=== PATIENT | female | born 1950 | race Caucasian/White ===

== ENCOUNTER 2016-10-04 20:30 | Emergency (ER) | payer MEDICARE, OTHER ==
[2016-10-04] MEDS ORDERED: Nitroglycerin 0.4 MG Tab.SL SL ONE (20:49)
[2016-10-04] MEDS ORDERED: Pantoprazole 40 MG Vial IVPUSH ONE (20:50)
[2016-10-04] MEDS ORDERED: Ondansetron 4 MG/2 ML SDV IVPUSH ONE (20:50)
[2016-10-04] MEDS ORDERED: Morphine 2 MG/ML Syringe IVPUSH ONE (20:50)
[2016-10-04] MEDS ORDERED: Famotidine 20 MG/2 ML SDV IVPUSH ONE (20:51)
[2016-10-04] MEDS ORDERED: Sodium Chloride 0.9% 1,000 ML IV SCH (21:00)
--- NOTE | 2016-10-04 21:15 | EDM.PDOC ---
ED HPI GENERAL MEDICAL PROBLEM - General Chief Complaint: Chest Pain Stated Complaint: Chest Pain Time Seen by Provider: 10/04/16 20:36 Source of Information: Reports: Patient, EMS, EMS Notes Reviewed, Family, RN, RN Notes Reviewed History Limitations: Reports: No Limitations - History of Present Illness INITIAL COMMENTS - FREE TEXT/NARRATIVE: Patient is brought to the emergency room at [facility] via EMS. The patient called the ambulance because she started having substernal chest pain. The patient states that she was sitting outside on her deck smoking a cigarette when she started feeling the chest pain. No previous cardiac history. The patient states she feels short of breath. The patient complains of a headache. The patient denies any back pain. The patient states that her pain does feel like indigestion. The patient denies any nausea or vomiting. The patient states she did break out in a sweat when the chest pain started. The patient denies any focal neurological deficits. Onset: Today - Related Data Allergies Allergy/AdvReac Type Severity Reaction Status Date / Time diclofenac Allergy Edema Verified 09/20/15 06:57 Kkilyym-Iiy-Ygr Reductase Allergy Muscle Verified 09/20/15 06:57 Inhibitor Aches Home Meds: Home Meds Esomeprazole [NexIUM] 40 mg PO BID 04/30/15 [History] Albuterol Sulfate [Proair Hfa] 2 puff INH ASDIRECTED PRN 09/12/15 [History] Albuterol/Ipratropium [DuoNeb 3.0-0.5 MG/3 ML] 3 ml NEB QID PRN 09/12/15 [ History] Aspirin [Halfprin] 81 mg PO BRK 09/12/15 [History] Baclofen 5 - 10 mg PO TID 09/12/15 [History] Ezetimibe [Zetia] 10 mg PO DAILY 09/12/15 [History] Lisinopril 20 mg PO DAILY 09/12/15 [History] Non-Formulary Medication [NF Drug] 0 each .XX ASDIRECTED 09/12/15 [History] Potassium Chloride [Klor-Con M20] 20 meq PO DAILY 09/12/15 [History] Pramipexole [Mirapex] 1 mg PO BEDTIME 09/12/15 [History] Varenicline Tartrate [Chantix] 1 mg PO BID 09/12/15 [History] Varenicline [Chantix] 0.5 mg PO ASDIRECTED 09/12/15 [History] Zaleplon [Sonata] 10 mg PO BEDTIME PRN 09/12/15 [History] Past Medical History Cardiovascular History: Reports: Blood Clots/VTE/DVT, High Cholesterol, Hypertension Other Cardiovascular History: PERIPHERAL EDEMA Respiratory History: Reports: COPD, Sleep Apnea Other Respiratory History: SLEEP-RELATED HYPOVENTILATION Gastrointestinal History: Reports: GERD Genitourinary History: Reports: Urinary Incontinence Other Genitourinary History: Chronic stage 3 kidney disease Musculoskeletal History: Reports: Arthritis, Back Pain, Chronic Other Musculoskeletal History: RIGHT SHOULDER PAIN. ROTATOR CUFF TEAR. LATERAL EPICONDYLITIS OF LEFT ELBOW. LUMBAR DEGENERATIVE DISC DISEASE. GREATER TROCHANTERIC BURSITIS OF RIGHT HIP. ACUTE PAIN OF LEFT SHOULDER. LUMBAR RADICULOPATHY Other Neuro History: RESTLESS LEG SYNDROME Psychiatric History: Reports: Depression Other Psychiatric History: INSOMNIA, PSYCHOPHYSIOLOGICAL Endocrine/Metabolic History: Reports: Diabetes, Type II Other Hematologic History: LEUKOCYTOSIS Immunologic History: Reports: None Oncologic (Cancer) History: Reports: None Dermatologic History: Reports: None - Past Surgical History Musculoskeletal Surgical History: Reports: Carpal Tunnel Social & Family History - Tobacco Use Smoking Status *Q: Current Every Day Smoker Years of Tobacco use: 40 Packs/Tins Daily: 1 - Alcohol Use Days Per Week of Alcohol Use: 0 Number of Drinks Per Day: 0 Total Drinks Per Week: 0 - Recreational Drug Use Recreational Drug Use: No Drug Use in Last 12 Months: No ED ROS GENERAL - Review of Systems Review Of Systems: See Below Constitutional: Reports: No Symptoms. Denies: Fever, Chills, Weakness Respiratory: Reports: Shortness of Breath. Denies: Cough, Sputum Cardiovascular: Reports: Chest Pain, Dyspnea on Exertion, Lightheadedness. Denies: Palpitations GI/Abdominal: Denies: Abdominal Pain, Nausea, Vomiting Musculoskeletal: Denies: Back Pain Skin: Reports: No Symptoms Neurological: Reports: Headache. Denies: Dizziness, Numbness, Paresthesia, Tingling ED EXAM, GENERAL - Physical Exam Exam: See Below Exam Limited By: No Limitations General Appearance: Alert, Anxious Respiratory/Chest: No Respiratory Distress, Lungs Clear, Decreased Breath Sounds Cardiovascular: Normal Peripheral Pulses, Regular Rate, Rhythm, No Murmur Peripheral Pulses: 2+: Radial (L), Radial (R) GI/Abdominal: Normal Bowel Sounds, Soft, Non-Tender Back Exam: Normal Inspection Neurological: Alert, Oriented Skin Exam: Warm, Dry, Intact, Normal Color, No Rash EKG INTERPRETATION EKG Date: 10/04/16 Time: 20:36 Rhythm: NSR Rate (beats/min): 92 [place]: normal P-wave: present QRS: normal ST-T: other QT: normal KS/PQ Interval: 0.18 Comparison: NA - no prior EKG EKG Interpretation Comments: 1. Sinus Rhythm 2. Nonspecific ST & T-wave abnormality EKG #2 10/04/2016 21:57 1. Sinus Bradycardia with frequent supraventricular premature complexes Course - Vital Signs Last Recorded V/S: Last Vital Signs Temp Pulse Resp BP 189/71 H 10/04/16 20:56 Pulse Ox - Orders/Labs/Meds Orders: Active Orders 24 hr Category Date Time Status EKG 12 Lead [EKG Documentation Completion] [RC] STAT Care 10/04/16 20:48 Active EKG 12 Lead [EKG Documentation Completion] [RC] STAT Care 10/04/16 21:30 Active Chest 1V Frontal [CR] Stat Exams 10/04/16 20:47 Taken Sodium Chloride 0.9% [Normal Saline] 1,000 ml Med 10/04/16 21:00 Active IV ASDIRECTED Medication Orders Sodium Chloride (Normal Saline) 1,000 mls @ 999 mls/hr IV ASDIRECTED JEAN MARIE Last Admin: 10/04/16 21:05 Dose: 999 mls/hr Labs: Laboratory Tests 10/04/16 10/04/16 10/04/16 Range/Units 21:20 21:20 21:28 WBC 10.4 H (4.0-10.0) x10^3/uL RBC 5.36 (4.00-5.50) x10^6/uL Hgb 16.0 (12.0-16.0) g/dL Hct 47.4 H (33.0-47.0) % MCV 88.4 (78.0-93.0) fL MCH 29.9 (26.0-32.0) pg MCHC 33.8 (32.0-36.0) g/dL RDW Coeff of Rodo 13.1 (10.0-15.0) % Plt Count 213 (130-400) x10^3/uL Neut % (Auto) 66.3 (50.0-80.0) % Lymph % (Auto) 25.5 (25.0-50.0) % [place] % (Auto) 7.2 (2.0-11.0) % Eos % (Auto) 0.7 (0.0-4.0) % Baso % (Auto) 0.3 (0.2-1.2) % Sodium 145 (136-145) mmol/L Potassium 3.2 L (3.5-5.1) mmol/L Chloride 108 H (98-107) mmol/L Carbon Dioxide 26 (21-32) mmol/L BUN 8 (7-18) mg/dL Creatinine 0.9 (0.55-1.02) mg/dL Est Cr Clr Drug Dosing TNP Estimated GFR (MDRD) > 60 Glucose 89 (74-106) mg/dL Calcium 8.3 L (8.5-10.1) mg/dL Corrected Calcium 8.62 (8.5-10.1) mg/dL Phosphorus 3.8 (2.6-4.7) mg/dL Magnesium 1.9 (1.8-2.4) mg/dL Total Bilirubin 0.5 (0.2-1.0) mg/dL AST 21 (15-37) U/L ALT 24 (14-59) U/L Alkaline Phosphatase 122 H (46-116) U/L Creatine Kinase 106 (26-192) U/L Creatine Kinase Index 3.4 (0.0-4.0) % CK-MB (CK-2) 3.6 (0.0-3.6) ng/mL POC Troponin I 0.00 (0.00-0.08) ng/mL Total Protein 7.0 (6.4-8.2) g/dL Albumin 3.6 (3.4-5.0) g/dL Globulin 3.4 Albumin/Globulin Ratio 1.06 Urine Color (YELLOW) Urine Appearance (CLEAR) Urine pH (5.0-8.0) Ur Specific [place] Urine Protein (NEGATIVE) mg/dL Urine Glucose (UA) (NEGATIVE) mg/dL Urine Ketones (NEGATIVE) mg/dL Urine Occult Blood (NEGATIVE) Urine Nitrite (NEGATIVE) Urine Bilirubin (NEGATIVE) Urine Urobilinogen (0.2) EU/dL Ur Leukocyte Esterase (NEGATIVE) Urine RBC (NOT SEEN) /HPF Urine WBC (NOT SEEN) /HPF Ur Squamous Epith Cells (NEGATIVE) /HPF Urine Bacteria (NEGATIVE) /HPF Urine Mucus (NEGATIVE) /LPF 10/04/16 Range/Units 21:30 WBC (4.0-10.0) x10^3/uL RBC (4.00-5.50) x10^6/uL Hgb (12.0-16.0) g/dL Hct (33.0-47.0) % MCV (78.0-93.0) fL MCH (26.0-32.0) pg MCHC (32.0-36.0) g/dL RDW Coeff of Rodo (10.0-15.0) % Plt Count (130-400) x10^3/uL Neut % (Auto) (50.0-80.0) % Lymph % (Auto) (25.0-50.0) % [place] % (Auto) (2.0-11.0) % Eos % (Auto) (0.0-4.0) % Baso % (Auto) (0.2-1.2) % Sodium (136-145) mmol/L Potassium (3.5-5.1) mmol/L Chloride (98-107) mmol/L Carbon Dioxide (21-32) mmol/L BUN (7-18) mg/dL Creatinine (0.55-1.02) mg/dL Est Cr Clr Drug Dosing Estimated GFR (MDRD) Glucose (74-106) mg/dL Calcium (8.5-10.1) mg/dL Corrected Calcium (8.5-10.1) mg/dL Phosphorus (2.6-4.7) mg/dL Magnesium (1.8-2.4) mg/dL Total Bilirubin (0.2-1.0) mg/dL AST (15-37) U/L ALT (14-59) U/L Alkaline Phosphatase (46-116) U/L Creatine Kinase (26-192) U/L Creatine Kinase Index (0.0-4.0) % CK-MB (CK-2) (0.0-3.6) ng/mL POC Troponin I (0.00-0.08) ng/mL Total Protein (6.4-8.2) g/dL Albumin (3.4-5.0) g/dL Globulin Albumin/Globulin Ratio Urine Color Yellow (YELLOW) Urine Appearance Clear (CLEAR) Urine pH 5.5 (5.0-8.0) Ur Specific [place] <=1.005 Urine Protein Negative (NEGATIVE) mg/dL Urine Glucose (UA) Negative (NEGATIVE) mg/dL Urine Ketones Negative (NEGATIVE) mg/dL Urine Occult Blood Negative (NEGATIVE) Urine Nitrite Negative (NEGATIVE) Urine Bilirubin Negative (NEGATIVE) Urine Urobilinogen 0.2 (0.2) EU/dL Ur Leukocyte Esterase Negative (NEGATIVE) Urine RBC 0-5 (NOT SEEN) /HPF Urine WBC 0-5 (NOT SEEN) /HPF Ur Squamous Epith Cells Rare (NEGATIVE) /HPF Urine Bacteria Rare (NEGATIVE) /HPF Urine Mucus Not seen (NEGATIVE) /LPF Meds: Medications Generic Name Dose Route Start Last Admin Trade Name Freq PRN Reason Stop Dose Admin Sodium Chloride 1,000 mls @ 999 mls/hr 10/04/16 21:00 10/04/16 21:05 Normal Saline IV 999 mls/hr ASDIRECTED JEAN MARIE Administration Discontinued Medications Generic Name Dose Route Start Last Admin Trade Name Freq PRN Reason Stop Dose Admin Al Hydroxide/Mg Hydroxide 30 ml 10/04/16 21:53 10/04/16 21:59 Gi Cocktail PO 10/04/16 21:54 30 ml ONETIME ONE Administration Al Hydroxide/Mg Hydroxide 10 0 ml 10/04/16 21:34 ml/ Lidocaine HCl 10 ml/ PO 10/04/16 21:35 Promethazine HCl 12.5 mg ONETIME ONE Famotidine 20 mg 10/04/16 20:51 10/04/16 21:48 Pepcid IVPUSH 10/04/16 20:52 20 mg ONETIME ONE Administration Morphine Sulfate 1 mg 10/04/16 20:50 10/04/16 21:31 Morphine IVPUSH 10/04/16 20:51 1 mg ONETIME ONE Administration Nitroglycerin 0.4 mg 10/04/16 20:49 10/04/16 20:56 Nitrostat SL 10/04/16 20:50 0.4 mg ONETIME ONE Administration Ondansetron HCl 4 mg 10/04/16 20:50 10/04/16 21:05 Zofran IVPUSH 10/04/16 20:51 4 mg ONETIME ONE Administration Pantoprazole Sodium 40 mg 10/04/16 20:50 10/04/16 21:07 Protonix Iv IVPUSH 10/04/16 20:51 40 mg ONETIME ONE Administration - Radiology Interpretation Free Text/Narrative:: CXR: No acute process - see scanned report in EMR Departure - Departure Time of Disposition: 22:32 Disposition: DC/Tfer to Acute Hospital 02 Reason for Transfer *Q: Other Condition: fair Clinical Impression: Acute coronary syndrome Chest pain Qualifiers: Chest pain type: unspecified Qualified Code(s): R07.9 - Chest pain, unspecified Forms: Interfacility Transfer [facility] ED Communication - ED Communication Date/Time Date: 10/04/16 Time Called: 22:21 - Discussed Case With (1) Discussed Case With (1): Admitting Provider (Dr. Marquis, Hospitalist [facility]) - Conversation Summary Admitting Provider Agreed to Patient's Admission: Yes Patient Aware of Amendments fo Care Plan: Yes Summary Comment: Patient will be transferred to [facility] for further cardiac work up. Case discussed with Dr. Marquis, admitting provider. - Problem List Review Problem List Initiated/Reviewed/Updated: Yes - My Orders Last 24 Hours: My Active Orders 10/04/16 20:47 Chest 1V Frontal [CR] Stat 10/04/16 20:48 EKG 12 Lead [EKG Documentation Completion] [RC] STAT 10/04/16 21:00 Sodium Chloride 0.9% [Normal Saline] 1,000 ml IV ASDIRECTED 10/04/16 21:30 EKG 12 Lead [EKG Documentation Completion] [RC] STAT - Assessment/Plan Last 24 Hours: My Active Orders 10/04/16 20:47 Chest 1V Frontal [CR] Stat 10/04/16 20:48 EKG 12 Lead [EKG Documentation Completion] [RC] STAT 10/04/16 21:00 Sodium Chloride 0.9% [Normal Saline] 1,000 ml IV ASDIRECTED 10/04/16 21:30 EKG 12 Lead [EKG Documentation Completion] [RC] STAT
[2016-10-04] MEDS ORDERED: Alum Hydroxide/Mag Hydroxide 10 ML, Lidocaine 2% 10 ML, Promethazine 12.5 MG PO ONE ×3 (21:34)
[2016-10-04] MEDS ORDERED: GI Cocktail Oral Solution 30 ML PO ONE (21:53)
[2016-10-04 22:02] LABS: CHLORIDE,CL 108 mmol/L (98-107); SODIUM,NA 145 mmol/L (136-145)
[2016-10-04 23:04] VITALS: BP 143/66
== END 2016-10-04 23:35 | disposition short-term general hospital (02) ==
LOC: VM.ED 20:30
DX: I24.9 Acute ischemic heart disease, unspecified (principal); I12.9 Hypertensive chronic kidney disease with stage 1 through stage 4 chronic kidney disease, or unspecified chronic kidney disease; E11.22 Type 2 diabetes mellitus with diabetic chronic kidney disease; N18.3 Chronic kidney disease, stage 3 (moderate); M19.90 Unspecified osteoarthritis, unspecified site; F32.9 Major depressive disorder, single episode, unspecified; E78.00 Pure hypercholesterolemia, unspecified; J44.9 Chronic obstructive pulmonary disease, unspecified; F17.210 Nicotine dependence, cigarettes, uncomplicated; K21.9 Gastro-esophageal reflux disease without esophagitis; Z88.8 Allergy status to other drugs, medicaments and biological substances; Z79.82 Long term (current) use of aspirin; Z79.899 Other long term (current) drug therapy
CPT/HCPCS: 36415; 71010; 80053; 81001; 82550; 82553; 83735; 84100; 84484; 85025; 93005; 96361; 96374; 96375; 99285; A9270; C9113; J2270; J2405; J7030; 99284-GF; S0028

== ENCOUNTER 2017-11-17 23:10 | Emergency (ER) | payer MEDICARE, OTHER ==
[2017-11-17 23:30] VITALS: BP 170/57
--- NOTE | 2017-11-17 23:40 | EDM.PDOC ---
ED HPI GENERAL MEDICAL PROBLEM - General Chief Complaint: General Stated Complaint: Bleeding from incisional site, left hip Time Seen by Provider: 11/17/17 23:28 Source of Information: Reports: Patient, RN, RN Notes Reviewed History Limitations: Reports: No Limitations - History of Present Illness INITIAL COMMENTS - FREE TEXT/NARRATIVE: Patient presents to the ED at [facility] requesting a dressing changes. Patient underwent a left hip procedure today and noticed there was drainage from the dressing. Patient underwent a bursal sac removal by Dr. Wiley today. Onset: Today - Related Data Allergies Allergy/AdvReac Type Severity Reaction Status Date / Time diclofenac Allergy Edema Verified 11/17/17 23:17 Pjqbvba-Uza-Kds Reductase Allergy Muscle Verified 11/17/17 23:17 Inhibitor Aches Home Meds: Home Meds Esomeprazole [NexIUM] 40 mg PO BID 04/30/15 [History] Albuterol Sulfate [Proair Hfa] 2 puff INH ASDIRECTED PRN 09/12/15 [History] Albuterol/Ipratropium [DuoNeb 3.0-0.5 MG/3 ML] 3 ml NEB QID PRN 09/12/15 [ History] Aspirin [Halfprin] 81 mg PO BRK 09/12/15 [History] Baclofen 5 - 10 mg PO TID 09/12/15 [History] Ezetimibe [Zetia] 10 mg PO DAILY 09/12/15 [History] Lisinopril 20 mg PO DAILY 09/12/15 [History] Non-Formulary Medication [NF Drug] 0 each .XX ASDIRECTED 09/12/15 [History] Potassium Chloride [Klor-Con M20] 20 meq PO DAILY 09/12/15 [History] Pramipexole [Mirapex] 1 mg PO BEDTIME 09/12/15 [History] Varenicline Tartrate [Chantix] 1 mg PO BID 09/12/15 [History] Varenicline [Chantix] 0.5 mg PO ASDIRECTED 09/12/15 [History] Zaleplon [Sonata] 10 mg PO BEDTIME PRN 09/12/15 [History] Past Medical History Cardiovascular History: Reports: Blood Clots/VTE/DVT, High Cholesterol, Hypertension Other Cardiovascular History: PERIPHERAL EDEMA Respiratory History: Reports: COPD, Sleep Apnea Other Respiratory History: SLEEP-RELATED HYPOVENTILATION Gastrointestinal History: Reports: GERD Genitourinary History: Reports: Urinary Incontinence Other Genitourinary History: Chronic stage 3 kidney disease Musculoskeletal History: Reports: Arthritis, Back Pain, Chronic Other Musculoskeletal History: RIGHT SHOULDER PAIN. ROTATOR CUFF TEAR. LATERAL EPICONDYLITIS OF LEFT ELBOW. LUMBAR DEGENERATIVE DISC DISEASE. GREATER TROCHANTERIC BURSITIS OF RIGHT HIP. ACUTE PAIN OF LEFT SHOULDER. LUMBAR RADICULOPATHY Other Neuro History: RESTLESS LEG SYNDROME Psychiatric History: Reports: Depression Other Psychiatric History: INSOMNIA, PSYCHOPHYSIOLOGICAL Endocrine/Metabolic History: Reports: Diabetes, Type II Other Hematologic History: LEUKOCYTOSIS Immunologic History: Reports: None Oncologic (Cancer) History: Reports: None Dermatologic History: Reports: None - Past Surgical History Musculoskeletal Surgical History: Reports: Carpal Tunnel Social & Family History - Caffeine Use Caffeine Use: Reports: Soda ED ROS GENERAL - Review of Systems Review Of Systems: See Below Constitutional: Denies: Fever, Chills, Weakness Respiratory: Denies: Shortness of Breath, Cough Cardiovascular: Denies: Chest Pain, Palpitations GI/Abdominal: Denies: Abdominal Pain, Nausea, Vomiting Skin: Reports: Wound (left hip incision) Neurological: Reports: No Symptoms ED EXAM, GENERAL - Physical Exam Exam: See Below Exam Limited By: No Limitations General Appearance: Alert, No Apparent Distress Respiratory/Chest: No Respiratory Distress, Lungs Clear, Normal Breath Sounds Cardiovascular: Normal Peripheral Pulses, Regular Rate, Rhythm GI/Abdominal: Normal Bowel Sounds, Soft, Non-Tender Neurological: Alert, Oriented Skin Exam: Warm, Dry, Normal Color, Wound/Incision (8cm vertical incision left lateral hip; no bleeding; 13 adali intact; no evidence of infection) ED GENERAL MEDICAL PROCEDURES - Additional/Other Procedure(s) Other (Free Text) Procedure(s): Dressing change per nursing staff Course - Orders/Labs/Meds Orders: Active Orders 24 hr Category Date Time Status Dressing Change [Wound Care] [RC] ONETIME Care 11/17/17 23:28 Ordered Departure - Departure Time of Disposition: 23:42 Disposition: Home, Self-Care 01 Condition: Good Clinical Impression: Status post hip surgery, Dressing change or removal, surgical wound Bursitis of left hip Qualifiers: Hip bursitis location: trochanteric bursitis Qualified Code(s): M70.62 - Trochanteric bursitis, left hip - Discharge Information Instructions: Incision Care, Adult, How to Change Your Dressing Referrals: Vandana Maciel PA-C [Ordering Only Provider] - Additional Instructions: 1. Stay well hydrated and rest 2. Return to clinic as needed for issues with incision or dressing 3. Call us with any questions or concerns - Problem List Review Problem List Initiated/Reviewed/Updated: Yes - My Orders Last 24 Hours: My Active Orders 11/17/17 23:28 Dressing Change [Wound Care] [RC] ONETIME - Assessment/Plan Last 24 Hours: My Active Orders 11/17/17 23:28 Dressing Change [Wound Care] [RC] ONETIME
== END 2017-11-17 23:50 | disposition home or self-care (01) ==
LOC: VM.ED 23:10
DX: M70.62 Trochanteric bursitis, left hip (principal); N18.3 Chronic kidney disease, stage 3 (moderate); I12.9 Hypertensive chronic kidney disease with stage 1 through stage 4 chronic kidney disease, or unspecified chronic kidney disease; E11.22 Type 2 diabetes mellitus with diabetic chronic kidney disease; Z98.890 Other specified postprocedural states; Z88.8 Allergy status to other drugs, medicaments and biological substances; Z79.899 Other long term (current) drug therapy
CPT/HCPCS: 99283; 99283-GF

== ENCOUNTER 2017-11-22 22:09 | Emergency (ER) | payer MEDICARE, OTHER ==
[2017-11-22] MEDS ORDERED: Take Home: Acetaminophen/HYDROcodone 325-5 MG, 5 Tab Pack PO ONE (22:32)
[2017-11-22 22:59] VITALS: BP 203/58
--- NOTE | 2017-11-22 23:29 | EDM.PDOC ---
ED HPI GENERAL MEDICAL PROBLEM - General Chief Complaint: General Stated Complaint: Increased swelling to left leg, post surgical Time Seen by Provider: 11/22/17 22:10 Source of Information: Reports: Patient History Limitations: Reports: No Limitations - History of Present Illness INITIAL COMMENTS - FREE TEXT/NARRATIVE: Pt. presents to ER with L lower extremity swelling. States that she had hip surgery last Wednesday. She is concerned because of the ecchymosis and edema to the leg. She is concerned that she has a surgical site infection. She denies any fever or chills. No chest pain or shortness of breath. Denies any weakness. No calf pain. Location: Reports: Lower Extremity, Left left hip Pain Score (Numeric/FACES): 10 - Related Data Allergies Allergy/AdvReac Type Severity Reaction Status Date / Time diclofenac Allergy Edema Verified 11/22/17 22:44 Pdsshfu-Zvj-Bjm Reductase Allergy Muscle Verified 11/22/17 22:44 Inhibitor Aches Home Meds: Home Meds Esomeprazole [NexIUM] 40 mg PO BID 04/30/15 [History] Albuterol Sulfate [Proair Hfa] 2 puff INH ASDIRECTED PRN 09/12/15 [History] Albuterol/Ipratropium [DuoNeb 3.0-0.5 MG/3 ML] 3 ml NEB QID PRN 09/12/15 [ History] Aspirin [Halfprin] 81 mg PO BRK 09/12/15 [History] Baclofen 5 - 10 mg PO TID 09/12/15 [History] Ezetimibe [Zetia] 10 mg PO DAILY 09/12/15 [History] Lisinopril 20 mg PO DAILY 09/12/15 [History] Non-Formulary Medication [NF Drug] 0 each .XX ASDIRECTED 09/12/15 [History] Potassium Chloride [Klor-Con M20] 20 meq PO DAILY 09/12/15 [History] Pramipexole [Mirapex] 1 mg PO BEDTIME 09/12/15 [History] Varenicline Tartrate [Chantix] 1 mg PO BID 09/12/15 [History] Varenicline [Chantix] 0.5 mg PO ASDIRECTED 09/12/15 [History] Zaleplon [Sonata] 10 mg PO BEDTIME PRN 09/12/15 [History] Past Medical History Cardiovascular History: Reports: Blood Clots/VTE/DVT, High Cholesterol, Hypertension Other Cardiovascular History: PERIPHERAL EDEMA Respiratory History: Reports: COPD, Sleep Apnea Other Respiratory History: SLEEP-RELATED HYPOVENTILATION Gastrointestinal History: Reports: GERD Genitourinary History: Reports: Urinary Incontinence Other Genitourinary History: Chronic stage 3 kidney disease Musculoskeletal History: Reports: Arthritis, Back Pain, Chronic Other Musculoskeletal History: RIGHT SHOULDER PAIN. ROTATOR CUFF TEAR. LATERAL EPICONDYLITIS OF LEFT ELBOW. LUMBAR DEGENERATIVE DISC DISEASE. GREATER TROCHANTERIC BURSITIS OF RIGHT HIP. ACUTE PAIN OF LEFT SHOULDER. LUMBAR RADICULOPATHY Other Neuro History: RESTLESS LEG SYNDROME Psychiatric History: Reports: Depression Other Psychiatric History: INSOMNIA, PSYCHOPHYSIOLOGICAL Endocrine/Metabolic History: Reports: Diabetes, Type II Other Hematologic History: LEUKOCYTOSIS Immunologic History: Reports: None Oncologic (Cancer) History: Reports: None Dermatologic History: Reports: None - Past Surgical History HEENT Surgical History: Reports: Tonsillectomy Musculoskeletal Surgical History: Reports: Carpal Tunnel Social & Family History - Caffeine Use Caffeine Use: Reports: Soda ED ROS GENERAL - Review of Systems Review Of Systems: See Below Respiratory: Reports: No Symptoms Cardiovascular: Reports: No Symptoms Musculoskeletal: Reports: Leg Pain Skin: Reports: No Symptoms Neurological: Reports: No Symptoms ED EXAM, GENERAL - Physical Exam Exam: See Below Exam Limited By: No Limitations General Appearance: Alert, WD/WN, No Apparent Distress Respiratory/Chest: No Respiratory Distress, Lungs Clear, Normal Breath Sounds, No Accessory Muscle Use, Chest Non-Tender Cardiovascular: Normal Peripheral Pulses, Regular Rate, Rhythm, No Edema, No Gallop, No JVD, No Murmur, No Rub Peripheral Pulses: 4+: Posterior Tibial (L), Posterior Tibial (R), Dorsalis Pedis (L), Dorsalis Pedis (R) Extremities: Normal Inspection, Normal Range of Motion, Non-Tender, Normal Capillary Refill, Other (ecchymosis to L thigh area) Course - Vital Signs Last Recorded V/S: Last Vital Signs Temp 37.3 C 11/22/17 22:10 Pulse 65 11/22/17 22:10 Resp 16 11/22/17 22:10 BP 203/58 H 11/22/17 22:10 Pulse Ox 96 11/22/17 22:10 - Orders/Labs/Meds Meds: Medications Discontinued Medications Generic Name Dose Route Start Last Admin Trade Name Cuong PRN Reason Stop Dose Admin Hydrocodone Bitart/Acetaminophen 1 packet 11/22/17 22:32 11/22/17 22:47 Take Home: Acetam/Hydrocodon 325-5 Mg, 5 Pack PO 11/22/17 22:33 1 packet ONETIME ONE Administration Departure - Departure Time of Disposition: 23:00 Disposition: Home, Self-Care 01 Clinical Impression: Hematoma - Discharge Information Instructions: Hematoma Additional Instructions: [place] 5/325mg every 6 hours as needed for pain. Follow-up with surgeon tomorrow for refill. Elevate leg. This will help with swelling.
== END 2017-11-22 22:57 | disposition home or self-care (01) ==
LOC: VM.ED 22:09
DX: S70.12XA Contusion of left thigh, initial encounter (principal); E78.00 Pure hypercholesterolemia, unspecified; I10 Essential (primary) hypertension; J44.9 Chronic obstructive pulmonary disease, unspecified; Z88.8 Allergy status to other drugs, medicaments and biological substances; Z79.899 Other long term (current) drug therapy; Z79.82 Long term (current) use of aspirin; X58.XXXA Exposure to other specified factors, initial encounter; Z98.890 Other specified postprocedural states
CPT/HCPCS: 99282; A9270

== ENCOUNTER 2018-09-09 07:45 | Day surgery (SDC) | payer MEDICARE, OTHER ==
[~2018-09-09 07:45] MED LIST: Lactated Ringers 1,000 ML IV SCH
[2018-09-09] MEDS ORDERED: fentaNYL 100 MCG/2 ML SDV ONE (10:23)
[2018-09-09] MEDS ORDERED: Propofol 200 MG/20 ML SDV ONE (10:23)
--- NOTE | 2018-09-09 11:26 | OR ---
PREOPERATIVE DIAGNOSIS: History of polyps. POSTOPERATIVE DIAGNOSES: 1. Colonic polyps x3. 2. Sigmoid diverticulosis. PROCEDURE PROPOSED: Total flexible colonoscopy. PROCEDURE DONE: Total flexible colonoscopy with cold biopsy forceps polypectomy x3. INDICATION: This is a 68-year-old female who comes in for a recommended 3-year follow up due to the fact that she had 5 polyps found on her last exam. She denies any symptomatology. TECHNIQUE: The patient was brought to the endoscopy suite, placed in left lateral decubitus position. She was sedated per [employer] with propofol. The flexible video colonoscope was then passed transanally and under visualization advanced to the cecum. Examination revealed normal ascending, transverse, descending colon. However, in the sigmoid region at about 40 cm, she had a couple of polyps, both removed with cold biopsy forceps technique and another polyp at 30 cm again removed with cold biopsy forceps technique. All polyps were submitted for pathologic examination. She was also noted to have some sigmoid diverticulosis and the rectum was normal. The scope was then withdrawn. The patient tolerated the procedure well. FINAL IMPRESSION: 1. Colonic polyps x3. 2. Sigmoid diverticulosis. 3. History of prior polyps. PLAN: I feel that she could wait 5 years at this point before she needs a repeat colonoscopy and should be evaluated every 5 years hereafter. SCM: 09/09/2018 11:03:49 MODL: 09/09/2018 11:18:40 /[id number]
[2018-09-09 11:31] VITALS: BP 185/64
== END 2018-09-09 11:57 | disposition home or self-care (01) ==
LOC: VM.SDS 07:45
PROVIDERS: ATTEND Surgery
DX: Z12.11 Encounter for screening for malignant neoplasm of colon (principal); D12.5 Benign neoplasm of sigmoid colon; K57.30 Diverticulosis of large intestine without perforation or abscess without bleeding; K21.9 Gastro-esophageal reflux disease without esophagitis; I10 Essential (primary) hypertension; J43.9 Emphysema, unspecified; E78.1 Pure hyperglyceridemia; F17.210 Nicotine dependence, cigarettes, uncomplicated; G47.33 Obstructive sleep apnea (adult) (pediatric); G25.81 Restless legs syndrome; G89.29 Other chronic pain; M54.40 Lumbago with sciatica, unspecified side; M81.0 Age-related osteoporosis without current pathological fracture; R91.1 Solitary pulmonary nodule; Z88.8 Allergy status to other drugs, medicaments and biological substances; Z96.89 Presence of other specified functional implants; Z86.711 Personal history of pulmonary embolism; Z86.010 Personal history of colon polyps; Z79.82 Long term (current) use of aspirin; Z79.899 Other long term (current) drug therapy
CPT/HCPCS: 00811; J2704; J3010; J7120

== ENCOUNTER 2020-05-17 13:52 | Emergency (ER) | payer MEDICARE, OTHER ==
[2020-05-17] MEDS ORDERED: ceFAZolin 1 GM Vial IM ONE (14:12)
[2020-05-17] MEDS ORDERED: Take Home: Sulfamethoxazole/Trimethoprim 800-160 MG Tab, 2 Tab Pack PO ONE (14:13)
[2020-05-17 14:17] VITALS: BP 193/80; PULSE 79
--- NOTE | 2020-05-17 14:39 | EDM.PDOC ---
ED HPI GENERAL MEDICAL PROBLEM - General Chief Complaint: Lower Extremity Injury/Pain Time Seen by Provider: 05/17/20 14:00 Source of Information: Reports: Patient History Limitations: Reports: No Limitations - History of Present Illness INITIAL COMMENTS - FREE TEXT/NARRATIVE: Pt. presents to ER with complaints of erythema/edema to L foot/lower leg. Pt. states that the redness has been present for approx. 3 weeks. She is concerned as the problem is not improving with use of ARELIS hose. Denies any fever or chills. No diaphoresis. She denies any chest pain, shortness of breath. Denies any posterior lower leg discomfort. Primary are of discomfort is the patient's L foot/ankle. Onset: Today Location: Reports: Lower Extremity, Right Quality: Reports: Burning Severity: Severe Improves with: Reports: Rest Worsens with: Reports: Movement Associated Symptoms: Denies: Confusion, Chest Pain, Cough, Diaphoresis, Fever/Chills, Headaches, Loss of Appetite, Malaise, Nausea/Vomiting, Rash, Seizure, Shortness of Breath, Syncope, Weakness Left Lower Leg Pain Score (Numeric/FACES): 9 - Related Data Allergies Allergy/AdvReac Type Severity Reaction Status Date / Time diclofenac Allergy Edema Verified 05/17/20 14:19 Ouwquco-Lsv-Wyi Reductase Allergy Muscle Verified 05/17/20 14:19 Inhibitor Aches Home Meds: Home Meds Esomeprazole [NexIUM] 40 mg PO BID 04/30/15 [History] Albuterol Sulfate [Proair Hfa] 2 puff INH ASDIRECTED PRN 09/12/15 [History] Albuterol/Ipratropium [DuoNeb 3.0-0.5 MG/3 ML] 3 ml NEB QID PRN 09/12/15 [History] Aspirin [Halfprin] 81 mg PO BRK 09/12/15 [History] Baclofen 5 - 10 mg PO TID 09/12/15 [History] Ezetimibe [Zetia] 10 mg PO DAILY 09/12/15 [History] Lisinopril 20 mg PO DAILY 09/12/15 [History] Non-Formulary Medication [NF Drug] 0 each .XX ASDIRECTED 09/12/15 [History] Potassium Chloride [Klor-Con M20] 20 meq PO DAILY 09/12/15 [History] Pramipexole [Mirapex] 1 mg PO BEDTIME 09/12/15 [History] Varenicline Tartrate [Chantix] 1 mg PO BID 09/12/15 [History] Varenicline [Chantix] 0.5 mg PO ASDIRECTED 09/12/15 [History] Zaleplon [Sonata] 10 mg PO BEDTIME PRN 09/12/15 [History] Fluticasone/Vilanterol [Breo Ellipta 200-25 Mcg INH] 1 inh INH DAILY 09/08/18 [History] Pramipexole [Mirapex] 0.5 mg PO BEDTIME 09/08/18 [History] Zaleplon 1 tab PO DAILY 09/08/18 [History] amLODIPine Besylate [Amlodipine Besylate] 1 tab PO DAILY 09/08/18 [History] buPROPion [buPROPion XL] 150 mg PO DAILY 09/08/18 [History] hydroCHLOROthiazide [Hydrochlorothiazide] 1 tab PO DAILY 09/08/18 [History] Past Medical History Cardiovascular History: Reports: Blood Clots/VTE/DVT, High Cholesterol, Hypertension Other Cardiovascular History: PERIPHERAL EDEMA Respiratory History: Reports: COPD, Sleep Apnea Other Respiratory History: SLEEP-RELATED HYPOVENTILATION Gastrointestinal History: Reports: GERD Genitourinary History: Reports: Urinary Incontinence Other Genitourinary History: Chronic stage 3 kidney disease [employer] History: Reports: Musculoskeletal History: Reports: Arthritis, Back Pain, Chronic Other Musculoskeletal History: RIGHT SHOULDER PAIN. ROTATOR CUFF TEAR. LATERAL EPICONDYLITIS OF LEFT ELBOW. LUMBAR DEGENERATIVE DISC DISEASE. GREATER TROCHANTERIC BURSITIS OF RIGHT HIP. ACUTE PAIN OF LEFT SHOULDER. LUMBAR RA DICULOPATHY Other Neuro History: RESTLESS LEG SYNDROME Psychiatric History: Reports: Depression Other Psychiatric History: INSOMNIA, PSYCHOPHYSIOLOGICAL Endocrine/Metabolic History: Reports: Diabetes, Type II Other Hematologic History: LEUKOCYTOSIS Immunologic History: Reports: None Oncologic (Cancer) History: Reports: None Dermatologic History: Reports: None - Past Surgical History HEENT Surgical History: Reports: Tonsillectomy GI Surgical History: Reports: Cholecystectomy, Colonoscopy Other GI Surgeries/Procedures: LAPAROTOMY Female Surgical History: Reports: Hysterectomy Neurological Surgical History: Reports: Spinal Fusion Other Neurological Surgeries/Procedures: NEUROPLASTY AND OR TRANSPOSIITON MEDIAN NERVE AT CARPAL TUNNEL. DEQUEVAINS RELEASE (LEFT 1ST DORSAL COMPARTMENT RELEASE) Musculoskeletal Surgical History: Reports: Carpal Tunnel Other Musculoskeletal Surgeries/Procedures:: Right shoulder arthroscopy. States 12 back surgeries Social & Family History - Tobacco Use Tobacco Use Status *Q: Current Every Day Tobacco User Years of Tobacco use: 52 Packs/Tins Daily: 1 - Caffeine Use Caffeine Use: Reports: Soda Review of Systems - Review of Systems Review Of Systems: See Below Constitutional: Denies: Chills, Diaphoresis, Fever, Weakness Eyes: Reports: No Symptoms Ears: Reports: No Symptoms Nose: Reports: No Symptoms Mouth/Throat: Reports: No Symptoms Respiratory: Reports: No Symptoms Cardiovascular: Reports: No Symptoms GI/Abdominal: Reports: No Symptoms Genitourinary: Reports: No Symptoms Musculoskeletal: Reports: Other (See HPI) Skin: Reports: Other (See HPI) Neurological: Reports: No Symptoms Psychiatric: Reports: No Symptoms ED EXAM, GENERAL - Physical Exam Exam: See Below Exam Limited By: No Limitations General Appearance: Alert, WD/WN, No Apparent Distress Peripheral Pulses: 4+: Posterior Tibial (L), Posterior Tibial (R) Extremities: Other (L anterior foot/ankle are edematous/erythematous. Area is exquisitely tender to palpation. No drainage noted. Charmaine sign is negative. No duskiness to the extremity.) Lymphatic: No Adenopathy Course - Vital Signs Last Recorded V/S: Last Vital Signs Temp 35.9 C L 05/17/20 13:57 Pulse 79 05/17/20 13:57 Resp 20 05/17/20 13:57 BP 193/80 H 05/17/20 13:57 Pulse Ox 98 05/17/20 13:57 - Orders/Labs/Meds Meds: Medications Discontinued Medications Generic Name Dose Route Start Last Admin Trade Name Freq PRN Reason Stop Dose Admin Cefazolin Sodium 1 gm 05/17/20 14:12 05/17/20 14:25 Ancef IM 05/17/20 14:13 1 gm ONETIME ONE Administration Trimethoprim/Sulfamethoxazole 1 packet 05/17/20 14:13 05/17/20 14:25 Take Home: Sulfameth/Trimet 800-160mg, 2 Pack PO 05/17/20 14:14 1 packet ONETIME ONE Administration Departure - Departure Time of Disposition: 14:43 Disposition: Home, Self-Care 01 Clinical Impression: Cellulitis - Discharge Information Instructions: Cellulitis, Adult, Sulfamethoxazole; Trimethoprim, SMX-TMP tablets, Probiotics Referrals: Vandana Maciel PA-C [Primary Care Provider] - Additional Instructions: Bactrim DS 1 twice daily for 10 days Elevate foot as much as possible Recheck in clinic in 10-14 days, sooner if not gradually improving. Sepsis Event Note (ED) - Evaluation Sepsis Screening Result: No Definite Risk - Focused Exam Vital Signs: Vital Signs Temp Pulse Resp BP Pulse Ox 05/17/20 13:57 35.9 C L 79 20 193/80 H 98 - Problem List Review Problem List Initiated/Reviewed/Updated: Yes - Assessment/Plan Plan: Bactrim DS 1 twice daily for 10 days Elevate foot as much as possible Recheck in clinic in 10-14 days, sooner if not gradually improving. Pt. is quite hypertensive. Pt. states that she has not taken her blood pressure medication this AM. Again, she denies any chest pain, shortness of breath, headache, lightheadedness. Advised her to take her medication right away when she gets home. Return to ER if she has any chest pain, shortness of breath, headache, or other worrisome signs/symptoms.
== END 2020-05-17 14:42 | disposition home or self-care (01) ==
LOC: VM.ED 13:52
DX: L03.116 Cellulitis of left lower limb (principal); I12.9 Hypertensive chronic kidney disease with stage 1 through stage 4 chronic kidney disease, or unspecified chronic kidney disease; E11.22 Type 2 diabetes mellitus with diabetic chronic kidney disease; N18.30 Chronic kidney disease, stage 3 unspecified; J44.9 Chronic obstructive pulmonary disease, unspecified; K21.9 Gastro-esophageal reflux disease without esophagitis; M19.90 Unspecified osteoarthritis, unspecified site; F32.9 Major depressive disorder, single episode, unspecified; F17.210 Nicotine dependence, cigarettes, uncomplicated; Z88.8 Allergy status to other drugs, medicaments and biological substances; Z79.82 Long term (current) use of aspirin; Z79.899 Other long term (current) drug therapy
CPT/HCPCS: 96372; 99283; A9270-GY; J0690

== ENCOUNTER 2021-03-21 09:33 | Inpatient (IN) | payer MEDICARE, OTHER ==
--- NOTE | 2021-03-21 10:29 | EDM.PDOC ---
ED HPI GENERAL MEDICAL PROBLEM - General Stated Complaint: HARD TO BREATHE Time Seen by Provider: 03/21/21 09:40 Source of Information: Reports: Patient History Limitations: Reports: No Limitations - History of Present Illness INITIAL COMMENTS - FREE TEXT/NARRATIVE: Patient has a history of breathing problems, on medications and has an inhaler. She states she has been ill with a " cold" for the last 2 weeks. Has not been seen for this and has been home. Is not vaccinated against covid 19. Came in today as her nebs were not working. No abdominal pain, no fevers, productive cough. NO known sick contacts. 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, Home Treatments - Related Data Allergies Allergy/AdvReac Type Severity Reaction Status Date / Time diclofenac Allergy Edema Verified 05/17/20 14:19 [id number] Reductase Allergy Muscle Verified 05/17/20 14:19 Inhibitor Aches [Aujydfy-Zbp-Rpj Reductase Inhibitor] Home Meds: Home Meds Esomeprazole [NexIUM] 40 mg PO BID 04/30/15 [History] Albuterol Sulfate [Proair Hfa] 2 puff INH ASDIRECTED PRN 09/12/15 [History] Albuterol/Ipratropium [DuoNeb 3.0-0.5 MG/3 ML] 3 ml NEB QID PRN 09/12/15 [History] Aspirin [Halfprin] 81 mg PO BRK 09/12/15 [History] Baclofen 5 - 10 mg PO TID 09/12/15 [History] Ezetimibe [Zetia] 10 mg PO DAILY 09/12/15 [History] Lisinopril 20 mg PO DAILY 09/12/15 [History] Non-Formulary Medication [NF Drug] 0 each .XX ASDIRECTED 09/12/15 [History] Potassium Chloride [Klor-Con M20] 20 meq PO DAILY 09/12/15 [History] Pramipexole [Mirapex] 1 mg PO BEDTIME 09/12/15 [History] Varenicline Tartrate [Chantix] 1 mg PO BID 09/12/15 [History] Varenicline [Chantix] 0.5 mg PO ASDIRECTED 09/12/15 [History] Zaleplon [Sonata] 10 mg PO BEDTIME PRN 09/12/15 [History] Fluticasone/Vilanterol [Breo Ellipta 200-25 Mcg INH] 1 inh INH DAILY 09/08/18 [History] Pramipexole [Mirapex] 0.5 mg PO BEDTIME 09/08/18 [History] Zaleplon 1 tab PO DAILY 09/08/18 [History] amLODIPine Besylate [Amlodipine Besylate] 1 tab PO DAILY 09/08/18 [History] buPROPion [buPROPion XL] 150 mg PO DAILY 09/08/18 [History] hydroCHLOROthiazide [Hydrochlorothiazide] 1 tab PO DAILY 09/08/18 [History] Past Medical History Cardiovascular History: Reports: Blood Clots/VTE/DVT, High Cholesterol, Hypertension Other Cardiovascular History: PERIPHERAL EDEMA Respiratory History: Reports: COPD, Sleep Apnea Other Respiratory History: SLEEP-RELATED HYPOVENTILATION Gastrointestinal History: Reports: GERD Genitourinary History: Reports: Urinary Incontinence Other Genitourinary History: Chronic stage 3 kidney disease [employer]SM[employer] WORK[employer] History: Reports: Musculoskeletal History: Reports: Arthritis, Back Pain, Chronic Other Musculoskeletal History: RIGHT SHOULDER PAIN. ROTATOR CUFF TEAR. LATERAL EPICONDYLITIS OF LEFT ELBOW. LUMBAR DEGENERATIVE DISC DISEASE. GREATER TROCHANTERIC BURSITIS OF RIGHT HIP. ACUTE PAIN OF LEFT SHOULDER. LUMBAR RADICULOPATHY Other Neuro History: RESTLESS LEG SYNDROME Psychiatric History: Reports: Depression Other Psychiatric History: INSOMNIA, PSYCHOPHYSIOLOGICAL Endocrine/Metabolic History: Reports: Diabetes, Type II Other Hematologic History: LEUKOCYTOSIS Immunologic History: Reports: None Oncologic (Cancer) History: Reports: None Dermatologic History: Reports: None - Past Surgical History HEENT Surgical History: Reports: Tonsillectomy GI Surgical History: Reports: Cholecystectomy, Colonoscopy Other GI Surgeries/Procedures: LAPAROTOMY Female Surgical History: Reports: Hysterectomy Neurological Surgical History: Reports: Spinal Fusion Other Neurological Surgeries/Procedures: NEUROPLASTY AND OR TRANSPOSIITON MEDIAN NERVE AT CARPAL TUNNEL. DEQUEVAINS RELEASE (LEFT 1ST DORSAL COMPARTMENT RELEASE) Musculoskeletal Surgical History: Reports: Carpal Tunnel Other Musculoskeletal Surgeries/Procedures:: Right shoulder arthroscopy. States 12 back surgeries Social & Family History - Tobacco Use Tobacco Use Status *Q: Current Every Day Tobacco User - Caffeine Use Caffeine Use: Reports: Soda ED ROS GENERAL - Review of Systems Review Of Systems: See Below Constitutional: Reports: Malaise, Weakness, Fatigue. Denies: Fever, Chills, Diaphoresis HEENT: Denies: Rhinitis, Sinus Problem, Throat Pain, Throat Swelling Respiratory: Reports: Shortness of Breath, Wheezing, Cough, Sputum Cardiovascular: Reports: Dyspnea on Exertion, Palpitations. Denies: Edema GI/Abdominal: Denies: Abdominal Pain, Black Stool, Bloody Stool, Diarrhea, Nausea, Vomiting : Denies: Dysuria, Frequency Musculoskeletal: Reports: No Symptoms Skin: Reports: No Symptoms Neurological: Reports: Headache, Weakness ED EXAM, GENERAL - Physical Exam Exam: See Below Exam Limited By: No Limitations General Appearance: Alert, WD/WN, Moderate Distress Eye Exam: Bilateral Eye: EOMI, Normal Inspection, PERRL Ears: Normal External Exam, Normal Canal Nose: Normal Inspection, Normal Mucosa Throat/Mouth: Normal Inspection, Normal Lips, Normal Teeth, Normal Voice Head: Atraumatic Neck: Normal Inspection, Supple Respiratory/Chest: Respiratory Distress, Decreased Breath Sounds, Crackles, Wheezing, Accessory Muscle Use, Prolonged Expiration. No: Stridor Cardiovascular: Regular Rate, Rhythm, No Edema, No Murmur GI/Abdominal: Normal Bowel Sounds, Soft, Non-Tender Back Exam: Normal Inspection, Full Range of Motion. No: CVA Tenderness (L), CVA Tenderness (R) Extremities: Normal Inspection, Normal Range of Motion, No Pedal Edema Neurological: Alert, Oriented Psychiatric: Anxious (due to air hunger) #1 Interpretation EKG Date: 03/21/21 Time: 09:43 Rhythm: NSR Rate (Beats/Min): 62 [place]: Normal P-Wave: Present QRS: Normal (note, e stim artifact.) Course - Vital Signs Last Recorded V/S: Last Vital Signs Temp 35.7 C L 03/21/21 13:30 Pulse 70 03/21/21 13:30 Resp 20 03/21/21 13:30 BP 163/81 H 03/21/21 13:30 Pulse Ox 92 L 03/21/21 13:53 - Orders/Labs/Meds Orders: Active Orders 24 hr Category Date Time Status CULTURE BLOOD [BC] Stat Lab 03/21/21 10:00 Received CULTURE BLOOD [BC] Stat Lab 03/21/21 10:19 Results Blood Culture x2 Reflex Set [OM.PC] Stat Oth 03/21/21 09:41 Ordered Medication Orders Albuterol/Ipratropium (Albuterol/Ipratropium 3.0-0.5 Mg/3 Ml Neb Soln) 3 ml NEB Q4H PRN PRN Reason: dyspnea/wheezing Albuterol/Ipratropium (Albuterol/Ipratropium 3.0-0.5 Mg/3 Ml Neb Soln) 3 ml NEB Q8HRRT [facility] Amlodipine Besylate (Amlodipine 5 Mg Tab) 5 mg PO DAILY [facility] Arformoterol Tartrate (Arformoterol 15 Mcg/2 Ml Neb Soln) 15 mcg NEB BIDRT [facility] Aspirin (Aspirin 81 Mg Tab.Ec) 81 mg PO DAILY [facility] Azithromycin (Azithromycin 250 Mg Tab) 500 mg PO DAILY [facility] Baclofen (Baclofen 10 Mg Tab) 5 mg PO TID [facility] Bupropion HCl (Bupropion 150 Mg Tab.Er) 150 mg PO DAILY [facility] Ezetimibe (Ezetimibe 10 Mg Tab) 10 mg PO DAILY [facility] Enoxaparin Sodium (Enoxaparin 40 Mg/0.4 Ml Syringe) 40 mg SUBCUT DAILY@1200 [facility] Hydrochlorothiazide (Hydrochlorothiazide 25 Mg Tab) 25 mg PO DAILY [facility] Lisinopril (Lisinopril 20 Mg Tab) 20 mg PO DAILY [facility] Methylprednisolone Sodium Succinate (Methylprednisolone Sodium Succinate 40 Mg/1 Ml Sdv) 40 mg IVPUSH BID [facility] Non-Formulary Medication (Zaleplon [Sonata]) 10 mg PO BEDTIME PRN PRN Reason: Insomnia Pantoprazole Sodium (Pantoprazole 40 Mg Tab.Cr) 40 mg PO BIDAC [facility] Potassium Chloride (Potassium Chloride 10 Meq Tab.Er) 10 meq PO DAILY [facility] Pramipexole Dihydrochloride (Pramipexole 0.5 Mg Tab) 0.5 mg PO BEDTIME [facility] Pramipexole Dihydrochloride (Pramipexole 0.5 Mg Tab) 1 mg PO BEDTIME [facility] Labs: Laboratory Tests 03/21/21 03/21/21 03/21/21 Range/Units 09:40 10:00 10:00 WBC 10.9 H (4.0-10.0) x10^3/uL RBC 4.96 (4.00-5.50) x10^6/uL Hgb 14.6 (12.0-16.0) g/dL Hct 44.7 (33.0-47.0) % MCV 90.1 (78.0-93.0) fL MCH 29.4 (26.0-32.0) pg MCHC 32.7 (32.0-36.0) g/dL RDW Coeff of Rodo 12.3 (10.0-15.0) % Plt Count 307 (130-400) x10^3/uL Immature Gran % (Auto) 0.40 (0.00-0.43) % Neut % (Auto) 74.4 (50.0-80.0) % Lymph % (Auto) 19.9 L (25.0-50.0) % [place] % (Auto) 4.5 (2.0-11.0) % Eos % (Auto) 0.6 (0.0-4.0) % Baso % (Auto) 0.2 (0.2-1.2) % Neut # (Auto) 8.1 H (1.8-7.7) x10^3/uL Lymph # (Auto) 2.2 (1.0-4.8) x10^3/uL [place] # (Auto) 0.5 (0.0-0.8) x10^3/uL Eos # (Auto) 0.1 (0.0-0.5) x10^3/uL Baso # (Auto) 0.0 (0.0-0.2) x10^3/uL Immature Gran # (Auto) 0.04 (0.00-0.07) x10^3/uL POC ABG pH (7.35-7.45) pH POC ABG pCO2 (35-48) mmHg POC ABG pO2 (83-108) mmHg POC ABG HCO3 (21-28) mmol/L POC ABG Total CO2 (22-29) mmol/L POC ABG O2 Sat (94-98) % POC ABG Base Excess ((-2)-3) mmol/L POC FiO2 POC Blood Gas Comment Sodium 143 (136-145) mmol/L Potassium 3.7 (3.5-5.1) mmol/L Chloride 105 (98-107) mmol/L Carbon Dioxide 29 (21-32) mmol/L Anion Gap 12.7 (5-15) mmol/L BUN 25 H (7-18) mg/dL Creatinine 1.3 H (0.55-1.02) mg/dL Est Cr Clr Drug Dosing TNP Estimated GFR (MDRD) 41 Glucose 145 H (70-99) mg/dL Lactic Acid (0.4-2.0) mmol/L Calcium 9.2 (8.5-10.1) mg/dL Corrected Calcium 9.9 (8.5-10.1) mg/dL Total Bilirubin 0.4 (0.2-1.0) mg/dL AST 12 L (15-37) U/L ALT 14 (14-59) U/L Alkaline Phosphatase 113 (46-116) U/L Troponin I High Sens 6 (<=51) ng/L C-Reactive Protein 0.6 (<=0.9) mg/dL NT-Pro-B Natriuret Pep 93 (<=125) pg/mL Total Protein 7.1 (6.4-8.2) g/dL Albumin 3.1 L (3.4-5.0) g/dL Globulin 4.0 Albumin/Globulin Ratio 0.78 SARS CoV-2 RNA Rapid DARRELL Negative (NEGATIVE) 03/21/21 03/21/21 Range/Units 10:00 10:45 WBC (4.0-10.0) x10^3/uL RBC (4.00-5.50) x10^6/uL Hgb (12.0-16.0) g/dL Hct (33.0-47.0) % MCV (78.0-93.0) fL MCH (26.0-32.0) pg MCHC (32.0-36.0) g/dL RDW Coeff of Rodo (10.0-15.0) % Plt Count (130-400) x10^3/uL Immature Gran % (Auto) (0.00-0.43) % Neut % (Auto) (50.0-80.0) % Lymph % (Auto) (25.0-50.0) % [place] % (Auto) (2.0-11.0) % Eos % (Auto) (0.0-4.0) % Baso % (Auto) (0.2-1.2) % Neut # (Auto) (1.8-7.7) x10^3/uL Lymph # (Auto) (1.0-4.8) x10^3/uL [place] # (Auto) (0.0-0.8) x10^3/uL Eos # (Auto) (0.0-0.5) x10^3/uL Baso # (Auto) (0.0-0.2) x10^3/uL Immature Gran # (Auto) (0.00-0.07) x10^3/uL POC ABG pH 7.39 (7.35-7.45) pH POC ABG pCO2 48 (35-48) mmHg POC ABG pO2 52 L* (83-108) mmHg POC ABG HCO3 28.9 H (21-28) mmol/L POC ABG Total CO2 29.3 H (22-29) mmol/L POC ABG O2 Sat 85.2 L (94-98) % POC ABG Base Excess 4 H ((-2)-3) mmol/L POC FiO2 28 POC Blood Gas Comment Called critical res Sodium (136-145) mmol/L Potassium (3.5-5.1) mmol/L Chloride (98-107) mmol/L Carbon Dioxide (21-32) mmol/L Anion Gap (5-15) mmol/L BUN (7-18) mg/dL Creatinine (0.55-1.02) mg/dL Est Cr Clr Drug Dosing Estimated GFR (MDRD) Glucose (70-99) mg/dL Lactic Acid 2.0 (0.4-2.0) mmol/L Calcium (8.5-10.1) mg/dL Corrected Calcium (8.5-10.1) mg/dL Total Bilirubin (0.2-1.0) mg/dL AST (15-37) U/L ALT (14-59) U/L Alkaline Phosphatase (46-116) U/L Troponin I High Sens (<=51) ng/L C-Reactive Protein (<=0.9) mg/dL NT-Pro-B Natriuret Pep (<=125) pg/mL Total Protein (6.4-8.2) g/dL Albumin (3.4-5.0) g/dL Globulin Albumin/Globulin Ratio SARS CoV-2 RNA Rapid DARRELL (NEGATIVE) Meds: Medications Generic Name Dose Route Start Last Admin Trade Name Freq PRN Reason Stop Dose Admin Albuterol/Ipratropium 3 ml 03/21/21 13:53 Albuterol/Ipratropium 3.0-0.5 Mg/3 Ml Neb Soln NEB Q4H PRN dyspnea/wheezing Albuterol/Ipratropium 3 ml 03/21/21 15:00 Albuterol/Ipratropium 3.0-0.5 Mg/3 Ml Neb Soln NEB Q8HRRT [facility] Amlodipine Besylate 5 mg 03/22/21 08:00 Amlodipine 5 Mg Tab PO DAILY [facility] Arformoterol Tartrate 15 mcg 03/21/21 20:00 Arformoterol 15 Mcg/2 Ml Neb Soln NEB BIDRT [facility] Aspirin 81 mg 03/22/21 08:00 Aspirin 81 Mg Tab.Ec PO DAILY [facility] Azithromycin 500 mg 03/22/21 08:00 Azithromycin 250 Mg Tab PO DAILY [facility] Baclofen 5 mg 03/21/21 20:00 Baclofen 10 Mg Tab PO TID [facility] Bupropion HCl 150 mg 03/22/21 08:00 Bupropion 150 Mg Tab.Er PO DAILY [facility] Ezetimibe 10 mg 03/22/21 08:00 Ezetimibe 10 Mg Tab PO DAILY [facility] Enoxaparin Sodium 40 mg 03/21/21 14:30 Enoxaparin 40 Mg/0.4 Ml Syringe SUBCUT DAILY@1200 [facility] Hydrochlorothiazide 25 mg 03/22/21 08:00 Hydrochlorothiazide 25 Mg Tab PO DAILY [facility] Lisinopril 20 mg 03/22/21 08:00 Lisinopril 20 Mg Tab PO DAILY [facility] Methylprednisolone Sodium Succinate 40 mg 03/21/21 14:00 Methylprednisolone Sodium Succinate 40 Mg/1 Ml Sdv IVPUSH BID [facility] Non-Formulary Medication 10 mg 03/21/21 13:59 Zaleplon [Sonata] PO BEDTIME PRN Insomnia Pantoprazole Sodium 40 mg 03/21/21 17:00 Pantoprazole 40 Mg Tab.Cr PO BIDAC [facility] Potassium Chloride 10 meq 03/21/21 14:15 Potassium Chloride 10 Meq Tab.Er PO DAILY [facility] Pramipexole Dihydrochloride 0.5 mg 03/21/21 20:00 Pramipexole 0.5 Mg Tab PO BEDTIME [facility] Pramipexole Dihydrochloride 1 mg 03/21/21 20:00 Pramipexole 0.5 Mg Tab PO BEDTIME JEAN MARIE Discontinued Medications Generic Name Dose Route Start Last Admin Trade Name Cuong PRN Reason Stop Dose Admin Albuterol 5 mg 03/21/21 11:12 03/21/21 11:19 Albuterol 0.083% 2.5 Mg/3 Ml Neb Soln NEB 03/21/21 11:13 5 mg ONETIME ONE Administration Azithromycin 500 mg/ Sodium 250 mls @ 250 mls/hr 03/21/21 10:43 03/21/21 11:15 Chloride IV 03/21/21 11:42 250 mls/hr STAT ONE Administration Iopamidol 100 ml 03/21/21 13:26 Iopamidol 755 Mg/Ml 100 Ml Bottle IVPUSH 03/21/21 13:27 ONETIME ONE Methylprednisolone Sodium Succinate 125 mg 03/21/21 10:43 03/21/21 11:15 Methylprednisolone Sodium Succinate 125 Mg/2 Ml Sdv IVPUSH 03/21/21 10:44 125 mg ONETIME ONE Administration - Radiology Interpretation Free Text/Narrative:: chest no acute, see report ct PE prpotocol, with emphysema and scarring, slightly increased size of solid non cacified upper lobe nodule omparted to 08/29/2018, margins are irregular. differential includes granuloma versus neoplasma. NO pneuomia or PE, bronchit is, acute on chronic. Findings were verbally given to admitting physician see report. - Re-Assessments/Exams Free Text/Narrative Re-Assessment/Exam: 03/21/[address] on 2 lpm of oxygen as her sats are 88% on room air. covid test, chest x-ray , ekg blood cultures x 2 03/21/21 10:46 covid is negative, chest x-ray negative. needs o2, needs admission. will continue work up but give solu medrol and azithromycin for COPD exacerbation 03/21/21 11:[address] Pe chest to rule out PE. rest of testing other than low Po2 at 52 normal, albuterol neb 5 mg ordered. 03/21/21 11:13 03/21/21 13:[address] result[address] Discussed with DR. Maciel, they will admit, patient stable on 2 lpm nc. sent to the floor prior to CT results. Departure - Departure Time of Disposition: 11:17 Disposition: Admitted As Inpatient 67 Clinical Impression: COPD exacerbation, Respiratory failure with hypoxia - Discharge Information - My Orders Last 24 Hours: My Active Orders 03/21/21 09:41 Blood Culture x2 Reflex Set [OM.PC] Stat 03/21/21 10:00 CULTURE BLOOD [BC] Stat 03/21/21 10:19 CULTURE BLOOD [BC] Stat - Assessment/Plan Last 24 Hours: My Active Orders 03/21/21 09:41 Blood Culture x2 Reflex Set [OM.PC] Stat 03/21/21 10:00 CULTURE BLOOD [BC] Stat 03/21/21 10:19 CULTURE BLOOD [BC] Stat
--- NOTE | 2021-03-21 10:34 | CR ---
[id number] RAD/RAD Chest PA or AP 1V EXAM: FRONTAL CHEST INDICATION: SHORTNESS OF BREATH. COMPARISON: None. DISCUSSION: Hyperinflation compatible with chronic obstructive pulmonary disease. Borderline heart size without evidence of edema. Stimulator leads overlie the mid to lower thoracic spinal canal. IMPRESSION: 1. No acute findings. Xavier Mcallister MD 03/21/21 1034 Thank you for allowing us to participate in the care of your patient.
[2021-03-21] MEDS ORDERED: Azithromycin 500 MG in Sodium Chloride 0.9% 250 ML IV ONE (10:43)
[2021-03-21] MEDS ORDERED: methylPREDNISolone Sodium Succinate 125 MG/2 ML SDV IVPUSH ONE (10:43)
[2021-03-21 10:50] LABS: PCO2 ARTERIAL,POC 48 mmHg (35-48)
[2021-03-21 10:55] LABS: ANION GAP 12.7 mmol/L (5-15); CHLORIDE,CL 105 mmol/L (98-107); SODIUM,NA 143 mmol/L (136-145)
[2021-03-21] MEDS ORDERED: Albuterol 0.083% 2.5 MG/3 ML Neb Soln NEB ONE (11:12)
[2021-03-21] MEDS ORDERED: Iopamidol 755 Mg/ML 100 ML Bottle IVPUSH ONE (13:26)
--- NOTE | 2021-03-21 14:09 | CT ---
[id number] CT/CTA Chest EXAM: CTA Chest CLINICAL DATA: HYPOXIA, COPD, NEGATIVE FOR COVID, 2 WEEKS ILL. COMPARISON STUDY: CT from August 2018. Radiograph from today. FINDINGS: Lungs: 10 x 9 x 7 mm solid noncalcified nodule in the superior segment of the right lower lobe (series 6 image 55 and series 7 image 162). Morphology is lobulated. Margins are slightly irregular. Nodule was seen on examination from 2019 measuring 8 x 6 x 7 mm at that time. Lungs demonstrate apical predominant parenchymal emphysema with scattered areas of scarring. Bilateral central and symmetric lower lobe predominant peribronchial thickening. No parenchymal consolidation, pleural effusion, or pneumothorax. Mediastinum: No mediastinal or hilar lymphadenopathy. Heart and great vessels: Heart is normal in size. No pericardial effusion. Thoracic aorta is normal in caliber. Pulmonary arteries are normal in caliber. Negative for pulmonary embolus. Bones: No acute fracture or compression deformity. Spondylosis. Upper abdomen: Unremarkable. IMPRESSION: Negative for pulmonary embolus. Slightly increased size of a solid noncalcified right upper lobe nodule compared to examination from August 29, 2018. Margins are slightly irregular. Differential diagnosis includes granuloma versus neoplasm. Changes of chronic obstructive pulmonary disease, including parenchymal emphysema and bronchitis. Findings of bronchitis or possibly acute on chronic. However, no parenchymal consolidation or other changes to suggest pneumonia at this time. Salvador Valdes MD 03/21/21 [id number] Thank you for allowing us to participate in the care of your patient.
[2021-03-21] MEDS ORDERED: Zolpidem 5 MG Tab PO PRN (14:14)
[2021-03-21] MEDS: methylPREDNISolone Sodium Succinate 40 MG/1 ML SDV IVPUSH SCH ×2 (15:30→20:22)
[2021-03-21] MEDS: Enoxaparin 40 MG/0.4 ML Syringe SUBCUT SCH (15:30)
[2021-03-21] MEDS: Potassium Chloride 10 MEQ Tab.ER PO SCH (15:30)
[2021-03-21] MEDS: Albuterol/Ipratropium 3.0-0.5 MG/3 ML Neb Soln NEB SCH (15:31)
[2021-03-21] MEDS ORDERED: Glucagon,Human Recombinant 1 MG Vial IM PRN (17:12)
[2021-03-21] MEDS ORDERED: Insulin Lispro 100 Units/ML 3 ML Vial SUBCUT ONE (17:12)
[2021-03-21] MEDS ORDERED: 50% Dextrose in Water 50 ML Syringe IVPUSH PRN (17:12)
[2021-03-21] MEDS: Nicotine 14 MG/24 Hr Patch TRDERM SCH (17:43)
[2021-03-21] MEDS ORDERED: Baclofen 10 MG Tab PO SCH (20:00)
[2021-03-21] MEDS ORDERED: Pramipexole 0.5 MG Tab PO SCH ×2 (20:00)
[2021-03-21] MEDS: Gabapentin 300 MG Cap PO SCH (20:21)
[2021-03-21] MEDS: Arformoterol 15 MCG/2 ML Neb Soln NEB SCH (20:22)
--- NOTE | 2021-03-21 23:21 | HP ---
CHIEF COMPLAINT: Shortness of breath. HISTORY OF PRESENT ILLNESS: This is a 70-year-old female, who continues to smoke, who has underlying COPD, who has been having some cold symptoms for the last 2 weeks. It started with a sore throat. She had it after she got her flu shot. She uses CPAP normally and if it runs out of water, her breathing gets worse, and that did happen this morning, she was so short of breath despite her inhaler and nebulizer, she could not catch her breath, so she came into the emergency room. She was given nebs and Solu-Medrol. She was placed on oxygen, which she normally does not use at home and she is requiring 3 L to stay over 90%. She has otherwise felt well. No fever, no chills. She has not been vaccinated for COVID and her COVID test was negative in the ER. She has not been around anybody who has been ill or might have COVID. She has had previous COPD exacerbations. Her cough is productive of yellow sputum. She does have a lung nodule, which is solid, in the right lower lobe, slightly increased since 09/09 with irregular margins, which will need followup as an outpatient, but otherwise no pneumonia noted on her CT. No pulmonary embolism. Her proBNP, her troponin, procalcitonin, all negative. ALLERGIES: Include diclofenac, amlodipine, and statins. MEDICATION LIST: Includes ProAir inhaler; hydrochlorothiazide, she is currently taking 12.5 daily; aspirin 81 mg daily; gabapentin 900 twice daily and 600 at noon; lisinopril 40 mg daily; metoprolol 25 mg daily; Prilosec 20 mg daily. She has not been taking Sonata, Mirapex, Zetia, or Wellbutrin even though they are on her list. Also, she is on Breo daily at home and Prolia every 6 months. PAST MEDICAL HISTORY: Includes COPD; esophageal reflux; essential hypertension; chronic back pain; hypertriglyceridemia; history of colon polyps; obstructive sleep apnea, on CPAP; history of pulmonary embolism after a DVT back in 1996, on Coumadin for 6 months; right lower lobe lung nodule and that is being followed since 2017; restless legs syndrome; osteoporosis; smoking. PAST SURGICAL HISTORY: The patient has had a urethral suspension surgery; tonsillectomy; back spinal cord stimulator insertion; back surgeries for pain pump; carpal tunnel surgery on the right; laparotomy; hysterectomy; elbow surgery; de Quervain surgery on the left; cyst excision from the right wrist; colonoscopies; cholecystectomy; bursectomy on both right and left greater trochanters; arthroscopy of the right shoulder and left knee. SOCIAL HISTORY: The patient is . She lives at home with her . She is retired. She smokes about 1 pack per day. She did cut back by smoking menthol. She has 4 children. FAMILY HISTORY: Both parents are . Her father did have a lung cancer. REVIEW OF SYSTEMS: General: The patient tells me she gained like 30 pounds over the last year, but on chart review, it does not seem that she has gained more than maybe 10 pounds. She has not had fever or chills. HEENT: No current sore throat. No trouble swallowing. Cardiac: No chest pain. No palpitations. Respiratory: She has had cough. She has had shortness of breath. She has had wheezing. Abdominal: No nausea, vomiting, diarrhea, or constipation. Otherwise, all systems reviewed and found to be negative unless otherwise stated. PHYSICAL EXAMINATION: Vital Signs: On hospital admission include a weight of 78.3 kg, temperature 96.3, pulse 70, blood pressure 163/81, respiratory rate 20, and O2 91 on 3 L. General: She is in no acute distress. Heart: Regular rate and rhythm. S1, S2 without murmur. Lungs: Breath sounds are decreased throughout, but no crackles or wheezes currently appreciated as she has received the steroids and nebs. Abdomen: Positive bowel sounds. Soft, nondistended, nontender. Extremities: Warm and dry. No edema. Mental Status: She is alert. She is orientated x3. She is answering questions appropriately. IMAGING: Chest x-ray does not show any pulmonary edema or acute infiltrate. CT does not show any pulmonary embolism, but does show a 1 x 0.9 x 0.7 cm noncalcified nodule in the superior segment of the right lower lobe and changes suggestive of COPD; however, no pneumonia. LABORATORY DATA: Her lab work shows her to have a white count 10.9, hemoglobin 14.6, platelets 307. pH 7.3, pCO2 48, pO2 52; these were done on at least 2 L of oxygen. O2 sats were 85% when without oxygen. Sodium 143, potassium 3.7, chloride 105, bicarb 29, BUN 25, creatinine 1.3, glucose 145, lactic 2, calcium 9.2, bilirubin 0.4, AST 12, ALT 14, alkaline phosphatase 113. Troponin 6. CRP 0.6. ProBNP 93. Albumin 3.1. Procalcitonin 0.05. COVID negative. ASSESSMENT: 1. Acute hypoxic respiratory failure secondary to chronic obstructive pulmonary disease exacerbation. This is acute; there is no history of chronic hypoxia. 2. Chronic obstructive pulmonary disease exacerbation with underlying chronic obstructive pulmonary disease. FEV1 8 years ago was 1.47 or 60%. FEV1/FVC ratio at that time was 68. 3. Hyperglycemia, likely due to steroids with underlying prediabetes. 4. Mild renal insufficiency with creatinine up to 1.3, but previously 1.13 in December. 5. Chronic pain, on Neurontin. 6. Esophageal reflux. 7. Obstructive sleep apnea, on home CPAP. 8. Remote history of pulmonary embolism. 9. Osteoporosis. 10.Smoking. PLAN: The patient is admitted for acute cares. We will place her on IV Solu- Medrol [address] q[address] place her on Brovana nebs and scheduled and p.r.n. DuoNeb. We will put her on a flutter valve. I will continue Zithromax, but oral; she got an IV dose in the ER. I will put her on a Nicoderm patch. We will use her home CPAP. Anticipate she will need at least a 2-night stay. She is a code level 1. For DVT prophylaxis, she will be on Lovenox. I will repeat lab work tomorrow. Jonas Pérez was given a handoff and will see the patient. MKA: 03/21/2021 17:02:07 MODL: 03/21/2021 23:13:32 /[id number]
[2021-03-22] MEDS: Albuterol/Ipratropium 3.0-0.5 MG/3 ML Neb Soln NEB SCH ×4 (00:25→23:42)
[2021-03-22] MEDS: Arformoterol 15 MCG/2 ML Neb Soln NEB SCH ×2 (06:13→19:36)
[2021-03-22] MEDS: Pantoprazole 40 MG Tab.CR PO SCH (06:13)
[2021-03-22] MEDS ORDERED: Codeine/guaiFENesin 10-100 MG/5 ML Syrup 5 ML Cup PO PRN (06:15)
[2021-03-22] MEDS ORDERED: ALPRAZolam 0.25 MG Tab PO PRN (06:15)
--- NOTE | 2021-03-22 07:09 | PN ---
Progress Note for CRISS BARRIOS Date: 03/22/2021 Room #: VM.215 CHIEF COMPLAINT: Shortness of breath. SUBJECTIVE: Hospital day #2 on a 70-year-old female patient who continues to smoke, who has underlying COPD, who has been having some cold symptoms for the past couple of weeks. The patient presented to the emergency room at [facility] and diagnosed with COPD exacerbation and therefore admitted acutely. The patient is currently on her home nebulizers. Patient is on azithromycin and Solu-Medrol. The patient is on oxygen which she is not on at home. The patient denies any headaches, dizziness, or lightheadedness. The patient has a productive cough. No shortness of breath. The patient denies any chest pain or palpitations. No leg swelling. The patient denies any skin concerns. Patient does not think she has had any fevers or chills. OBJECTIVE: Vital Signs: Temperature 98.9, pulse 115, blood pressure 134/89, respiratory rate 20, oxygen saturation 91% on 2.5 L. Skin: Intact, warm, and dry. Respiratory: Decreased with end-expiratory wheezing. No rhonchi. Cardiovascular: Tachycardic, regular rate. No murmur. Abdomen: Soft, nontender. Bowel sounds are hypoactive x4. Neurologic: The patient is alert. Patient is oriented to person, place, and time. No focal neurological deficits. LABORATORY STUDIES: Pending. ASSESSMENT: 1. Acute hypoxic respiratory failure secondary to chronic obstructive pulmonary disease. 2. Chronic obstructive pulmonary disease exacerbation with underlying chronic obstructive pulmonary disease. 3. Hyperglycemia. 4. Mild renal insufficiency. 5. Chronic pain, on Neurontin. 6. Esophageal reflux. 7. Obstructive sleep apnea, on CPAP. 8. Remote history of pulmonary embolism. 9. Osteoporosis. 10.Smoking. PLAN: Hospital day #2 for a 70-year-old female patient who was admitted to the acute care floor yesterday at [facility] for acute hypoxic respiratory failure secondary to chronic obstructive pulmonary disease. Continue on IV Solu- Medrol every 12 hours. Continue on home nebulizers. Continue on Zithromax and Solu-Medrol. Gentle rehydration. Continue with nicotine patch. We will add Cheratussin AC for patient's productive cough. We will also start the patient on Xanax 0.25 mg as needed for any hypoxic anxiety. The patient wishes to be a code level 1. Patient is on Lovenox for DVT prophylaxis. Recheck laboratory work tomorrow. TB: 03/22/2021 06:32:45 MODL: 03/22/2021 07:02:48 /[id number]
[2021-03-22 07:56] LABS: ANION GAP 17.6 mmol/L (5-15)
[2021-03-22] MEDS ORDERED: Ezetimibe 10 MG Tab PO SCH (08:00)
[2021-03-22] MEDS ORDERED: buPROPion 150 MG Tab.ER PO SCH (08:00)
[2021-03-22] MEDS ORDERED: amLODIPine 5 MG Tab PO SCH (08:00)
[2021-03-22] MEDS: Nicotine 14 MG/24 Hr Patch TRDERM SCH (09:04)
[2021-03-22] MEDS: Lisinopril 20 MG Tab PO SCH (09:08)
[2021-03-22] MEDS: Azithromycin 250 MG Tab PO SCH (09:08)
[2021-03-22] MEDS: Metoprolol Succinate 25 MG Tab.ER PO SCH (09:11)
[2021-03-22] MEDS: Aspirin 81 MG Tab.EC PO SCH (09:11)
[2021-03-22] MEDS: Hydrochlorothiazide 12.5 MG Cap PO SCH (09:12)
[2021-03-22] MEDS: Potassium Chloride 10 MEQ Tab.ER PO SCH (09:13)
[2021-03-22] MEDS: Gabapentin 300 MG Cap PO SCH ×3 (09:14→19:36)
[2021-03-22] MEDS: methylPREDNISolone Sodium Succinate 40 MG/1 ML SDV IVPUSH SCH ×2 (09:14→19:35)
[2021-03-22] MEDS: Enoxaparin 40 MG/0.4 ML Syringe SUBCUT SCH (11:48)
[2021-03-23] MEDS: Albuterol/Ipratropium 3.0-0.5 MG/3 ML Neb Soln NEB SCH ×2 (06:03→15:14)
[2021-03-23] MEDS: Pantoprazole 40 MG Tab.CR PO SCH (06:03)
[2021-03-23] MEDS: Arformoterol 15 MCG/2 ML Neb Soln NEB SCH ×2 (06:03→20:27)
[2021-03-23] MEDS: Nicotine 14 MG/24 Hr Patch TRDERM SCH (07:20)
[2021-03-23] MEDS: Gabapentin 300 MG Cap PO SCH ×3 (07:21→19:48)
[2021-03-23] MEDS: Azithromycin 250 MG Tab PO SCH (07:21)
[2021-03-23] MEDS: Hydrochlorothiazide 12.5 MG Cap PO SCH (07:21)
[2021-03-23] MEDS: Aspirin 81 MG Tab.EC PO SCH (07:21)
[2021-03-23] MEDS: Potassium Chloride 10 MEQ Tab.ER PO SCH (07:22)
[2021-03-23] MEDS: Lisinopril 20 MG Tab PO SCH (07:22)
[2021-03-23] MEDS: Metoprolol Succinate 25 MG Tab.ER PO SCH (07:22)
[2021-03-23] MEDS: methylPREDNISolone Sodium Succinate 40 MG/1 ML SDV IVPUSH SCH (07:23)
[2021-03-23 10:58] LABS: CHLORIDE,CL 104 mmol/L (98-107); SODIUM,NA 139 mmol/L (136-145)
[2021-03-23 11:01] LABS: ANION GAP 14.4 mmol/L (5-15)
[2021-03-23] MEDS ORDERED: cefTRIAXone 1 GM Vial IVPUSH ONE (11:15)
[2021-03-23] MEDS: Enoxaparin 40 MG/0.4 ML Syringe SUBCUT SCH (11:50)
--- NOTE | 2021-03-23 13:50 | PN ---
Progress Note for CRISS BARRIOS Date: 03/23/2021 Room #: [facility] CHIEF COMPLAINT: Shortness of breath. SUBJECTIVE: Hospital day #3 on a 70-year-old female patient who continues to smoke with underlying COPD, who has been having some cold symptoms for the past couple of weeks. The patient was admitted to the acute care floor at [facility] for COPD exacerbation. The patient states her shortness of breath has improved somewhat. She continues to have a productive cough producing a green and yellow-appearing purulent sputum. No fevers or chills. Patient does not have any chest pain or palpitations. No leg swelling. No abdominal complaints. Patient's appetite has been good. No issues with urination or bowel movement. OBJECTIVE: Vital Signs: Temperature 97.1, pulse 72, blood pressure 127/71, respiratory rate 18, and oxygen saturation 92% on 2 L. Skin: Intact, warm, and dry. Respiratory: Lungs are very coarse with scattered rhonchi and end-expiratory wheezing. Cardiovascular: Regular rate and rhythm, no murmur. Abdomen: Soft, nontender. Bowel sounds are hypoactive x4. Extremities: No edema. Neurological: The patient is alert. The patient is oriented to person, place, and time. LABORATORY STUDIES: 1. CBC: White blood cell count 24.1, hemoglobin 14.0, hematocrit 43.5, and platelets of 322,000. 2. CMP: Sodium 139, potassium 4.4, chloride 104, CO2 of 25, anion gap 14.4, BUN 24, creatinine 1.4, GFR 37, glucose 309, calcium 8.9, AST pending, ALT 12, alkaline phosphatase 137, and calcium 6.9. ASSESSMENT: 1. Acute hypoxic respiratory failure secondary to chronic obstructive pulmonary disease, on oxygen. 2. Chronic obstructive pulmonary disease exacerbation with underlying chronic obstructive pulmonary disease. 3. Hyperglycemia. 4. Mild renal insufficiency. 5. Chronic pain, on Neurontin. 6. Esophageal reflux. 7. Obstructive sleep apnea, on CPAP. 8. Remote history of pulmonary embolism. 9. Osteoporosis. 10.Smoking. PLAN: Hospital day #3 on a 70-year-old female patient who was admitted to the acute care floor at [facility] for the above diagnoses. Continue IV Solu- Medrol every 12 hours. Continue with nebulizers. Continue on Zithromax. I will add 2 doses of Rocephin given the elevation in her WBCs. Continue to hydrate. The patient needs to stop smoking. The patient is on Lovenox for DVT. Recheck laboratory work tomorrow. Possibility of maybe going home tomorrow if the patient does improve. TB: 03/23/2021 11:17:52 MODL: 03/23/2021 13:44:33 /[id number]
[2021-03-23] MEDS: Albuterol/Ipratropium 3.0-0.5 MG/3 ML Neb Soln NEB PRN (15:55)
[2021-03-23] MEDS ORDERED: methylPREDNISolone Sodium Succinate 125 MG/2 ML SDV IVPUSH ONE (16:30)
[2021-03-23] MEDS: Sodium Chloride 0.9% 1,000 ML IV SCH ×2 (17:07→19:47)
[2021-03-23 17:23] LABS: PCO2 ARTERIAL,POC 43 mmHg (35-48)
[2021-03-23 17:33] LABS: ANION GAP 13.9 mmol/L (5-15)
[2021-03-23 17:59] LABS: CORONAVIRUS COVID-19 NAA NEGATIVE (NEGATIVE)
[2021-03-23 18:00] LABS: RESPIRATORY SYNCYTIAL VIR NAA NEGATIVE (NEGATIVE)
[2021-03-23] MEDS ORDERED: Sodium Chloride 0.9% 1,000 ML IV ONE (18:00)
--- NOTE | 2021-03-23 18:49 | CR ---
[id number] RAD/RAD Chest PA And Lateral EXAM: RAD Chest PA And Lateral INDICATION: SHORTNESS OF BREATH, HYPOXIA. COMPARISON: March 21, 2021. DISCUSSION/IMPRESSION: Slight blunting of the costophrenic sulci suggesting small effusions. Mild central vascular congestion. Findings were not seen previously. Findings are superimposed on changes of parenchymal emphysema. Those findings are similar compared to the prior examination. Salvador Valdes MD 03/23/21 [id number] Thank you for allowing us to participate in the care of your patient.
[2021-03-24] MEDS: Albuterol/Ipratropium 3.0-0.5 MG/3 ML Neb Soln NEB SCH ×3 (00:51→14:50)
[2021-03-24] MEDS: Arformoterol 15 MCG/2 ML Neb Soln NEB SCH (06:15)
[2021-03-24] MEDS: Pantoprazole 40 MG Tab.CR PO SCH (06:16)
[2021-03-24] MEDS: Sodium Chloride 0.9% 1,000 ML IV SCH (06:37)
[2021-03-24] MEDS: Lisinopril 20 MG Tab PO SCH (07:16)
[2021-03-24] MEDS: Azithromycin 250 MG Tab PO SCH (07:17)
[2021-03-24] MEDS: Hydrochlorothiazide 12.5 MG Cap PO SCH (07:17)
[2021-03-24] MEDS: Metoprolol Succinate 25 MG Tab.ER PO SCH (07:17)
[2021-03-24] MEDS: Potassium Chloride 10 MEQ Tab.ER PO SCH (07:18)
[2021-03-24] MEDS: Aspirin 81 MG Tab.EC PO SCH (07:18)
[2021-03-24] MEDS: Nicotine 14 MG/24 Hr Patch TRDERM SCH (07:18)
[2021-03-24] MEDS: Gabapentin 300 MG Cap PO SCH ×2 (07:18→12:03)
[2021-03-24 07:31] LABS: ANION GAP 11.4 mmol/L (5-15)
[2021-03-24] MEDS ORDERED: methylPREDNISolone Sodium Succinate 40 MG/1 ML SDV IVPUSH SCH (08:00)
--- NOTE | 2021-03-24 09:14 | PCM.PN ---
- General Info Date of Service: 03/24/21 Admission Dx/Problem (Free Text): 1. Acute hypoxic respiratory failure related to chronic lung disease. 2. Acute bronchitis. 3. COPD 4. Tobacco use Subjective Update: She continues to report SOB. Unable to lie flat in bed to sleep or she will have coughing fits. She has slept sitting up. Oxygen on 3L/nc with pulse oxi at 94- 96%. Expectorating green mucus. No pain. Nicotene patches are helpful, no desire to smoke. She reports her grandson tested positive for covid yesterday. Functional Status: Reports: Tolerating Diet - Review of Systems General: Reports: Weakness HEENT: Reports: No Symptoms Pulmonary: Reports: Shortness of Breath, Cough, Wheezing Cardiovascular: Reports: No Symptoms Gastrointestinal: Reports: No Symptoms Genitourinary: Reports: No Symptoms Musculoskeletal: Reports: No Symptoms Skin: Reports: No Symptoms Neurological: Reports: No Symptoms Psychiatric: Reports: No Symptoms - Patient Data Vitals - Most Recent: Last Vital Signs Temp 98 F 03/24/21 06:00 Pulse 68 03/24/21 07:17 Resp 20 03/24/21 06:00 BP 158/76 H 03/24/21 07:17 Pulse Ox 96 03/24/21 08:00 Weight - Most Recent: 182 lb 6.4 oz I&O - Last 24 Hours: Intake & Output 03/23/21 03/24/21 03/24/21 22:59 06:59 14:59 Intake Total 720 500 120 Balance 720 500 120 Lab Results Last 24 Hours: Laboratory Results - last 24 hr 03/23/21 03/23/21 03/23/21 Range/Units 10:20 10:20 16:15 WBC 24.1 H* (4.0-10.0) x10^3/uL RBC 4.73 (4.00-5.50) x10^6/uL Hgb 14.0 (12.0-16.0) g/dL Hct 43.5 (33.0-47.0) % MCV 92.0 (78.0-93.0) fL MCH 29.6 (26.0-32.0) pg MCHC 32.2 (32.0-36.0) g/dL RDW Coeff of Rodo 12.4 (10.0-15.0) % Plt Count 322 (130-400) x10^3/uL Immature Gran % (Auto) (0.00-0.43) % Neut % (Auto) (50.0-80.0) % Lymph % (Auto) (25.0-50.0) % Hall % (Auto) (2.0-11.0) % Eos % (Auto) (0.0-4.0) % Baso % (Auto) (0.2-1.2) % Neut # (Auto) (1.8-7.7) x10^3/uL Lymph # (Auto) (1.0-4.8) x10^3/uL Hall # (Auto) (0.0-0.8) x10^3/uL Eos # (Auto) (0.0-0.5) x10^3/uL Baso # (Auto) (0.0-0.2) x10^3/uL Immature Gran # (Auto) (0.00-0.07) x10^3/uL Add Manual Diff Yes Neutrophils % (Manual) 93 H (50-80) % Band Neutrophils % 2 (0-6) % Lymphocytes % (Manual) 1 L (25-50) % Reactive Lymphs % 2 H (0) % Monocytes % (Manual) 2 (2-11) % Absolute Neutrophils 22.9 H (1.8-7.7) x10^3/uL Lymphocytes # (Manual) 0.7 L (1.0-4.8) x10^3/uL Monocytes # (Manual) 0.5 (0.0-0.8) x10^3/uL Hypersegmented Neuts Few H Vacuolated Monocytes 1+ slight H Smudge Cells Toxic Granulation 1+ slight H Platelet Estimate Adequate POC ABG pH 7.36 (7.35-7.45) pH POC ABG pCO2 43 (35-48) mmHg POC ABG pO2 61 L (83-108) mmHg POC ABG HCO3 24.2 (21-28) mmol/L POC ABG Total CO2 24.8 (22-29) mmol/L POC ABG O2 Sat 89.9 L (94-98) % POC ABG Base Excess -1 ((-2)-3) mmol/L POC FiO2 24 Sodium 139 (136-145) mmol/L Potassium 4.4 (3.5-5.1) mmol/L Chloride 104 (98-107) mmol/L Carbon Dioxide 25 (21-32) mmol/L Anion Gap 14.4 (5-15) mmol/L BUN 24 H (7-18) mg/dL Creatinine 1.4 H (0.55-1.02) mg/dL Est Cr Clr Drug Dosing 35.50 mL/min Estimated GFR (MDRD) 37 Glucose 309 H (70-99) mg/dL POC Glucose (70-99) mg/dL Lactic Acid (0.4-2.0) mmol/L Calcium 8.9 (8.5-10.1) mg/dL Corrected Calcium 9.7 (8.5-10.1) mg/dL Total Bilirubin 0.2 (0.2-1.0) mg/dL AST < 10 L (15-37) U/L ALT 12 L (14-59) U/L Alkaline Phosphatase 137 H (46-116) U/L Total Protein 6.9 (6.4-8.2) g/dL Albumin 3.0 L (3.4-5.0) g/dL Globulin 3.9 Albumin/Globulin Ratio 0.77 Procalcitonin (0.1-0.50) ng/mL Influenza Type A RNA (NEGATIVE) RSV RNA (INAAT) (NEGATIVE) Influenza Type B RNA (NEGATIVE) SARS-CoV-2 RNA (DARRELL) (NEGATIVE) 03/23/21 03/23/21 03/23/21 Range/Units 16:39 17:02 17:02 WBC 24.1 H* (4.0-10.0) x10^3/uL RBC 4.77 (4.00-5.50) x10^6/uL Hgb 14.3 (12.0-16.0) g/dL Hct 43.7 (33.0-47.0) % MCV 91.6 (78.0-93.0) fL MCH 30.0 (26.0-32.0) pg MCHC 32.7 (32.0-36.0) g/dL RDW Coeff of Rodo 12.6 (10.0-15.0) % Plt Count 329 (130-400) x10^3/uL Immature Gran % (Auto) (0.00-0.43) % Neut % (Auto) (50.0-80.0) % Lymph % (Auto) (25.0-50.0) % Hall % (Auto) (2.0-11.0) % Eos % (Auto) (0.0-4.0) % Baso % (Auto) (0.2-1.2) % Neut # (Auto) (1.8-7.7) x10^3/uL Lymph # (Auto) (1.0-4.8) x10^3/uL Hall # (Auto) (0.0-0.8) x10^3/uL Eos # (Auto) (0.0-0.5) x10^3/uL Baso # (Auto) (0.0-0.2) x10^3/uL Immature Gran # (Auto) (0.00-0.07) x10^3/uL Add Manual Diff Yes Neutrophils % (Manual) 91 H (50-80) % Band Neutrophils % 1 (0-6) % Lymphocytes % (Manual) 3 L (25-50) % Reactive Lymphs % 1 H (0) % Monocytes % (Manual) 4 (2-11) % Absolute Neutrophils 22.2 H (1.8-7.7) x10^3/uL Lymphocytes # (Manual) 1.0 (1.0-4.8) x10^3/uL Monocytes # (Manual) 1.0 H (0.0-0.8) x10^3/uL Hypersegmented Neuts Few H Vacuolated Monocytes 1+ slight H Smudge Cells Rare H Toxic Granulation 1+ slight H Platelet Estimate Adequate POC ABG pH (7.35-7.45) pH POC ABG pCO2 (35-48) mmHg POC ABG pO2 (83-108) mmHg POC ABG HCO3 (21-28) mmol/L POC ABG Total CO2 (22-29) mmol/L POC ABG O2 Sat (94-98) % POC ABG Base Excess ((-2)-3) mmol/L POC FiO2 Sodium 140 (136-145) mmol/L Potassium 3.9 (3.5-5.1) mmol/L Chloride 104 (98-107) mmol/L Carbon Dioxide 26 (21-32) mmol/L Anion Gap 13.9 (5-15) mmol/L BUN 22 H (7-18) mg/dL Creatinine 1.5 H (0.55-1.02) mg/dL Est Cr Clr Drug Dosing 33.14 mL/min Estimated GFR (MDRD) 34 Glucose 282 H (70-99) mg/dL POC Glucose (70-99) mg/dL Lactic Acid (0.4-2.0) mmol/L Calcium 8.7 (8.5-10.1) mg/dL Corrected Calcium (8.5-10.1) mg/dL Total Bilirubin (0.2-1.0) mg/dL AST (15-37) U/L ALT (14-59) U/L Alkaline Phosphatase (46-116) U/L Total Protein (6.4-8.2) g/dL Albumin (3.4-5.0) g/dL Globulin Albumin/Globulin Ratio Procalcitonin (0.1-0.50) ng/mL Influenza Type A RNA Negative (NEGATIVE) RSV RNA (INAAT) Negative (NEGATIVE) Influenza Type B RNA Negative (NEGATIVE) SARS-CoV-2 RNA (DARRELL) Negative (NEGATIVE) 03/23/21 03/23/21 03/24/21 Range/Units 17:02 17:02 06:18 WBC (4.0-10.0) x10^3/uL RBC (4.00-5.50) x10^6/uL Hgb (12.0-16.0) g/dL Hct (33.0-47.0) % MCV (78.0-93.0) fL MCH (26.0-32.0) pg MCHC (32.0-36.0) g/dL RDW Coeff of Rodo (10.0-15.0) % Plt Count (130-400) x10^3/uL Immature Gran % (Auto) (0.00-0.43) % Neut % (Auto) (50.0-80.0) % Lymph % (Auto) (25.0-50.0) % Hall % (Auto) (2.0-11.0) % Eos % (Auto) (0.0-4.0) % Baso % (Auto) (0.2-1.2) % Neut # (Auto) (1.8-7.7) x10^3/uL Lymph # (Auto) (1.0-4.8) x10^3/uL Hall # (Auto) (0.0-0.8) x10^3/uL Eos # (Auto) (0.0-0.5) x10^3/uL Baso # (Auto) (0.0-0.2) x10^3/uL Immature Gran # (Auto) (0.00-0.07) x10^3/uL Add Manual Diff Neutrophils % (Manual) (50-80) % Band Neutrophils % (0-6) % Lymphocytes % (Manual) (25-50) % Reactive Lymphs % (0) % Monocytes % (Manual) (2-11) % Absolute Neutrophils (1.8-7.7) x10^3/uL Lymphocytes # (Manual) (1.0-4.8) x10^3/uL Monocytes # (Manual) (0.0-0.8) x10^3/uL Hypersegmented Neuts Vacuolated Monocytes Smudge Cells Toxic Granulation Platelet Estimate POC ABG pH (7.35-7.45) pH POC ABG pCO2 (35-48) mmHg POC ABG pO2 (83-108) mmHg POC ABG HCO3 (21-28) mmol/L POC ABG Total CO2 (22-29) mmol/L POC ABG O2 Sat (94-98) % POC ABG Base Excess ((-2)-3) mmol/L POC FiO2 Sodium (136-145) mmol/L Potassium (3.5-5.1) mmol/L Chloride (98-107) mmol/L Carbon Dioxide (21-32) mmol/L Anion Gap (5-15) mmol/L BUN (7-18) mg/dL Creatinine (0.55-1.02) mg/dL Est Cr Clr Drug Dosing mL/min Estimated GFR (MDRD) Glucose (70-99) mg/dL POC Glucose 190 H (70-99) mg/dL Lactic Acid 4.2 H* (0.4-2.0) mmol/L Calcium (8.5-10.1) mg/dL Corrected Calcium (8.5-10.1) mg/dL Total Bilirubin (0.2-1.0) mg/dL AST (15-37) U/L ALT (14-59) U/L Alkaline Phosphatase (46-116) U/L Total Protein (6.4-8.2) g/dL Albumin (3.4-5.0) g/dL Globulin Albumin/Globulin Ratio Procalcitonin <0.05 L (0.1-0.50) ng/mL Influenza Type A RNA (NEGATIVE) RSV RNA (INAAT) (NEGATIVE) Influenza Type B RNA (NEGATIVE) SARS-CoV-2 RNA (DARRELL) (NEGATIVE) 03/24/21 03/24/21 03/24/21 Range/Units 06:32 06:32 06:32 WBC 19.2 H (4.0-10.0) x10^3/uL RBC 4.43 (4.00-5.50) x10^6/uL Hgb 13.7 (12.0-16.0) g/dL Hct 41.0 (33.0-47.0) % MCV 92.6 (78.0-93.0) fL MCH 30.9 (26.0-32.0) pg MCHC 33.4 (32.0-36.0) g/dL RDW Coeff of Rodo 12.4 (10.0-15.0) % Plt Count 296 (130-400) x10^3/uL Immature Gran % (Auto) 1.60 H (0.00-0.43) % Neut % (Auto) 88.5 H (50.0-80.0) % Lymph % (Auto) 6.2 L (25.0-50.0) % Hall % (Auto) 3.6 (2.0-11.0) % Eos % (Auto) 0.0 (0.0-4.0) % Baso % (Auto) 0.1 L (0.2-1.2) % Neut # (Auto) 17.0 H (1.8-7.7) x10^3/uL Lymph # (Auto) 1.2 (1.0-4.8) x10^3/uL Hall # (Auto) 0.7 (0.0-0.8) x10^3/uL Eos # (Auto) 0.0 (0.0-0.5) x10^3/uL Baso # (Auto) 0.0 (0.0-0.2) x10^3/uL Immature Gran # (Auto) 0.31 H (0.00-0.07) x10^3/uL Add Manual Diff Neutrophils % (Manual) (50-80) % Band Neutrophils % (0-6) % Lymphocytes % (Manual) (25-50) % Reactive Lymphs % (0) % Monocytes % (Manual) (2-11) % Absolute Neutrophils (1.8-7.7) x10^3/uL Lymphocytes # (Manual) (1.0-4.8) x10^3/uL Monocytes # (Manual) (0.0-0.8) x10^3/uL Hypersegmented Neuts Vacuolated Monocytes Smudge Cells Toxic Granulation Platelet Estimate POC ABG pH (7.35-7.45) pH POC ABG pCO2 (35-48) mmHg POC ABG pO2 (83-108) mmHg POC ABG HCO3 (21-28) mmol/L POC ABG Total CO2 (22-29) mmol/L POC ABG O2 Sat (94-98) % POC ABG Base Excess ((-2)-3) mmol/L POC FiO2 Sodium 139 (136-145) mmol/L Potassium 4.4 (3.5-5.1) mmol/L Chloride 106 (98-107) mmol/L Carbon Dioxide 26 (21-32) mmol/L Anion Gap 11.4 (5-15) mmol/L BUN 21 H (7-18) mg/dL Creatinine 1.3 H (0.55-1.02) mg/dL Est Cr Clr Drug Dosing 38.23 mL/min Estimated GFR (MDRD) 41 Glucose 205 H (70-99) mg/dL POC Glucose (70-99) mg/dL Lactic Acid 2.7 H* (0.4-2.0) mmol/L Calcium 8.2 L (8.5-10.1) mg/dL Corrected Calcium 9.2 (8.5-10.1) mg/dL Total Bilirubin 0.2 (0.2-1.0) mg/dL AST 13 L (15-37) U/L ALT 16 (14-59) U/L Alkaline Phosphatase 119 H (46-116) U/L Total Protein 6.5 (6.4-8.2) g/dL Albumin 2.8 L (3.4-5.0) g/dL Globulin 3.7 Albumin/Globulin Ratio 0.76 Procalcitonin (0.1-0.50) ng/mL Influenza Type A RNA (NEGATIVE) RSV RNA (INAAT) (NEGATIVE) Influenza Type B RNA (NEGATIVE) SARS-CoV-2 RNA (DARRELL) (NEGATIVE) Wiley Results Last 24 Hours: Microbiology 03/21/21 10:19 Aerobic Blood Culture - Preliminary Blood - Venous - Lab Draw NO GROWTH AFTER 2 DAYS Anaerobic Blood Culture - Final 03/21/21 10:00 Aerobic Blood Culture - Preliminary Blood - Venous NO GROWTH AFTER 2 DAYS Anaerobic Blood Culture - Preliminary NO GROWTH AFTER 2 DAYS Med Orders - Current: Current Medications Albuterol/Ipratropium (Albuterol/Ipratropium 3.0-0.5 Mg/3 Ml Neb Soln) 3 ml NEB Q4H PRN PRN Reason: dyspnea/wheezing Last Admin: 03/23/21 15:55 Dose: 3 ml Documented by: Albuterol/Ipratropium (Albuterol/Ipratropium 3.0-0.5 Mg/3 Ml Neb Soln) 3 ml NEB Q8HRRT [facility] Last Admin: 03/24/21 06:15 Dose: 3 ml Documented by: Alprazolam (Alprazolam 0.25 Mg Tab) 0.25 mg PO Q6H PRN PRN Reason: Anxiety Arformoterol Tartrate (Arformoterol 15 Mcg/2 Ml Neb Soln) 15 mcg NEB BIDRT [facility] Last Admin: 03/24/21 06:15 Dose: 15 mcg Documented by: Aspirin (Aspirin 81 Mg Tab.Ec) 81 mg PO DAILY [facility] Last Admin: 03/24/21 07:18 Dose: 81 mg Documented by: Azithromycin (Azithromycin 250 Mg Tab) 500 mg PO DAILY [facility] Last Admin: 03/24/21 07:17 Dose: 500 mg Documented by: Dextrose/Water (50% Dextrose In Water 50 Ml Syringe) 50 ml IVPUSH ASDIRECTED PRN PRN Reason: Hypoglycemia Enoxaparin Sodium (Enoxaparin 40 Mg/0.4 Ml Syringe) 40 mg SUBCUT DAILY@1200 [facility] Last Admin: 03/23/21 11:50 Dose: 40 mg Documented by: Gabapentin (Gabapentin 300 Mg Cap) 900 mg PO BID [facility] Last Admin: 03/24/21 07:18 Dose: 900 mg Documented by: Gabapentin (Gabapentin 300 Mg Cap) 600 mg PO DAILY@1200 [facility] Last Admin: 03/23/21 11:50 Dose: 600 mg Documented by: Glucagon (Glucagon,Human Recombinant 1 Mg Vial) 1 mg IM ASDIRECTED PRN PRN Reason: Hypoglycemia Guaifenesin/Codeine Phosphate (Codeine/Guaifenesin 10-100 Mg/5 Ml Syrup 5 Ml Cup) 5 ml PO Q6H PRN PRN Reason: Cough Hydrochlorothiazide (Hydrochlorothiazide 12.5 Mg Cap) 12.5 mg PO DAILY [facility] Last Admin: 03/24/21 07:17 Dose: 12.5 mg Documented by: Sodium Chloride (Normal Saline) 1,000 mls @ 100 mls/hr IV ASDIRECTED [facility] Last Admin: 03/24/21 06:37 Dose: 100 mls/hr Documented by: Lisinopril (Lisinopril 20 Mg Tab) 40 mg PO DAILY [facility] Last Admin: 03/24/21 07:16 Dose: 40 mg Documented by: Methylprednisolone Sodium Succinate (Methylprednisolone Sodium Succinate 40 Mg/1 Ml Sdv) 40 mg IVPUSH BID [facility] Last Admin: 03/24/21 07:16 Dose: 40 mg Documented by: Metoprolol Succinate (Metoprolol Succinate 25 Mg Tab.Er) 25 mg PO DAILY [facility] Last Admin: 03/24/21 07:17 Dose: 25 mg Documented by: Miscellaneous Information (Remove Patch Nicotine) 1 ea TRDERM DAILY [facility] Last Admin: 03/24/21 07:19 Dose: 1 ea Documented by: Nicotine (Nicotine 14 Mg/24 Hr Patch) 14 mg TRDERM DAILY [facility] Last Admin: 03/24/21 07:18 Dose: 14 mg Documented by: Pantoprazole Sodium (Pantoprazole 40 Mg Tab.Cr) 40 mg PO DAILY@0700 [facility] Last Admin: 03/24/21 06:16 Dose: 40 mg Documented by: Potassium Chloride (Potassium Chloride 10 Meq Tab.Er) 10 meq PO DAILY [facility] Last Admin: 03/24/21 07:18 Dose: 10 meq Documented by: Discontinued Medications Albuterol (Albuterol 0.083% 2.5 Mg/3 Ml Neb Soln) 5 mg NEB ONETIME ONE Stop: 03/21/21 11:13 Last Admin: 03/21/21 11:19 Dose: 5 mg Documented by: Ceftriaxone Sodium (Ceftriaxone 1 Gm Vial) 1 gm IVPUSH STAT ONE Stop: 03/23/21 11:16 Last Admin: 03/23/21 11:50 Dose: 1 gm Documented by: Azithromycin 500 mg/ Sodium (Chloride) 250 mls @ 250 mls/hr IV STAT ONE Stop: 03/21/21 11:42 Last Admin: 03/21/21 11:15 Dose: 250 mls/hr Documented by: Sodium Chloride (Normal Saline) 1,000 mls @ 500 mls/hr IV ONETIME ONE Stop: 03/23/21 19:59 Last Admin: 03/23/21 17:29 Dose: 500 mls/hr Documented by: Insulin Human Lispro (Insulin Lispro 100 Units/Ml 3 Ml Vial) 3 unit SUBCUT ONETIME ONE Stop: 03/21/21 17:13 Last Admin: 03/21/21 17:47 Dose: 3 units Documented by: Iopamidol (Iopamidol 755 Mg/Ml 100 Ml Bottle) 100 ml IVPUSH ONETIME ONE Stop: 03/21/21 13:27 Last Admin: 03/21/21 13:00 Dose: 100 ml Documented by: Methylprednisolone Sodium Succinate (Methylprednisolone Sodium Succinate 125 Mg /2 Ml Sdv) 125 mg IVPUSH ONETIME ONE Stop: 03/21/21 10:44 Last Admin: 03/21/21 11:15 Dose: 125 mg Documented by: Methylprednisolone Sodium Succinate (Methylprednisolone Sodium Succinate 40 Mg/1 Ml Sdv) 40 mg IVPUSH BID [facility] Last Admin: 03/23/21 07:23 Dose: 40 mg Documented by: Methylprednisolone Sodium Succinate (Methylprednisolone Sodium Succinate 125 Mg/2 Ml Sdv) 125 mg IVPUSH ONETIME ONE Stop: 03/23/21 16:31 Last Admin: 03/23/21 17:06 Dose: 125 mg Documented by: - Exam Quality Assessment: Supplemental Oxygen General: Alert, Oriented, Cooperative, Mild Distress HEENT: Pupils Equal, Mucous Membr. Moist/[place] Lungs: Wheezing Cardiovascular: Regular Rate, Regular Rhythm GI/Abdominal Exam: Normal Bowel Sounds Extremities: No Pedal Edema Skin: Warm, Dry, Intact Neurological: No New Focal Deficit Psy/Mental Status: Alert, Normal Affect, Normal Mood - Patient Data Lab Results Last 24 hrs: Laboratory Results - last 24 hr 03/23/21 03/23/21 03/23/21 Range/Units 10:20 10:20 16:15 WBC 24.1 H* (4.0-10.0) x10^3/uL RBC 4.73 (4.00-5.50) x10^6/uL Hgb 14.0 (12.0-16.0) g/dL Hct 43.5 (33.0-47.0) % MCV 92.0 (78.0-93.0) fL MCH 29.6 (26.0-32.0) pg MCHC 32.2 (32.0-36.0) g/dL RDW Coeff of Rodo 12.4 (10.0-15.0) % Plt Count 322 (130-400) x10^3/uL Immature Gran % (Auto) (0.00-0.43) % Neut % (Auto) (50.0-80.0) % Lymph % (Auto) (25.0-50.0) % Hall % (Auto) (2.0-11.0) % Eos % (Auto) (0.0-4.0) % Baso % (Auto) (0.2-1.2) % Neut # (Auto) (1.8-7.7) x10^3/uL Lymph # (Auto) (1.0-4.8) x10^3/uL Hall # (Auto) (0.0-0.8) x10^3/uL Eos # (Auto) (0.0-0.5) x10^3/uL Baso # (Auto) (0.0-0.2) x10^3/uL Immature Gran # (Auto) (0.00-0.07) x10^3/uL Add Manual Diff Yes Neutrophils % (Manual) 93 H (50-80) % Band Neutrophils % 2 (0-6) % Lymphocytes % (Manual) 1 L (25-50) % Reactive Lymphs % 2 H (0) % Monocytes % (Manual) 2 (2-11) % Absolute Neutrophils 22.9 H (1.8-7.7) x10^3/uL Lymphocytes # (Manual) 0.7 L (1.0-4.8) x10^3/uL Monocytes # (Manual) 0.5 (0.0-0.8) x10^3/uL Hypersegmented Neuts Few H Vacuolated Monocytes 1+ slight H Smudge Cells Toxic Granulation 1+ slight H Platelet Estimate Adequate POC ABG pH 7.36 (7.35-7.45) pH POC ABG pCO2 43 (35-48) mmHg POC ABG pO2 61 L (83-108) mmHg POC ABG HCO3 24.2 (21-28) mmol/L POC ABG Total CO2 24.8 (22-29) mmol/L POC ABG O2 Sat 89.9 L (94-98) % POC ABG Base Excess -1 ((-2)-3) mmol/L POC FiO2 24 Sodium 139 (136-145) mmol/L Potassium 4.4 (3.5-5.1) mmol/L Chloride 104 (98-107) mmol/L Carbon Dioxide 25 (21-32) mmol/L Anion Gap 14.4 (5-15) mmol/L BUN 24 H (7-18) mg/dL Creatinine 1.4 H (0.55-1.02) mg/dL Est Cr Clr Drug Dosing 35.50 mL/min Estimated GFR (MDRD) 37 Glucose 309 H (70-99) mg/dL POC Glucose (70-99) mg/dL Lactic Acid (0.4-2.0) mmol/L Calcium 8.9 (8.5-10.1) mg/dL Corrected Calcium 9.7 (8.5-10.1) mg/dL Total Bilirubin 0.2 (0.2-1.0) mg/dL AST < 10 L (15-37) U/L ALT 12 L (14-59) U/L Alkaline Phosphatase 137 H (46-116) U/L Total Protein 6.9 (6.4-8.2) g/dL Albumin 3.0 L (3.4-5.0) g/dL Globulin 3.9 Albumin/Globulin Ratio 0.77 Procalcitonin (0.1-0.50) ng/mL Influenza Type A RNA (NEGATIVE) RSV RNA (INAAT) (NEGATIVE) Influenza Type B RNA (NEGATIVE) SARS-CoV-2 RNA (DARRELL) (NEGATIVE) 03/23/21 03/23/21 03/23/21 Range/Units 16:39 17:02 17:02 WBC 24.1 H* (4.0-10.0) x10^3/uL RBC 4.77 (4.00-5.50) x10^6/uL Hgb 14.3 (12.0-16.0) g/dL Hct 43.7 (33.0-47.0) % MCV 91.6 (78.0-93.0) fL MCH 30.0 (26.0-32.0) pg MCHC 32.7 (32.0-36.0) g/dL RDW Coeff of Rodo 12.6 (10.0-15.0) % Plt Count 329 (130-400) x10^3/uL Immature Gran % (Auto) (0.00-0.43) % Neut % (Auto) (50.0-80.0) % Lymph % (Auto) (25.0-50.0) % Hall % (Auto) (2.0-11.0) % Eos % (Auto) (0.0-4.0) % Baso % (Auto) (0.2-1.2) % Neut # (Auto) (1.8-7.7) x10^3/uL Lymph # (Auto) (1.0-4.8) x10^3/uL Hall # (Auto) (0.0-0.8) x10^3/uL Eos # (Auto) (0.0-0.5) x10^3/uL Baso # (Auto) (0.0-0.2) x10^3/uL Immature Gran # (Auto) (0.00-0.07) x10^3/uL Add Manual Diff Yes Neutrophils % (Manual) 91 H (50-80) % Band Neutrophils % 1 (0-6) % Lymphocytes % (Manual) 3 L (25-50) % Reactive Lymphs % 1 H (0) % Monocytes % (Manual) 4 (2-11) % Absolute Neutrophils 22.2 H (1.8-7.7) x10^3/uL Lymphocytes # (Manual) 1.0 (1.0-4.8) x10^3/uL Monocytes # (Manual) 1.0 H (0.0-0.8) x10^3/uL Hypersegmented Neuts Few H Vacuolated Monocytes 1+ slight H Smudge Cells Rare H Toxic Granulation 1+ slight H Platelet Estimate Adequate POC ABG pH (7.35-7.45) pH POC ABG pCO2 (35-48) mmHg POC ABG pO2 (83-108) mmHg POC ABG HCO3 (21-28) mmol/L POC ABG Total CO2 (22-29) mmol/L POC ABG O2 Sat (94-98) % POC ABG Base Excess ((-2)-3) mmol/L POC FiO2 Sodium 140 (136-145) mmol/L Potassium 3.9 (3.5-5.1) mmol/L Chloride 104 (98-107) mmol/L Carbon Dioxide 26 (21-32) mmol/L Anion Gap 13.9 (5-15) mmol/L BUN 22 H (7-18) mg/dL Creatinine 1.5 H (0.55-1.02) mg/dL Est Cr Clr Drug Dosing 33.14 mL/min Estimated GFR (MDRD) 34 Glucose 282 H (70-99) mg/dL POC Glucose (70-99) mg/dL Lactic Acid (0.4-2.0) mmol/L Calcium 8.7 (8.5-10.1) mg/dL Corrected Calcium (8.5-10.1) mg/dL Total Bilirubin (0.2-1.0) mg/dL AST (15-37) U/L ALT (14-59) U/L Alkaline Phosphatase (46-116) U/L Total Protein (6.4-8.2) g/dL Albumin (3.4-5.0) g/dL Globulin Albumin/Globulin Ratio Procalcitonin (0.1-0.50) ng/mL Influenza Type A RNA Negative (NEGATIVE) RSV RNA (INAAT) Negative (NEGATIVE) Influenza Type B RNA Negative (NEGATIVE) SARS-CoV-2 RNA (DARRELL) Negative (NEGATIVE) 03/23/21 03/23/21 03/24/21 Range/Units 17:02 17:02 06:18 WBC (4.0-10.0) x10^3/uL RBC (4.00-5.50) x10^6/uL Hgb (12.0-16.0) g/dL Hct (33.0-47.0) % MCV (78.0-93.0) fL MCH (26.0-32.0) pg MCHC (32.0-36.0) g/dL RDW Coeff of Rodo (10.0-15.0) % Plt Count (130-400) x10^3/uL Immature Gran % (Auto) (0.00-0.43) % Neut % (Auto) (50.0-80.0) % Lymph % (Auto) (25.0-50.0) % Hall % (Auto) (2.0-11.0) % Eos % (Auto) (0.0-4.0) % Baso % (Auto) (0.2-1.2) % Neut # (Auto) (1.8-7.7) x10^3/uL Lymph # (Auto) (1.0-4.8) x10^3/uL Hall # (Auto) (0.0-0.8) x10^3/uL Eos # (Auto) (0.0-0.5) x10^3/uL Baso # (Auto) (0.0-0.2) x10^3/uL Immature Gran # (Auto) (0.00-0.07) x10^3/uL Add Manual Diff Neutrophils % (Manual) (50-80) % Band Neutrophils % (0-6) % Lymphocytes % (Manual) (25-50) % Reactive Lymphs % (0) % Monocytes % (Manual) (2-11) % Absolute Neutrophils (1.8-7.7) x10^3/uL Lymphocytes # (Manual) (1.0-4.8) x10^3/uL Monocytes # (Manual) (0.0-0.8) x10^3/uL Hypersegmented Neuts Vacuolated Monocytes Smudge Cells Toxic Granulation Platelet Estimate POC ABG pH (7.35-7.45) pH POC ABG pCO2 (35-48) mmHg POC ABG pO2 (83-108) mmHg POC ABG HCO3 (21-28) mmol/L POC ABG Total CO2 (22-29) mmol/L POC ABG O2 Sat (94-98) % POC ABG Base Excess ((-2)-3) mmol/L POC FiO2 Sodium (136-145) mmol/L Potassium (3.5-5.1) mmol/L Chloride (98-107) mmol/L Carbon Dioxide (21-32) mmol/L Anion Gap (5-15) mmol/L BUN (7-18) mg/dL Creatinine (0.55-1.02) mg/dL Est Cr Clr Drug Dosing mL/min Estimated GFR (MDRD) Glucose (70-99) mg/dL POC Glucose 190 H (70-99) mg/dL Lactic Acid 4.2 H* (0.4-2.0) mmol/L Calcium (8.5-10.1) mg/dL Corrected Calcium (8.5-10.1) mg/dL Total Bilirubin (0.2-1.0) mg/dL AST (15-37) U/L ALT (14-59) U/L Alkaline Phosphatase (46-116) U/L Total Protein (6.4-8.2) g/dL Albumin (3.4-5.0) g/dL Globulin Albumin/Globulin Ratio Procalcitonin <0.05 L (0.1-0.50) ng/mL Influenza Type A RNA (NEGATIVE) RSV RNA (INAAT) (NEGATIVE) Influenza Type B RNA (NEGATIVE) SARS-CoV-2 RNA (DARRELL) (NEGATIVE) 03/24/21 03/24/21 03/24/21 Range/Units 06:32 06:32 06:32 WBC 19.2 H (4.0-10.0) x10^3/uL RBC 4.43 (4.00-5.50) x10^6/uL Hgb 13.7 (12.0-16.0) g/dL Hct 41.0 (33.0-47.0) % MCV 92.6 (78.0-93.0) fL MCH 30.9 (26.0-32.0) pg MCHC 33.4 (32.0-36.0) g/dL RDW Coeff of Rodo 12.4 (10.0-15.0) % Plt Count 296 (130-400) x10^3/uL Immature Gran % (Auto) 1.60 H (0.00-0.43) % Neut % (Auto) 88.5 H (50.0-80.0) % Lymph % (Auto) 6.2 L (25.0-50.0) % Hall % (Auto) 3.6 (2.0-11.0) % Eos % (Auto) 0.0 (0.0-4.0) % Baso % (Auto) 0.1 L (0.2-1.2) % Neut # (Auto) 17.0 H (1.8-7.7) x10^3/uL Lymph # (Auto) 1.2 (1.0-4.8) x10^3/uL Hall # (Auto) 0.7 (0.0-0.8) x10^3/uL Eos # (Auto) 0.0 (0.0-0.5) x10^3/uL Baso # (Auto) 0.0 (0.0-0.2) x10^3/uL Immature Gran # (Auto) 0.31 H (0.00-0.07) x10^3/uL Add Manual Diff Neutrophils % (Manual) (50-80) % Band Neutrophils % (0-6) % Lymphocytes % (Manual) (25-50) % Reactive Lymphs % (0) % Monocytes % (Manual) (2-11) % Absolute Neutrophils (1.8-7.7) x10^3/uL Lymphocytes # (Manual) (1.0-4.8) x10^3/uL Monocytes # (Manual) (0.0-0.8) x10^3/uL Hypersegmented Neuts Vacuolated Monocytes Smudge Cells Toxic Granulation Platelet Estimate POC ABG pH (7.35-7.45) pH POC ABG pCO2 (35-48) mmHg POC ABG pO2 (83-108) mmHg POC ABG HCO3 (21-28) mmol/L POC ABG Total CO2 (22-29) mmol/L POC ABG O2 Sat (94-98) % POC ABG Base Excess ((-2)-3) mmol/L POC FiO2 Sodium 139 (136-145) mmol/L Potassium 4.4 (3.5-5.1) mmol/L Chloride 106 (98-107) mmol/L Carbon Dioxide 26 (21-32) mmol/L Anion Gap 11.4 (5-15) mmol/L BUN 21 H (7-18) mg/dL Creatinine 1.3 H (0.55-1.02) mg/dL Est Cr Clr Drug Dosing 38.23 mL/min Estimated GFR (MDRD) 41 Glucose 205 H (70-99) mg/dL POC Glucose (70-99) mg/dL Lactic Acid 2.7 H* (0.4-2.0) mmol/L Calcium 8.2 L (8.5-10.1) mg/dL Corrected Calcium 9.2 (8.5-10.1) mg/dL Total Bilirubin 0.2 (0.2-1.0) mg/dL AST 13 L (15-37) U/L ALT 16 (14-59) U/L Alkaline Phosphatase 119 H (46-116) U/L Total Protein 6.5 (6.4-8.2) g/dL Albumin 2.8 L (3.4-5.0) g/dL Globulin 3.7 Albumin/Globulin Ratio 0.76 Procalcitonin (0.1-0.50) ng/mL Influenza Type A RNA (NEGATIVE) RSV RNA (INAAT) (NEGATIVE) Influenza Type B RNA (NEGATIVE) SARS-CoV-2 RNA (DARRELL) (NEGATIVE) Result Diagrams: 03/24/21 06:32 03/24/21 06:32 Wiley Results Last 24 hrs: Microbiology 03/21/21 10:19 Aerobic Blood Culture - Preliminary Blood - Venous - Lab Draw NO GROWTH AFTER 2 DAYS Anaerobic Blood Culture - Final 03/21/21 10:00 Aerobic Blood Culture - Preliminary Blood - Venous NO GROWTH AFTER 2 DAYS Anaerobic Blood Culture - Preliminary NO GROWTH AFTER 2 DAYS Sepsis Event Note - Evaluation Sepsis Screening Result: No Definite Risk - Focused Exam Vital Signs: Vital Signs Temp Pulse Pulse Resp BP BP Pulse Ox 03/24/21 08:00 03/24/21 07:17 68 158/76 H 03/24/21 07:16 158/76 H 03/24/21 06:00 98 F 68 20 158/76 H 97 03/24/21 02:00 98.4 F 82 20 144/72 H 95 03/23/21 22:00 98.2 F 76 20 155/66 H 95 Pulse Ox 03/24/21 08:00 96 03/24/21 07:17 03/24/21 07:16 03/24/21 06:00 03/24/21 02:00 03/23/21 22:00 - Problem List & Annotations (1) COPD exacerbation SNOMED Code(s): 688799045 Code(s): J44.1 - CHRONIC OBSTRUCTIVE PULMONARY DISEASE W (ACUTE) EXACERBATION Status: Acute Priority: High Current Visit: No - Problem List Review Problem List Initiated/Reviewed/Updated: Yes - Assessment Assessment:: 1. Acute hypoxic respiratory failure related to COPD exacerbation. 2. Acute bronchitis. 3. Tobacco use, on nicorette patches. - Plan Plan:: Continue with oxygen, nebulizers, Solumedrol 40 mg IV BID, Zithromax orally. She had Rocephin over the weekend x 2 doses. Evaluation for home oxygen today. Consider home this afternoon if ready. Currently not feeling ready. Lab studies reviewed. WBC 19,000, Lactic Acid down to 2.4. Creat 1.3.
[2021-03-24 10:18] VITALS: BP 135/65; PULSE 72
[2021-03-24] MEDS: Albuterol/Ipratropium 3.0-0.5 MG/3 ML Neb Soln NEB PRN (10:42)
[2021-03-24] MEDS: Enoxaparin 40 MG/0.4 ML Syringe SUBCUT SCH (12:03)
--- NOTE | 2021-03-24 14:47 | PCM.DCSUM1 ---
Discharge Summary - Hospital Course Free Text/Narrative:: Paris was hospitalized with worsening SOB, cough and wheezing. She couldn't catch her breath. CXR showed no pneumonia. CBC showed WBC down to 19,000 yesterday (on steroids). Lactic acid also down to 2.4. She was given IV Rocephin x 2 days/ doses and oral Zithromax. She was placed on Solumedrol IV 40 mg BID and recieved gentle rehydration. Her oxygen was weaned down to 2L/ nc. She will need home oxygen therapy and this was ordered through [employer]. Breathing has improved and she feels she is ready for DC. Diagnosis: Stroke: No - Discharge Data Discharge Date: 03/24/21 Discharge Disposition: Home, Self-Care 01 Condition: Good - Referral to Home Health Primary Care Physician: Vandana Maciel PA-C - Discharge Diagnosis/Problem(s) (1) COPD exacerbation SNOMED Code(s): 573205121 ICD Code: J44.1 - CHRONIC OBSTRUCTIVE PULMONARY DISEASE W (ACUTE) EXACERBATION Status: Acute Priority: High Current Visit: No - Patient Instructions Activity: As Tolerated Notify Provider of: Fever Other/Special Instructions: Zithromax 250 mg daily x 5 days. Prednisone 40 mg daily x 5 days, then 20 mg daily x 5 days. Home oxygen at 2 L/nc and titrate for sat to keep greater than 90%. Office visit with me in 1 week. Plan 1st covid vaccination at this visit. Nicotene patch 14 mcg daily. Robitussin AC 1 tsp po every 4-6 hours prn cough. DC Jayden. Be seen if any worsening/ concerns. - Discharge Plan *PRESCRIPTION DRUG MONITORING PROGRAM REVIEWED*: Yes *COPY OF PRESCRIPTION DRUG MONITORING REPORT IN PATIENT LETICIA: No (see above) Prescriptions/Med Rec: Albuterol/Ipratropium [DuoNeb 3.0-0.5 MG/3 ML] 3 ml NEB Q8HRRT #120 neb Nicotine [Habitrol] 14 mg TRDERM DAILY 30 Days #30 patch predniSONE [Prednisone] 40 mg PO DAILY 10 Days #15 tablet Azithromycin [Zithromax] 250 mg PO DAILY #5 tablet Tobacco Cessation Medication: Prescription Given Home Medications: Home Meds Albuterol Sulfate [Proair Hfa] 2 puff INH ASDIRECTED PRN 04/21/16 [History] Albuterol/Ipratropium [DuoNeb 3.0-0.5 MG/3 ML] 3 ml NEB QID PRN 09/12/15 [History] Aspirin [Halfprin] 81 mg PO DAILY 09/12/15 [History] Non-Formulary Medication [NF Drug] 0 each .XX ASDIRECTED 09/12/15 [History] Fluticasone/Vilanterol [Breo Ellipta 200-25 MCG Inhalation Kit] 1 inh INH DAILY 09/08/18 [History] Denosumab [Prolia] 60 mg SUBCUT Q180D 03/21/21 [History] Gabapentin [Neurontin] 600 mg PO DAILY@1200 03/21/21 [History] Gabapentin [Neurontin] 900 mg PO BID 03/21/21 [History] Metoprolol Succinate [Toprol Xl] 25 mg PO DAILY 03/21/21 [History] Omeprazole 20 mg PO DAILY 03/21/21 [History] hydroCHLOROthiazide [Hydrochlorothiazide] 12.5 mg PO DAILY 03/21/21 [History] lisinopriL [Lisinopril] 40 mg PO DAILY 03/21/21 [History] Albuterol/Ipratropium [DuoNeb 3.0-0.5 MG/3 ML] 3 ml NEB Q4H PRN neb 03/24/21 [Rx] Albuterol/Ipratropium [DuoNeb 3.0-0.5 MG/3 ML] 3 ml NEB Q8HRRT #120 neb 03/24/21 [Rx] Azithromycin [Zithromax] 250 mg PO DAILY #5 tablet 03/24/21 [Rx] Codeine/guaiFENesin [Robitussin AC] 5 ml PO Q6H PRN cup 03/24/21 [Rx] Nicotine [Habitrol] 14 mg TRDERM DAILY 30 Days #30 patch 03/24/21 [Rx] predniSONE [Prednisone] 40 mg PO DAILY 10 Days #15 tablet 03/24/21 [Rx] Oxygen Therapy Mode: Nasal Cannula Oxygen Flow Rate (L/min): 2 (titrate to keep O2 sat >90%) Maintain SpO2% greater than: 90 Patient Handouts: Chronic Obstructive Pulmonary Disease Exacerbation Forms: ED Department Discharge Referrals: Vandana Maciel PA-C [Primary Care Provider] - - Discharge Summary/Plan Comment DC Time >30 min.: No Total # of Minutes for Discharge Time: 25 - General Info Date of Service: 03/24/21 Functional Status: Reports: Pain Controlled, Tolerating Diet - Review of Systems General: Reports: Weakness HEENT: Reports: No Symptoms Pulmonary: Reports: Shortness of Breath, Cough, Wheezing Gastrointestinal: Reports: No Symptoms Genitourinary: Reports: No Symptoms Musculoskeletal: Reports: No Symptoms Skin: Reports: No Symptoms Neurological: Reports: No Symptoms Psychiatric: Reports: No Symptoms - Patient Data Vitals - Most Recent: Last Vital Signs Temp 98.5 F 03/24/21 10:17 Pulse 72 03/24/21 10:17 Resp 19 03/24/21 10:17 BP 135/65 03/24/21 10:17 Pulse Ox 87 L 03/24/21 11:04 Weight - Most Recent: 182 lb 6.4 oz I&O - Last 24 hours: Intake & Output 03/23/21 03/24/21 03/24/21 22:59 06:59 14:59 Intake Total 720 500 480 Balance 720 500 480 Lab Results - Last 24 hrs: Laboratory Results - last 24 hr 03/23/21 03/23/21 03/23/21 Range/Units 16:15 16:39 17:02 WBC 24.1 H* (4.0-10.0) x10^3/uL RBC 4.77 (4.00-5.50) x10^6/uL Hgb 14.3 (12.0-16.0) g/dL Hct 43.7 (33.0-47.0) % MCV 91.6 (78.0-93.0) fL MCH 30.0 (26.0-32.0) pg MCHC 32.7 (32.0-36.0) g/dL RDW Coeff of Rodo 12.6 (10.0-15.0) % Plt Count 329 (130-400) x10^3/uL Immature Gran % (Auto) (0.00-0.43) % Neut % (Auto) (50.0-80.0) % Lymph % (Auto) (25.0-50.0) % [place] % (Auto) (2.0-11.0) % Eos % (Auto) (0.0-4.0) % Baso % (Auto) (0.2-1.2) % Neut # (Auto) (1.8-7.7) x10^3/uL Lymph # (Auto) (1.0-4.8) x10^3/uL [place] # (Auto) (0.0-0.8) x10^3/uL Eos # (Auto) (0.0-0.5) x10^3/uL Baso # (Auto) (0.0-0.2) x10^3/uL Immature Gran # (Auto) (0.00-0.07) x10^3/uL Add Manual Diff Yes Neutrophils % (Manual) 91 H (50-80) % Band Neutrophils % 1 (0-6) % Lymphocytes % (Manual) 3 L (25-50) % Reactive Lymphs % 1 H (0) % Monocytes % (Manual) 4 (2-11) % Absolute Neutrophils 22.2 H (1.8-7.7) x10^3/uL Lymphocytes # (Manual) 1.0 (1.0-4.8) x10^3/uL Monocytes # (Manual) 1.0 H (0.0-0.8) x10^3/uL Hypersegmented Neuts Few H Vacuolated Monocytes 1+ slight H Smudge Cells Rare H Toxic Granulation 1+ slight H Platelet Estimate Adequate POC ABG pH 7.36 (7.35-7.45) pH POC ABG pCO2 43 (35-48) mmHg POC ABG pO2 61 L (83-108) mmHg POC ABG HCO3 24.2 (21-28) mmol/L POC ABG Total CO2 24.8 (22-29) mmol/L POC ABG O2 Sat 89.9 L (94-98) % POC ABG Base Excess -1 ((-2)-3) mmol/L POC FiO2 24 Sodium (136-145) mmol/L Potassium (3.5-5.1) mmol/L Chloride (98-107) mmol/L Carbon Dioxide (21-32) mmol/L Anion Gap (5-15) mmol/L BUN (7-18) mg/dL Creatinine (0.55-1.02) mg/dL Est Cr Clr Drug Dosing mL/min Estimated GFR (MDRD) Glucose (70-99) mg/dL POC Glucose (70-99) mg/dL Lactic Acid (0.4-2.0) mmol/L Calcium (8.5-10.1) mg/dL Corrected Calcium (8.5-10.1) mg/dL Total Bilirubin (0.2-1.0) mg/dL AST (15-37) U/L ALT (14-59) U/L Alkaline Phosphatase (46-116) U/L Total Protein (6.4-8.2) g/dL Albumin (3.4-5.0) g/dL Globulin Albumin/Globulin Ratio Procalcitonin (0.1-0.50) ng/mL Influenza Type A RNA Negative (NEGATIVE) RSV RNA (INAAT) Negative (NEGATIVE) Influenza Type B RNA Negative (NEGATIVE) SARS-CoV-2 RNA (DARRELL) Negative (NEGATIVE) 03/23/21 03/23/21 03/23/21 Range/Units 17:02 17:02 17:02 WBC (4.0-10.0) x10^3/uL RBC (4.00-5.50) x10^6/uL Hgb (12.0-16.0) g/dL Hct (33.0-47.0) % MCV (78.0-93.0) fL MCH (26.0-32.0) pg MCHC (32.0-36.0) g/dL RDW Coeff of Rodo (10.0-15.0) % Plt Count (130-400) x10^3/uL Immature Gran % (Auto) (0.00-0.43) % Neut % (Auto) (50.0-80.0) % Lymph % (Auto) (25.0-50.0) % [place] % (Auto) (2.0-11.0) % Eos % (Auto) (0.0-4.0) % Baso % (Auto) (0.2-1.2) % Neut # (Auto) (1.8-7.7) x10^3/uL Lymph # (Auto) (1.0-4.8) x10^3/uL [place] # (Auto) (0.0-0.8) x10^3/uL Eos # (Auto) (0.0-0.5) x10^3/uL Baso # (Auto) (0.0-0.2) x10^3/uL Immature Gran # (Auto) (0.00-0.07) x10^3/uL Add Manual Diff Neutrophils % (Manual) (50-80) % Band Neutrophils % (0-6) % Lymphocytes % (Manual) (25-50) % Reactive Lymphs % (0) % Monocytes % (Manual) (2-11) % Absolute Neutrophils (1.8-7.7) x10^3/uL Lymphocytes # (Manual) (1.0-4.8) x10^3/uL Monocytes # (Manual) (0.0-0.8) x10^3/uL Hypersegmented Neuts Vacuolated Monocytes Smudge Cells Toxic Granulation Platelet Estimate POC ABG pH (7.35-7.45) pH POC ABG pCO2 (35-48) mmHg POC ABG pO2 (83-108) mmHg POC ABG HCO3 (21-28) mmol/L POC ABG Total CO2 (22-29) mmol/L POC ABG O2 Sat (94-98) % POC ABG Base Excess ((-2)-3) mmol/L POC FiO2 Sodium 140 (136-145) mmol/L Potassium 3.9 (3.5-5.1) mmol/L Chloride 104 (98-107) mmol/L Carbon Dioxide 26 (21-32) mmol/L Anion Gap 13.9 (5-15) mmol/L BUN 22 H (7-18) mg/dL Creatinine 1.5 H (0.55-1.02) mg/dL Est Cr Clr Drug Dosing 33.14 mL/min Estimated GFR (MDRD) 34 Glucose 282 H (70-99) mg/dL POC Glucose (70-99) mg/dL Lactic Acid 4.2 H* (0.4-2.0) mmol/L Calcium 8.7 (8.5-10.1) mg/dL Corrected Calcium (8.5-10.1) mg/dL Total Bilirubin (0.2-1.0) mg/dL AST (15-37) U/L ALT (14-59) U/L Alkaline Phosphatase (46-116) U/L Total Protein (6.4-8.2) g/dL Albumin (3.4-5.0) g/dL Globulin Albumin/Globulin Ratio Procalcitonin <0.05 L (0.1-0.50) ng/mL Influenza Type A RNA (NEGATIVE) RSV RNA (INAAT) (NEGATIVE) Influenza Type B RNA (NEGATIVE) SARS-CoV-2 RNA (DARRELL) (NEGATIVE) 03/24/21 03/24/21 03/24/21 Range/Units 06:18 06:32 06:32 WBC 19.2 H (4.0-10.0) x10^3/uL RBC 4.43 (4.00-5.50) x10^6/uL Hgb 13.7 (12.0-16.0) g/dL Hct 41.0 (33.0-47.0) % MCV 92.6 (78.0-93.0) fL MCH 30.9 (26.0-32.0) pg MCHC 33.4 (32.0-36.0) g/dL RDW Coeff of Rodo 12.4 (10.0-15.0) % Plt Count 296 (130-400) x10^3/uL Immature Gran % (Auto) 1.60 H (0.00-0.43) % Neut % (Auto) 88.5 H (50.0-80.0) % Lymph % (Auto) 6.2 L (25.0-50.0) % [place] % (Auto) 3.6 (2.0-11.0) % Eos % (Auto) 0.0 (0.0-4.0) % Baso % (Auto) 0.1 L (0.2-1.2) % Neut # (Auto) 17.0 H (1.8-7.7) x10^3/uL Lymph # (Auto) 1.2 (1.0-4.8) x10^3/uL [place] # (Auto) 0.7 (0.0-0.8) x10^3/uL Eos # (Auto) 0.0 (0.0-0.5) x10^3/uL Baso # (Auto) 0.0 (0.0-0.2) x10^3/uL Immature Gran # (Auto) 0.31 H (0.00-0.07) x10^3/uL Add Manual Diff Neutrophils % (Manual) (50-80) % Band Neutrophils % (0-6) % Lymphocytes % (Manual) (25-50) % Reactive Lymphs % (0) % Monocytes % (Manual) (2-11) % Absolute Neutrophils (1.8-7.7) x10^3/uL Lymphocytes # (Manual) (1.0-4.8) x10^3/uL Monocytes # (Manual) (0.0-0.8) x10^3/uL Hypersegmented Neuts Vacuolated Monocytes Smudge Cells Toxic Granulation Platelet Estimate POC ABG pH (7.35-7.45) pH POC ABG pCO2 (35-48) mmHg POC ABG pO2 (83-108) mmHg POC ABG HCO3 (21-28) mmol/L POC ABG Total CO2 (22-29) mmol/L POC ABG O2 Sat (94-98) % POC ABG Base Excess ((-2)-3) mmol/L POC FiO2 Sodium 139 (136-145) mmol/L Potassium 4.4 (3.5-5.1) mmol/L Chloride 106 (98-107) mmol/L Carbon Dioxide 26 (21-32) mmol/L Anion Gap 11.4 (5-15) mmol/L BUN 21 H (7-18) mg/dL Creatinine 1.3 H (0.55-1.02) mg/dL Est Cr Clr Drug Dosing 38.23 mL/min Estimated GFR (MDRD) 41 Glucose 205 H (70-99) mg/dL POC Glucose 190 H (70-99) mg/dL Lactic Acid (0.4-2.0) mmol/L Calcium 8.2 L (8.5-10.1) mg/dL Corrected Calcium 9.2 (8.5-10.1) mg/dL Total Bilirubin 0.2 (0.2-1.0) mg/dL AST 13 L (15-37) U/L ALT 16 (14-59) U/L Alkaline Phosphatase 119 H (46-116) U/L Total Protein 6.5 (6.4-8.2) g/dL Albumin 2.8 L (3.4-5.0) g/dL Globulin 3.7 Albumin/Globulin Ratio 0.76 Procalcitonin (0.1-0.50) ng/mL Influenza Type A RNA (NEGATIVE) RSV RNA (INAAT) (NEGATIVE) Influenza Type B RNA (NEGATIVE) SARS-CoV-2 RNA (DARRELL) (NEGATIVE) 03/24/21 Range/Units 06:32 WBC (4.0-10.0) x10^3/uL RBC (4.00-5.50) x10^6/uL Hgb (12.0-16.0) g/dL Hct (33.0-47.0) % MCV (78.0-93.0) fL MCH (26.0-32.0) pg MCHC (32.0-36.0) g/dL RDW Coeff of Rodo (10.0-15.0) % Plt Count (130-400) x10^3/uL Immature Gran % (Auto) (0.00-0.43) % Neut % (Auto) (50.0-80.0) % Lymph % (Auto) (25.0-50.0) % [place] % (Auto) (2.0-11.0) % Eos % (Auto) (0.0-4.0) % Baso % (Auto) (0.2-1.2) % Neut # (Auto) (1.8-7.7) x10^3/uL Lymph # (Auto) (1.0-4.8) x10^3/uL [place] # (Auto) (0.0-0.8) x10^3/uL Eos # (Auto) (0.0-0.5) x10^3/uL Baso # (Auto) (0.0-0.2) x10^3/uL Immature Gran # (Auto) (0.00-0.07) x10^3/uL Add Manual Diff Neutrophils % (Manual) (50-80) % Band Neutrophils % (0-6) % Lymphocytes % (Manual) (25-50) % Reactive Lymphs % (0) % Monocytes % (Manual) (2-11) % Absolute Neutrophils (1.8-7.7) x10^3/uL Lymphocytes # (Manual) (1.0-4.8) x10^3/uL Monocytes # (Manual) (0.0-0.8) x10^3/uL Hypersegmented Neuts Vacuolated Monocytes Smudge Cells Toxic Granulation Platelet Estimate POC ABG pH (7.35-7.45) pH POC ABG pCO2 (35-48) mmHg POC ABG pO2 (83-108) mmHg POC ABG HCO3 (21-28) mmol/L POC ABG Total CO2 (22-29) mmol/L POC ABG O2 Sat (94-98) % POC ABG Base Excess ((-2)-3) mmol/L POC FiO2 Sodium (136-145) mmol/L Potassium (3.5-5.1) mmol/L Chloride (98-107) mmol/L Carbon Dioxide (21-32) mmol/L Anion Gap (5-15) mmol/L BUN (7-18) mg/dL Creatinine (0.55-1.02) mg/dL Est Cr Clr Drug Dosing mL/min Estimated GFR (MDRD) Glucose (70-99) mg/dL POC Glucose (70-99) mg/dL Lactic Acid 2.7 H* (0.4-2.0) mmol/L Calcium (8.5-10.1) mg/dL Corrected Calcium (8.5-10.1) mg/dL Total Bilirubin (0.2-1.0) mg/dL AST (15-37) U/L ALT (14-59) U/L Alkaline Phosphatase (46-116) U/L Total Protein (6.4-8.2) g/dL Albumin (3.4-5.0) g/dL Globulin Albumin/Globulin Ratio Procalcitonin (0.1-0.50) ng/mL Influenza Type A RNA (NEGATIVE) RSV RNA (INAAT) (NEGATIVE) Influenza Type B RNA (NEGATIVE) SARS-CoV-2 RNA (DARRELL) (NEGATIVE) [facility] Results - Last 24 hrs: Microbiology 03/21/21 10:19 Aerobic Blood Culture - Preliminary Blood - Venous - Lab Draw NO GROWTH AFTER 3 DAYS Anaerobic Blood Culture - Final 03/21/21 10:00 Aerobic Blood Culture - Preliminary Blood - Venous NO GROWTH AFTER 3 DAYS Anaerobic Blood Culture - Preliminary NO GROWTH AFTER 3 DAYS Med Orders - Current: Current Medications Albuterol/Ipratropium (Albuterol/Ipratropium 3.0-0.5 Mg/3 Ml Neb Soln) 3 ml NEB Q4H PRN PRN Reason: dyspnea/wheezing Last Admin: 03/24/21 10:42 Dose: 3 ml Documented by: Albuterol/Ipratropium (Albuterol/Ipratropium 3.0-0.5 Mg/3 Ml Neb Soln) 3 ml NEB Q8HRRT [facility] Last Admin: 03/24/21 06:15 Dose: 3 ml Documented by: Alprazolam (Alprazolam 0.25 Mg Tab) 0.25 mg PO Q6H PRN PRN Reason: Anxiety Arformoterol Tartrate (Arformoterol 15 Mcg/2 Ml Neb Soln) 15 mcg NEB BIDRT [facility] Last Admin: 03/24/21 06:15 Dose: 15 mcg Documented by: Aspirin (Aspirin 81 Mg Tab.Ec) 81 mg PO DAILY [facility] Last Admin: 03/24/21 07:18 Dose: 81 mg Documented by: Azithromycin (Azithromycin 250 Mg Tab) 500 mg PO DAILY [facility] Last Admin: 03/24/21 07:17 Dose: 500 mg Documented by: Dextrose/Water (50% Dextrose In Water 50 Ml Syringe) 50 ml IVPUSH ASDIRECTED PRN PRN Reason: Hypoglycemia Enoxaparin Sodium (Enoxaparin 40 Mg/0.4 Ml Syringe) 40 mg SUBCUT DAILY@1200 [facility] Last Admin: 03/24/21 12:03 Dose: 40 mg Documented by: Gabapentin (Gabapentin 300 Mg Cap) 900 mg PO BID [facility] Last Admin: 03/24/21 07:18 Dose: 900 mg Documented by: Gabapentin (Gabapentin 300 Mg Cap) 600 mg PO DAILY@1200 [facility] Last Admin: 03/24/21 12:03 Dose: 600 mg Documented by: Glucagon (Glucagon,Human Recombinant 1 Mg Vial) 1 mg IM ASDIRECTED PRN PRN Reason: Hypoglycemia Guaifenesin/Codeine Phosphate (Codeine/Guaifenesin 10-100 Mg/5 Ml Syrup 5 Ml Cup) 5 ml PO Q6H PRN PRN Reason: Cough Last Admin: 03/24/21 12:05 Dose: 5 ml Documented by: Hydrochlorothiazide (Hydrochlorothiazide 12.5 Mg Cap) 12.5 mg PO DAILY [facility] Last Admin: 03/24/21 07:17 Dose: 12.5 mg Documented by: Sodium Chloride (Normal Saline) 1,000 mls @ 100 mls/hr IV ASDIRECTED [facility] Last Admin: 03/24/21 06:37 Dose: 100 mls/hr Documented by: Lisinopril (Lisinopril 20 Mg Tab) 40 mg PO DAILY [facility] Last Admin: 03/24/21 07:16 Dose: 40 mg Documented by: Methylprednisolone Sodium Succinate (Methylprednisolone Sodium Succinate 40 Mg/1 Ml Sdv) 40 mg IVPUSH BID [facility] Last Admin: 03/24/21 07:16 Dose: 40 mg Documented by: Metoprolol Succinate (Metoprolol Succinate 25 Mg Tab.Er) 25 mg PO DAILY [facility] Last Admin: 03/24/21 07:17 Dose: 25 mg Documented by: Miscellaneous Information (Remove Patch Nicotine) 1 ea TRDERM DAILY [facility] Last Admin: 03/24/21 07:19 Dose: 1 ea Documented by: Nicotine (Nicotine 14 Mg/24 Hr Patch) 14 mg TRDERM DAILY [facility] Last Admin: 03/24/21 07:18 Dose: 14 mg Documented by: Pantoprazole Sodium (Pantoprazole 40 Mg Tab.Cr) 40 mg PO DAILY@0700 [facility] Last Admin: 03/24/21 06:16 Dose: 40 mg Documented by: Potassium Chloride (Potassium Chloride 10 Meq Tab.Er) 10 meq PO DAILY [facility] Last Admin: 03/24/21 07:18 Dose: 10 meq Documented by: Discontinued Medications Albuterol (Albuterol 0.083% 2.5 Mg/3 Ml Neb Soln) 5 mg NEB ONETIME ONE Stop: 03/21/21 11:13 Last Admin: 03/21/21 11:19 Dose: 5 mg Documented by: Ceftriaxone Sodium (Ceftriaxone 1 Gm Vial) 1 gm IVPUSH STAT ONE Stop: 03/23/21 11:16 Last Admin: 03/23/21 11:50 Dose: 1 gm Documented by: Azithromycin 500 mg/ Sodium (Chloride) 250 mls @ 250 mls/hr IV STAT ONE Stop: 03/21/21 11:42 Last Admin: 03/21/21 11:15 Dose: 250 mls/hr Documented by: Sodium Chloride (Normal Saline) 1,000 mls @ 500 mls/hr IV ONETIME ONE Stop: 03/23/21 19:59 Last Admin: 03/23/21 17:29 Dose: 500 mls/hr Documented by: Insulin Human Lispro (Insulin Lispro 100 Units/Ml 3 Ml Vial) 3 unit SUBCUT ONETIME ONE Stop: 03/21/21 17:13 Last Admin: 03/21/21 17:47 Dose: 3 units Documented by: Iopamidol (Iopamidol 755 Mg/Ml 100 Ml Bottle) 100 ml IVPUSH ONETIME ONE Stop: 03/21/21 13:27 Last Admin: 03/21/21 13:00 Dose: 100 ml Documented by: Methylprednisolone Sodium Succinate (Methylprednisolone Sodium Succinate 125 Mg/2 Ml Sdv) 125 mg IVPUSH ONETIME ONE Stop: 03/21/21 10:44 Last Admin: 03/21/21 11:15 Dose: 125 mg Documented by: Methylprednisolone Sodium Succinate (Methylprednisolone Sodium Succinate 40 Mg/1 Ml Sdv) 40 mg IVPUSH BID [facility] Last Admin: 03/23/21 07:23 Dose: 40 mg Documented by: Methylprednisolone Sodium Succinate (Methylprednisolone Sodium Succinate 125 Mg/2 Ml Sdv) 125 mg IVPUSH ONETIME ONE Stop: 03/23/21 16:31 Last Admin: 03/23/21 17:06 Dose: 125 mg Documented by: - Exam Quality Assessment: Reports: Supplemental Oxygen General: Reports: Alert, Oriented Lungs: Reports: Wheezing Cardiovascular: Reports: Regular Rate, Regular Rhythm Skin: Reports: Warm, Dry, Intact Neurological: Reports: No New Focal Deficit Psy/Mental Status: Reports: Alert, Normal Affect
[2021-03-25 09:07] LABS: BORDETELLA PARAPERT IS1001 Not Detected (Not Detected)
== END 2021-03-24 16:40 | disposition home or self-care (01) | DRG 189 ==
LOC: VM.ED 09:33 → VM.MS 11:16
PROVIDERS: ADMIT Internal Medicine; ATTEND Internal Medicine
DX: J96.91 Respiratory failure, unspecified with hypoxia (principal); J96.01 Acute respiratory failure with hypoxia; G47.30 Sleep apnea, unspecified; J44.0 Chronic obstructive pulmonary disease with (acute) lower respiratory infection; J44.1 Chronic obstructive pulmonary disease with (acute) exacerbation; J20.9 Acute bronchitis, unspecified; E11.22 Type 2 diabetes mellitus with diabetic chronic kidney disease; K21.9 Gastro-esophageal reflux disease without esophagitis; G89.29 Other chronic pain; M19.90 Unspecified osteoarthritis, unspecified site; M54.50 Low back pain, unspecified; F32.9 Major depressive disorder, single episode, unspecified; F17.200 Nicotine dependence, unspecified, uncomplicated; E78.1 Pure hyperglyceridemia; G47.33 Obstructive sleep apnea (adult) (pediatric); G25.81 Restless legs syndrome; M81.0 Age-related osteoporosis without current pathological fracture; F17.210 Nicotine dependence, cigarettes, uncomplicated; T38.0X5A Adverse effect of glucocorticoids and synthetic analogues, initial encounter; N28.9 Disorder of kidney and ureter, unspecified; E78.00 Pure hypercholesterolemia, unspecified; R32 Unspecified urinary incontinence; N18.30 Chronic kidney disease, stage 3 unspecified; I12.9 Hypertensive chronic kidney disease with stage 1 through stage 4 chronic kidney disease, or unspecified chronic kidney disease; G47.00 Insomnia, unspecified; F32.A Depression, unspecified; E11.65 Type 2 diabetes mellitus with hyperglycemia; Z79.899 Other long term (current) drug therapy; Z79.82 Long term (current) use of aspirin; Z79.52 Long term (current) use of systemic steroids; Z88.8 Allergy status to other drugs, medicaments and biological substances; Z86.010 Personal history of colon polyps; Z99.81 Dependence on supplemental oxygen; Z86.711 Personal history of pulmonary embolism; Z79.01 Long term (current) use of anticoagulants; Z90.89 Acquired absence of other organs; Z90.710 Acquired absence of both cervix and uterus; Z90.49 Acquired absence of other specified parts of digestive tract; Z98.890 Other specified postprocedural states; Z86.718 Personal history of other venous thrombosis and embolism; Z20.822 Contact with and (suspected) exposure to COVID-19; R79.89 Other specified abnormal findings of blood chemistry
CPT/HCPCS: 0241U; 36415; 36600; 71045; 71046; 71275; 80048; 80053; 81001; 82803; 82947; 83605; 83880; 84145; 84484; 85025; 86140; 87040; 87486; 87581; 87633; 87798; 93005; 93010; 94640; 94760; 96374; 99284; 99285-25; A9270-GY; J0456; J0696; J1650; J1815-GY; J2920; J2930; J7030; J7050; J7613-GY; J7620-GY; Q9967; U0002

== ENCOUNTER 2021-04-07 18:05 | Emergency (ER) | payer MEDICARE, OTHER ==
[2021-04-07] MEDS ORDERED: methylPREDNISolone Sodium Succinate 125 MG/2 ML SDV IM ONE (18:25)
[2021-04-07] MEDS ORDERED: Dexamethasone 4 MG/ML SDV IM ONE (18:25)
--- NOTE | 2021-04-07 18:32 | EDM.PDOC ---
ED HPI GENERAL MEDICAL PROBLEM - General Chief Complaint: Respiratory Problem Stated Complaint: SOB Time Seen by Provider: 04/07/21 18:05 Source of Information: Reports: Patient, Family History Limitations: Reports: No Limitations - History of Present Illness INITIAL COMMENTS - FREE TEXT/NARRATIVE: Patient presents to the emergency room today with ongoing shortness of breath th at started yesterday while she was at home. She states she saw her primary care provider Wednesday and was told to discontinue her oxygen after being on it for the last roughly 2 weeks status post being discharged from the hospital secondary to a COPD exacerbation. She has been on 2 L of oxygen with nasal cannula since self restarted yesterday and increased to 3 L this morning secondary to her sat was only in the mid 90s and she thought she needed to get a higher secondary to she felt like she could not breathe. Patient has longstanding history of smoking for the last 45+ years. She has not smoked anything since 21 March she says she has never been seen by bridge manager and does not have a follow-up primary care provider visit until 6 months from now. Other than the shortness of breath patient states the only thing else she has going on is she has been having a little bit of cold sensation and questionable chills over the last 24 hours along with her feet cramping that started this morning. She has been eating and drinking normal and holding down plenty of fluids. She admits she did have a dark brown stool this morning but denies any black or tarry stools. Duration: Day(s): Severity: Moderate Improves with: Reports: Rest Worsens with: Reports: Movement Associated Symptoms: Reports: Cough, cough w sputum, Fever/Chills, Shortness of Breath. Denies: Chest Pain, Diaphoresis, Headaches, Loss of Appetite, Malaise, Nausea/Vomiting, Seizure, Syncope, Weakness Treatments SOCIAL WORK SPECIALIST: Reports: Oxygen - Related Data Allergies Allergy/AdvReac Type Severity Reaction Status Date / Time diclofenac Allergy Edema Verified 04/07/21 18:53 amlodipine AdvReac Dizziness Verified 04/07/21 18:53 [place]-DDW-BgD Reductase AdvReac Muscle Verified 04/07/21 18:53 Inhibitor Aches [Rcgiqba-Flp-Yak Reductase Inhibitor] Home Meds: Home Meds Albuterol Sulfate [Proair Hfa] 2 puff INH ASDIRECTED PRN 09/12/15 [History] Albuterol/Ipratropium [DuoNeb 3.0-0.5 MG/3 ML] 3 ml NEB QID PRN 09/12/15 [History] Aspirin [Halfprin] 81 mg PO DAILY 09/12/15 [History] Non-Formulary Medication [NF Drug] 0 each .XX ASDIRECTED 09/12/15 [History] Fluticasone/Vilanterol [Breo Ellipta 200-25 MCG Inhalation Kit] 1 inh INH DAILY 09/08/18 [History] Denosumab [Prolia] 60 mg SUBCUT Q180D 03/21/21 [History] Gabapentin [Neurontin] 600 mg PO DAILY@1200 03/21/21 [History] Gabapentin [Neurontin] 900 mg PO BID 03/21/21 [History] Metoprolol Succinate [Toprol Xl] 25 mg PO DAILY 03/21/21 [History] Omeprazole 20 mg PO DAILY 03/21/21 [History] hydroCHLOROthiazide [Hydrochlorothiazide] 12.5 mg PO DAILY 03/21/21 [History] lisinopriL [Lisinopril] 40 mg PO DAILY 03/21/21 [History] Albuterol/Ipratropium [DuoNeb 3.0-0.5 MG/3 ML] 3 ml NEB Q4H PRN neb 03/24/21 [Rx] Albuterol/Ipratropium [DuoNeb 3.0-0.5 MG/3 ML] 3 ml NEB Q8HRRT #120 neb 03/24/21 [Rx] Azithromycin [Zithromax] 250 mg PO DAILY #5 tablet 03/24/21 [Rx] Codeine/guaiFENesin [Robitussin AC] 5 ml PO Q6H PRN cup 03/24/21 [Rx] Nicotine [Habitrol] 14 mg TRDERM DAILY 30 Days #30 patch 03/24/21 [Rx] predniSONE [Prednisone] 40 mg PO DAILY 10 Days #15 tablet 03/24/21 [Rx] Past Medical History Cardiovascular History: Reports: Blood Clots/VTE/DVT, High Cholesterol, Hypertension Other Cardiovascular History: PERIPHERAL EDEMA Respiratory History: Reports: COPD, Sleep Apnea, Other (See Below) Other Respiratory History: SLEEP-RELATED HYPOVENTILATION, pulmonary nodule Gastrointestinal History: Reports: GERD Genitourinary History: Reports: Urinary Incontinence Other Genitourinary History: Chronic stage 3 kidney disease [employer] History: Reports: Musculoskeletal History: Reports: Arthritis, Back Pain, Chronic, Other (See Below) Other Musculoskeletal History: RIGHT SHOULDER PAIN. ROTATOR CUFF TEAR. LATERAL EPICONDYLITIS OF LEFT ELBOW. LUMBAR DEGENERATIVE DISC DISEASE. GREATER TROCHANTERIC BURSITIS OF RIGHT HIP. ACUTE PAIN OF LEFT SHOULDER. LUMBAR RADICULOPATHY Other Neuro History: RESTLESS LEG SYNDROME Psychiatric History: Reports: Depression Other Psychiatric History: INSOMNIA, PSYCHOPHYSIOLOGICAL Endocrine/Metabolic History: Reports: Diabetes, Type II Other Hematologic History: LEUKOCYTOSIS Immunologic History: Reports: None Oncologic (Cancer) History: Reports: None Dermatologic History: Reports: None - Past Surgical History HEENT Surgical History: Reports: Tonsillectomy GI Surgical History: Reports: Cholecystectomy, Colonoscopy Other GI Surgeries/Procedures: LAPAROTOMY Female Surgical History: Reports: Hysterectomy Neurological Surgical History: Reports: Spinal Fusion Other Neurological Surgeries/Procedures: NEUROPLASTY AND OR TRANSPOSIITON MEDIAN NERVE AT CARPAL TUNNEL. DEQUEVAINS RELEASE (LEFT 1ST DORSAL COMPARTMENT RELEASE) Musculoskeletal Surgical History: Reports: Carpal Tunnel, Other (See Below) Other Musculoskeletal Surgeries/Procedures:: Right shoulder arthroscopy. States 12 back surgeries Social & Family History - Caffeine Use Caffeine Use: Reports: Soda ED ROS GENERAL - Review of Systems Review Of Systems: See Below Constitutional: Reports: No Symptoms HEENT: Reports: No Symptoms Respiratory: Reports: Shortness of Breath, Cough Cardiovascular: Reports: No Symptoms, Dyspnea on Exertion. Denies: Chest Pain, Edema, Lightheadedness, PND Endocrine: Reports: No Symptoms GI/Abdominal: Reports: No Symptoms : Reports: No Symptoms Musculoskeletal: Reports: No Symptoms Skin: Reports: No Symptoms Neurological: Reports: No Symptoms Psychiatric: Reports: No Symptoms Hematologic/Lymphatic: Reports: No Symptoms Immunologic: Reports: No Symptoms ED EXAM, GENERAL - Physical Exam Exam: See Below Exam Limited By: No Limitations General Appearance: Alert, WD/WN, No Apparent Distress, Other (Patient appears no acute distress she is talking at least 15-20 words per sentence no respiratory distress is noted she has been hospitalized back in the end of February but she has never been intubated) Eye Exam: Bilateral Eye: EOMI, Normal Inspection, PERRL Ears: Normal External Exam, Normal Canal, Hearing Grossly Normal, Normal TMs Nose: Normal Inspection, Normal Mucosa, No Blood Throat/Mouth: Normal Inspection, Normal Lips, Normal Teeth, Normal Gums, Normal Oropharynx, Normal Voice, No Airway Compromise Head: Atraumatic, Normocephalic Neck: Normal Inspection, Supple, Non-Tender, Full Range of Motion Respiratory/Chest: No Respiratory Distress, Lungs Clear, Normal Breath Sounds, No Accessory Muscle Use, Chest Non-Tender. No: Decreased Breath Sounds, Crackles, Rales, Rhonchi, Wheezing, Accessory Muscle Use, Retractions Cardiovascular: Normal Peripheral Pulses, Regular Rate, Rhythm, No Edema, No Gallop, No JVD, No Murmur, No Rub GI/Abdominal: Normal Bowel Sounds, Soft, Non-Tender, No Organomegaly, No Distention Back Exam: Full Range of Motion Extremities: Normal Inspection, Normal Range of Motion, Non-Tender, No Pedal Edema, Normal Capillary Refill Neurological: Alert, Oriented, CN II-XII Intact, Normal Cognition, Normal Gait, No Motor/Sensory Deficits Psychiatric: Normal Affect, Normal Mood Skin Exam: Warm, Dry, Intact, Normal Color, No Rash #1 Interpretation EKG Date: 04/07/21 Time: 19:00 Rhythm: NSR [place]: Normal P-Wave: Present QRS: Normal ST-T: Normal QT: Normal Course - Vital Signs Text/Narrative:: CBC BMP troponin EKG chest x-ray Decadron 8 mg Solu-Medrol 125 mg IM Lab work within normal limits EKG no acute findings noted patient recheck states she feels much better she is okay with disposition of going home and following up with her primary care provider she does have jet nebulizers at home home O2. She will states she will return to the emergency room if anything changes Prednisone 40 mg 1 p.o. daily x5 days Last Recorded V/S: Last Vital Signs Temp 37.3 C 04/07/21 18:05 Pulse 83 04/07/21 18:05 Resp 28 H 04/07/21 18:05 BP 127/64 04/07/21 18:05 Pulse Ox 93 L 04/07/21 18:05 - Orders/Labs/Meds Orders: Active Orders 24 hr Category Date Time Status Chest 1V Frontal [CR] Stat Exams 04/07/21 18:25 Ordered Labs: Laboratory Tests 11/15/21 11/15/21 Range/Units 18:35 18:35 WBC 6.0 (4.0-10.0) x10^3/uL RBC 4.58 (4.00-5.50) x10^6/uL Hgb 13.8 (12.0-16.0) g/dL Hct 41.3 (33.0-47.0) % MCV 90.2 (78.0-93.0) fL MCH 30.1 (26.0-32.0) pg MCHC 33.4 (32.0-36.0) g/dL RDW Coeff of Rodo 13.3 (10.0-15.0) % Plt Count 132 D (130-400) x10^3/uL Immature Gran % (Auto) 0.30 (0.00-0.43) % Neut % (Auto) 75.4 (50.0-80.0) % Lymph % (Auto) 14.3 L (25.0-50.0) % Allen % (Auto) 9.7 (2.0-11.0) % Eos % (Auto) 0.0 (0.0-4.0) % Baso % (Auto) 0.3 (0.2-1.2) % Neut # (Auto) 4.5 (1.8-7.7) x10^3/uL Lymph # (Auto) 0.9 L (1.0-4.8) x10^3/uL Allen # (Auto) 0.6 (0.0-0.8) x10^3/uL Eos # (Auto) 0.0 (0.0-0.5) x10^3/uL Baso # (Auto) 0.0 (0.0-0.2) x10^3/uL Immature Gran # (Auto) 0.02 (0.00-0.07) x10^3/uL Sodium 135 L (136-145) mmol/L Potassium 4.1 (3.5-5.1) mmol/L Chloride 101 (98-107) mmol/L Carbon Dioxide 24 (21-32) mmol/L Anion Gap 14.1 (5-15) mmol/L BUN 22 H (7-18) mg/dL Creatinine 1.2 H (0.55-1.02) mg/dL Est Cr Clr Drug Dosing TNP Estimated GFR (MDRD) 45 Glucose 110 H (70-99) mg/dL Calcium 7.8 L (8.5-10.1) mg/dL Troponin I High Sens 10 (<=51) ng/L Meds: Medications Discontinued Medications Generic Name Dose Route Start Last Admin Trade Name Freq PRN Reason Stop Dose Admin Dexamethasone 8 mg 04/07/21 18:25 04/07/21 19:03 Dexamethasone 4 Mg/Ml Sdv IM 04/07/21 18:26 8 mg ONETIME ONE Administration Methylprednisolone Sodium Succinate 125 mg 04/07/21 18:25 04/07/21 19:04 Methylprednisolone Sodium Succinate 125 Mg/2 Ml Sdv IM 04/07/21 18:26 125 mg ONETIME ONE Administration Prednisone 1 packet 04/07/21 20:17 Take Home: Prednisone 20 Mg, 2 Tab Pack PO 04/07/21 20:18 ONETIME ONE Departure - Departure Time of Disposition: 19:30 Disposition: Home, Self-Care 01 Condition: Good Clinical Impression: COPD exacerbation, SOB (shortness of breath) - Discharge Information *PRESCRIPTION DRUG MONITORING PROGRAM REVIEWED*: No *COPY OF PRESCRIPTION DRUG MONITORING REPORT IN PATIENT LETICIA: No Instructions: Chronic Obstructive Pulmonary Disease Exacerbation Referrals: Vandana Maciel PA-C [Primary Care Provider] - Forms: ED Department Discharge Additional Instructions: Use your oxygen at 2 L/min nasal cannula as directed Take the prednisone 40 mg 1 tablet every day for 5 days Follow-up with your primary care provider next 24 to 48 hours I would also recommend a pulmonology referral Return here to the emergency room if anything changes or gets worse Sepsis Event Note (ED) - Focused Exam Vital Signs: Vital Signs Temp Pulse Resp BP Pulse Ox 04/07/21 18:05 37.3 C 83 28 H 127/64 93 L - Problem List & Annotations (1) COPD exacerbation SNOMED Code(s): 519670828 Code(s): J44.1 - CHRONIC OBSTRUCTIVE PULMONARY DISEASE W (ACUTE) EXACERBATION Status: Acute Priority: High Current Visit: Yes (2) Shortness of breath SNOMED Code(s): 716537833 Code(s): R06.02 - SHORTNESS OF BREATH Status: Acute Current Visit: Yes - My Orders Last 24 Hours: My Active Orders 04/07/21 18:25 Chest 1V Frontal [CR] Stat - Assessment/Plan Last 24 Hours: My Active Orders 04/07/21 18:25 Chest 1V Frontal [CR] Stat
[2021-04-07 18:49] VITALS: BP 127/64; PULSE 83
[2021-04-07 19:03] LABS: CHLORIDE,CL 101 mmol/L (98-107); SODIUM,NA 135 mmol/L (136-145)
[2021-04-07 19:04] LABS: ANION GAP 14.1 mmol/L (5-15)
[2021-04-07] MEDS ORDERED: Take Home: predniSONE 20 MG, 2 Tab Pack PO ONE (20:17)
--- NOTE | 2021-04-07 20:38 | CR ---
[id number] RAD/RAD Chest PA or AP 1V EXAM: FRONTAL CHEST INDICATION: SOB COMPARISON: March 23, 2021. DISCUSSION: Unchanged linear scarring in the lung bases. Hyperinflation suggests underlying COPD. No acute infiltrates. Normal heart size. Stimulator leads overlie the mid thoracic spinal canal. IMPRESSION: 1. No acute findings. Xavier Mcallister MD 04/07/212036 Thank you for allowing us to participate in the care of your patient.
== END 2021-04-07 20:00 | disposition home or self-care (01) ==
LOC: VM.ED 18:05
DX: J44.1 Chronic obstructive pulmonary disease with (acute) exacerbation (principal); I12.9 Hypertensive chronic kidney disease with stage 1 through stage 4 chronic kidney disease, or unspecified chronic kidney disease; E11.22 Type 2 diabetes mellitus with diabetic chronic kidney disease; N18.30 Chronic kidney disease, stage 3 unspecified; K21.9 Gastro-esophageal reflux disease without esophagitis; M19.90 Unspecified osteoarthritis, unspecified site; Z87.891 Personal history of nicotine dependence; Z88.8 Allergy status to other drugs, medicaments and biological substances; Z79.82 Long term (current) use of aspirin; Z79.899 Other long term (current) drug therapy
CPT/HCPCS: 36415; 71045; 80048; 84484; 85025; 93005; 93010; 96372; 99284; 99285; J1100; J2930; J7512

== ENCOUNTER 2021-04-09 18:54 | Emergency (ER) | payer MEDICARE, OTHER ==
--- NOTE | 2021-04-09 19:12 | EDM.PDOC ---
ED HPI GENERAL MEDICAL PROBLEM - General Chief Complaint: General Stated Complaint: COVID Time Seen by Provider: 04/09/21 19:00 Source of Information: Reports: Patient History Limitations: Reports: No Limitations - History of Present Illness INITIAL COMMENTS - FREE TEXT/NARRATIVE: Patient was sent here to the emergency room secondary to a positive D-dimer that was drawn in clinic today when she followed up with her primary care provider status post being discharged in the emergency room with a COPD exacerbation a few days ago. Patient states that she feels better than she did several days ago when seen here in the emergency room and feels okay and has no real complaints she states she was a little bit nervous until she found out that she had Covid today now that she has a diagnosis she states that she feels much better overall. She has been using her home oxygen and jet nebulizers and doing well. She denies any chest pain shortness of breath OGDEN PND orthopnea states she has been sleeping much better with her oxygen she has been eating and drinking with no issues She denies any lower extremity edema or pain or redness to the calfs. Overall she states she feels much better. Improves with: Reports: Rest, Other (o2) Worsens with: Reports: None Associated Symptoms: Reports: No Other Symptoms. Denies: Confusion, Chest Pain, Cough, cough w sputum, Diaphoresis, Headaches, Loss of Appetite, Nausea/Vomiting, Shortness of Breath - Related Data Allergies Allergy/AdvReac Type Severity Reaction Status Date / Time diclofenac Allergy Edema Verified 04/07/21 18:53 amlodipine AdvReac Dizziness Verified 04/07/21 18:53 Cftebbp-BOI-BwN Reductase AdvReac Muscle Verified 04/07/21 18:53 Inhibitor Aches [Pcnnehm-Juv-Xlb Reductase Inhibitor] Home Meds: Home Meds Albuterol Sulfate [Proair Hfa] 2 puff INH ASDIRECTED PRN 09/12/15 [History] Albuterol/Ipratropium [DuoNeb 3.0-0.5 MG/3 ML] 3 ml NEB QID PRN 09/12/15 [History] Aspirin [Halfprin] 81 mg PO DAILY 09/12/15 [History] Non-Formulary Medication [NF Drug] 0 each .XX ASDIRECTED 09/12/15 [History] Fluticasone/Vilanterol [Breo Ellipta 200-25 MCG Inhalation Kit] 1 inh INH DAILY 09/08/18 [History] Denosumab [Prolia] 60 mg SUBCUT Q180D 03/21/21 [History] Gabapentin [Neurontin] 600 mg PO DAILY@1200 03/21/21 [History] Gabapentin [Neurontin] 900 mg PO BID 03/21/21 [History] Metoprolol Succinate [Toprol Xl] 25 mg PO DAILY 03/21/21 [History] Omeprazole 20 mg PO DAILY 03/21/21 [History] hydroCHLOROthiazide [Hydrochlorothiazide] 12.5 mg PO DAILY 03/21/21 [History] lisinopriL [Lisinopril] 40 mg PO DAILY 03/21/21 [History] Albuterol/Ipratropium [DuoNeb 3.0-0.5 MG/3 ML] 3 ml NEB Q4H PRN neb 03/24/21 [Rx] Albuterol/Ipratropium [DuoNeb 3.0-0.5 MG/3 ML] 3 ml NEB Q8HRRT #120 neb 03/24/21 [Rx] Azithromycin [Zithromax] 250 mg PO DAILY #5 tablet 03/24/21 [Rx] Codeine/guaiFENesin [Robitussin AC] 5 ml PO Q6H PRN cup 03/24/21 [Rx] Nicotine [Habitrol] 14 mg TRDERM DAILY 30 Days #30 patch 03/24/21 [Rx] predniSONE [Prednisone] 40 mg PO DAILY 10 Days #15 tablet 03/24/21 [Rx] Past Medical History Cardiovascular History: Reports: Blood Clots/VTE/DVT, High Cholesterol, Hypertension Other Cardiovascular History: PERIPHERAL EDEMA Respiratory History: Reports: COPD, Sleep Apnea, Other (See Below) Other Respiratory History: SLEEP-RELATED HYPOVENTILATION, pulmonary nodule Gastrointestinal History: Reports: GERD Genitourinary History: Reports: Urinary Incontinence Other Genitourinary History: Chronic stage 3 kidney disease [employer] History: Reports: Musculoskeletal History: Reports: Arthritis, Back Pain, Chronic, Other (See Below) Other Musculoskeletal History: RIGHT SHOULDER PAIN. ROTATOR CUFF TEAR. LATERAL EPICONDYLITIS OF LEFT ELBOW. LUMBAR DEGENERATIVE DISC DISEASE. GREATER TROCHANTERIC BURSITIS OF RIGHT HIP. ACUTE PAIN OF LEFT SHOULDER. LUMBAR RADICULOPATHY Other Neuro History: RESTLESS LEG SYNDROME Psychiatric History: Reports: Depression Other Psychiatric History: INSOMNIA, PSYCHOPHYSIOLOGICAL Endocrine/Metabolic History: Reports: Diabetes, Type II Other Hematologic History: LEUKOCYTOSIS Immunologic History: Reports: None Oncologic (Cancer) History: Reports: None Dermatologic History: Reports: None - Past Surgical History HEENT Surgical History: Reports: Tonsillectomy GI Surgical History: Reports: Cholecystectomy, Colonoscopy Other GI Surgeries/Procedures: LAPAROTOMY Female Surgical History: Reports: Hysterectomy Neurological Surgical History: Reports: Spinal Fusion Other Neurological Surgeries/Procedures: NEUROPLASTY AND OR TRANSPOSIITON MEDIAN NERVE AT CARPAL TUNNEL. DEQUEVAINS RELEASE (LEFT 1ST DORSAL COMPARTMENT RELEASE) Musculoskeletal Surgical History: Reports: Carpal Tunnel, Other (See Below) Other Musculoskeletal Surgeries/Procedures:: Right shoulder arthroscopy. States 12 back surgeries Social & Family History - Caffeine Use Caffeine Use: Reports: Soda ED ROS GENERAL - Review of Systems Review Of Systems: See Below Constitutional: Reports: No Symptoms HEENT: Reports: No Symptoms Respiratory: Reports: No Symptoms Cardiovascular: Reports: No Symptoms. Denies: Chest Pain, Blood Pressure Problem, Dyspnea on Exertion, Lightheadedness, Palpitations, Syncope Endocrine: Reports: No Symptoms GI/Abdominal: Reports: No Symptoms : Reports: No Symptoms Musculoskeletal: Reports: No Symptoms Skin: Reports: No Symptoms Neurological: Reports: No Symptoms Psychiatric: Reports: No Symptoms Hematologic/Lymphatic: Reports: No Symptoms Immunologic: Reports: No Symptoms ED EXAM, GENERAL - Physical Exam Exam: See Below Exam Limited By: No Limitations General Appearance: Alert, WD/WN, No Apparent Distress, Other (Patient is talking 15 20 word sentences no acute distress no respiratory distress noted) Eye Exam: Bilateral Eye: EOMI, PERRL, Other Ears: Normal External Exam, Normal Canal, Hearing Grossly Normal, Normal TMs Nose: Normal Inspection, Normal Mucosa, No Blood Throat/Mouth: Normal Inspection, Normal Lips, Normal Teeth, Normal Gums, Normal Oropharynx, Normal Voice, No Airway Compromise Head: Atraumatic, Normocephalic Neck: Normal Inspection, Supple, Non-Tender, Full Range of Motion Respiratory/Chest: No Respiratory Distress, Lungs Clear, Normal Breath Sounds, No Accessory Muscle Use, Chest Non-Tender Cardiovascular: Normal Peripheral Pulses, Regular Rate, Rhythm, No Edema, No Gallop, No JVD, No Murmur, No Rub, Other (Mildly tachycardic 105) GI/Abdominal: Normal Bowel Sounds, Soft, Non-Tender, No Organomegaly, No Distention. No: Guarding, Rigid, Rebound, Tender Extremities: Normal Inspection, Normal Range of Motion, Non-Tender, Other (There is no edema erythema or tenderness palpation over the posterior calfs) Neurological: Alert, Oriented, CN II-XII Intact, Normal Cognition, Normal Gait Psychiatric: Normal Affect, Normal Mood Skin Exam: Warm, Dry, Intact, Normal Color, No Rash Course - Vital Signs Text/Narrative:: Primary care provider wants a PE study performed on the patient secondary to a D-dimer At this time I do not believe that the patient has a pulmonary embolism secondary to her presentation but I will order the study CTA chest negative PE but noted increased pneumonia Patient was rechecked states she feels fine all vital signs within normal limits She has home jet nebulizers home oxygen We will give the patient 1 g of Rocephin and started on 500 mg of Zithromax followed by 4 days of 250 azithromycin Patient is okay with disposition and treatment and wants to go home does not want inpatient treatment Departure - Departure Time of Disposition: 21:15 Disposition: Home, Self-Care 01 Condition: Good Clinical Impression: Elevated d-dimer, Pneumonia, COVID - Discharge Information *PRESCRIPTION DRUG MONITORING PROGRAM REVIEWED*: No *COPY OF PRESCRIPTION DRUG MONITORING REPORT IN PATIENT LETICIA: No Referrals: Vandana Maciel PA-C [Primary Care Provider] - Forms: ED Department Discharge - Problem List & Annotations (1) COVID SNOMED Code(s): 991611683 Code(s): U07.1 - COVID-19 Status: Acute Current Visit: Yes (2) Elevated d-dimer SNOMED Code(s): 218282778 Code(s): R79.89 - OTHER SPECIFIED ABNORMAL FINDINGS OF BLOOD CHEMISTRY Status: Acute Current Visit: Yes (3) Pneumonia SNOMED Code(s): 046530837 Code(s): J18.9 - PNEUMONIA, UNSPECIFIED ORGANISM Status: Acute Current Visit: Yes
--- NOTE | 2021-04-09 21:07 | CT ---
[id number] CT/CTA Chest Exam: CTA Chest Clinical Data: POSITIVE D-DIMER COMPARISON: CORRELATION IS MADE WITH MARCH 21, 2020 FINDINGS: There are no pulmonary emboli There are bilateral infiltrates Infiltrates are increased There is a small nodule in the superior segment of the right lower lobe on image 41, series 9 There are no pulmonary emboli Metallic densities are seen in the spinal canal at the thoracolumbar junction IMPRESSION: NO PULMONARY EMBOLI INCREASING PNEUMONIA Juan Locke MD 04/09/21 1308 Thank you for allowing us to participate in the care of your patient.
[2021-04-09] MEDS ORDERED: Azithromycin 250 MG Tab PO ONE (21:17)
[2021-04-09] MEDS ORDERED: cefTRIAXone 1 GM Vial IM ONE (21:17)
[2021-04-09 23:45] VITALS: BP 123/66
[2021-04-10 00:11] VITALS: PULSE 84
== END 2021-04-09 21:50 | disposition home or self-care (01) ==
LOC: VM.ED 18:54
DX: U07.1 COVID-19 (principal); J12.82 Pneumonia due to coronavirus disease 2019; R79.89 Other specified abnormal findings of blood chemistry; E78.00 Pure hypercholesterolemia, unspecified; I12.9 Hypertensive chronic kidney disease with stage 1 through stage 4 chronic kidney disease, or unspecified chronic kidney disease; N18.30 Chronic kidney disease, stage 3 unspecified; J44.9 Chronic obstructive pulmonary disease, unspecified; K21.9 Gastro-esophageal reflux disease without esophagitis; Z79.82 Long term (current) use of aspirin; Z79.899 Other long term (current) drug therapy; Z88.8 Allergy status to other drugs, medicaments and biological substances
CPT/HCPCS: 71275; 96372; 99284; A9270; J0696

== ENCOUNTER 2021-04-11 09:55 | Inpatient (IN) | payer MEDICARE, OTHER ==
[2021-04-11] MEDS ORDERED: Albuterol/Ipratropium 3.0-0.5 MG/3 ML Neb Soln NEB PRN (10:26)
[2021-04-11] MEDS ORDERED: hydrOXYzine HCl 25 MG Tab PO PRN (10:26)
[2021-04-11] MEDS ORDERED: Albuterol HFA 18 Gm Inhaler INH PRN (10:26)
[2021-04-11] MEDS ORDERED: [UNRECOGNIZED DRUG - OTHER] SCH (11:00)
[2021-04-11] MEDS ORDERED: Sodium Chloride 0.9% 10 ML Syringe FLUSH PRN (12:06)
[2021-04-11] MEDS: Albuterol/Ipratropium 3.0-0.5 MG/3 ML Neb Soln NEB SCH ×3 (12:29→20:22)
[2021-04-11] MEDS ORDERED: REMDESIVIR 200 MG in Sodium Chloride 0.9% 250 ML IV ONE (13:00)
[2021-04-11 13:29] LABS: ANION GAP 14.4 mmol/L (5-15)
[2021-04-11] MEDS: Nicotine 21 MG/24 Hr Patch TRDERM SCH (14:29)
[2021-04-11] MEDS: cefTRIAXone 1 GM Vial IVPUSH SCH (14:30)
[2021-04-11] MEDS: Gabapentin 300 MG Cap PO SCH ×2 (14:34→20:22)
[2021-04-11] MEDS: Ascorbic Acid 500 MG Tab PO SCH ×2 (14:34→20:22)
[2021-04-11] MEDS: Azithromycin 250 MG Tab PO SCH (14:34)
[2021-04-11] MEDS: Enoxaparin 40 MG/0.4 ML Syringe SUBCUT SCH (14:34)
[2021-04-11] MEDS: Zinc Sulfate 220 MG Cap PO SCH (14:34)
[2021-04-11] MEDS: Cholecalciferol (Vitamin D3) 25 MCG Tab PO SCH (14:35)
[2021-04-11] MEDS: dexAMETHasone 2 MG, dexAMETHasone 4 MG PO SCH ×2 (14:35)
--- NOTE | 2021-04-11 15:35 | CR ---
[id number] RAD/RAD Chest PA or AP 1V EXAM: SINGLE VIEW CHEST. INDICATION: COVID COMPARISON: CORRELATION IS MADE WITH APRIL 07, 2021 FINDINGS: Extensive bilateral interstitial infiltrates are now seen The cardiac silhouette is stable The spinal catheter again is identified IMPRESSION: DEVELOPMENT OF EXTENSIVE BILATERAL INTERSTITIAL INFILTRATES Juan Locke MD 04/11/21 1533 Thank you for allowing us to participate in the care of your patient.
[2021-04-12] MEDS: Omeprazole 20 MG Cap.CR PO SCH (06:08)
[2021-04-12] MEDS: Albuterol/Ipratropium 3.0-0.5 MG/3 ML Neb Soln NEB SCH ×4 (07:08→20:13)
[2021-04-12] MEDS: Formoterol/Mometasone 200-5 MCG 8.8 GM Inhaler IH SCH ×2 (08:21→20:13)
[2021-04-12] MEDS: cefTRIAXone 1 GM Vial IVPUSH SCH (08:22)
[2021-04-12] MEDS: Gabapentin 300 MG Cap PO SCH ×3 (08:23→20:14)
[2021-04-12] MEDS: dexAMETHasone 2 MG, dexAMETHasone 4 MG PO SCH ×2 (08:23)
[2021-04-12] MEDS: Aspirin 81 MG Tab.EC PO SCH (08:23)
[2021-04-12] MEDS: Azithromycin 250 MG Tab PO SCH (08:23)
[2021-04-12] MEDS: Zinc Sulfate 220 MG Cap PO SCH (08:24)
[2021-04-12] MEDS: Cholecalciferol (Vitamin D3) 25 MCG Tab PO SCH (08:24)
[2021-04-12] MEDS: Ascorbic Acid 500 MG Tab PO SCH ×2 (08:24→20:13)
[2021-04-12] MEDS: Metoprolol Succinate 25 MG Tab.ER PO SCH (08:30)
[2021-04-12] MEDS: Hydrochlorothiazide 12.5 MG Cap PO SCH (08:30)
[2021-04-12] MEDS: Nicotine 21 MG/24 Hr Patch TRDERM SCH (08:30)
[2021-04-12] MEDS: Lisinopril 20 MG Tab PO SCH (08:31)
[2021-04-12 10:14] LABS: ANION GAP 13.2 mmol/L (5-15)
[2021-04-12] MEDS: Enoxaparin 40 MG/0.4 ML Syringe SUBCUT SCH (12:06)
[2021-04-12] MEDS: REMDESIVIR 100 MG in Sodium Chloride 0.9% 100 ML IV SCH (12:06)
--- NOTE | 2021-04-12 13:06 | CR ---
[id number] RAD/RAD Chest PA or AP 1V EXAM: RAD Chest PA or AP 1V INDICATION: SHORT OF BREATH,COVID. COMPARISON: Multiple priors, most recent from April 11, 2021. DISCUSSION/IMPRESSION: Patient demonstrates changes of COVID pneumonia on CT from April 09, 2021. Persistent changes of groundglass parenchymal opacification and intralobular septal thickening are again seen throughout both lungs. No significant change from April 11, 2021. No new findings. Salvador Valdes MD 04/12/21 [id number] Thank you for allowing us to participate in the care of your patient.
[2021-04-12] MEDS: hydrOXYzine HCl 25 MG Tab PO SCH ×2 (14:39→20:13)
[2021-04-12] MEDS ORDERED: Zolpidem 5 MG Tab PO PRN (15:11)
--- NOTE | 2021-04-12 18:51 | PN ---
Progress Note for CRISS BARRIOS Date: 04/12/2021 Room #: VM.210 CHIEF COMPLAINT: Shortness of breath. SUBJECTIVE: Hospital day #2 for a 70-year-old female patient who was admitted to the acute care floor at [facility] for acute respiratory failure with hypoxia secondary to COVID-19. The patient was originally admitted on 03/21/2021 for hypoxic respiratory failure secondary to COPD exacerbation. The patient was discharged home on 03/24/2021. The patient did return to the emergency room at [facility] on 04/07/2021 with again COPD exacerbation. The patient was discharged home from the emergency room on that date. The patient then presented again to the emergency room at [facility] on 04/09/2021 for a positive D-dimer and difficulty breathing. The patient did have a CT of the chest which was negative for pulmonary embolus, however, it was thought she had pneumonia. The patient was also COVID-positive at that time. The patient was given monoclonal antibodies on 04/10/2021. However, yesterday her COPD worsened and she was therefore readmitted to [facility] acutely for treatment of her acute respiratory failure with hypoxia secondary to COVID-19. It was also thought yesterday she had pneumonia, therefore the patient was started on Rocephin and Zithromax. The patient states she is feeling better today. She continues to have shortness of breath with activity. The patient denies any headaches, dizziness, or lightheadedness. The patient has a dry cough, it is not productive. The patient denies any chest pain or palpitations. No leg swelling. No abdominal concern. Appetite has been fair. The patient has not had a bowel movement since admission. She is urinating okay. No skin concerns. The patient does not feel she has had any fevers or chills. The patient was started on remdesivir yesterday as well as Decadron. She was also started on vitamin C, vitamin D, and zinc. REVIEW OF SYSTEMS: See HPI. PHYSICAL EXAMINATION: Vital Signs: Temperature 97.1, pulse 62, blood pressure 128/59, respiratory rate 18, oxygen saturation 87% on 5 L. Skin: Intact, warm, and dry. Respiratory: Lungs are decreased throughout, no wheezing or rhonchi. Cardiovascular: Regular rate and rhythm, no murmur. Abdomen: Soft, nontender. Bowel sounds are hypoactive x4. Extremities: No edema. Neurologic: The patient is alert. The patient is oriented to person, place, and time. No focal neurological deficits. LABORATORY STUDIES: CBC: White blood cell count 4.8, hemoglobin 12.3, hematocrit 37.3, platelets 198,000. CMP: Sodium 136, potassium 4.2, chloride 102, CO2 of 25, anion gap 13.2, BUN 38, creatinine 1.4, GFR 37, glucose 184, calcium 8.4, AST 25, ALT 14, alkaline phosphatase 73, total protein 6.5. ASSESSMENT: 1. Acute respiratory failure with hypoxia secondary to coronavirus disease 2019. 2. Acute chronic obstructive pulmonary disease exacerbation. 3. Hyperglycemia, likely due to steroids with underlying prediabetes. 4. Mild renal insufficiency with creatinine 1.3, baseline 1.13. 5. Chronic pain syndrome. 6. Gastroesophageal reflux disease. 7. Obstructive sleep apnea, on CPAP. 8. Remote history of pulmonary embolism. 9. Osteoporosis. 10.Tobacco use disorder. PLAN: A 70-year-old female patient who was admitted to the acute care floor at [facility] yesterday for the above diagnoses. Repeat x-ray today does not show any consolidation or concerns for pneumonia, therefore we will discontinue the azithromycin and Rocephin. The patient will continue on the remdesivir and Decadron. Continue on the vitamin D, vitamin C, zinc. We will wean the patient's oxygen to keep saturations greater than 88% and less than 92%. We discussed use of incentive spirometry and cough and deep breathing. No IV fluid secondary to COVID-19. Continue home medications the same. We will recheck laboratory work tomorrow morning. Continue on Lovenox for DVT prophylaxis. TB: 04/12/2021 15:26:07 MODL: 04/12/2021 18:41:13 /[id number]
[2021-04-13] MEDS: hydrOXYzine HCl 25 MG Tab PO SCH ×4 (01:33→20:06)
[2021-04-13] MEDS: Omeprazole 20 MG Cap.CR PO SCH (06:43)
[2021-04-13] MEDS: Albuterol/Ipratropium 3.0-0.5 MG/3 ML Neb Soln NEB SCH ×4 (07:22→20:08)
[2021-04-13 09:32] LABS: ANION GAP 15.1 mmol/L (5-15)
[2021-04-13] MEDS: Hydrochlorothiazide 12.5 MG Cap PO SCH (09:45)
[2021-04-13] MEDS: Gabapentin 300 MG Cap PO SCH ×3 (09:45→20:07)
[2021-04-13] MEDS: dexAMETHasone 2 MG, dexAMETHasone 4 MG PO SCH ×2 (09:45)
[2021-04-13] MEDS: Zinc Sulfate 220 MG Cap PO SCH (09:45)
[2021-04-13] MEDS: Metoprolol Succinate 25 MG Tab.ER PO SCH (09:46)
[2021-04-13] MEDS: Ascorbic Acid 500 MG Tab PO SCH ×2 (09:46→20:07)
[2021-04-13] MEDS: Aspirin 81 MG Tab.EC PO SCH (09:47)
[2021-04-13] MEDS: Lisinopril 20 MG Tab PO SCH (09:47)
[2021-04-13] MEDS: Nicotine 21 MG/24 Hr Patch TRDERM SCH (09:47)
[2021-04-13] MEDS: Cholecalciferol (Vitamin D3) 25 MCG Tab PO SCH (09:47)
[2021-04-13] MEDS: Formoterol/Mometasone 200-5 MCG 8.8 GM Inhaler IH SCH ×2 (09:48→20:06)
--- NOTE | 2021-04-13 10:18 | PN ---
Progress Note for CRISS BARRIOS Date: 04/13/2021 Room #: [facility] CHIEF COMPLAINT: Shortness of breath. SUBJECTIVE: Hospital day #3 on a 70-year-old female patient who was admitted to the acute care floor at [facility] for acute respiratory failure with hypoxia secondary to COVID-19. The patient states she is feeling about the same today. She continues to have shortness of breath with activity. She continues to have a dry cough. The patient does not think she has had any fevers or chills. No issues with urination or bowel movements. She denies any chest pain or palpitations. No skin problems. Her appetite has been good. The patient denies any nausea, vomiting, or diarrhea. REVIEW OF SYSTEMS: See HPI. PHYSICAL EXAMINATION: Vital Signs: Temperature 97.7, pulse 57, blood pressure 127/74, respiratory rate 16, oxygen saturation 93% on 7 L. Skin: Intact, warm, and dry. Respiratory: Lungs are decreased throughout, otherwise clear. Cardiovascular: Regular rate and rhythm, no murmur. Abdomen: Soft, nontender. Bowel sounds are normoactive x4. Extremities: No edema. Neurologic: The patient is alert. The patient is oriented to person, place, and time. LABORATORY STUDIES: 1. CBC: White blood cell count 9.0, hemoglobin 11.9, hematocrit 35.7, platelet count 271,000. 2. CMP: Sodium 138, potassium 4.1, chloride 103, CO2 of 24, anion gap 15.1, BUN 37, creatinine 1.3, GFR 41, glucose 212, calcium 7.3, protein 6.4. ASSESSMENT: 1. Acute respiratory failure with hypoxia secondary to coronavirus disease 2018. 2. Acute chronic obstructive pulmonary disease exacerbation. 3. Hyperglycemia, likely due to steroids with underlying prediabetes. 4. Mild renal insufficiency with creatinine of 1.3, baseline 1.13. 5. Chronic pain syndrome. 6. Gastroesophageal reflux disease. 7. Obstructive sleep apnea, on CPAP. 8. Remote history of pulmonary embolism. 9. Osteoporosis. 10.Tobacco use disorder. PLAN: Hospital day #3 on a 70-year-old female patient who was admitted to the acute care floor for the above diagnoses. Repeat x-ray did not show any pneumonia, therefore the antibiotics were discontinued yesterday. Continue on remdesivir and Decadron. The patient needs to get up out of bed and get moving. Wean oxygen to keep saturations greater than 88% and less than 92% secondary to COPD per Gold guidelines. Continue on Lovenox for DVT prophylaxis, recheck laboratory work tomorrow morning. Continue home medications the same. TB: 04/13/2021 09:35:59 MODL: 04/13/2021 10:12:06 /[id number]
[2021-04-13] MEDS: Enoxaparin 40 MG/0.4 ML Syringe SUBCUT SCH (11:48)
[2021-04-13] MEDS: REMDESIVIR 100 MG in Sodium Chloride 0.9% 100 ML IV SCH (11:53)
[2021-04-14] MEDS: hydrOXYzine HCl 25 MG Tab PO SCH ×3 (02:52→14:34)
[2021-04-14] MEDS: Omeprazole 20 MG Cap.CR PO SCH (06:13)
[2021-04-14] MEDS: Albuterol/Ipratropium 3.0-0.5 MG/3 ML Neb Soln NEB SCH ×2 (06:14→12:20)
[2021-04-14 07:22] LABS: ANION GAP 12.7 mmol/L (5-15)
[2021-04-14] MEDS: dexAMETHasone 2 MG, dexAMETHasone 4 MG PO SCH ×2 (08:01)
[2021-04-14] MEDS: Gabapentin 300 MG Cap PO SCH ×2 (08:02→12:12)
[2021-04-14] MEDS: Aspirin 81 MG Tab.EC PO SCH (08:02)
[2021-04-14] MEDS: Zinc Sulfate 220 MG Cap PO SCH (08:02)
[2021-04-14] MEDS: Metoprolol Succinate 25 MG Tab.ER PO SCH (08:03)
[2021-04-14] MEDS: Ascorbic Acid 500 MG Tab PO SCH (08:03)
[2021-04-14] MEDS: Lisinopril 20 MG Tab PO SCH (08:04)
[2021-04-14] MEDS: Hydrochlorothiazide 12.5 MG Cap PO SCH (08:05)
[2021-04-14] MEDS: Cholecalciferol (Vitamin D3) 25 MCG Tab PO SCH (08:05)
[2021-04-14] MEDS: Formoterol/Mometasone 200-5 MCG 8.8 GM Inhaler IH SCH (08:06)
[2021-04-14] MEDS: Nicotine 21 MG/24 Hr Patch TRDERM SCH (08:07)
[2021-04-14 09:01] VITALS: BP 131/49; PULSE 67
[2021-04-14 09:20] LABS: PCO2 ARTERIAL,POC 33 mmHg (35-48)
[2021-04-14] MEDS: REMDESIVIR 100 MG in Sodium Chloride 0.9% 100 ML IV SCH (12:13)
[2021-04-14] MEDS: Enoxaparin 40 MG/0.4 ML Syringe SUBCUT SCH (12:13)
== END 2021-04-14 12:25 | disposition still patient (30) | DRG 177 ==
LOC: VM.MS 09:55
PROVIDERS: ADMIT Physician Assistant; ATTEND Physician Assistant
PROC: XW033E5 Introduction of Remdesivir Anti-infective into Peripheral Vein, Percutaneous Approach, New Technology Group 5 (ICD-10-PCS; principal; 2021-04-11)
PROC: 3E0DX3Z Introduction of Anti-inflammatory into Mouth and Pharynx, External Approach (ICD-10-PCS; 2021-04-11)
DX: U07.1 COVID-19 (principal); J12.82 Pneumonia due to coronavirus disease 2019; J96.01 Acute respiratory failure with hypoxia; J44.0 Chronic obstructive pulmonary disease with (acute) lower respiratory infection; J44.1 Chronic obstructive pulmonary disease with (acute) exacerbation; M54.16 Radiculopathy, lumbar region; I10 Essential (primary) hypertension; G47.33 Obstructive sleep apnea (adult) (pediatric); K21.9 Gastro-esophageal reflux disease without esophagitis; M81.0 Age-related osteoporosis without current pathological fracture; R73.9 Hyperglycemia, unspecified; T38.0X5A Adverse effect of glucocorticoids and synthetic analogues, initial encounter; F17.200 Nicotine dependence, unspecified, uncomplicated; G89.4 Chronic pain syndrome; Z79.899 Other long term (current) drug therapy; Z86.711 Personal history of pulmonary embolism; Z79.01 Long term (current) use of anticoagulants
CPT/HCPCS: 36415; 36600; 71045; 80053; 82728; 82803; 83605; 83615; 83735; 83880; 84145; 84484; 85025; 85027; 85379; 85610; 86140; 94640; 94760; A9270-GY; J0696; J1650; J7050; J7620-GY; J8540

== ENCOUNTER 2021-06-14 13:04 | Emergency (ER) | payer MEDICARE, OTHER ==
[2021-06-14] MEDS ORDERED: Ciprofloxacin 0.3% Ophth Soln 2.5 ML Bottle EYELF ONE (13:17)
[2021-06-14 14:36] VITALS: BP 147/83; PULSE 90
== END 2021-06-14 14:40 | disposition home or self-care (01) ==
LOC: VM.ED 13:04
DX: H72.92 Unspecified perforation of tympanic membrane, left ear (principal); K21.9 Gastro-esophageal reflux disease without esophagitis; J44.9 Chronic obstructive pulmonary disease, unspecified; E11.22 Type 2 diabetes mellitus with diabetic chronic kidney disease; I12.9 Hypertensive chronic kidney disease with stage 1 through stage 4 chronic kidney disease, or unspecified chronic kidney disease; N18.30 Chronic kidney disease, stage 3 unspecified; Z88.8 Allergy status to other drugs, medicaments and biological substances; Z79.82 Long term (current) use of aspirin; Z79.899 Other long term (current) drug therapy
CPT/HCPCS: 99282; 99283

== ENCOUNTER 2021-07-13 12:55 | Emergency (ER) | payer MEDICARE, OTHER ==
[2021-07-13] MEDS ORDERED: Sodium Chloride 0.9% 10 ML Syringe FLUSH PRN (13:05)
[2021-07-13] MEDS ORDERED: Albuterol/Ipratropium 3.0-0.5 MG/3 ML Neb Soln NEB ONE (14:16)
[2021-07-13] MEDS ORDERED: methylPREDNISolone Sodium Succinate 125 MG/2 ML SDV IVPUSH ONE (14:49)
[2021-07-13] MEDS ORDERED: cefTRIAXone 2 GM Vial IVPUSH ONE (14:49)
[2021-07-13 14:58] LABS: PTT,PARTIAL THROMBOPLSTIN TIME 21.2 SEC (20.5-30.9)
[2021-07-13 15:03] LABS: CHLORIDE,CL 106 mmol/L (98-107); SODIUM,NA 139 mmol/L (136-145)
[2021-07-13 15:04] LABS: ANION GAP 9.7 mmol/L (5-15)
[2021-07-13 15:17] LABS: CORONAVIRUS COVID-19 NAA NEGATIVE (NEGATIVE); RESPIRATORY SYNCYTIAL VIR NAA NEGATIVE (NEGATIVE)
[2021-07-13] MEDS ORDERED: Take Home: Doxycycline 100 MG Tab, 4 Tab Pack PO ONE (15:42)
[2021-07-13 19:01] VITALS: BP 138/72; PULSE 83
== END 2021-07-13 16:10 | disposition home or self-care (01) ==
LOC: VM.ED 12:55
DX: J44.1 Chronic obstructive pulmonary disease with (acute) exacerbation (principal); J18.9 Pneumonia, unspecified organism; E78.00 Pure hypercholesterolemia, unspecified; K21.9 Gastro-esophageal reflux disease without esophagitis; I12.9 Hypertensive chronic kidney disease with stage 1 through stage 4 chronic kidney disease, or unspecified chronic kidney disease; E11.22 Type 2 diabetes mellitus with diabetic chronic kidney disease; N18.30 Chronic kidney disease, stage 3 unspecified; Z88.8 Allergy status to other drugs, medicaments and biological substances; Z79.82 Long term (current) use of aspirin; Z79.899 Other long term (current) drug therapy; Z20.822 Contact with and (suspected) exposure to COVID-19
CPT/HCPCS: 0241U; 36415; 71045; 80053; 83605; 83735; 83880; 84100; 84484; 85025; 85379; 85610; 85730; 86140; 87040; 93005; 94640; 94760; 96374; 96375; 99284; 99285-25; A9270-GY; J0696; J2930; J7620-GY

== ENCOUNTER 2022-01-28 15:33 | Emergency (ER) | payer MEDICARE, OTHER ==
[2022-01-28 16:55] LABS: CHLORIDE,CL 103 mmol/L (98-107); SODIUM,NA 141 mmol/L (136-145)
[2022-01-28 16:56] LABS: ANION GAP 14.2 mmol/L (5-15); ESTIMATED GFR 44 mL/min (>=60)
[2022-01-28 17:37] VITALS: BP 119/54; PULSE 67
== END 2022-01-28 17:23 | disposition home or self-care (01) ==
LOC: VM.ED 15:33
DX: J44.1 Chronic obstructive pulmonary disease with (acute) exacerbation (principal); J18.9 Pneumonia, unspecified organism; E11.22 Type 2 diabetes mellitus with diabetic chronic kidney disease; I12.9 Hypertensive chronic kidney disease with stage 1 through stage 4 chronic kidney disease, or unspecified chronic kidney disease; N18.30 Chronic kidney disease, stage 3 unspecified; K21.9 Gastro-esophageal reflux disease without esophagitis; E78.00 Pure hypercholesterolemia, unspecified; F17.210 Nicotine dependence, cigarettes, uncomplicated; Z88.8 Allergy status to other drugs, medicaments and biological substances; Z79.82 Long term (current) use of aspirin; Z20.822 Contact with and (suspected) exposure to COVID-19
CPT/HCPCS: 36415; 71045; 80053; 85025; 99284; 99285; U0002

== ENCOUNTER 2022-04-28 15:03 | Inpatient (IN) | payer MEDICARE, OTHER ==
[2022-04-28] MEDS ORDERED: Sodium Chloride 0.9% 1,000 ML IV ONE (15:27)
[2022-04-28 15:55] LABS: ANION GAP 14.7 mmol/L (5-15)
[2022-04-28] MEDS ORDERED: cefTRIAXone 2 GM Vial IVPUSH ONE ×2 (16:26→19:30)
[2022-04-28 16:34] LABS: CORONAVIRUS COVID-19 NAA NEGATIVE (NEGATIVE)
[2022-04-28] MEDS ORDERED: Ondansetron 4 MG Tab.DIS PO PRN (18:29)
[2022-04-28] MEDS ORDERED: Docusate Sodium 100 MG Cap PO PRN (18:29)
[2022-04-28] MEDS ORDERED: Albuterol/Ipratropium 3.0-0.5 MG/3 ML Neb Soln NEB PRN (18:33)
[2022-04-28] MEDS ORDERED: Albuterol HFA 18 Gm Inhaler INH PRN (18:33)
[2022-04-28] MEDS ORDERED: Zolpidem 5 MG Tab PO PRN (18:33)
[2022-04-28] MEDS ORDERED: hydrOXYzine HCl 25 MG Tab PO PRN (18:33)
[2022-04-28] MEDS: Albuterol/Ipratropium 3.0-0.5 MG/3 ML Neb Soln NEB SCH ×2 (19:41→22:18)
[2022-04-28] MEDS: Gabapentin 300 MG Cap PO SCH (21:46)
[2022-04-29] MEDS: Albuterol/Ipratropium 3.0-0.5 MG/3 ML Neb Soln NEB SCH ×6 (02:31→22:08)
[2022-04-29 07:25] LABS: ANION GAP 12.2 mmol/L (5-15)
[2022-04-29] MEDS ORDERED: Sodium Chloride 0.9% 1,000 ML IV SCH (08:45)
[2022-04-29] MEDS: cefTRIAXone 1 GM Vial IVPUSH SCH (08:54)
[2022-04-29] MEDS: Aspirin 81 MG Tab.EC PO SCH (08:54)
[2022-04-29] MEDS: Azithromycin 250 MG Tab PO SCH (08:54)
[2022-04-29] MEDS: Omeprazole 20 MG Cap.CR PO SCH (08:54)
[2022-04-29] MEDS: metFORMIN 500 MG Tab PO SCH ×2 (08:55→18:26)
[2022-04-29] MEDS: Hydrochlorothiazide 12.5 MG Cap PO SCH (08:55)
[2022-04-29] MEDS: predniSONE 20 MG Tab PO SCH (08:55)
[2022-04-29] MEDS: Gabapentin 300 MG Cap PO SCH ×3 (08:55→20:01)
[2022-04-29] MEDS: Lisinopril 20 MG Tab PO SCH (08:55)
[2022-04-29] MEDS: Tiotropium Bromide 4 GM Inhalation Spray (2.5mcg/1 dose; 10 doses) INH SCH (08:56)
[2022-04-29] MEDS: Enoxaparin 40 MG/0.4 ML Syringe SUBCUT SCH (08:56)
[2022-04-29] MEDS: Formoterol/Mometasone 200-5 MCG 13 GM Inhaler INH SCH ×2 (08:56→20:02)
[2022-04-29] MEDS ORDERED: predniSONE 5 MG Tab PO SCH (09:00)
[2022-04-30] MEDS: Albuterol/Ipratropium 3.0-0.5 MG/3 ML Neb Soln NEB SCH ×6 (03:48→22:56)
[2022-04-30 07:23] LABS: ANION GAP 13.6 mmol/L (5-15)
[2022-04-30] MEDS: Gabapentin 300 MG Cap PO SCH ×3 (08:15→20:27)
[2022-04-30] MEDS: Azithromycin 250 MG Tab PO SCH (08:16)
[2022-04-30] MEDS: Hydrochlorothiazide 12.5 MG Cap PO SCH (08:16)
[2022-04-30] MEDS: metFORMIN 500 MG Tab PO SCH ×2 (08:16→17:41)
[2022-04-30] MEDS: Omeprazole 20 MG Cap.CR PO SCH (08:16)
[2022-04-30] MEDS: Lisinopril 20 MG Tab PO SCH (08:17)
[2022-04-30] MEDS: Enoxaparin 40 MG/0.4 ML Syringe SUBCUT SCH (08:17)
[2022-04-30] MEDS: predniSONE 20 MG Tab PO SCH (08:17)
[2022-04-30] MEDS: Aspirin 81 MG Tab.EC PO SCH (08:17)
[2022-04-30] MEDS: cefTRIAXone 1 GM Vial IVPUSH SCH (08:17)
[2022-04-30] MEDS: Formoterol/Mometasone 200-5 MCG 13 GM Inhaler INH SCH ×2 (08:23→20:28)
[2022-04-30] MEDS: Tiotropium Bromide 4 GM Inhalation Spray (2.5mcg/1 dose; 10 doses) INH SCH (08:24)
[2022-04-30] MEDS: Sertraline 50 MG Tab PO SCH (09:58)
[2022-04-30] MEDS: Benzonatate 100 MG Cap PO SCH ×2 (13:04→20:27)
[2022-04-30] MEDS: Zolpidem 5 MG Tab PO SCH (20:28)
[2022-05-01] MEDS: Albuterol/Ipratropium 3.0-0.5 MG/3 ML Neb Soln NEB SCH ×6 (02:24→23:17)
[2022-05-01] MEDS: cefTRIAXone 1 GM Vial IVPUSH SCH (08:39)
[2022-05-01] MEDS: Benzonatate 100 MG Cap PO SCH ×3 (08:40→20:24)
[2022-05-01] MEDS: predniSONE 20 MG Tab PO SCH (08:40)
[2022-05-01] MEDS: Gabapentin 300 MG Cap PO SCH ×3 (08:41→20:24)
[2022-05-01] MEDS: Azithromycin 250 MG Tab PO SCH (08:42)
[2022-05-01] MEDS: metFORMIN 500 MG Tab PO SCH ×2 (08:42→18:54)
[2022-05-01] MEDS: Omeprazole 20 MG Cap.CR PO SCH (08:42)
[2022-05-01] MEDS: Sertraline 50 MG Tab PO SCH (08:43)
[2022-05-01] MEDS: Lisinopril 20 MG Tab PO SCH (08:43)
[2022-05-01] MEDS: Aspirin 81 MG Tab.EC PO SCH (08:43)
[2022-05-01] MEDS: Hydrochlorothiazide 12.5 MG Cap PO SCH (08:44)
[2022-05-01] MEDS: Enoxaparin 40 MG/0.4 ML Syringe SUBCUT SCH (08:45)
[2022-05-01] MEDS: Formoterol/Mometasone 200-5 MCG 13 GM Inhaler INH SCH ×2 (08:46→20:24)
[2022-05-01] MEDS: Tiotropium Bromide 4 GM Inhalation Spray (2.5mcg/1 dose; 10 doses) INH SCH (08:47)
[2022-05-01 09:06] LABS: ANION GAP 11.2 mmol/L (5-15)
[2022-05-01] MEDS: Lactobacillus Rhamnosus GG (Probiotic) Cap PO SCH ×2 (11:15→20:25)
[2022-05-01] MEDS: Zolpidem 5 MG Tab PO SCH (20:24)
[2022-05-01] MEDS: Amoxicillin/Clavulanate K 875-125 MG Tab PO SCH (20:25)
[2022-05-02] MEDS: Albuterol/Ipratropium 3.0-0.5 MG/3 ML Neb Soln NEB SCH ×3 (03:15→11:29)
[2022-05-02] MEDS: Sertraline 50 MG Tab PO SCH (08:42)
[2022-05-02] MEDS: Lactobacillus Rhamnosus GG (Probiotic) Cap PO SCH (08:42)
[2022-05-02] MEDS: Hydrochlorothiazide 12.5 MG Cap PO SCH (08:43)
[2022-05-02] MEDS: Omeprazole 20 MG Cap.CR PO SCH (08:43)
[2022-05-02] MEDS: Gabapentin 300 MG Cap PO SCH (08:44)
[2022-05-02] MEDS: predniSONE 20 MG Tab PO SCH (08:44)
[2022-05-02] MEDS: Aspirin 81 MG Tab.EC PO SCH (08:45)
[2022-05-02] MEDS: Azithromycin 250 MG Tab PO SCH (08:45)
[2022-05-02] MEDS: metFORMIN 500 MG Tab PO SCH (08:45)
[2022-05-02] MEDS: Amoxicillin/Clavulanate K 875-125 MG Tab PO SCH (08:46)
[2022-05-02] MEDS: Benzonatate 100 MG Cap PO SCH (08:46)
[2022-05-02] MEDS: Lisinopril 20 MG Tab PO SCH (08:49)
[2022-05-02] MEDS: Tiotropium Bromide 4 GM Inhalation Spray (2.5mcg/1 dose; 10 doses) INH SCH (08:49)
[2022-05-02] MEDS: Formoterol/Mometasone 200-5 MCG 13 GM Inhaler INH SCH (08:50)
[2022-05-02] MEDS: Enoxaparin 40 MG/0.4 ML Syringe SUBCUT SCH (08:51)
[2022-05-02 08:52] VITALS: BP 142/55
[2022-05-02 08:55] VITALS: PULSE 82
== END 2022-05-02 11:30 | disposition home or self-care (01) | DRG 871 ==
LOC: VM.ED 15:03 → VM.MS 17:10
PROVIDERS: ADMIT Physician Assistant; ATTEND Physician Assistant
DX: A41.9 Sepsis, unspecified organism (principal); J18.9 Pneumonia, unspecified organism; J44.0 Chronic obstructive pulmonary disease with (acute) lower respiratory infection; Z87.891 Personal history of nicotine dependence; J84.9 Interstitial pulmonary disease, unspecified; N17.9 Acute kidney failure, unspecified; J44.1 Chronic obstructive pulmonary disease with (acute) exacerbation; K21.9 Gastro-esophageal reflux disease without esophagitis; G47.30 Sleep apnea, unspecified; G25.81 Restless legs syndrome; R32 Unspecified urinary incontinence; Z20.822 Contact with and (suspected) exposure to COVID-19; E78.00 Pure hypercholesterolemia, unspecified; I12.9 Hypertensive chronic kidney disease with stage 1 through stage 4 chronic kidney disease, or unspecified chronic kidney disease; E11.22 Type 2 diabetes mellitus with diabetic chronic kidney disease; Z79.52 Long term (current) use of systemic steroids; N18.30 Chronic kidney disease, stage 3 unspecified; F32.A Depression, unspecified; M19.90 Unspecified osteoarthritis, unspecified site; M54.9 Dorsalgia, unspecified; G89.29 Other chronic pain; Z88.8 Allergy status to other drugs, medicaments and biological substances; Z79.82 Long term (current) use of aspirin; Z79.84 Long term (current) use of oral hypoglycemic drugs; Z79.899 Other long term (current) drug therapy; Z86.718 Personal history of other venous thrombosis and embolism; Z79.01 Long term (current) use of anticoagulants; Z86.16 Personal history of COVID-19; Z90.49 Acquired absence of other specified parts of digestive tract
CPT/HCPCS: 0240U; 36415; 71045; 80048; 80053; 83880; 84484; 85025; 86140; 93010; 94640; 94760; 99284; A9270-GY; J0696; J1650; J7030; J7512; J7620-GY

== ENCOUNTER 2022-08-06 12:35 | Inpatient (IN) | payer MEDICARE, OTHER ==
[2022-08-06] MEDS ORDERED: methylPREDNISolone Sodium Succinate 125 MG/2 ML SDV IV ONE (12:44)
[2022-08-06 13:16] LABS: PCO2 ARTERIAL,POC 41 mmHg (35-48)
[2022-08-06 13:33] LABS: PTT,PARTIAL THROMBOPLSTIN TIME 20.1 SEC (23.6-33.6)
[2022-08-06 13:43] LABS: CHLORIDE,CL 106 mmol/L (98-107); SODIUM,NA 141 mmol/L (136-145)
[2022-08-06 13:45] LABS: ANION GAP 12.5 mmol/L (5-15); ESTIMATED GFR 40 mL/min (>=60)
[2022-08-06] MEDS ORDERED: cefTRIAXone 2 GM Vial IVPUSH ONE (13:48)
[2022-08-06] MEDS ORDERED: Sodium Chloride 0.9% 1,000 ML IV SCH (14:00)
[2022-08-06 15:01] LABS: CORONAVIRUS COVID-19 NAA NEGATIVE (NEGATIVE); RESPIRATORY SYNCYTIAL VIR NAA NEGATIVE (NEGATIVE)
[2022-08-06] MEDS ORDERED: Furosemide 40 MG/4 ML VIAL IV ONE (15:06)
[2022-08-06] MEDS ORDERED: Sodium Chloride 0.9% 500 ML IV ONE (17:32)
[2022-08-06] MEDS ORDERED: Acetaminophen 325 MG Tab PO PRN (18:36)
[2022-08-06] MEDS ORDERED: Ondansetron 4 MG Tab.DIS PO PRN (18:36)
[2022-08-06] MEDS ORDERED: FLUOCINOLONE ACETONIDE OIL EARBOTH PRN (18:43)
[2022-08-06] MEDS ORDERED: Sodium Chloride 0.9% 10 ML Syringe FLUSH PRN (18:43)
[2022-08-06] MEDS: Ipratropium 0.02% 0.5 MG/2.5 ML Neb Soln INH SCH ×2 (20:28→23:29)
[2022-08-06] MEDS: Albuterol 0.083% 2.5 MG/3 ML Neb Soln INH SCH ×2 (20:28→23:29)
[2022-08-06] MEDS: Zolpidem 5 MG Tab PO SCH (20:32)
[2022-08-06] MEDS: Benzonatate 100 MG Cap PO SCH (20:32)
[2022-08-06] MEDS: methylPREDNISolone Sodium Succinate 125 MG/2 ML SDV IVPUSH SCH (20:33)
[2022-08-06] MEDS: metFORMIN 500 MG Tab PO SCH (20:33)
[2022-08-06] MEDS ORDERED: Gabapentin 300 MG Cap PO SCH (21:00)
[2022-08-07] MEDS: Albuterol 0.083% 2.5 MG/3 ML Neb Soln INH SCH ×6 (03:34→22:13)
[2022-08-07] MEDS: Ipratropium 0.02% 0.5 MG/2.5 ML Neb Soln INH SCH ×6 (03:34→22:13)
[2022-08-07 06:47] LABS: ANION GAP 14.5 mmol/L (5-15)
[2022-08-07] MEDS ORDERED: Sodium Chloride 0.9% 500 ML IV ONE (06:57)
[2022-08-07] MEDS: Omeprazole 20 MG Cap.CR PO SCH (08:10)
[2022-08-07] MEDS: Hydrochlorothiazide 12.5 MG Cap PO SCH (08:10)
[2022-08-07] MEDS: methylPREDNISolone Sodium Succinate 125 MG/2 ML SDV IVPUSH SCH ×2 (08:10→20:37)
[2022-08-07] MEDS: Azithromycin 250 MG Tab PO SCH (08:10)
[2022-08-07] MEDS: Aspirin 81 MG Tab.EC PO SCH (08:11)
[2022-08-07] MEDS: Benzonatate 100 MG Cap PO SCH ×2 (08:11→20:36)
[2022-08-07] MEDS: metFORMIN 500 MG Tab PO SCH ×2 (08:11→18:18)
[2022-08-07] MEDS: Sertraline 50 MG Tab PO SCH (08:11)
[2022-08-07] MEDS: Lisinopril 20 MG Tab PO SCH (08:11)
[2022-08-07] MEDS ORDERED: Azithromycin 250 MG Tab PO ONE (09:00)
[2022-08-07] MEDS: Tiotropium Bromide 4 GM Inhalation Spray (2.5mcg/1 dose; 10 doses) INH SCH (09:35)
[2022-08-07] MEDS: Formoterol/Mometasone 200-5 MCG 13 GM Inhaler INH SCH ×2 (09:53→20:36)
[2022-08-07] MEDS: Enoxaparin 30 MG/0.3 ML Syringe SUBCUT SCH (12:11)
[2022-08-07] MEDS: cefTRIAXone 2 GM Vial IVPUSH SCH (14:46)
[2022-08-07] MEDS: Gabapentin 300 MG Cap PO SCH (20:36)
[2022-08-07] MEDS: Zolpidem 5 MG Tab PO SCH (20:36)
[2022-08-08] MEDS: Ipratropium 0.02% 0.5 MG/2.5 ML Neb Soln INH SCH ×6 (03:48→22:24)
[2022-08-08] MEDS: Albuterol 0.083% 2.5 MG/3 ML Neb Soln INH SCH ×6 (03:48→22:22)
[2022-08-08] MEDS ORDERED: Glucagon,Human Recombinant 1 MG Vial IM PRN (07:36)
[2022-08-08] MEDS ORDERED: 50% Dextrose in Water 50 ML Syringe IVPUSH PRN (07:36)
[2022-08-08 08:00] LABS: ANION GAP 11.6 mmol/L (5-15)
[2022-08-08] MEDS: Formoterol/Mometasone 200-5 MCG 13 GM Inhaler INH SCH ×2 (09:08→20:35)
[2022-08-08] MEDS: methylPREDNISolone Sodium Succinate 40 MG/1 ML SDV IVPUSH SCH ×2 (09:08→20:33)
[2022-08-08] MEDS: Tiotropium Bromide 4 GM Inhalation Spray (2.5mcg/1 dose; 10 doses) INH SCH (09:09)
[2022-08-08] MEDS: Hydrochlorothiazide 12.5 MG Cap PO SCH (09:10)
[2022-08-08] MEDS: Benzonatate 100 MG Cap PO SCH ×2 (09:11→20:34)
[2022-08-08] MEDS: Azithromycin 250 MG Tab PO SCH (09:11)
[2022-08-08] MEDS: Sertraline 50 MG Tab PO SCH (09:11)
[2022-08-08] MEDS: Omeprazole 20 MG Cap.CR PO SCH (09:11)
[2022-08-08] MEDS: Aspirin 81 MG Tab.EC PO SCH (09:11)
[2022-08-08] MEDS: Lisinopril 20 MG Tab PO SCH (09:11)
[2022-08-08] MEDS: Insulin Glarg,Human.Rec.Analog 100 Unit/ML SUBCUT SCH (09:12)
[2022-08-08] MEDS: Enoxaparin 30 MG/0.3 ML Syringe SUBCUT SCH (12:30)
[2022-08-08] MEDS: cefTRIAXone 2 GM Vial IVPUSH SCH (14:30)
[2022-08-08] MEDS: Gabapentin 300 MG Cap PO SCH (20:34)
[2022-08-08] MEDS: Zolpidem 5 MG Tab PO SCH (20:34)
[2022-08-09] MEDS: Ipratropium 0.02% 0.5 MG/2.5 ML Neb Soln INH SCH ×6 (03:44→22:04)
[2022-08-09] MEDS: Albuterol 0.083% 2.5 MG/3 ML Neb Soln INH SCH ×6 (03:44→22:04)
[2022-08-09] MEDS: Insulin Glarg,Human.Rec.Analog 100 Unit/ML SUBCUT SCH ×2 (08:17→11:38)
[2022-08-09] MEDS: Formoterol/Mometasone 200-5 MCG 13 GM Inhaler INH SCH ×2 (08:18→20:52)
[2022-08-09] MEDS: Tiotropium Bromide 4 GM Inhalation Spray (2.5mcg/1 dose; 10 doses) INH SCH (08:18)
[2022-08-09] MEDS: Aspirin 81 MG Tab.EC PO SCH (08:19)
[2022-08-09] MEDS: Benzonatate 100 MG Cap PO SCH ×2 (08:19→20:51)
[2022-08-09] MEDS: Omeprazole 20 MG Cap.CR PO SCH (08:19)
[2022-08-09] MEDS: methylPREDNISolone Sodium Succinate 40 MG/1 ML SDV IVPUSH SCH ×2 (08:19→20:51)
[2022-08-09] MEDS: Sertraline 50 MG Tab PO SCH (08:19)
[2022-08-09 09:03] LABS: ANION GAP 9.6 mmol/L (5-15)
[2022-08-09] MEDS ORDERED: Furosemide 20 MG/2 ML VIAL IV ONE (10:31)
[2022-08-09] MEDS: Cefuroxime 250 MG Tab PO SCH ×2 (11:39→20:51)
[2022-08-09] MEDS: Enoxaparin 30 MG/0.3 ML Syringe SUBCUT SCH (11:42)
[2022-08-09] MEDS: Zolpidem 5 MG Tab PO SCH (20:51)
[2022-08-09] MEDS: Gabapentin 300 MG Cap PO SCH (20:52)
[2022-08-10] MEDS: Albuterol 0.083% 2.5 MG/3 ML Neb Soln INH SCH ×2 (02:47→06:04)
[2022-08-10] MEDS: Ipratropium 0.02% 0.5 MG/2.5 ML Neb Soln INH SCH ×2 (02:47→06:03)
[2022-08-10 06:04] VITALS: PULSE 87
[2022-08-10] MEDS: Tiotropium Bromide 4 GM Inhalation Spray (2.5mcg/1 dose; 10 doses) INH SCH (08:16)
[2022-08-10] MEDS: Formoterol/Mometasone 200-5 MCG 13 GM Inhaler INH SCH (08:16)
[2022-08-10] MEDS: Omeprazole 20 MG Cap.CR PO SCH (08:17)
[2022-08-10] MEDS: Cefuroxime 250 MG Tab PO SCH (08:17)
[2022-08-10] MEDS: Benzonatate 100 MG Cap PO SCH (08:17)
[2022-08-10] MEDS: methylPREDNISolone Sodium Succinate 40 MG/1 ML SDV IVPUSH SCH (08:17)
[2022-08-10] MEDS: Aspirin 81 MG Tab.EC PO SCH (08:17)
[2022-08-10] MEDS: Sertraline 50 MG Tab PO SCH (08:18)
[2022-08-10] MEDS: Insulin Glarg,Human.Rec.Analog 100 Unit/ML SUBCUT SCH (08:20)
[2022-08-10 11:37] VITALS: BP 166/87
[2022-08-11] MEDS ORDERED: glipiZIDE 2.5 MG Tab.ER PO SCH (09:00)
== END 2022-08-10 09:40 | disposition home or self-care (01) | DRG 191 ==
LOC: VM.ED 12:35 → VM.MS 15:32
PROVIDERS: ADMIT Nurse Practitioner Family; ATTEND Nurse Practitioner Family
DX: J44.1 Chronic obstructive pulmonary disease with (acute) exacerbation (principal); E87.20 Acidosis, unspecified; I13.0 Hypertensive heart and chronic kidney disease with heart failure and stage 1 through stage 4 chronic kidney disease, or unspecified chronic kidney disease; I50.32 Chronic diastolic (congestive) heart failure; J96.11 Chronic respiratory failure with hypoxia; N17.9 Acute kidney failure, unspecified; J84.9 Interstitial pulmonary disease, unspecified; D50.9 Iron deficiency anemia, unspecified; M81.0 Age-related osteoporosis without current pathological fracture; K21.9 Gastro-esophageal reflux disease without esophagitis; E66.9 Obesity, unspecified; E78.5 Hyperlipidemia, unspecified; N18.30 Chronic kidney disease, stage 3 unspecified; G47.33 Obstructive sleep apnea (adult) (pediatric); E11.22 Type 2 diabetes mellitus with diabetic chronic kidney disease; F41.1 Generalized anxiety disorder; Z20.822 Contact with and (suspected) exposure to COVID-19; F32.A Depression, unspecified; G47.00 Insomnia, unspecified; G89.29 Other chronic pain; M54.9 Dorsalgia, unspecified; E09.65 Drug or chemical induced diabetes mellitus with hyperglycemia; Z68.33 Body mass index [BMI] 33.0-33.9, adult; Z87.891 Personal history of nicotine dependence; Z86.16 Personal history of COVID-19; Z79.4 Long term (current) use of insulin; Z79.899 Other long term (current) drug therapy; Z99.81 Dependence on supplemental oxygen; Z87.01 Personal history of pneumonia (recurrent); Z88.8 Allergy status to other drugs, medicaments and biological substances; Z79.82 Long term (current) use of aspirin; Z79.2 Long term (current) use of antibiotics; Z86.718 Personal history of other venous thrombosis and embolism; Z79.01 Long term (current) use of anticoagulants; Z90.49 Acquired absence of other specified parts of digestive tract; Z90.710 Acquired absence of both cervix and uterus; Z98.1 Arthrodesis status; Z90.89 Acquired absence of other organs; Z98.890 Other specified postprocedural states; T38.0X5A Adverse effect of glucocorticoids and synthetic analogues, initial encounter; Y92.89 Other specified places as the place of occurrence of the external cause
CPT/HCPCS: 0241U; 36415; 36600; 71045; 80048; 80053; 80069; 82728; 82803; 82947; 83605; 83735; 83880; 84100; 84484; 85025; 85027; 85610; 85730; 86140; 87040; 93005; 93010; 94640; 94760; 96361; 96374; 96375; 97161-GP; 99285; 99285-25; A9270-GY; J0696; J1650; J1815-GY; J1940; J2920; J2930; J3490; J7030; J7613-GY

== ENCOUNTER 2022-09-02 16:24 | Emergency (ER) | payer MEDICARE, OTHER ==
[2022-09-02 17:28] LABS: ANION GAP 16.9 mmol/L (5-15); CHLORIDE,CL 103 mmol/L (98-107); ESTIMATED GFR 28 mL/min (>=60); SODIUM,NA 143 mmol/L (136-145)
[2022-09-02] MEDS ORDERED: Sodium Chloride 0.9% 500 ML IV ONE (17:45)
[2022-09-02] MEDS ORDERED: Take Home: Doxycycline 100 MG Tab, 4 Tab Pack PO ONE (17:45)
[2022-09-02 18:53] VITALS: BP 108/40; PULSE 90
== END 2022-09-02 19:00 | disposition home or self-care (01) ==
LOC: VM.ED 16:24
DX: J44.1 Chronic obstructive pulmonary disease with (acute) exacerbation (principal); K21.9 Gastro-esophageal reflux disease without esophagitis; I12.9 Hypertensive chronic kidney disease with stage 1 through stage 4 chronic kidney disease, or unspecified chronic kidney disease; E11.22 Type 2 diabetes mellitus with diabetic chronic kidney disease; N18.30 Chronic kidney disease, stage 3 unspecified; Z79.899 Other long term (current) drug therapy; Z88.8 Allergy status to other drugs, medicaments and biological substances; Z79.82 Long term (current) use of aspirin; Z86.16 Personal history of COVID-19; Z87.891 Personal history of nicotine dependence
CPT/HCPCS: 36415; 71046; 80053; 83605; 83880; 85025; 85610; 87040; 93010; 96360; 99284; 99285-25; A9270-GY; J7030

== ENCOUNTER 2022-10-01 13:50 | Inpatient (IN) | payer MEDICARE, OTHER ==
[2022-10-01] MEDS ORDERED: Sodium Chloride 0.9% 10 ML Syringe FLUSH PRN (13:53)
[2022-10-01] MEDS ORDERED: Albuterol/Ipratropium 3.0-0.5 MG/3 ML Neb Soln NEB ONE (13:53)
[2022-10-01] MEDS ORDERED: Acetaminophen 500 MG Tab PO ONE (13:57)
[2022-10-01] MEDS ORDERED: methylPREDNISolone Sodium Succinate 125 MG/2 ML SDV IV ONE (13:57)
[2022-10-01 14:09] LABS: BASOPHILS PERCENT AUTO 0.1 % (0.2-1.2); EOSINOPHILS ABSOLUTE AUTO 0.1 x10^3/uL (0.0-0.5); EOSINOPHILS PERCENT AUTO 0.3 % (0.0-4.0); HEMATOCRIT 34.8 % (33.0-47.0); HEMOGLOBIN 10.5 g/dL (12.0-16.0); IMMATURE GRAN ABSOLUTE AUTO 0.04 x10^3/uL (0.00-0.07); LYMPHOCYTES PERCENT AUTO 6.3 % (25.0-50.0); MEAN CORPUSCULAR HEMOGLOBIN 23.7 pg (26.0-32.0); MEAN CORPUSCULAR HGB CONC 30.2 g/dL (32.0-36.0); MEAN CORPUSCULAR VOLUME 78.6 fL (78.0-93.0); MONOCYTES ABSOLUTE AUTO 0.7 x10^3/uL (0.0-0.8); MONOCYTES PERCENT AUTO 4.2 % (2.0-11.0); NEUTROPHILS ABSOLUTE AUTO 14.2 x10^3/uL (1.8-7.7); NEUTROPHILS PERCENT AUTO 88.8 % (50.0-80.0); RED BLOOD CELL COUNT 4.43 x10^6/uL (4.00-5.50); WHITE BLOOD CELL COUNT,WBC 15.9 x10^3/uL (4.0-10.0)
[2022-10-01] MEDS: HYDROmorphone 0.5 MG/0.5 ML Syringe IVPUSH ONE ×2 (14:10→14:11)
[2022-10-01] MEDS ORDERED: Acetaminophen 500 MG Tab ONE (14:13)
[2022-10-01 14:30] LABS: PLATELET COUNT,PLT 317 x10^3/uL (130-400)
[2022-10-01 14:39] LABS: D-DIMER QUANTITATIVE 2.43 mg/LFEU (<=0.58); PROTHROMBIN TIME 10.8 SEC (9.5-12.2); PTT,PARTIAL THROMBOPLSTIN TIME 27.9 SEC (23.6-33.6)
[2022-10-01 14:47] LABS: A/G RATIO 0.78; ALANINE AMINOTRANSFERASE,ALT 24 U/L (14-59); ALBUMIN 3.2 g/dL (3.4-5.0); ALKALINE PHOSPHATASE 119 U/L (46-116); ASPARTATE AMNIOTRANSFERASE,AST 22 U/L (15-37); BILIRUBIN TOTAL 0.2 mg/dL (0.2-1.0); BLOOD UREA NITROGEN,BUN 22 mg/dL (7-18); C-REACTIVE PROTEIN 8.9 mg/dL (<=0.9); CALCIUM 7.5 mg/dL (8.5-10.1); CARBON DIOXIDE,CO2 25 mmol/L (21-32); CHLORIDE,CL 103 mmol/L (98-107); CREATININE 1.7 mg/dL (0.55-1.02); GLUCOSE RANDOM 182 mg/dL (70-99); MAGNESIUM 1.5 mg/dL (1.8-2.4); POTASSIUM,K 4.1 mmol/L (3.5-5.1); PRO B-TYPE NATRIUR PEPT,BNPPRO 278 pg/mL (<=125); PROTEIN TOTAL,TP 7.3 g/dL (6.4-8.2); SODIUM,NA 141 mmol/L (136-145); TSH ULTRASENSITIVE 0.953 uIU/mL (0.358-3.74)
[2022-10-01 14:49] LABS: ANION GAP 17.1 mmol/L (5-15); ESTIMATED GFR 32 mL/min (>=60)
[2022-10-01] MEDS ORDERED: Iopamidol 755 Mg/ML 100 ML Bottle IVPUSH ONE (14:57)
[2022-10-01 15:02] LABS: HCO3 VENOUS,POC 24 mmol/L (22-29); O2 SATURATION VENOUS,POC 56 %; PCO2 VENOUS,POC 39 mmHg (41-51); PH VENOUS,POC 7.39 pH (7.32-7.43); PO2 VENOUS,POC 29 mmHg
[2022-10-01 15:33] LABS: CORONAVIRUS COVID-19 NAA NEGATIVE (NEGATIVE); INFLUENZA A NAA NEGATIVE (NEGATIVE); INFLUENZA B NAA NEGATIVE (NEGATIVE); RESPIRATORY SYNCYTIAL VIR NAA NEGATIVE (NEGATIVE)
[2022-10-01] MEDS ORDERED: cefTRIAXone 2 GM Vial IVPUSH ONE (15:39)
[2022-10-01] MEDS ORDERED: Albuterol 0.083% 2.5 MG/3 ML Neb Soln NEB ONE (15:41)
[2022-10-01] MEDS ORDERED: Enoxaparin 100 MG/1 ML Syringe SUBCUT ONE (16:05)
[2022-10-01] MEDS ORDERED: Lactated Ringers 1,000 ML IV ONE (16:09)
[2022-10-01] MEDS ORDERED: Ondansetron 4 MG/2 ML SDV IV PRN (16:53)
[2022-10-01] MEDS ORDERED: Acetaminophen 325 MG Tab PO PRN (16:53)
[2022-10-01] MEDS ORDERED: Ondansetron 4 MG Tab.DIS PO PRN (16:53)
[2022-10-01] MEDS: Azithromycin 500 MG in Sodium Chloride 0.9% 250 ML IV SCH (17:37)
[2022-10-01] MEDS: Ipratropium 0.02% 0.5 MG/2.5 ML Neb Soln NEB SCH ×2 (18:41→22:30)
[2022-10-01] MEDS: Albuterol 0.083% 2.5 MG/3 ML Neb Soln NEB SCH ×2 (18:41→22:31)
[2022-10-01] MEDS ORDERED: Sodium Chloride 0.9% 500 ML IV ONE (19:59)
[2022-10-01] MEDS ORDERED: Phosphorus #1 250 MG Tab PO ONE (20:02)
[2022-10-01] MEDS: Zolpidem 5 MG Tab PO SCH (20:21)
[2022-10-02] MEDS: Ipratropium 0.02% 0.5 MG/2.5 ML Neb Soln NEB SCH ×5 (02:00→20:13)
[2022-10-02] MEDS: Albuterol 0.083% 2.5 MG/3 ML Neb Soln NEB SCH ×4 (02:00→20:09)
[2022-10-02] MEDS: Formoterol/Mometasone 200-5 MCG 13 GM Inhaler INH SCH ×2 (06:03→21:12)
[2022-10-02] MEDS: Enoxaparin 100 MG/1 ML Syringe SUBCUT SCH ×2 (06:03→18:53)
[2022-10-02] MEDS: Tiotropium Bromide 4 GM Inhalation Spray (2.5mcg/1 dose; 10 doses) INH SCH (06:04)
[2022-10-02 06:52] LABS: MEAN CORPUSCULAR HEMOGLOBIN 23.3 pg (26.0-32.0); MEAN CORPUSCULAR VOLUME 80.3 fL (78.0-93.0); RED BLOOD CELL COUNT 3.86 x10^6/uL (4.00-5.50)
[2022-10-02 06:53] LABS: WHITE BLOOD CELL COUNT,WBC 22.8 x10^3/uL (4.0-10.0)
[2022-10-02 07:11] LABS: CALCIUM 7.1 mg/dL (8.5-10.1); CREATININE 1.8 mg/dL (0.55-1.02); EST CRCL DRUG DOSING (CG) 24.75 mL/min; MAGNESIUM 1.6 mg/dL (1.8-2.4); PHOSPHORUS 2.1 mg/dL (2.6-4.7); POTASSIUM,K 4.1 mmol/L (3.5-5.1)
[2022-10-02 07:12] LABS: ANION GAP 20.1 mmol/L (5-15)
[2022-10-02] MEDS: Aspirin 81 MG Tab.EC PO SCH (08:10)
[2022-10-02] MEDS: Lisinopril 20 MG Tab PO SCH (08:10)
[2022-10-02] MEDS: Sertraline 50 MG Tab PO SCH (08:10)
[2022-10-02] MEDS: Multivitamin Tab PO SCH (08:10)
[2022-10-02] MEDS: Hydrochlorothiazide 12.5 MG Cap PO SCH (08:10)
[2022-10-02] MEDS: oxyCODONE 5 MG Tab PO PRN ×2 (08:13→18:51)
[2022-10-02] MEDS: methylPREDNISolone Sodium Succinate 125 MG/2 ML SDV IVPUSH SCH ×2 (08:14→20:08)
[2022-10-02] MEDS: Azithromycin 500 MG in Sodium Chloride 0.9% 250 ML IV SCH (16:32)
[2022-10-02] MEDS: cefTRIAXone 2 GM Vial IVPUSH SCH (16:33)
[2022-10-02] MEDS: Zolpidem 5 MG Tab PO SCH (21:11)
[2022-10-03] MEDS: Ipratropium 0.02% 0.5 MG/2.5 ML Neb Soln NEB SCH ×3 (03:00→18:45)
[2022-10-03] MEDS: Albuterol 0.083% 2.5 MG/3 ML Neb Soln NEB SCH ×4 (03:10→18:45)
[2022-10-03] MEDS: Formoterol/Mometasone 200-5 MCG 13 GM Inhaler INH SCH ×2 (06:20→21:25)
[2022-10-03] MEDS: Tiotropium Bromide 4 GM Inhalation Spray (2.5mcg/1 dose; 10 doses) INH SCH (06:21)
[2022-10-03] MEDS: Enoxaparin 100 MG/1 ML Syringe SUBCUT SCH (06:25)
[2022-10-03 07:54] LABS: HEMATOCRIT 28.4 % (33.0-47.0); HEMOGLOBIN 8.5 g/dL (12.0-16.0); MEAN CORPUSCULAR HEMOGLOBIN 23.8 pg (26.0-32.0); MEAN CORPUSCULAR HGB CONC 29.9 g/dL (32.0-36.0); MEAN CORPUSCULAR VOLUME 79.6 fL (78.0-93.0); RED BLOOD CELL COUNT 3.57 x10^6/uL (4.00-5.50)
[2022-10-03 07:58] LABS: WHITE BLOOD CELL COUNT,WBC 24.2 x10^3/uL (4.0-10.0)
[2022-10-03] MEDS ORDERED: Rivaroxaban 15 MG Tab PO SCH (08:00)
[2022-10-03 08:04] LABS: CREATININE 1.6 mg/dL (0.55-1.02); EST CRCL DRUG DOSING (CG) 27.85 mL/min; POTASSIUM,K 4.6 mmol/L (3.5-5.1)
[2022-10-03 08:05] LABS: ANION GAP 15.6 mmol/L (5-15)
[2022-10-03 08:06] LABS: CALCIUM 6.8 mg/dL (8.5-10.1)
[2022-10-03] MEDS ORDERED: Calcium Carbonate 750 MG Tab.Chew PO ONE (08:31)
[2022-10-03] MEDS ORDERED: Sodium Chloride 0.9% 500 ML IV ONE ×2 (08:36→10:00)
[2022-10-03 08:46] LABS: C-REACTIVE PROTEIN 7.7 mg/dL (<=0.9); MAGNESIUM 1.8 mg/dL (1.8-2.4); PHOSPHORUS 1.7 mg/dL (2.6-4.7)
[2022-10-03] MEDS: methylPREDNISolone Sodium Succinate 125 MG/2 ML SDV IVPUSH SCH ×2 (09:17→20:03)
[2022-10-03] MEDS: cefTRIAXone 2 GM Vial IVPUSH SCH (09:18)
[2022-10-03] MEDS: Hydrochlorothiazide 12.5 MG Cap PO SCH (09:24)
[2022-10-03] MEDS: Aspirin 81 MG Tab.EC PO SCH (09:24)
[2022-10-03] MEDS: Multivitamin Tab PO SCH (09:24)
[2022-10-03] MEDS: Sertraline 50 MG Tab PO SCH (09:24)
[2022-10-03] MEDS: Lisinopril 20 MG Tab PO SCH (09:25)
[2022-10-03] MEDS: Azithromycin 500 MG in Sodium Chloride 0.9% 250 ML IV SCH (09:30)
[2022-10-03] MEDS ORDERED: Sodium Chloride 0.9% 1,000 ML IV ONE (13:48)
[2022-10-03] MEDS: Rivaroxaban 10 MG Tab PO SCH (18:44)
[2022-10-03] MEDS: Zolpidem 5 MG Tab PO SCH (21:26)
[2022-10-04] MEDS: Albuterol 0.083% 2.5 MG/3 ML Neb Soln NEB SCH ×4 (05:21→18:42)
[2022-10-04] MEDS: Tiotropium Bromide 4 GM Inhalation Spray (2.5mcg/1 dose; 10 doses) INH SCH (06:04)
[2022-10-04] MEDS: Formoterol/Mometasone 200-5 MCG 13 GM Inhaler INH SCH ×2 (06:04→20:05)
[2022-10-04] MEDS: Ipratropium 0.02% 0.5 MG/2.5 ML Neb Soln NEB SCH ×3 (06:05→18:53)
[2022-10-04 07:56] LABS: BASOPHILS PERCENT AUTO 0.1 % (0.2-1.2); HEMATOCRIT 30.7 % (33.0-47.0); HEMOGLOBIN 8.7 g/dL (12.0-16.0); LYMPHOCYTES ABSOLUTE AUTO 1.2 x10^3/uL (1.0-4.8); LYMPHOCYTES PERCENT AUTO 6.8 % (25.0-50.0); MEAN CORPUSCULAR HEMOGLOBIN 23.6 pg (26.0-32.0); MEAN CORPUSCULAR HGB CONC 28.3 g/dL (32.0-36.0); MEAN CORPUSCULAR VOLUME 83.2 fL (78.0-93.0); MONOCYTES ABSOLUTE AUTO 0.7 x10^3/uL (0.0-0.8); MONOCYTES PERCENT AUTO 3.9 % (2.0-11.0); NEUTROPHILS ABSOLUTE AUTO 15.3 x10^3/uL (1.8-7.7); NEUTROPHILS PERCENT AUTO 87.5 % (50.0-80.0); PLATELET COUNT,PLT 298 x10^3/uL (130-400); RED BLOOD CELL COUNT 3.69 x10^6/uL (4.00-5.50)
[2022-10-04 08:07] LABS: CREATININE 1.2 mg/dL (0.55-1.02); EST CRCL DRUG DOSING (CG) 37.13 mL/min; POTASSIUM,K 4.3 mmol/L (3.5-5.1); WHITE BLOOD CELL COUNT,WBC 17.5 x10^3/uL (4.0-10.0)
[2022-10-04 08:11] LABS: ANION GAP 16.3 mmol/L (5-15)
[2022-10-04 08:12] LABS: CALCIUM 6.8 mg/dL (8.5-10.1)
[2022-10-04] MEDS: Aspirin 81 MG Tab.EC PO SCH (08:28)
[2022-10-04] MEDS: Multivitamin Tab PO SCH (08:28)
[2022-10-04] MEDS: Rivaroxaban 10 MG Tab PO SCH ×2 (08:28→17:32)
[2022-10-04] MEDS: Sertraline 50 MG Tab PO SCH (08:28)
[2022-10-04] MEDS: Hydrochlorothiazide 12.5 MG Cap PO SCH (08:28)
[2022-10-04] MEDS: Lisinopril 20 MG Tab PO SCH (08:29)
[2022-10-04] MEDS: methylPREDNISolone Sodium Succinate 125 MG/2 ML SDV IVPUSH SCH ×2 (08:35→20:04)
[2022-10-04] MEDS: cefTRIAXone 2 GM Vial IVPUSH SCH (08:40)
[2022-10-04] MEDS: Azithromycin 500 MG in Sodium Chloride 0.9% 250 ML IV SCH (08:49)
[2022-10-04] MEDS: Calcium Carbonate/Vitamin D3 1250 MG-5 MCG Tab PO SCH (17:32)
[2022-10-04] MEDS ORDERED: 50% Dextrose in Water 50 ML Syringe IVPUSH PRN ×2 (18:09→19:45)
[2022-10-04] MEDS ORDERED: Insulin Lispro 100 Units/ML 3 ML Vial SUBCUT ONE ×2 (18:09→19:45)
[2022-10-04] MEDS ORDERED: Glucagon,Human Recombinant 1 MG Vial IM PRN ×2 (18:09→19:45)
[2022-10-04] MEDS: Zolpidem 5 MG Tab PO SCH (20:05)
[2022-10-05] MEDS: Albuterol 0.083% 2.5 MG/3 ML Neb Soln NEB SCH ×2 (01:44→07:33)
[2022-10-05] MEDS: Tiotropium Bromide 4 GM Inhalation Spray (2.5mcg/1 dose; 10 doses) INH SCH (06:06)
[2022-10-05] MEDS: Formoterol/Mometasone 200-5 MCG 13 GM Inhaler INH SCH (06:06)
[2022-10-05 06:52] LABS: HEMATOCRIT 29.8 % (33.0-47.0); HEMOGLOBIN 8.7 g/dL (12.0-16.0); MEAN CORPUSCULAR HGB CONC 29.2 g/dL (32.0-36.0); MEAN CORPUSCULAR VOLUME 78.6 fL (78.0-93.0); RED BLOOD CELL COUNT 3.79 x10^6/uL (4.00-5.50); WHITE BLOOD CELL COUNT,WBC 15.2 x10^3/uL (4.0-10.0)
[2022-10-05 07:12] LABS: ANION GAP 11.4 mmol/L (5-15); CALCIUM 7.4 mg/dL (8.5-10.1); CREATININE 1.2 mg/dL (0.55-1.02); EST CRCL DRUG DOSING (CG) 37.13 mL/min; POTASSIUM,K 4.4 mmol/L (3.5-5.1)
[2022-10-05] MEDS: Ipratropium 0.02% 0.5 MG/2.5 ML Neb Soln NEB SCH (07:36)
[2022-10-05] MEDS: Calcium Carbonate/Vitamin D3 1250 MG-5 MCG Tab PO SCH (07:49)
[2022-10-05] MEDS: methylPREDNISolone Sodium Succinate 125 MG/2 ML SDV IVPUSH SCH (07:50)
[2022-10-05] MEDS: Aspirin 81 MG Tab.EC PO SCH (08:03)
[2022-10-05] MEDS: Hydrochlorothiazide 12.5 MG Cap PO SCH (08:03)
[2022-10-05] MEDS: Multivitamin Tab PO SCH (08:03)
[2022-10-05] MEDS: Sertraline 50 MG Tab PO SCH (08:03)
[2022-10-05] MEDS: cefTRIAXone 2 GM Vial IVPUSH SCH (08:04)
[2022-10-05] MEDS: Azithromycin 500 MG in Sodium Chloride 0.9% 250 ML IV SCH (08:04)
[2022-10-05] MEDS: Lisinopril 20 MG Tab PO SCH (08:04)
[2022-10-05] MEDS: Rivaroxaban 10 MG Tab PO SCH (09:41)
[2022-10-05 09:45] VITALS: BP 162/58; PULSE 76
[2022-10-07] MEDS ORDERED: Dulaglutide [Trulicity] 0.75 MG/0.5 ML Pen.Injctr SQ SCH (09:00)
== END 2022-10-05 10:38 | disposition home or self-care (01) | DRG 175 ==
LOC: VM.ED 13:50 → VM.MS 16:10
PROVIDERS: ADMIT Nurse Practitioner Family; ATTEND Nurse Practitioner Family
DX: I26.99 Other pulmonary embolism without acute cor pulmonale (principal); J18.9 Pneumonia, unspecified organism; J44.0 Chronic obstructive pulmonary disease with (acute) lower respiratory infection; J44.1 Chronic obstructive pulmonary disease with (acute) exacerbation; J84.9 Interstitial pulmonary disease, unspecified; E87.20 Acidosis, unspecified; K21.9 Gastro-esophageal reflux disease without esophagitis; G47.33 Obstructive sleep apnea (adult) (pediatric); E78.5 Hyperlipidemia, unspecified; M81.0 Age-related osteoporosis without current pathological fracture; Z20.822 Contact with and (suspected) exposure to COVID-19; M19.90 Unspecified osteoarthritis, unspecified site; G89.29 Other chronic pain; M54.9 Dorsalgia, unspecified; G25.81 Restless legs syndrome; F32.A Depression, unspecified; G47.00 Insomnia, unspecified; E83.51 Hypocalcemia; E11.22 Type 2 diabetes mellitus with diabetic chronic kidney disease; I12.9 Hypertensive chronic kidney disease with stage 1 through stage 4 chronic kidney disease, or unspecified chronic kidney disease; N18.30 Chronic kidney disease, stage 3 unspecified; Z90.89 Acquired absence of other organs; Z90.49 Acquired absence of other specified parts of digestive tract; Z79.82 Long term (current) use of aspirin; Z79.899 Other long term (current) drug therapy; Z88.8 Allergy status to other drugs, medicaments and biological substances; Z91.041 Radiographic dye allergy status; Z86.718 Personal history of other venous thrombosis and embolism; Z99.81 Dependence on supplemental oxygen; Z87.891 Personal history of nicotine dependence; Z86.010 Personal history of colon polyps; Z98.890 Other specified postprocedural states; Z90.710 Acquired absence of both cervix and uterus; Z97.8 Presence of other specified devices; Z98.1 Arthrodesis status
CPT/HCPCS: 0241U; 36415; 71045; 71275; 80048; 80053; 82803; 82947; 83605; 83735; 83880; 84100; 84145; 84443; 84484; 85025; 85027; 85379; 85610; 85730; 86140; 87040; 93005; 94640; 94760; 96372; 96374; 96375; 97162-GP; 99285-25; A9270-GY; J0456; J0696; J1170; J1650; J1815-GY; J2930; J3490; J7030; J7050; J7120; J7613-GY; J7620-GY; Q9967

== ENCOUNTER 2022-11-01 11:25 | Emergency (ER) | payer MEDICARE, OTHER ==
[2022-11-01 11:37] VITALS: BP 133/49; PULSE 97
[2022-11-01] MEDS ORDERED: Lidocaine 4% 1 each Patch TOP STA (11:41)
[2022-11-01] MEDS ORDERED: Rivaroxaban 10 MG Tab PO ONE (11:46)
== END 2022-11-01 12:10 | disposition home or self-care (01) ==
LOC: VM.ED 11:25
DX: S70.11XA Contusion of right thigh, initial encounter (principal); I10 Essential (primary) hypertension; J44.9 Chronic obstructive pulmonary disease, unspecified; M19.90 Unspecified osteoarthritis, unspecified site; E11.9 Type 2 diabetes mellitus without complications; Z86.16 Personal history of COVID-19; Z88.8 Allergy status to other drugs, medicaments and biological substances; Z79.82 Long term (current) use of aspirin; Z79.899 Other long term (current) drug therapy; Z79.01 Long term (current) use of anticoagulants
CPT/HCPCS: 99283; 99284; A9270

== ENCOUNTER 2023-01-06 16:47 | Inpatient (IN) | payer MEDICARE, OTHER ==
[2023-01-06] MEDS ORDERED: Ondansetron 4 MG Tab.DIS PO PRN (17:50)
[2023-01-06] MEDS ORDERED: Acetaminophen 325 MG Tab PO PRN (17:50)
[2023-01-06] MEDS ORDERED: diphenhydrAMINE 50 MG/ML SDV IV ONE ×2 (17:55→20:45)
[2023-01-06] MEDS ORDERED: Albuterol HFA 18 Gm Inhaler INH PRN (17:57)
[2023-01-06] MEDS: Benzonatate 100 MG Cap PO SCH (20:27)
[2023-01-06] MEDS: Acetaminophen/HYDROcodone 325-5 MG Tab PO PRN (20:27)
[2023-01-06] MEDS: Zolpidem 5 MG Tab PO SCH (20:30)
[2023-01-06] MEDS: Ipratropium 0.02% 0.5 MG/2.5 ML Neb Soln NEB SCH (21:03)
[2023-01-06] MEDS: Albuterol 0.083% 2.5 MG/3 ML Neb Soln NEB SCH (21:03)
[2023-01-06] MEDS: Rivaroxaban 10 MG Tab PO SCH (21:21)
[2023-01-07 06:38] LABS: BASOPHILS PERCENT AUTO 0.4 % (0.2-1.2); EOSINOPHILS ABSOLUTE AUTO 0.1 x10^3/uL (0.0-0.5); EOSINOPHILS PERCENT AUTO 1.4 % (0.0-4.0); HEMATOCRIT 27.7 % (33.0-47.0); HEMOGLOBIN 8.2 g/dL (12.0-16.0); IMMATURE GRAN ABSOLUTE AUTO 0.03 x10^3/uL (0.00-0.07); LYMPHOCYTES ABSOLUTE AUTO 2.3 x10^3/uL (1.0-4.8); LYMPHOCYTES PERCENT AUTO 24.8 % (25.0-50.0); MEAN CORPUSCULAR HEMOGLOBIN 23.2 pg (26.0-32.0); MEAN CORPUSCULAR HGB CONC 29.6 g/dL (32.0-36.0); MEAN CORPUSCULAR VOLUME 78.2 fL (78.0-93.0); MONOCYTES ABSOLUTE AUTO 0.8 x10^3/uL (0.0-0.8); MONOCYTES PERCENT AUTO 8.1 % (2.0-11.0); RED BLOOD CELL COUNT 3.54 x10^6/uL (4.00-5.50); WHITE BLOOD CELL COUNT,WBC 9.2 x10^3/uL (4.0-10.0)
[2023-01-07] MEDS: Ipratropium 0.02% 0.5 MG/2.5 ML Neb Soln NEB SCH ×3 (06:42→22:45)
[2023-01-07] MEDS: Albuterol 0.083% 2.5 MG/3 ML Neb Soln NEB SCH ×3 (06:42→22:42)
[2023-01-07 06:48] LABS: PLATELET COUNT,PLT 435 x10^3/uL (130-400)
[2023-01-07] MEDS: Acetaminophen/HYDROcodone 325-5 MG Tab PO PRN ×3 (06:54→22:40)
[2023-01-07 06:57] LABS: INR 1.2 (2.0-3.5); PROTHROMBIN TIME 12.3 SEC (9.5-12.2); PTT,PARTIAL THROMBOPLSTIN TIME 30.8 SEC (23.6-33.6)
[2023-01-07 07:00] LABS: A/G RATIO 0.79; ALBUMIN 2.7 g/dL (3.4-5.0); BILIRUBIN TOTAL 0.5 mg/dL (0.2-1.0); CALCIUM 8.1 mg/dL (8.5-10.1); CREATININE 1.4 mg/dL (0.55-1.02); EST CRCL DRUG DOSING (CG) 33.16 mL/min; POTASSIUM,K 4.7 mmol/L (3.5-5.1); PROTEIN TOTAL,TP 6.1 g/dL (6.4-8.2)
[2023-01-07 07:01] LABS: ANION GAP 11.7 mmol/L (5-15)
[2023-01-07] MEDS: Lisinopril 20 MG Tab PO SCH (08:20)
[2023-01-07] MEDS: Multivitamin Tab PO SCH (08:20)
[2023-01-07] MEDS: Benzonatate 100 MG Cap PO SCH ×2 (08:20→22:39)
[2023-01-07] MEDS: Sertraline 50 MG Tab PO SCH (08:20)
[2023-01-07] MEDS: Aspirin 81 MG Tab.EC PO SCH (08:20)
[2023-01-07] MEDS: Hydrochlorothiazide 12.5 MG Cap PO SCH (08:20)
[2023-01-07] MEDS: Formoterol/Mometasone 200-5 MCG 13 GM Inhaler INH SCH ×2 (08:21→22:47)
[2023-01-07] MEDS: Tiotropium Bromide 4 GM Inhalation Spray (2.5mcg/1 dose; 10 doses) INH SCH (08:21)
[2023-01-07] MEDS ORDERED: Rivaroxaban 10 MG Tab PO SCH (09:00)
[2023-01-07] MEDS: Omeprazole 20 MG Cap.CR PO SCH (17:06)
[2023-01-07] MEDS: Rivaroxaban 10 MG Tab PO SCH (22:39)
[2023-01-07] MEDS: Zolpidem 5 MG Tab PO SCH (22:46)
[2023-01-08] MEDS: Acetaminophen/HYDROcodone 325-5 MG Tab PO PRN (06:41)
[2023-01-08] MEDS: Omeprazole 20 MG Cap.CR PO SCH (06:42)
[2023-01-08] MEDS: Ipratropium 0.02% 0.5 MG/2.5 ML Neb Soln NEB SCH (06:43)
[2023-01-08] MEDS: Albuterol 0.083% 2.5 MG/3 ML Neb Soln NEB SCH (06:43)
[2023-01-08 07:04] LABS: HEMATOCRIT 28.9 % (33.0-47.0); HEMOGLOBIN 8.5 g/dL (12.0-16.0); MEAN CORPUSCULAR HEMOGLOBIN 23.2 pg (26.0-32.0); MEAN CORPUSCULAR HGB CONC 29.4 g/dL (32.0-36.0); MEAN CORPUSCULAR VOLUME 78.7 fL (78.0-93.0); RED BLOOD CELL COUNT 3.67 x10^6/uL (4.00-5.50)
[2023-01-08 07:18] LABS: CALCIUM 8.4 mg/dL (8.5-10.1); CREATININE 1.4 mg/dL (0.55-1.02); EST CRCL DRUG DOSING (CG) 33.16 mL/min
[2023-01-08] MEDS: Formoterol/Mometasone 200-5 MCG 13 GM Inhaler INH SCH (08:55)
[2023-01-08] MEDS: Tiotropium Bromide 4 GM Inhalation Spray (2.5mcg/1 dose; 10 doses) INH SCH (08:56)
[2023-01-08] MEDS: Aspirin 81 MG Tab.EC PO SCH (08:57)
[2023-01-08] MEDS: Hydrochlorothiazide 12.5 MG Cap PO SCH (08:58)
[2023-01-08] MEDS: Lisinopril 20 MG Tab PO SCH (08:58)
[2023-01-08] MEDS: Benzonatate 100 MG Cap PO SCH (08:58)
[2023-01-08] MEDS: Sertraline 50 MG Tab PO SCH (08:58)
[2023-01-08] MEDS: Multivitamin Tab PO SCH (08:58)
[2023-01-08 11:20] VITALS: BP 116/42; PULSE 74
== END 2023-01-08 10:45 | disposition home or self-care (01) | DRG 292 ==
LOC: VM.MS 16:52
PROVIDERS: ADMIT Family Medicine; ATTEND Family Medicine
PROC: 30233N1 Transfusion of Nonautologous Red Blood Cells into Peripheral Vein, Percutaneous Approach (ICD-10-PCS; principal; 2023-01-06)
DX: I13.0 Hypertensive heart and chronic kidney disease with heart failure and stage 1 through stage 4 chronic kidney disease, or unspecified chronic kidney disease (principal); J84.9 Interstitial pulmonary disease, unspecified; D63.1 Anemia in chronic kidney disease; I50.9 Heart failure, unspecified; M81.0 Age-related osteoporosis without current pathological fracture; J44.9 Chronic obstructive pulmonary disease, unspecified; M54.9 Dorsalgia, unspecified; G89.29 Other chronic pain; M48.061 Spinal stenosis, lumbar region without neurogenic claudication; E78.00 Pure hypercholesterolemia, unspecified; G47.30 Sleep apnea, unspecified; K21.9 Gastro-esophageal reflux disease without esophagitis; N18.30 Chronic kidney disease, stage 3 unspecified; E11.22 Type 2 diabetes mellitus with diabetic chronic kidney disease; M19.90 Unspecified osteoarthritis, unspecified site; F32.A Depression, unspecified; Z86.711 Personal history of pulmonary embolism; Z86.010 Personal history of colon polyps; Z79.899 Other long term (current) drug therapy; Z98.890 Other specified postprocedural states; Z79.01 Long term (current) use of anticoagulants; Z79.82 Long term (current) use of aspirin; Z88.8 Allergy status to other drugs, medicaments and biological substances; Z86.16 Personal history of COVID-19; Z90.49 Acquired absence of other specified parts of digestive tract; Z98.1 Arthrodesis status; Z90.89 Acquired absence of other organs; Z87.891 Personal history of nicotine dependence
CPT/HCPCS: 36415; 36430; 72131; 80048; 80053; 85025; 85027; 85610; 85730; 86850; 86900; 86901; 86920; 86922; 94640; 97116-GP; 97161-GP; 97530-GP; A9270-GY; J1200; J3490; J7613-GY; P9016

== ENCOUNTER 2023-01-22 07:23 | Day surgery (SDC) | payer MEDICARE, OTHER ==
[2023-01-22] MEDS: Lactated Ringers 1,000 ML IV SCH (07:41)
[2023-01-22] MEDS ORDERED: Lidocaine 4% 5 ML Amp ONE (08:45)
[2023-01-22] MEDS ORDERED: Midazolam 1 MG/ML 2 ML SDV ONE (09:30)
[2023-01-22] MEDS ORDERED: Propofol 200 MG/20 ML SDV ONE ×3 (09:30→10:33)
[2023-01-22] MEDS ORDERED: fentaNYL 100 MCG/2 ML SDV ONE (09:30)
[2023-01-22 10:46] VITALS: BP 134/54; PULSE 65
[2023-02-04] MEDS ORDERED: Lactated Ringers 1,000 ML IV SCH (07:00)
== END 2023-01-22 11:40 | disposition home or self-care (01) ==
LOC: VM.SDS 07:23
PROVIDERS: ATTEND Student in an Organized Health Care Education/Training Program
DX: D64.9 Anemia, unspecified (principal); D12.3 Benign neoplasm of transverse colon; D12.2 Benign neoplasm of ascending colon; D12.0 Benign neoplasm of cecum; K63.5 Polyp of colon; K31.89 Other diseases of stomach and duodenum; G47.00 Insomnia, unspecified; G47.33 Obstructive sleep apnea (adult) (pediatric); J96.11 Chronic respiratory failure with hypoxia; I11.0 Hypertensive heart disease with heart failure; I50.9 Heart failure, unspecified; M48.061 Spinal stenosis, lumbar region without neurogenic claudication; E78.1 Pure hyperglyceridemia; E11.9 Type 2 diabetes mellitus without complications; G89.29 Other chronic pain; G25.81 Restless legs syndrome; J44.9 Chronic obstructive pulmonary disease, unspecified; Z79.01 Long term (current) use of anticoagulants; Z86.711 Personal history of pulmonary embolism; Z79.4 Long term (current) use of insulin; Z79.82 Long term (current) use of aspirin; Z79.899 Other long term (current) drug therapy; Z88.8 Allergy status to other drugs, medicaments and biological substances; Z87.891 Personal history of nicotine dependence
CPT/HCPCS: 00811; 82947; 88305; J2250; J2704; J3010; J7120

== ENCOUNTER 2023-03-26 11:17 | Inpatient (IN) | payer MEDICARE, OTHER ==
[2023-03-26] MEDS ORDERED: Ondansetron 4 MG Tab.DIS PO PRN (11:49)
[2023-03-26] MEDS ORDERED: Acetaminophen 325 MG Tab PO PRN (11:49)
[2023-03-26] MEDS ORDERED: Sodium Chloride 0.9% 1,000 ML IV SCH (13:15)
[2023-03-26] MEDS: Cefepime 2 GM in Sodium Chloride 0.9% 100 ML IV SCH ×2 (13:23→19:52)
[2023-03-26] MEDS: methylPREDNISolone Sodium Succinate 40 MG/1 ML SDV IVPUSH SCH (13:25)
[2023-03-26] MEDS: Albuterol/Ipratropium 3.0-0.5 MG/3 ML Neb Soln NEB SCH ×3 (14:38→23:21)
[2023-03-26 15:26] LABS: LACTIC ACID 1.1 mmol/L (0.4-2.0)
[2023-03-26] MEDS ORDERED: Albuterol HFA 18 Gm Inhaler INH PRN (17:07)
[2023-03-26] MEDS ORDERED: [UNRECOGNIZED DRUG - OTHER] SQ SCH (17:15)
[2023-03-26] MEDS: Benzonatate 100 MG Cap PO SCH ×2 (19:55→22:44)
[2023-03-26] MEDS ORDERED: 50% Dextrose in Water 50 ML Syringe IVPUSH PRN (21:19)
[2023-03-26] MEDS ORDERED: Glucagon,Human Recombinant 1 MG Vial IM PRN (21:19)
[2023-03-26] MEDS: Insulin Regular, Human 100 Units/ML 3 ML Vial SUBCUT SCH (23:09)
[2023-03-26] MEDS: Ipratropium 0.02% 0.5 MG/2.5 ML Neb Soln NEB SCH (23:12)
[2023-03-26] MEDS: Levalbuterol HCl 1.25 MG/0.5 ML Neb NEB SCH (23:21)
[2023-03-27] MEDS: Albuterol/Ipratropium 3.0-0.5 MG/3 ML Neb Soln NEB SCH ×3 (02:28→11:37)
[2023-03-27] MEDS: Cefepime 2 GM in Sodium Chloride 0.9% 100 ML IV SCH ×3 (03:29→20:29)
[2023-03-27] MEDS: Omeprazole 20 MG Cap.CR PO SCH ×2 (06:09→17:38)
[2023-03-27] MEDS: Levalbuterol HCl 1.25 MG/0.5 ML Neb NEB SCH ×3 (07:08→20:29)
[2023-03-27] MEDS: Ipratropium 0.02% 0.5 MG/2.5 ML Neb Soln NEB SCH ×3 (07:08→20:30)
[2023-03-27 08:14] LABS: BASOPHILS PERCENT AUTO 0.1 % (0.2-1.2); HEMATOCRIT 29.9 % (33.0-47.0); HEMOGLOBIN 8.7 g/dL (12.0-16.0); IMMATURE GRAN ABSOLUTE AUTO 0.11 x10^3/uL (0.00-0.07); LYMPHOCYTES ABSOLUTE AUTO 0.9 x10^3/uL (1.0-4.8); LYMPHOCYTES PERCENT AUTO 6.2 % (25.0-50.0); MEAN CORPUSCULAR HEMOGLOBIN 23.6 pg (26.0-32.0); MEAN CORPUSCULAR HGB CONC 29.1 g/dL (32.0-36.0); MEAN CORPUSCULAR VOLUME 81.3 fL (78.0-93.0); MONOCYTES ABSOLUTE AUTO 0.6 x10^3/uL (0.0-0.8); MONOCYTES PERCENT AUTO 3.6 % (2.0-11.0); NEUTROPHILS ABSOLUTE AUTO 13.5 x10^3/uL (1.8-7.7); NEUTROPHILS PERCENT AUTO 89.4 % (50.0-80.0); PLATELET COUNT,PLT 421 x10^3/uL (130-400); RED BLOOD CELL COUNT 3.68 x10^6/uL (4.00-5.50); WHITE BLOOD CELL COUNT,WBC 15.1 x10^3/uL (4.0-10.0)
[2023-03-27 08:30] LABS: A/G RATIO 0.42; ALBUMIN 2.2 g/dL (3.4-5.0); BILIRUBIN TOTAL 0.3 mg/dL (0.2-1.0); CALCIUM 8.8 mg/dL (8.5-10.1); CREATININE 1.4 mg/dL (0.55-1.02); EST CRCL DRUG DOSING (CG) 33.16 mL/min; POTASSIUM,K 4.4 mmol/L (3.5-5.1); PROTEIN TOTAL,TP 7.4 g/dL (6.4-8.2)
[2023-03-27 08:33] LABS: ANION GAP 14.4 mmol/L (5-15)
[2023-03-27] MEDS: Insulin Regular, Human 100 Units/ML 3 ML Vial SUBCUT SCH ×3 (08:40→17:35)
[2023-03-27] MEDS: methylPREDNISolone Sodium Succinate 40 MG/1 ML SDV IVPUSH SCH (08:41)
[2023-03-27] MEDS: Rivaroxaban 10 MG Tab PO SCH (08:41)
[2023-03-27] MEDS: Benzonatate 100 MG Cap PO SCH ×2 (08:42→20:30)
[2023-03-27] MEDS: Sertraline 50 MG Tab PO SCH (08:42)
[2023-03-27] MEDS: Hydrochlorothiazide 12.5 MG Cap PO SCH (08:42)
[2023-03-27] MEDS: Lisinopril 20 MG Tab PO SCH (08:43)
[2023-03-27] MEDS: Tiotropium Bromide 4 GM Inhalation Spray (2.5mcg/1 dose; 10 doses) INH SCH (08:48)
[2023-03-27] MEDS: Formoterol/Mometasone 200-5 MCG 13 GM Inhaler INH SCH (08:48)
[2023-03-27] MEDS: hydrOXYzine HCl 25 MG Tab PO PRN (20:35)
[2023-03-27] MEDS: Acetaminophen/HYDROcodone 325-5 MG Tab PO PRN (20:36)
[2023-03-28] MEDS: Cefepime 2 GM in Sodium Chloride 0.9% 100 ML IV SCH ×3 (03:41→20:18)
[2023-03-28] MEDS: Ipratropium 0.02% 0.5 MG/2.5 ML Neb Soln NEB SCH ×3 (07:01→20:19)
[2023-03-28] MEDS: Levalbuterol HCl 1.25 MG/0.5 ML Neb NEB SCH ×3 (07:01→20:19)
[2023-03-28] MEDS: Omeprazole 20 MG Cap.CR PO SCH ×2 (07:45→18:04)
[2023-03-28 07:58] LABS: BASOPHILS PERCENT AUTO 0.1 % (0.2-1.2); EOSINOPHILS PERCENT AUTO 0.1 % (0.0-4.0); HEMATOCRIT 28.5 % (33.0-47.0); HEMOGLOBIN 8.3 g/dL (12.0-16.0); IMMATURE GRAN ABSOLUTE AUTO 0.23 x10^3/uL (0.00-0.07); LYMPHOCYTES ABSOLUTE AUTO 1.8 x10^3/uL (1.0-4.8); LYMPHOCYTES PERCENT AUTO 11.1 % (25.0-50.0); MEAN CORPUSCULAR HGB CONC 29.1 g/dL (32.0-36.0); MEAN CORPUSCULAR VOLUME 82.4 fL (78.0-93.0); MONOCYTES ABSOLUTE AUTO 0.7 x10^3/uL (0.0-0.8); MONOCYTES PERCENT AUTO 4.2 % (2.0-11.0); NEUTROPHILS ABSOLUTE AUTO 13.7 x10^3/uL (1.8-7.7); NEUTROPHILS PERCENT AUTO 83.1 % (50.0-80.0); PLATELET COUNT,PLT 460 x10^3/uL (130-400); RED BLOOD CELL COUNT 3.46 x10^6/uL (4.00-5.50); WHITE BLOOD CELL COUNT,WBC 16.5 x10^3/uL (4.0-10.0)
[2023-03-28 08:14] LABS: A/G RATIO 0.44; ALBUMIN 2.1 g/dL (3.4-5.0); BILIRUBIN TOTAL 0.1 mg/dL (0.2-1.0); CALCIUM 8.9 mg/dL (8.5-10.1); CREATININE 1.4 mg/dL (0.55-1.02); EST CRCL DRUG DOSING (CG) 33.16 mL/min; POTASSIUM,K 4.4 mmol/L (3.5-5.1); PROTEIN TOTAL,TP 6.9 g/dL (6.4-8.2)
[2023-03-28 08:15] LABS: ANION GAP 13.4 mmol/L (5-15)
[2023-03-28] MEDS: methylPREDNISolone Sodium Succinate 40 MG/1 ML SDV IVPUSH SCH (08:29)
[2023-03-28] MEDS: Insulin Regular, Human 100 Units/ML 3 ML Vial SUBCUT SCH ×3 (08:29→18:04)
[2023-03-28] MEDS: Tiotropium Bromide 4 GM Inhalation Spray (2.5mcg/1 dose; 10 doses) INH SCH (08:29)
[2023-03-28] MEDS: Formoterol/Mometasone 200-5 MCG 13 GM Inhaler INH SCH (08:29)
[2023-03-28] MEDS: Rivaroxaban 10 MG Tab PO SCH (08:30)
[2023-03-28] MEDS: Benzonatate 100 MG Cap PO SCH ×2 (08:30→20:17)
[2023-03-28] MEDS: Hydrochlorothiazide 12.5 MG Cap PO SCH (08:30)
[2023-03-28] MEDS: Sertraline 50 MG Tab PO SCH (08:30)
[2023-03-28] MEDS: Lisinopril 20 MG Tab PO SCH (08:31)
[2023-03-28] MEDS: hydrOXYzine HCl 25 MG Tab PO PRN (20:17)
[2023-03-28] MEDS: Acetaminophen/HYDROcodone 325-5 MG Tab PO PRN (20:17)
[2023-03-28] MEDS ORDERED: Calcium Carbonate 750 MG Tab.Chew PO PRN (20:35)
[2023-03-28] MEDS: guaiFENesin 100 MG/5 ML Soln 10 ML UD Cup PO PRN (21:21)
[2023-03-28] MEDS: ZALEPLON 5 MG PO SCH (21:21)
[2023-03-29] MEDS: Cefepime 2 GM in Sodium Chloride 0.9% 100 ML IV SCH ×3 (04:15→20:43)
[2023-03-29] MEDS: guaiFENesin 100 MG/5 ML Soln 10 ML UD Cup PO PRN ×2 (04:18→21:04)
[2023-03-29] MEDS: Ipratropium 0.02% 0.5 MG/2.5 ML Neb Soln NEB SCH ×3 (06:28→20:44)
[2023-03-29] MEDS: Levalbuterol HCl 1.25 MG/0.5 ML Neb NEB SCH ×3 (06:28→20:44)
[2023-03-29] MEDS: Omeprazole 20 MG Cap.CR PO SCH ×2 (06:28→17:20)
[2023-03-29 07:08] LABS: HEMATOCRIT 29.4 % (33.0-47.0); HEMOGLOBIN 8.5 g/dL (12.0-16.0); MEAN CORPUSCULAR HEMOGLOBIN 23.9 pg (26.0-32.0); MEAN CORPUSCULAR HGB CONC 28.9 g/dL (32.0-36.0); MEAN CORPUSCULAR VOLUME 82.6 fL (78.0-93.0); PLATELET COUNT,PLT 467 x10^3/uL (130-400); RED BLOOD CELL COUNT 3.56 x10^6/uL (4.00-5.50); WHITE BLOOD CELL COUNT,WBC 14.7 x10^3/uL (4.0-10.0)
[2023-03-29 07:22] LABS: ANISOCYTOSIS 2+ MODERATE; BAND PERCENT MAN 2 % (0-6); HYPOCHROMASIA 2+ MODERATE; LYMPHOCYTES ABSOLUTE MAN 2.9 x10^3/uL (1.0-4.8); LYMPHOCYTES PERCENT MAN 16 % (25-50); MONOCYTES ABSOLUTE MAN 0.4 x10^3/uL (0.0-0.8); MONOCYTES PERCENT MAN 3 % (2-11); NEUTROPHILS ABSOLUTE MAN 11.3 x10^3/uL (1.8-7.7); OVALOCYTES 1+ SLIGHT; SEG NEUTROPHILS PERCENT MAN 75 % (50-80); TARGET CELLS 1+ SLIGHT; TOXIC GRANULATION RARE; VACUOLATED NEUTROPHILS RARE
[2023-03-29 07:23] LABS: A/G RATIO 0.5; ALBUMIN 2.3 g/dL (3.4-5.0); BILIRUBIN TOTAL 0.2 mg/dL (0.2-1.0); CREATININE 1.5 mg/dL (0.55-1.02); EST CRCL DRUG DOSING (CG) 30.95 mL/min; GIANT PLATELETS RARE; HYPERSEGMENTED NEUTROPHILS FEW; PLATELET COUNT ESTIMATE INCREASED; POTASSIUM,K 4.4 mmol/L (3.5-5.1); PROTEIN TOTAL,TP 6.9 g/dL (6.4-8.2)
[2023-03-29 07:32] LABS: ANION GAP 11.4 mmol/L (5-15)
[2023-03-29] MEDS: Insulin Regular, Human 100 Units/ML 3 ML Vial SUBCUT SCH ×3 (08:36→17:23)
[2023-03-29] MEDS: Hydrochlorothiazide 12.5 MG Cap PO SCH (08:37)
[2023-03-29] MEDS: Lisinopril 20 MG Tab PO SCH (08:38)
[2023-03-29] MEDS: Benzonatate 100 MG Cap PO SCH ×2 (08:38→20:44)
[2023-03-29] MEDS: Rivaroxaban 10 MG Tab PO SCH (08:39)
[2023-03-29] MEDS: Sertraline 50 MG Tab PO SCH (08:39)
[2023-03-29] MEDS: Formoterol/Mometasone 200-5 MCG 13 GM Inhaler INH SCH (08:41)
[2023-03-29] MEDS: Tiotropium Bromide 4 GM Inhalation Spray (2.5mcg/1 dose; 10 doses) INH SCH (08:42)
[2023-03-29] MEDS: methylPREDNISolone Sodium Succinate 40 MG/1 ML SDV IVPUSH SCH (08:59)
[2023-03-29] MEDS: ZALEPLON 5 MG PO SCH (20:45)
[2023-03-29] MEDS: Acetaminophen/HYDROcodone 325-5 MG Tab PO PRN (21:04)
[2023-03-30] MEDS: Cefepime 2 GM in Sodium Chloride 0.9% 100 ML IV SCH ×3 (03:52→20:41)
[2023-03-30 06:28] LABS: HEMATOCRIT 27.7 % (33.0-47.0); HEMOGLOBIN 8.1 g/dL (12.0-16.0); MEAN CORPUSCULAR HGB CONC 29.2 g/dL (32.0-36.0); MEAN CORPUSCULAR VOLUME 82.2 fL (78.0-93.0); PLATELET COUNT,PLT 426 x10^3/uL (130-400); RED BLOOD CELL COUNT 3.37 x10^6/uL (4.00-5.50); WHITE BLOOD CELL COUNT,WBC 13.2 x10^3/uL (4.0-10.0)
[2023-03-30] MEDS: Omeprazole 20 MG Cap.CR PO SCH ×2 (06:31→17:29)
[2023-03-30 06:37] LABS: CALCIUM 8.6 mg/dL (8.5-10.1); CREATININE 1.4 mg/dL (0.55-1.02); EST CRCL DRUG DOSING (CG) 33.16 mL/min; POTASSIUM,K 4.7 mmol/L (3.5-5.1)
[2023-03-30 06:38] LABS: ANION GAP 10.7 mmol/L (5-15)
[2023-03-30 06:39] LABS: ANISOCYTOSIS 2+ MODERATE; BAND PERCENT MAN 4 % (0-6); EOSINOPHILS ABSOLUTE MAN 0.1 x10^3/uL (0.0-0.5); EOSINOPHILS PERCENT MAN 1 % (0-4); GIANT PLATELETS RARE; HYPERSEGMENTED NEUTROPHILS FEW; HYPOCHROMASIA 2+ MODERATE; LYMPHOCYTES ABSOLUTE MAN 2.5 x10^3/uL (1.0-4.8); LYMPHOCYTES PERCENT MAN 16 % (25-50); METAMYELOCYTE PERCENT MAN 1 % (0); MONOCYTES ABSOLUTE MAN 0.9 x10^3/uL (0.0-0.8); MONOCYTES PERCENT MAN 7 % (2-11); NEUTROPHILS ABSOLUTE MAN 9.5 x10^3/uL (1.8-7.7); OVALOCYTES 2+ MODERATE; PLATELET COUNT ESTIMATE INCREASED; SEG NEUTROPHILS PERCENT MAN 68 % (50-80); TARGET CELLS RARE
[2023-03-30] MEDS: Ipratropium 0.02% 0.5 MG/2.5 ML Neb Soln NEB SCH ×3 (07:02→20:43)
[2023-03-30] MEDS: Levalbuterol HCl 1.25 MG/0.5 ML Neb NEB SCH ×3 (07:02→20:43)
[2023-03-30] MEDS: Rivaroxaban 10 MG Tab PO SCH (08:29)
[2023-03-30] MEDS: methylPREDNISolone Sodium Succinate 40 MG/1 ML SDV IVPUSH SCH (08:29)
[2023-03-30] MEDS: Benzonatate 100 MG Cap PO SCH ×2 (08:29→20:43)
[2023-03-30] MEDS: Hydrochlorothiazide 12.5 MG Cap PO SCH (08:29)
[2023-03-30] MEDS: Formoterol/Mometasone 200-5 MCG 13 GM Inhaler INH SCH (08:30)
[2023-03-30] MEDS: Sertraline 50 MG Tab PO SCH (08:30)
[2023-03-30] MEDS: Tiotropium Bromide 4 GM Inhalation Spray (2.5mcg/1 dose; 10 doses) INH SCH (08:30)
[2023-03-30] MEDS: Insulin Regular, Human 100 Units/ML 3 ML Vial SUBCUT SCH ×3 (08:31→17:29)
[2023-03-30] MEDS: Lisinopril 20 MG Tab PO SCH (08:32)
[2023-03-30] MEDS: ZALEPLON 5 MG PO SCH (20:43)
[2023-03-30] MEDS: guaiFENesin 100 MG/5 ML Soln 10 ML UD Cup PO PRN (20:43)
[2023-03-31 07:02] LABS: HEMATOCRIT 27.4 % (33.0-47.0); HEMOGLOBIN 7.9 g/dL (12.0-16.0); MEAN CORPUSCULAR HEMOGLOBIN 23.7 pg (26.0-32.0); MEAN CORPUSCULAR HGB CONC 28.8 g/dL (32.0-36.0); MEAN CORPUSCULAR VOLUME 82.3 fL (78.0-93.0); PLATELET COUNT,PLT 431 x10^3/uL (130-400); RED BLOOD CELL COUNT 3.33 x10^6/uL (4.00-5.50); WHITE BLOOD CELL COUNT,WBC 16.5 x10^3/uL (4.0-10.0)
[2023-03-31] MEDS: Levalbuterol HCl 1.25 MG/0.5 ML Neb NEB SCH (07:05)
[2023-03-31] MEDS: Ipratropium 0.02% 0.5 MG/2.5 ML Neb Soln NEB SCH (07:05)
[2023-03-31 07:07] LABS: CREATININE 1.4 mg/dL (0.55-1.02); EST CRCL DRUG DOSING (CG) 33.16 mL/min; POTASSIUM,K 4.2 mmol/L (3.5-5.1)
[2023-03-31 07:12] LABS: CALCIUM 8.4 mg/dL (8.5-10.1)
[2023-03-31 07:13] LABS: ANION GAP 11.2 mmol/L (5-15)
[2023-03-31 07:28] LABS: ANISOCYTOSIS 2+ MODERATE; BAND PERCENT MAN 3 % (0-6); EOSINOPHILS ABSOLUTE MAN 0.2 x10^3/uL (0.0-0.5); EOSINOPHILS PERCENT MAN 1 % (0-4); LYMPHOCYTES ABSOLUTE MAN 3.1 x10^3/uL (1.0-4.8); LYMPHOCYTES PERCENT MAN 18 % (25-50); METAMYELOCYTE PERCENT MAN 1 % (0); MONOCYTES PERCENT MAN 6 % (2-11); SEG NEUTROPHILS PERCENT MAN 70 % (50-80)
[2023-03-31 07:29] LABS: OVALOCYTES 2+ MODERATE; PLATELET COUNT ESTIMATE INCREASED
[2023-03-31 07:31] LABS: HYPOCHROMASIA 1+ SLIGHT
[2023-03-31] MEDS: Hydrochlorothiazide 12.5 MG Cap PO SCH (08:45)
[2023-03-31] MEDS: Rivaroxaban 10 MG Tab PO SCH (08:45)
[2023-03-31] MEDS: Sertraline 50 MG Tab PO SCH (08:46)
[2023-03-31] MEDS: methylPREDNISolone Sodium Succinate 40 MG/1 ML SDV IVPUSH SCH (08:46)
[2023-03-31] MEDS: Benzonatate 100 MG Cap PO SCH (08:46)
[2023-03-31] MEDS: Insulin Regular, Human 100 Units/ML 3 ML Vial SUBCUT SCH (08:47)
[2023-03-31] MEDS: Formoterol/Mometasone 200-5 MCG 13 GM Inhaler INH SCH (08:47)
[2023-03-31] MEDS: Lisinopril 20 MG Tab PO SCH (08:47)
[2023-03-31] MEDS: Tiotropium Bromide 4 GM Inhalation Spray (2.5mcg/1 dose; 10 doses) INH SCH (08:47)
[2023-03-31] MEDS ORDERED: Pneumococcal 20-Valent Conjug 0.5 ML Syringe IM ONE (10:23)
[2023-03-31] MEDS ORDERED: FLU (Fluad Quad) 2023-24(65UP)/MF59C/PF 60 MCG/0.5 ML Syringe IM ONE (11:15)
[2023-03-31 11:50] VITALS: BP 145/43; PULSE 68
== END 2023-03-31 11:45 | disposition home or self-care (01) | DRG 871 ==
LOC: VM.MS 11:20
PROVIDERS: ADMIT Family Medicine; ATTEND Physician Assistant
DX: A41.9 Sepsis, unspecified organism (principal); J18.9 Pneumonia, unspecified organism; J96.21 Acute and chronic respiratory failure with hypoxia; J44.0 Chronic obstructive pulmonary disease with (acute) lower respiratory infection; J44.1 Chronic obstructive pulmonary disease with (acute) exacerbation; J84.9 Interstitial pulmonary disease, unspecified; I13.0 Hypertensive heart and chronic kidney disease with heart failure and stage 1 through stage 4 chronic kidney disease, or unspecified chronic kidney disease; E11.9 Type 2 diabetes mellitus without complications; M81.0 Age-related osteoporosis without current pathological fracture; D50.9 Iron deficiency anemia, unspecified; G47.00 Insomnia, unspecified; I50.9 Heart failure, unspecified; K21.9 Gastro-esophageal reflux disease without esophagitis; G47.33 Obstructive sleep apnea (adult) (pediatric); E78.5 Hyperlipidemia, unspecified; E66.9 Obesity, unspecified; E78.00 Pure hypercholesterolemia, unspecified; G89.29 Other chronic pain; F41.1 Generalized anxiety disorder; M54.50 Low back pain, unspecified; N18.30 Chronic kidney disease, stage 3 unspecified; E11.22 Type 2 diabetes mellitus with diabetic chronic kidney disease; G25.81 Restless legs syndrome; F32.A Depression, unspecified; Z88.8 Allergy status to other drugs, medicaments and biological substances; Z91.041 Radiographic dye allergy status; Z86.711 Personal history of pulmonary embolism; Z79.01 Long term (current) use of anticoagulants; Z87.891 Personal history of nicotine dependence; Z79.899 Other long term (current) drug therapy; Z79.51 Long term (current) use of inhaled steroids; Z86.718 Personal history of other venous thrombosis and embolism; Z99.81 Dependence on supplemental oxygen; Z90.89 Acquired absence of other organs; Z90.49 Acquired absence of other specified parts of digestive tract; Z90.710 Acquired absence of both cervix and uterus; Z98.1 Arthrodesis status; Z98.890 Other specified postprocedural states; Z68.31 Body mass index [BMI] 31.0-31.9, adult
CPT/HCPCS: 36415; 80048; 80053; 82947; 83605; 85025; 87040; 87070; 87205; 90677; 90694; 94640; 94760; 97110-GP; 97116-GP; 97162-GP; 99232; 99233; A9270-GY; G0008; G0009; J0692; J1815-GY; J2920; J3490; J7030; J7620-GY

== ENCOUNTER 2023-06-27 22:15 | Inpatient (IN) | payer MEDICARE, OTHER ==
[2023-06-27] MEDS ORDERED: Sodium Chloride 0.9% 10 ML Syringe FLUSH PRN (22:17)
[2023-06-27] MEDS: Albuterol/Ipratropium 3.0-0.5 MG/3 ML Neb Soln NEB ONE (22:23)
[2023-06-27] MEDS: Lactated Ringers 1,000 ML IV ONE (22:43)
[2023-06-27] MEDS: Acetaminophen 325 MG Tab PO ONE (22:43)
[2023-06-27 22:45] LABS: BASOPHILS PERCENT AUTO 0.4 % (0.2-1.2); EOSINOPHILS PERCENT AUTO 0.1 % (0.0-4.0); HEMATOCRIT 34.5 % (33.0-47.0); HEMOGLOBIN 9.5 g/dL (12.0-16.0); IMMATURE GRAN ABSOLUTE AUTO 0.04 x10^3/uL (0.00-0.07); LYMPHOCYTES ABSOLUTE AUTO 0.3 x10^3/uL (1.0-4.8); LYMPHOCYTES PERCENT AUTO 3.9 % (25.0-50.0); MEAN CORPUSCULAR HEMOGLOBIN 22.1 pg (26.0-32.0); MEAN CORPUSCULAR HGB CONC 27.5 g/dL (32.0-36.0); MEAN CORPUSCULAR VOLUME 80.4 fL (78.0-93.0); MONOCYTES ABSOLUTE AUTO 0.7 x10^3/uL (0.0-0.8); NEUTROPHILS ABSOLUTE AUTO 7.4 x10^3/uL (1.8-7.7); NEUTROPHILS PERCENT AUTO 87.1 % (50.0-80.0); PLATELET COUNT,PLT 291 x10^3/uL (130-400); RED BLOOD CELL COUNT 4.29 x10^6/uL (4.00-5.50); WHITE BLOOD CELL COUNT,WBC 8.5 x10^3/uL (4.0-10.0)
[2023-06-27] MEDS: methylPREDNISolone Sodium Succinate 125 MG/2 ML SDV IVPUSH ONE (22:55)
[2023-06-27 22:57] LABS: PROTHROMBIN TIME 10.3 SEC (9.5-12.2); PTT,PARTIAL THROMBOPLSTIN TIME 26.5 SEC (23.6-33.6)
[2023-06-27 23:06] LABS: LACTIC ACID 2.8 mmol/L (0.4-2.0)
[2023-06-27] MEDS: Albuterol 0.083% 2.5 MG/3 ML Neb Soln NEB ONE (23:07)
[2023-06-27 23:10] LABS: A/G RATIO 0.84; ALANINE AMINOTRANSFERASE,ALT 37 U/L (14-59); ALBUMIN 3.1 g/dL (3.4-5.0); ALKALINE PHOSPHATASE 173 U/L (46-116); ASPARTATE AMNIOTRANSFERASE,AST 34 U/L (15-37); BILIRUBIN TOTAL 0.3 mg/dL (0.2-1.0); BLOOD UREA NITROGEN,BUN 21 mg/dL (7-18); CALCIUM 7.9 mg/dL (8.5-10.1); CARBON DIOXIDE,CO2 22 mmol/L (21-32); CHLORIDE,CL 106 mmol/L (98-107); CREATININE 1.4 mg/dL (0.55-1.02); GLUCOSE RANDOM 147 mg/dL (70-99); MAGNESIUM 1.7 mg/dL (1.8-2.4); POTASSIUM,K 3.9 mmol/L (3.5-5.1); PROTEIN TOTAL,TP 6.8 g/dL (6.4-8.2); SODIUM,NA 141 mmol/L (136-145); TSH ULTRASENSITIVE 0.818 uIU/mL (0.358-3.74)
[2023-06-27 23:11] LABS: ANION GAP 16.9 mmol/L (5-15); ESTIMATED GFR 40 mL/min (>=60)
[2023-06-27 23:25] LABS: CORONAVIRUS COVID-19 NAA NEGATIVE (NEGATIVE)
[2023-06-27 23:26] LABS: INFLUENZA B NAA NEGATIVE (NEGATIVE)
[2023-06-27 23:27] LABS: RESPIRATORY SYNCYTIAL VIR NAA NEGATIVE (NEGATIVE)
[2023-06-27] MEDS: Oseltamivir 30 MG Cap PO SCH (23:36)
[2023-06-27] MEDS: cefTRIAXone 1 GM Vial IVPUSH SCH (23:40)
[2023-06-27] MEDS: Doxycycline Monohydrate 100 MG Cap PO SCH (23:40)
[2023-06-28] MEDS: Lactated Ringers 1,000 ML IV ONE (00:30)
[2023-06-28] MEDS: Oseltamivir 30 MG Cap PO SCH ×2 (01:00→09:49)
[2023-06-28 07:19] LABS: BASOPHILS PERCENT AUTO 0.2 % (0.2-1.2); HEMATOCRIT 34.3 % (33.0-47.0); HEMOGLOBIN 9.6 g/dL (12.0-16.0); IMMATURE GRAN ABSOLUTE AUTO 0.03 x10^3/uL (0.00-0.07); LYMPHOCYTES ABSOLUTE AUTO 0.2 x10^3/uL (1.0-4.8); LYMPHOCYTES PERCENT AUTO 3.6 % (25.0-50.0); MEAN CORPUSCULAR HEMOGLOBIN 22.9 pg (26.0-32.0); MEAN CORPUSCULAR VOLUME 81.7 fL (78.0-93.0); MONOCYTES ABSOLUTE AUTO 0.1 x10^3/uL (0.0-0.8); MONOCYTES PERCENT AUTO 1.1 % (2.0-11.0); NEUTROPHILS ABSOLUTE AUTO 6.3 x10^3/uL (1.8-7.7); NEUTROPHILS PERCENT AUTO 94.6 % (50.0-80.0); PLATELET COUNT,PLT 296 x10^3/uL (130-400); WHITE BLOOD CELL COUNT,WBC 6.6 x10^3/uL (4.0-10.0)
[2023-06-28] MEDS ORDERED: Zolpidem 5 MG Tab PO PRN (07:38)
[2023-06-28] MEDS ORDERED: hydrOXYzine HCl 25 MG Tab PO PRN (07:38)
[2023-06-28] MEDS ORDERED: Ipratropium 0.02% 0.5 MG/2.5 ML Neb Soln NEB PRN (07:38)
[2023-06-28] MEDS ORDERED: Acetaminophen 325 MG Tab PO PRN (07:38)
[2023-06-28 07:41] LABS: LACTIC ACID 3.1 mmol/L (0.4-2.0)
[2023-06-28 07:48] LABS: A/G RATIO 0.76; ALBUMIN 2.9 g/dL (3.4-5.0); BILIRUBIN TOTAL 0.2 mg/dL (0.2-1.0); CALCIUM 8.3 mg/dL (8.5-10.1); CREATININE 1.5 mg/dL (0.55-1.02); EST CRCL DRUG DOSING (CG) 29.27 mL/min; PROTEIN TOTAL,TP 6.7 g/dL (6.4-8.2)
[2023-06-28] MEDS ORDERED: Albuterol 0.083% 2.5 MG/3 ML Neb Soln INH PRN (07:53)
[2023-06-28] MEDS ORDERED: Doxycycline Monohydrate 100 MG Cap PO SCH (09:00)
[2023-06-28] MEDS: Hydrochlorothiazide 12.5 MG Cap PO SCH (09:40)
[2023-06-28] MEDS: Acetaminophen/Codeine 300-30 MG Tab PO PRN (09:42)
[2023-06-28] MEDS: guaiFENesin 600 MG Tab.ER PO SCH (09:44)
[2023-06-28] MEDS: Multivitamin Tab PO SCH (09:44)
[2023-06-28] MEDS: Sertraline 50 MG Tab PO SCH (09:46)
[2023-06-28] MEDS: Lisinopril 20 MG Tab PO SCH (09:48)
[2023-06-28] MEDS: Benzonatate 100 MG Cap PO SCH (09:49)
[2023-06-28] MEDS: methylPREDNISolone Sodium Succinate 125 MG/2 ML SDV IVPUSH SCH (09:50)
[2023-06-28] MEDS: Azithromycin 500 MG in Sodium Chloride 0.9% 250 ML IV SCH (09:53)
[2023-06-28] MEDS: Tiotropium Bromide 4 GM Inhalation Spray (2.5mcg/1 dose; 10 doses) INH SCH (10:13)
[2023-06-28] MEDS: Albuterol 0.083% 2.5 MG/3 ML Neb Soln INH SCH (13:05)
[2023-06-28] MEDS: Pantoprazole 40 MG Tab.CR PO SCH (17:10)
[2023-06-28] MEDS: Formoterol/Mometasone 200-5 MCG 13 GM Inhaler INH SCH (20:40)
[2023-06-28] MEDS ORDERED: cefTRIAXone 1 GM Vial IVPUSH SCH (21:00)
[2023-06-28] MEDS: Zolpidem 5 MG Tab PO SCH (22:10)
[2023-06-29] MEDS ORDERED: Calcium Carbonate 750 MG Tab.Chew PO PRN (11:02)
[2023-06-30 06:48] LABS: BASOPHILS PERCENT AUTO 0.2 % (0.2-1.2); HEMATOCRIT 31.5 % (33.0-47.0); HEMOGLOBIN 8.7 g/dL (12.0-16.0); IMMATURE GRAN ABSOLUTE AUTO 0.02 x10^3/uL (0.00-0.07); LYMPHOCYTES ABSOLUTE AUTO 1.3 x10^3/uL (1.0-4.8); LYMPHOCYTES PERCENT AUTO 11.9 % (25.0-50.0); MEAN CORPUSCULAR HEMOGLOBIN 22.7 pg (26.0-32.0); MEAN CORPUSCULAR HGB CONC 27.6 g/dL (32.0-36.0); MEAN CORPUSCULAR VOLUME 82.2 fL (78.0-93.0); MONOCYTES ABSOLUTE AUTO 0.6 x10^3/uL (0.0-0.8); MONOCYTES PERCENT AUTO 5.1 % (2.0-11.0); NEUTROPHILS PERCENT AUTO 82.6 % (50.0-80.0); RED BLOOD CELL COUNT 3.83 x10^6/uL (4.00-5.50); WHITE BLOOD CELL COUNT,WBC 10.9 x10^3/uL (4.0-10.0)
[2023-06-30 07:09] LABS: A/G RATIO 0.88; ALBUMIN 2.9 g/dL (3.4-5.0); BILIRUBIN TOTAL 0.1 mg/dL (0.2-1.0); CALCIUM 8.6 mg/dL (8.5-10.1); CREATININE 1.5 mg/dL (0.55-1.02); EST CRCL DRUG DOSING (CG) 29.27 mL/min; POTASSIUM,K 4.6 mmol/L (3.5-5.1); PROTEIN TOTAL,TP 6.2 g/dL (6.4-8.2)
[2023-06-30 07:14] LABS: PLATELET COUNT,PLT 313 x10^3/uL (130-400)
[2023-06-30 07:17] LABS: ANION GAP 14.6 mmol/L (5-15)
[2023-06-30 08:55] LABS: INFLUENZA A NAA POSITIVE (NEGATIVE)
[2023-06-30] MEDS: Doxycycline Monohydrate 100 MG Cap PO SCH (09:20)
[2023-06-30] MEDS: DULAGLUTIDE 0.75 MG/0.5 ML SUBCUT SCH (10:06)
[2023-06-30] MEDS: Zolpidem 5 MG Tab PO SCH (20:35)
[2023-07-01 06:53] LABS: HEMATOCRIT 30.7 % (33.0-47.0); HEMOGLOBIN 8.4 g/dL (12.0-16.0); MEAN CORPUSCULAR HEMOGLOBIN 22.2 pg (26.0-32.0); MEAN CORPUSCULAR HGB CONC 27.4 g/dL (32.0-36.0); RED BLOOD CELL COUNT 3.79 x10^6/uL (4.00-5.50); WHITE BLOOD CELL COUNT,WBC 9.6 x10^3/uL (4.0-10.0)
[2023-07-01 07:11] LABS: A/G RATIO 0.88; ALBUMIN 2.8 g/dL (3.4-5.0); BILIRUBIN TOTAL 0.2 mg/dL (0.2-1.0); CALCIUM 8.4 mg/dL (8.5-10.1); CREATININE 1.2 mg/dL (0.55-1.02); EST CRCL DRUG DOSING (CG) 36.59 mL/min; POTASSIUM,K 4.1 mmol/L (3.5-5.1)
[2023-07-01 07:15] LABS: ANION GAP 13.1 mmol/L (5-15)
[2023-07-01] MEDS: Calcium Carbonate 750 MG Tab.Chew PO PRN (08:09)
[2023-07-01] MEDS: cefTRIAXone 1 GM Vial IVPUSH SCH (08:36)
[2023-07-01] MEDS: Doxycycline Monohydrate 100 MG Cap PO SCH (08:36)
[2023-07-01 11:54] VITALS: BP 132/54; PULSE 79
== END 2023-07-01 11:43 | disposition home or self-care (01) | DRG 194 ==
LOC: VM.ED 22:15 → VM.MS 23:30
PROVIDERS: ADMIT Physician Assistant; ATTEND Internal Medicine
DX: J10.1 Influenza due to other identified influenza virus with other respiratory manifestations (principal); J10.00 Influenza due to other identified influenza virus with unspecified type of pneumonia; E87.20 Acidosis, unspecified; I13.0 Hypertensive heart and chronic kidney disease with heart failure and stage 1 through stage 4 chronic kidney disease, or unspecified chronic kidney disease; J44.0 Chronic obstructive pulmonary disease with (acute) lower respiratory infection; J96.11 Chronic respiratory failure with hypoxia; I24.9 Acute ischemic heart disease, unspecified; E78.00 Pure hypercholesterolemia, unspecified; Z90.49 Acquired absence of other specified parts of digestive tract; I50.9 Heart failure, unspecified; Z68.43 Body mass index [BMI] 50.0-59.9, adult; N18.30 Chronic kidney disease, stage 3 unspecified; M19.90 Unspecified osteoarthritis, unspecified site; F32.A Depression, unspecified; E11.22 Type 2 diabetes mellitus with diabetic chronic kidney disease; E66.9 Obesity, unspecified; G25.81 Restless legs syndrome; M48.00 Spinal stenosis, site unspecified; D63.1 Anemia in chronic kidney disease; E78.1 Pure hyperglyceridemia; M51.36 Other intervertebral disc degeneration, lumbar region; G47.33 Obstructive sleep apnea (adult) (pediatric); Z99.81 Dependence on supplemental oxygen; Z86.718 Personal history of other venous thrombosis and embolism; Z87.891 Personal history of nicotine dependence; Z88.8 Allergy status to other drugs, medicaments and biological substances; Z79.51 Long term (current) use of inhaled steroids; Z79.01 Long term (current) use of anticoagulants; Z79.899 Other long term (current) drug therapy; Z86.16 Personal history of COVID-19; Z11.52 Encounter for screening for COVID-19; Z90.89 Acquired absence of other organs; Z90.710 Acquired absence of both cervix and uterus; Z98.1 Arthrodesis status; Z98.890 Other specified postprocedural states; Z68.32 Body mass index [BMI] 32.0-32.9, adult
CPT/HCPCS: 0241U; 36415; 71045; 80053; 82947; 83605; 83735; 84443; 84484; 85025; 85027; 85610; 85730; 86140; 87040; 93005; 93010; 94640; 94760; 96361; 96374; 99284; 99285-25; A9270-GY; J0456; J0696; J2930; J7050; J7120; J7613-GY; J7620-GY

== ENCOUNTER 2023-12-31 19:45 | Inpatient (IN) | payer MEDICARE, OTHER ==
[2023-12-31] MEDS ORDERED: Sodium Chloride 0.9% 10 ML Syringe FLUSH PRN (19:59)
[2023-12-31 20:19] LABS: BASOPHILS PERCENT AUTO 0.1 % (0.2-1.2); EOSINOPHILS PERCENT AUTO 0.1 % (0.0-4.0); HEMATOCRIT 42.2 % (33.0-47.0); HEMOGLOBIN 12.7 g/dL (12.0-16.0); IMMATURE GRAN ABSOLUTE AUTO 0.13 x10^3/uL (0.00-0.07); LYMPHOCYTES ABSOLUTE AUTO 1.1 x10^3/uL (1.0-4.8); LYMPHOCYTES PERCENT AUTO 6.8 % (25.0-50.0); MEAN CORPUSCULAR HGB CONC 30.1 g/dL (32.0-36.0); MEAN CORPUSCULAR VOLUME 89.8 fL (78.0-93.0); MONOCYTES ABSOLUTE AUTO 0.5 x10^3/uL (0.0-0.8); MONOCYTES PERCENT AUTO 3.4 % (2.0-11.0); NEUTROPHILS ABSOLUTE AUTO 13.7 x10^3/uL (1.8-7.7); NEUTROPHILS PERCENT AUTO 88.8 % (50.0-80.0); PLATELET COUNT,PLT 263 x10^3/uL (130-400); WHITE BLOOD CELL COUNT,WBC 15.5 x10^3/uL (4.0-10.0)
[2023-12-31 20:44] LABS: ALANINE AMINOTRANSFERASE,ALT 22 U/L (14-59); ALBUMIN 3.5 g/dL (3.4-5.0); ALKALINE PHOSPHATASE 104 U/L (46-116); ANION GAP 16.2 mmol/L (5-15); ASPARTATE AMNIOTRANSFERASE,AST 15 U/L (15-37); BILIRUBIN TOTAL 0.3 mg/dL (0.2-1.0); BLOOD UREA NITROGEN,BUN 19 mg/dL (7-18); C-REACTIVE PROTEIN 1.23 mg/dL (<=0.50); CALCIUM 8.1 mg/dL (8.5-10.1); CARBON DIOXIDE,CO2 26 mmol/L (21-32); CHLORIDE,CL 104 mmol/L (98-107); CREATININE 1.4 mg/dL (0.55-1.02); ESTIMATED GFR 40 mL/min (>=60); GLUCOSE RANDOM 221 mg/dL (70-99); POTASSIUM,K 4.2 mmol/L (3.5-5.1); PRO B-TYPE NATRIUR PEPT,BNPPRO 148 pg/mL (<=125); SODIUM,NA 142 mmol/L (136-145)
[2023-12-31] MEDS: Albuterol/Ipratropium 3.0-0.5 MG/3 ML Neb Soln NEB ONE (20:54)
[2023-12-31] MEDS: Lactated Ringers 1,000 ML IV ONE ×2 (21:00→22:42)
[2023-12-31] MEDS: cefTRIAXone 2 GM Vial IVPUSH ONE (21:20)
[2023-12-31 22:00] LABS: APPEARANCE,URINE SLIGHTLY CLOUDY (CLEAR); BILIRUBIN,URINE NEGATIVE (NEGATIVE); COLOR,URINE DARK YELLOW (YELLOW); GLUCOSE,URINE NEGATIVE (NEGATIVE); KETONES,URINE NEGATIVE (NEGATIVE); LEUKOCYTE ESTERASE,URINE LARGE (NEGATIVE); NITRITE,URINE NEGATIVE (NEGATIVE); OCCULT BLOOD,URINE NEGATIVE (NEGATIVE); PROTEIN,URINE TRACE mg/dL (NEGATIVE); UROBILINOGEN,URINE 0.2 EU/dL (0.2)
[2023-12-31 22:07] LABS: BACTERIA,URINE OCCASIONAL /HPF (NOT SEEN); MUCUS,URINE OCCASIONAL /LPF (NOT SEEN); RBC,URINE 0-5 /HPF (NOT SEEN); SQUAMOUS EPITHELIAL CELLS,UR FEW /HPF (NOT SEEN); WBC,URINE 30-40 /HPF (NOT SEEN)
[2024-01-01] MEDS ORDERED: Albuterol HFA 18 Gm Inhaler INH PRN (00:11)
[2024-01-01] MEDS ORDERED: hydrOXYzine HCl 25 MG Tab PO PRN (00:11)
[2024-01-01] MEDS ORDERED: Acetaminophen 325 MG Tab PO PRN (00:11)
[2024-01-01] MEDS ORDERED: Ipratropium 0.02% 0.5 MG/2.5 ML Neb Soln NEB PRN (00:11)
[2024-01-01] MEDS ORDERED: [UNRECOGNIZED DRUG - OTHER] SCH (00:15)
[2024-01-01 00:41] LABS: LACTIC ACID 3.8 mmol/L (0.4-2.0)
[2024-01-01] MEDS: Sodium Chloride 0.9% 1,000 ML IV SCH (01:07)
[2024-01-01] MEDS: Omeprazole 20 MG Cap.CR PO SCH (06:10)
[2024-01-01] MEDS: Formoterol/Mometasone 200-5 MCG 13 GM Inhaler INH SCH (06:13)
[2024-01-01 08:03] LABS: BASOPHILS PERCENT AUTO 0.1 % (0.2-1.2); EOSINOPHILS ABSOLUTE AUTO 0.1 x10^3/uL (0.0-0.5); EOSINOPHILS PERCENT AUTO 0.7 % (0.0-4.0); HEMATOCRIT 38.8 % (33.0-47.0); HEMOGLOBIN 11.7 g/dL (12.0-16.0); IMMATURE GRAN ABSOLUTE AUTO 0.12 x10^3/uL (0.00-0.07); LYMPHOCYTES ABSOLUTE AUTO 1.8 x10^3/uL (1.0-4.8); LYMPHOCYTES PERCENT AUTO 16.5 % (25.0-50.0); MEAN CORPUSCULAR HGB CONC 30.2 g/dL (32.0-36.0); MEAN CORPUSCULAR VOLUME 89.6 fL (78.0-93.0); MONOCYTES ABSOLUTE AUTO 0.7 x10^3/uL (0.0-0.8); MONOCYTES PERCENT AUTO 5.8 % (2.0-11.0); NEUTROPHILS ABSOLUTE AUTO 8.5 x10^3/uL (1.8-7.7); NEUTROPHILS PERCENT AUTO 75.8 % (50.0-80.0); PLATELET COUNT,PLT 233 x10^3/uL (130-400); RED BLOOD CELL COUNT 4.33 x10^6/uL (4.00-5.50); WHITE BLOOD CELL COUNT,WBC 11.2 x10^3/uL (4.0-10.0)
[2024-01-01 08:17] LABS: CALCIUM 7.8 mg/dL (8.5-10.1); CREATININE 1.1 mg/dL (0.55-1.02); EST CRCL DRUG DOSING (CG) 39.92 mL/min; POTASSIUM,K 4.2 mmol/L (3.5-5.1)
[2024-01-01 08:22] LABS: ANION GAP 8.2 mmol/L (5-15)
[2024-01-01] MEDS: Lisinopril 20 MG Tab PO SCH (08:53)
[2024-01-01] MEDS: guaiFENesin 600 MG Tab.ER PO SCH (08:54)
[2024-01-01] MEDS: Cyanocobalamin (Vitamin B12) 1,000 MCG Tab PO SCH (08:54)
[2024-01-01] MEDS: Benzonatate 100 MG Cap PO SCH (08:54)
[2024-01-01] MEDS: Hydrochlorothiazide 12.5 MG Cap PO SCH (08:54)
[2024-01-01] MEDS: Beta-Carotene (Vitamin A) w/Vitamin C & E plus Minerals Tab PO SCH (08:55)
[2024-01-01] MEDS: predniSONE 10 MG Tab PO SCH (08:55)
[2024-01-01] MEDS: Ferrous Sulfate 325 MG Tab PO SCH (08:55)
[2024-01-01] MEDS: cefTRIAXone 2 GM Vial IVPUSH SCH (08:55)
[2024-01-01] MEDS: Enoxaparin 40 MG/0.4 ML Syringe SUBCUT SCH (08:55)
[2024-01-01] MEDS: Miconazole 2% Top Powder 45 GM Container TOP SCH (08:56)
[2024-01-01] MEDS: Tiotropium Bromide 4 GM Inhalation Spray (2.5mcg/1 dose; 10 doses) INH SCH (08:56)
[2024-01-01] MEDS ORDERED: Albuterol/Ipratropium 3.0-0.5 MG/3 ML Neb Soln NEB SCH (13:00)
[2024-01-01] MEDS: Acetaminophen/Codeine 300-30 MG Tab PO PRN (13:23)
[2024-01-01] MEDS: Levalbuterol HCl 1.25 MG/3 ML Neb INH PRN (13:24)
[2024-01-01] MEDS: Doxycycline Monohydrate 100 MG Cap PO SCH ×2 (15:18→17:59)
[2024-01-01] MEDS: Zolpidem 5 MG Tab PO SCH (20:54)
[2024-01-01] MEDS: Albuterol/Ipratropium 3.0-0.5 MG/3 ML Neb Soln NEB SCH (20:58)
[2024-01-02 08:07] LABS: HEMATOCRIT 37.7 % (33.0-47.0); HEMOGLOBIN 11.4 g/dL (12.0-16.0); MEAN CORPUSCULAR HEMOGLOBIN 27.1 pg (26.0-32.0); MEAN CORPUSCULAR HGB CONC 30.2 g/dL (32.0-36.0); MEAN CORPUSCULAR VOLUME 89.5 fL (78.0-93.0); RED BLOOD CELL COUNT 4.21 x10^6/uL (4.00-5.50); WHITE BLOOD CELL COUNT,WBC 9.2 x10^3/uL (4.0-10.0)
[2024-01-02] MEDS: predniSONE 20 MG Tab PO SCH (09:17)
[2024-01-02 10:32] LABS: CALCIUM 7.6 mg/dL (8.5-10.1); CREATININE 1.1 mg/dL (0.55-1.02); EST CRCL DRUG DOSING (CG) 39.92 mL/min; POTASSIUM,K 3.8 mmol/L (3.5-5.1)
[2024-01-02 10:41] LABS: ANION GAP 10.8 mmol/L (5-15)
[2024-01-03 07:21] LABS: BASOPHILS PERCENT AUTO 0.1 % (0.2-1.2); EOSINOPHILS ABSOLUTE AUTO 0.1 x10^3/uL (0.0-0.5); EOSINOPHILS PERCENT AUTO 0.6 % (0.0-4.0); HEMATOCRIT 36.8 % (33.0-47.0); HEMOGLOBIN 11.2 g/dL (12.0-16.0); IMMATURE GRAN ABSOLUTE AUTO 0.14 x10^3/uL (0.00-0.07); LYMPHOCYTES ABSOLUTE AUTO 1.6 x10^3/uL (1.0-4.8); LYMPHOCYTES PERCENT AUTO 15.2 % (25.0-50.0); MEAN CORPUSCULAR HEMOGLOBIN 27.1 pg (26.0-32.0); MEAN CORPUSCULAR HGB CONC 30.4 g/dL (32.0-36.0); MEAN CORPUSCULAR VOLUME 88.9 fL (78.0-93.0); MONOCYTES ABSOLUTE AUTO 0.7 x10^3/uL (0.0-0.8); MONOCYTES PERCENT AUTO 6.3 % (2.0-11.0); NEUTROPHILS ABSOLUTE AUTO 8.2 x10^3/uL (1.8-7.7); NEUTROPHILS PERCENT AUTO 76.5 % (50.0-80.0); PLATELET COUNT,PLT 234 x10^3/uL (130-400); RED BLOOD CELL COUNT 4.14 x10^6/uL (4.00-5.50); WHITE BLOOD CELL COUNT,WBC 10.7 x10^3/uL (4.0-10.0)
[2024-01-03 07:26] LABS: CREATININE 1.2 mg/dL (0.55-1.02); EST CRCL DRUG DOSING (CG) 36.59 mL/min; POTASSIUM,K 4.3 mmol/L (3.5-5.1)
[2024-01-03 07:27] LABS: ANION GAP 14.3 mmol/L (5-15)
[2024-01-03] MEDS: Calcium Carbonate 750 MG Tab.Chew PO PRN (08:33)
[2024-01-03 09:41] VITALS: BP 168/80; PULSE 110
[2024-01-05] MEDS ORDERED: (Dulaglutide [Trulicity] 0.75 MG/0.5 ML Pen.Injctr) SUBCUT SCH (09:00)
== END 2024-01-03 09:40 | disposition home or self-care (01) | DRG 872 ==
LOC: VM.ED 19:45 → VM.MS 22:36
PROVIDERS: ADMIT Nurse Practitioner Family; ATTEND Nurse Practitioner Family
DX: A41.9 Sepsis, unspecified organism (principal); J96.11 Chronic respiratory failure with hypoxia; J44.1 Chronic obstructive pulmonary disease with (acute) exacerbation; L03.116 Cellulitis of left lower limb; N18.2 Chronic kidney disease, stage 2 (mild); J44.9 Chronic obstructive pulmonary disease, unspecified; I13.0 Hypertensive heart and chronic kidney disease with heart failure and stage 1 through stage 4 chronic kidney disease, or unspecified chronic kidney disease; N10 Acute pyelonephritis; J84.9 Interstitial pulmonary disease, unspecified; Z68.39 Body mass index [BMI] 39.0-39.9, adult; E66.9 Obesity, unspecified; M81.0 Age-related osteoporosis without current pathological fracture; F32.A Depression, unspecified; G89.29 Other chronic pain; M19.90 Unspecified osteoarthritis, unspecified site; G47.30 Sleep apnea, unspecified; E78.00 Pure hypercholesterolemia, unspecified; N18.32 Chronic kidney disease, stage 3b; I50.9 Heart failure, unspecified; E11.22 Type 2 diabetes mellitus with diabetic chronic kidney disease; D72.829 Elevated white blood cell count, unspecified; M54.50 Low back pain, unspecified; R91.1 Solitary pulmonary nodule; D63.1 Anemia in chronic kidney disease; R35.0 Frequency of micturition; Z88.8 Allergy status to other drugs, medicaments and biological substances; Z98.1 Arthrodesis status; Z86.16 Personal history of COVID-19; Z90.49 Acquired absence of other specified parts of digestive tract; Z90.89 Acquired absence of other organs; Z99.89 Dependence on other enabling machines and devices; Z90.710 Acquired absence of both cervix and uterus; Z79.899 Other long term (current) drug therapy; Z86.010 Personal history of colon polyps; Z87.891 Personal history of nicotine dependence; Z99.81 Dependence on supplemental oxygen
CPT/HCPCS: 36415; 71046; 80053; 81001; 83605; 83880; 84145; 84484; 85025; 86140; 87040 ×2; 87086; 93010; 94640; 96361; 96374; 99284; 99285; J0696; J7120; 80048; 85027; 93005; 94760; A9270-GY; J1650; J7030; J7512; J7612-GY; J7620-GY

== ENCOUNTER 2024-01-19 12:34 | Emergency (ER) | payer MEDICARE, OTHER ==
[2024-01-19 12:57] LABS: BASOPHILS PERCENT AUTO 0.1 % (0.2-1.2); EOSINOPHILS PERCENT AUTO 0.1 % (0.0-4.0); HEMATOCRIT 41.6 % (33.0-47.0); HEMOGLOBIN 12.9 g/dL (12.0-16.0); IMMATURE GRAN ABSOLUTE AUTO 0.07 x10^3/uL (0.00-0.07); LYMPHOCYTES ABSOLUTE AUTO 0.7 x10^3/uL (1.0-4.8); LYMPHOCYTES PERCENT AUTO 5.3 % (25.0-50.0); MEAN CORPUSCULAR HEMOGLOBIN 27.7 pg (26.0-32.0); MEAN CORPUSCULAR VOLUME 89.5 fL (78.0-93.0); MONOCYTES ABSOLUTE AUTO 0.4 x10^3/uL (0.0-0.8); MONOCYTES PERCENT AUTO 2.5 % (2.0-11.0); NEUTROPHILS ABSOLUTE AUTO 12.6 x10^3/uL (1.8-7.7); NEUTROPHILS PERCENT AUTO 91.5 % (50.0-80.0); PLATELET COUNT,PLT 232 x10^3/uL (130-400); RED BLOOD CELL COUNT 4.65 x10^6/uL (4.00-5.50); WHITE BLOOD CELL COUNT,WBC 13.8 x10^3/uL (4.0-10.0)
[2024-01-19] MEDS: Ondansetron 4 MG/2 ML SDV IVPUSH ONE (13:00)
[2024-01-19 13:31] LABS: A/G RATIO 1.09; ALBUMIN 3.7 g/dL (3.4-5.0); BILIRUBIN TOTAL 0.4 mg/dL (0.2-1.0); CALCIUM 8.1 mg/dL (8.5-10.1); CREATININE 1.4 mg/dL (0.55-1.02); EST CRCL DRUG DOSING (CG) 31.37 mL/min; PROTEIN TOTAL,TP 7.1 g/dL (6.4-8.2)
[2024-01-19 13:33] LABS: CORONAVIRUS COVID-19 NAA NEGATIVE (NEGATIVE); INFLUENZA A NAA NEGATIVE (NEGATIVE); INFLUENZA B NAA NEGATIVE (NEGATIVE); RESPIRATORY SYNCYTIAL VIR NAA NEGATIVE (NEGATIVE)
[2024-01-19] MEDS: cefTRIAXone 1 GM Vial IVPUSH ONE (14:08)
[2024-01-19] MEDS: methylPREDNISolone Sodium Succinate 40 MG/1 ML SDV IVPUSH ONE (14:08)
[2024-01-19 14:21] VITALS: BP 129/66; PULSE 88
== END 2024-01-19 14:19 | disposition home or self-care (01) ==
LOC: VM.ED 12:34 → SUPCPDRO 12:34 → VM.ED 14:19
DX: J44.1 Chronic obstructive pulmonary disease with (acute) exacerbation (principal); I11.0 Hypertensive heart disease with heart failure; I50.9 Heart failure, unspecified; E11.9 Type 2 diabetes mellitus without complications; E66.9 Obesity, unspecified; Z68.38 Body mass index [BMI] 38.0-38.9, adult; Z86.16 Personal history of COVID-19; Z90.710 Acquired absence of both cervix and uterus; Z87.891 Personal history of nicotine dependence; Z79.899 Other long term (current) drug therapy; Z88.6 Allergy status to analgesic agent; Z88.8 Allergy status to other drugs, medicaments and biological substances
CPT/HCPCS: 0241U; 71045; 80053; 83880; 84484; 85025; 93005; 93010; 94760; 96374; 96375; 99284; 99285-25; J0696; J2405; J2919

== ENCOUNTER 2024-02-06 02:45 | Emergency (ER) | payer MEDICARE, OTHER ==
[2024-02-06] MEDS: Albuterol/Ipratropium 3.0-0.5 MG/3 ML Neb Soln NEB ONE (02:45)
[2024-02-06] MEDS ORDERED: Sodium Chloride 0.9% 10 ML Syringe FLUSH PRN (03:02)
[2024-02-06] MEDS ORDERED: methylPREDNISolone Sodium Succinate 125 MG/2 ML SDV IV ONE (03:05)
[2024-02-06] MEDS: LORazepam 1 MG Tab PO ONE (03:10)
[2024-02-06] MEDS: methylPREDNISolone Sodium Succinate 125 MG/2 ML SDV IM ONE (03:20)
[2024-02-06 03:21] LABS: BASOPHILS PERCENT AUTO 0.1 % (0.2-1.2); EOSINOPHILS PERCENT AUTO 0.2 % (0.0-4.0); HEMATOCRIT 40.8 % (33.0-47.0); HEMOGLOBIN 12.8 g/dL (12.0-16.0); IMMATURE GRAN ABSOLUTE AUTO 0.19 x10^3/uL (0.00-0.07); LYMPHOCYTES ABSOLUTE AUTO 2.5 x10^3/uL (1.0-4.8); LYMPHOCYTES PERCENT AUTO 17.8 % (25.0-50.0); MEAN CORPUSCULAR HEMOGLOBIN 28.1 pg (26.0-32.0); MEAN CORPUSCULAR HGB CONC 31.4 g/dL (32.0-36.0); MEAN CORPUSCULAR VOLUME 89.7 fL (78.0-93.0); MONOCYTES ABSOLUTE AUTO 0.8 x10^3/uL (0.0-0.8); NEUTROPHILS ABSOLUTE AUTO 10.2 x10^3/uL (1.8-7.7); NEUTROPHILS PERCENT AUTO 74.5 % (50.0-80.0); PLATELET COUNT,PLT 229 x10^3/uL (130-400); RED BLOOD CELL COUNT 4.55 x10^6/uL (4.00-5.50); WHITE BLOOD CELL COUNT,WBC 13.8 x10^3/uL (4.0-10.0)
[2024-02-06 03:30] LABS: HCO3 VENOUS,POC 26 mmol/L (22-29); O2 SATURATION VENOUS,POC 72 %; PCO2 VENOUS,POC 45 mmHg (41-51); PH VENOUS,POC 7.37 pH (7.32-7.43); PO2 VENOUS,POC 39 mmHg
[2024-02-06 03:36] VITALS: BP 140/84
[2024-02-06 03:50] LABS: A/G RATIO 0.89; ALANINE AMINOTRANSFERASE,ALT 25 U/L (14-59); ALBUMIN 3.3 g/dL (3.4-5.0); ALKALINE PHOSPHATASE 127 U/L (46-116); BILIRUBIN TOTAL 0.2 mg/dL (0.2-1.0); BLOOD UREA NITROGEN,BUN 34 mg/dL (7-18); CALCIUM 8.8 mg/dL (8.5-10.1); CARBON DIOXIDE,CO2 29 mmol/L (21-32); CHLORIDE,CL 106 mmol/L (98-107); CREATININE 1.7 mg/dL (0.55-1.02); GLUCOSE RANDOM 258 mg/dL (70-99); MAGNESIUM 1.4 mg/dL (1.8-2.4); POTASSIUM,K 3.8 mmol/L (3.5-5.1); SODIUM,NA 145 mmol/L (136-145); TSH ULTRASENSITIVE 3.281 uIU/mL (0.358-3.74)
[2024-02-06 03:51] LABS: ANION GAP 13.8 mmol/L (5-15); ESTIMATED GFR 32 mL/min (>=60)
[2024-02-06 04:00] LABS: ASPARTATE AMNIOTRANSFERASE,AST < 10 U/L (15-37)
[2024-02-06] MEDS: Take Home: LORazepam 0.5 MG Tab, 2 Tab Pack PO ONE (04:01)
[2024-02-06 06:30] VITALS: PULSE 116
== END 2024-02-06 04:07 | disposition home or self-care (01) ==
LOC: VM.ED 02:45
DX: J44.1 Chronic obstructive pulmonary disease with (acute) exacerbation (principal); I11.0 Hypertensive heart disease with heart failure; I50.9 Heart failure, unspecified; E11.9 Type 2 diabetes mellitus without complications; E66.9 Obesity, unspecified; Z86.16 Personal history of COVID-19; Z90.49 Acquired absence of other specified parts of digestive tract; Z79.899 Other long term (current) drug therapy; Z88.6 Allergy status to analgesic agent; Z88.8 Allergy status to other drugs, medicaments and biological substances
CPT/HCPCS: 36415; 71045; 80053; 82803; 83735; 84443; 85025; 94640; 96372; 99284; 99285; A9270-GY; J2919; J7620-GY

== ENCOUNTER 2024-03-03 12:39 | Inpatient (IN) | payer MEDICARE, OTHER ==
[2024-03-03] MEDS ORDERED: Calcium Carbonate 750 MG Tab.Chew PO PRN (14:15)
[2024-03-03] MEDS ORDERED: Albuterol 0.083% 2.5 MG/3 ML Neb Soln INH PRN (14:15)
[2024-03-03] MEDS ORDERED: Ipratropium 0.02% 0.5 MG/2.5 ML Neb Soln NEB PRN (14:15)
[2024-03-03] MEDS ORDERED: Albuterol HFA 18 Gm Inhaler INH PRN (14:15)
[2024-03-03] MEDS ORDERED: Acetaminophen 325 MG Tab PO PRN (14:15)
[2024-03-03] MEDS ORDERED: Levalbuterol HCl 1.25 MG/3 ML Neb INH PRN (14:36)
[2024-03-03] MEDS: Sodium Chloride 0.9% 1,000 ML IV SCH ×2 (14:44→18:44)
[2024-03-03 15:12] LABS: APPEARANCE,URINE CLEAR (CLEAR); BILIRUBIN,URINE NEGATIVE (NEGATIVE); COLOR,URINE YELLOW (YELLOW); GLUCOSE,URINE NEGATIVE (NEGATIVE); KETONES,URINE NEGATIVE (NEGATIVE); LEUKOCYTE ESTERASE,URINE LARGE (NEGATIVE); NITRITE,URINE NEGATIVE (NEGATIVE); OCCULT BLOOD,URINE NEGATIVE (NEGATIVE); PH,URINE 5.5 (5.0-8.0); PROTEIN,URINE NEGATIVE (NEGATIVE); UROBILINOGEN,URINE 0.2 EU/dL (0.2)
[2024-03-03 15:24] LABS: BACTERIA,URINE FEW /HPF (NOT SEEN); MUCUS,URINE NOT SEEN /LPF (NOT SEEN); RBC,URINE 0-5 /HPF (NOT SEEN); SQUAMOUS EPITHELIAL CELLS,UR MODERATE /HPF (NOT SEEN)
[2024-03-03 15:38] LABS: LACTIC ACID 2.4 mmol/L (0.4-2.0)
[2024-03-03] MEDS: Sodium Chloride 0.9% 1,000 ML IV ONE (15:47)
[2024-03-03] MEDS: Omeprazole 20 MG Cap.CR PO SCH (16:40)
[2024-03-03] MEDS: cefTRIAXone 1 GM Vial IVPUSH SCH (16:40)
[2024-03-03] MEDS: Azithromycin 250 MG Tab PO ONE (18:31)
[2024-03-03] MEDS: Nystatin Susp 100,000 Unit/ML 5 ML UD Cup PO SCH (20:08)
[2024-03-03] MEDS: Zolpidem 5 MG Tab PO SCH (20:08)
[2024-03-03] MEDS: LORazepam 0.5 MG Tab PO SCH (20:09)
[2024-03-03] MEDS: Benzonatate 100 MG Cap PO SCH (20:09)
[2024-03-03] MEDS: Formoterol/Mometasone 200-5 MCG 13 GM Inhaler INH SCH (20:10)
[2024-03-03] MEDS: Nystatin Crm 30 GM Tube TOP SCH (20:15)
[2024-03-04 07:52] LABS: BASOPHILS PERCENT AUTO 0.1 % (0.2-1.2); EOSINOPHILS PERCENT AUTO 0.3 % (0.0-4.0); HEMATOCRIT 33.6 % (33.0-47.0); HEMOGLOBIN 10.7 g/dL (12.0-16.0); IMMATURE GRAN ABSOLUTE AUTO 0.14 x10^3/uL (0.00-0.07); LYMPHOCYTES ABSOLUTE AUTO 1.4 x10^3/uL (1.0-4.8); LYMPHOCYTES PERCENT AUTO 12.6 % (25.0-50.0); MEAN CORPUSCULAR HEMOGLOBIN 28.2 pg (26.0-32.0); MEAN CORPUSCULAR HGB CONC 31.8 g/dL (32.0-36.0); MEAN CORPUSCULAR VOLUME 88.4 fL (78.0-93.0); MONOCYTES ABSOLUTE AUTO 0.9 x10^3/uL (0.0-0.8); MONOCYTES PERCENT AUTO 8.3 % (2.0-11.0); NEUTROPHILS ABSOLUTE AUTO 8.7 x10^3/uL (1.8-7.7); NEUTROPHILS PERCENT AUTO 77.5 % (50.0-80.0); PLATELET COUNT,PLT 172 x10^3/uL (130-400); WHITE BLOOD CELL COUNT,WBC 11.2 x10^3/uL (4.0-10.0)
[2024-03-04 08:22] LABS: A/G RATIO 0.93; ALANINE AMINOTRANSFERASE,ALT 8 U/L (14-59); ALBUMIN 2.6 g/dL (3.4-5.0); ALKALINE PHOSPHATASE 74 U/L (46-116); BILIRUBIN TOTAL 0.4 mg/dL (0.2-1.0); CARBON DIOXIDE,CO2 28 mmol/L (21-32); CHLORIDE,CL 108 mmol/L (98-107); CREATININE 2.4 mg/dL (0.55-1.02); EST CRCL DRUG DOSING (CG) 19.07 mL/min; GLUCOSE RANDOM 192 mg/dL (70-99); POTASSIUM,K 3.3 mmol/L (3.5-5.1); PRO B-TYPE NATRIUR PEPT,BNPPRO 360 pg/mL (<=125); PROTEIN TOTAL,TP 5.4 g/dL (6.4-8.2); SODIUM,NA 145 mmol/L (136-145)
[2024-03-04 08:24] LABS: ANION GAP 12.3 mmol/L (5-15); ASPARTATE AMNIOTRANSFERASE,AST < 10 U/L (15-37); ESTIMATED GFR 21 mL/min (>=60)
[2024-03-04 08:27] LABS: BLOOD UREA NITROGEN,BUN 84 mg/dL (7-18)
[2024-03-04] MEDS: Enoxaparin 30 MG/0.3 ML Syringe SUBCUT SCH (09:26)
[2024-03-04] MEDS: predniSONE 10 MG Tab PO SCH (09:27)
[2024-03-04] MEDS: Cyanocobalamin (Vitamin B12) 1,000 MCG Tab PO SCH (09:27)
[2024-03-04] MEDS: Azithromycin 250 MG Tab PO SCH (09:27)
[2024-03-04] MEDS: Ferrous Sulfate 325 MG Tab PO SCH (09:27)
[2024-03-04] MEDS: Aspirin 81 MG Tab.EC PO SCH (09:27)
[2024-03-04] MEDS: Ondansetron 4 MG/2 ML SDV IV PRN (09:40)
[2024-03-04] MEDS: Tiotropium Bromide 4 GM Inhalation Spray (2.5mcg/1 dose; 10 doses) INH SCH (09:40)
[2024-03-04] MEDS: Potassium Chloride 20 MEQ Tab.ER PO ONE (09:40)
[2024-03-05 08:09] LABS: BASOPHILS PERCENT AUTO 0.1 % (0.2-1.2); EOSINOPHILS ABSOLUTE AUTO 0.1 x10^3/uL (0.0-0.5); EOSINOPHILS PERCENT AUTO 0.5 % (0.0-4.0); HEMATOCRIT 35.1 % (33.0-47.0); HEMOGLOBIN 11.3 g/dL (12.0-16.0); IMMATURE GRAN ABSOLUTE AUTO 0.28 x10^3/uL (0.00-0.07); LYMPHOCYTES ABSOLUTE AUTO 1.2 x10^3/uL (1.0-4.8); LYMPHOCYTES PERCENT AUTO 11.9 % (25.0-50.0); MEAN CORPUSCULAR HEMOGLOBIN 28.9 pg (26.0-32.0); MEAN CORPUSCULAR HGB CONC 32.2 g/dL (32.0-36.0); MEAN CORPUSCULAR VOLUME 89.8 fL (78.0-93.0); MONOCYTES ABSOLUTE AUTO 0.7 x10^3/uL (0.0-0.8); MONOCYTES PERCENT AUTO 7.3 % (2.0-11.0); NEUTROPHILS ABSOLUTE AUTO 7.5 x10^3/uL (1.8-7.7); NEUTROPHILS PERCENT AUTO 77.3 % (50.0-80.0); PLATELET COUNT,PLT 176 x10^3/uL (130-400); RED BLOOD CELL COUNT 3.91 x10^6/uL (4.00-5.50); WHITE BLOOD CELL COUNT,WBC 9.7 x10^3/uL (4.0-10.0)
[2024-03-05 08:34] LABS: A/G RATIO 0.9; ALBUMIN 2.8 g/dL (3.4-5.0); BILIRUBIN TOTAL 0.3 mg/dL (0.2-1.0); CALCIUM 8.3 mg/dL (8.5-10.1); CREATININE 1.7 mg/dL (0.55-1.02); EST CRCL DRUG DOSING (CG) 26.92 mL/min; POTASSIUM,K 4.1 mmol/L (3.5-5.1); PROTEIN TOTAL,TP 5.9 g/dL (6.4-8.2)
[2024-03-05 08:36] LABS: ANION GAP 10.1 mmol/L (5-15)
[2024-03-05] MEDS: Furosemide 20 MG Tab PO SCH (10:11)
[2024-03-05] MEDS: Lactobacillus Rhamnosus GG (Probiotic) Cap PO SCH (12:22)
[2024-03-06 06:54] LABS: BASOPHILS PERCENT AUTO 0.1 % (0.2-1.2); EOSINOPHILS ABSOLUTE AUTO 0.1 x10^3/uL (0.0-0.5); EOSINOPHILS PERCENT AUTO 0.8 % (0.0-4.0); HEMATOCRIT 32.3 % (33.0-47.0); HEMOGLOBIN 10.4 g/dL (12.0-16.0); IMMATURE GRAN ABSOLUTE AUTO 0.35 x10^3/uL (0.00-0.07); LYMPHOCYTES ABSOLUTE AUTO 1.7 x10^3/uL (1.0-4.8); LYMPHOCYTES PERCENT AUTO 19.8 % (25.0-50.0); MEAN CORPUSCULAR HEMOGLOBIN 28.8 pg (26.0-32.0); MEAN CORPUSCULAR HGB CONC 32.2 g/dL (32.0-36.0); MEAN CORPUSCULAR VOLUME 89.5 fL (78.0-93.0); MONOCYTES ABSOLUTE AUTO 0.7 x10^3/uL (0.0-0.8); MONOCYTES PERCENT AUTO 7.9 % (2.0-11.0); NEUTROPHILS ABSOLUTE AUTO 5.9 x10^3/uL (1.8-7.7); NEUTROPHILS PERCENT AUTO 67.4 % (50.0-80.0); PLATELET COUNT,PLT 168 x10^3/uL (130-400); RED BLOOD CELL COUNT 3.61 x10^6/uL (4.00-5.50); WHITE BLOOD CELL COUNT,WBC 8.7 x10^3/uL (4.0-10.0)
[2024-03-06 07:18] LABS: ALANINE AMINOTRANSFERASE,ALT 9 U/L (14-59); ALBUMIN 2.6 g/dL (3.4-5.0); ALKALINE PHOSPHATASE 72 U/L (46-116); BILIRUBIN TOTAL 0.2 mg/dL (0.2-1.0); BLOOD UREA NITROGEN,BUN 30 mg/dL (7-18); CALCIUM 8.6 mg/dL (8.5-10.1); CARBON DIOXIDE,CO2 30 mmol/L (21-32); CHLORIDE,CL 112 mmol/L (98-107); CREATININE 1.6 mg/dL (0.55-1.02); ESTIMATED GFR 34 mL/min (>=60); GLUCOSE RANDOM 167 mg/dL (70-99); PRO B-TYPE NATRIUR PEPT,BNPPRO 815 pg/mL (<=125); PROTEIN TOTAL,TP 5.5 g/dL (6.4-8.2); SODIUM,NA 148 mmol/L (136-145)
[2024-03-06 07:19] LABS: ASPARTATE AMNIOTRANSFERASE,AST < 10 U/L (15-37)
[2024-03-06] MEDS: BIOTENE DRY MOUTH MOISTURIZING PO PRN (11:25)
[2024-03-06] MEDS: Zinc Sulfate 220 MG Cap PO SCH (14:14)
[2024-03-06] MEDS: Multivitamin Tab PO SCH (21:14)
[2024-03-07 07:10] LABS: BASOPHILS PERCENT AUTO 0.2 % (0.2-1.2); EOSINOPHILS ABSOLUTE AUTO 0.1 x10^3/uL (0.0-0.5); EOSINOPHILS PERCENT AUTO 0.8 % (0.0-4.0); HEMATOCRIT 33.1 % (33.0-47.0); HEMOGLOBIN 10.9 g/dL (12.0-16.0); IMMATURE GRAN ABSOLUTE AUTO 0.36 x10^3/uL (0.00-0.07); LYMPHOCYTES ABSOLUTE AUTO 1.7 x10^3/uL (1.0-4.8); LYMPHOCYTES PERCENT AUTO 17.6 % (25.0-50.0); MEAN CORPUSCULAR HEMOGLOBIN 29.1 pg (26.0-32.0); MEAN CORPUSCULAR HGB CONC 32.9 g/dL (32.0-36.0); MEAN CORPUSCULAR VOLUME 88.3 fL (78.0-93.0); MONOCYTES ABSOLUTE AUTO 0.7 x10^3/uL (0.0-0.8); NEUTROPHILS ABSOLUTE AUTO 6.9 x10^3/uL (1.8-7.7); NEUTROPHILS PERCENT AUTO 70.7 % (50.0-80.0); PLATELET COUNT,PLT 187 x10^3/uL (130-400); RED BLOOD CELL COUNT 3.75 x10^6/uL (4.00-5.50); WHITE BLOOD CELL COUNT,WBC 9.7 x10^3/uL (4.0-10.0)
[2024-03-07 07:46] LABS: A/G RATIO 0.97; ALBUMIN 2.8 g/dL (3.4-5.0); BILIRUBIN TOTAL 0.3 mg/dL (0.2-1.0); CALCIUM 8.7 mg/dL (8.5-10.1); CREATININE 1.5 mg/dL (0.55-1.02); EST CRCL DRUG DOSING (CG) 30.5 mL/min; POTASSIUM,K 3.4 mmol/L (3.5-5.1); PROTEIN TOTAL,TP 5.7 g/dL (6.4-8.2)
[2024-03-07 07:47] LABS: ANION GAP 12.4 mmol/L (5-15)
[2024-03-07 10:33] VITALS: BP 144/86; PULSE 105
[2024-03-08] MEDS ORDERED: DULAGLUTIDE 0.75 MG/0.5 ML SUBCUT SCH (09:00)
[2024-04-06] MEDS ORDERED: DENOSUMAB 60 MG/ML SUBCUT SCH (13:00)
== END 2024-03-07 10:45 | disposition home or self-care (01) | DRG 682 ==
LOC: VM.MS 12:39
PROVIDERS: ADMIT Physician Assistant; ATTEND Physician Assistant
DX: N17.9 Acute kidney failure, unspecified (principal); I50.23 Acute on chronic systolic (congestive) heart failure; B37.0 Candidal stomatitis; I13.0 Hypertensive heart and chronic kidney disease with heart failure and stage 1 through stage 4 chronic kidney disease, or unspecified chronic kidney disease; J96.11 Chronic respiratory failure with hypoxia; I24.9 Acute ischemic heart disease, unspecified; J44.1 Chronic obstructive pulmonary disease with (acute) exacerbation; N30.00 Acute cystitis without hematuria; L03.116 Cellulitis of left lower limb; Z66 Do not resuscitate; E11.22 Type 2 diabetes mellitus with diabetic chronic kidney disease; M19.90 Unspecified osteoarthritis, unspecified site; F32.A Depression, unspecified; L89.152 Pressure ulcer of sacral region, stage 2; M81.0 Age-related osteoporosis without current pathological fracture; E66.9 Obesity, unspecified; E78.1 Pure hyperglyceridemia; D72.829 Elevated white blood cell count, unspecified; M51.360 Other intervertebral disc degeneration, lumbar region with discogenic back pain only; N18.32 Chronic kidney disease, stage 3b; K21.9 Gastro-esophageal reflux disease without esophagitis; G47.33 Obstructive sleep apnea (adult) (pediatric); G25.81 Restless legs syndrome; L30.4 Erythema intertrigo; E86.0 Dehydration; E86.1 Hypovolemia; Z99.81 Dependence on supplemental oxygen; Z88.8 Allergy status to other drugs, medicaments and biological substances; Z79.51 Long term (current) use of inhaled steroids; Z79.52 Long term (current) use of systemic steroids; Z79.82 Long term (current) use of aspirin; Z79.899 Other long term (current) drug therapy; Z86.0100 Personal history of colon polyps, unspecified; Z68.34 Body mass index [BMI] 34.0-34.9, adult; Z86.16 Personal history of COVID-19; Z90.89 Acquired absence of other organs; Z90.49 Acquired absence of other specified parts of digestive tract; Z90.710 Acquired absence of both cervix and uterus; Z98.1 Arthrodesis status; Z98.890 Other specified postprocedural states
CPT/HCPCS: 36415; 80053; 81001; 82550; 82947; 83605; 83880; 85025; 87040; 87086; 87088; 87428-QW; 94640; 94760; 97161-GP; 97165-GO; 97535-GO; 99232; 99233; A9270-GY; J0696; J1650; J2405; J7030; J7512

== ENCOUNTER 2024-08-24 14:05 | Inpatient (IN) | payer MEDICARE, OTHER ==
[2024-08-24 14:46] LABS: BASOPHILS PERCENT AUTO 0.1 % (0.2-1.2); EOSINOPHILS ABSOLUTE AUTO 0.3 x10^3/uL (0.0-0.5); EOSINOPHILS PERCENT AUTO 1.8 % (0.0-4.0); HEMATOCRIT 38.2 % (33.0-47.0); HEMOGLOBIN 11.9 g/dL (12.0-16.0); IMMATURE GRAN ABSOLUTE AUTO 0.09 x10^3/uL (0.00-0.07); LYMPHOCYTES ABSOLUTE AUTO 1.4 x10^3/uL (1.0-4.8); LYMPHOCYTES PERCENT AUTO 8.6 % (25.0-50.0); MEAN CORPUSCULAR HEMOGLOBIN 27.5 pg (26.0-32.0); MEAN CORPUSCULAR HGB CONC 31.2 g/dL (32.0-36.0); MEAN CORPUSCULAR VOLUME 88.2 fL (78.0-93.0); MONOCYTES PERCENT AUTO 6.4 % (2.0-11.0); NEUTROPHILS ABSOLUTE AUTO 13.1 x10^3/uL (1.8-7.7); NEUTROPHILS PERCENT AUTO 82.5 % (50.0-80.0); PLATELET COUNT,PLT 256 x10^3/uL (130-400); RED BLOOD CELL COUNT 4.33 x10^6/uL (4.00-5.50); WHITE BLOOD CELL COUNT,WBC 15.8 x10^3/uL (4.0-10.0)
[2024-08-24] MEDS: Furosemide 40 MG/4 ML VIAL IV ONE (14:50)
[2024-08-24 14:58] LABS: INR 0.9 (0.9-1.1); PROTHROMBIN TIME 9.7 SEC (9.6-12.0); PTT,PARTIAL THROMBOPLSTIN TIME 23.3 SEC (23.5-33.2)
[2024-08-24 15:05] LABS: LACTIC ACID 4.2 mmol/L (0.4-2.0)
[2024-08-24 15:09] LABS: A/G RATIO 0.81; ALBUMIN 2.9 g/dL (3.4-5.0); BILIRUBIN TOTAL 0.4 mg/dL (0.2-1.0); C-REACTIVE PROTEIN 1.6 mg/dL (<=0.50); CREATININE 1.1 mg/dL (0.55-1.02); EST CRCL DRUG DOSING (CG) 39.33 mL/min; MAGNESIUM 1.4 mg/dL (1.8-2.4); POTASSIUM,K 3.3 mmol/L (3.5-5.1); PROTEIN TOTAL,TP 6.5 g/dL (6.4-8.2)
[2024-08-24 15:17] LABS: ANION GAP 15.3 mmol/L (5-15)
[2024-08-24] MEDS: cefTRIAXone 1 GM Vial IVPUSH ONE (15:43)
[2024-08-24] MEDS: Doxycycline Monohydrate 100 MG Cap PO ONE (15:54)
[2024-08-24] MEDS ORDERED: Albuterol HFA 18 Gm Inhaler INH PRN (17:59)
[2024-08-24] MEDS ORDERED: LORazepam 0.5 MG Tab PO PRN (17:59)
[2024-08-24] MEDS: Heparin Sodium 5,000 Units/ML Vial SUBCUT SCH (18:22)
[2024-08-24] MEDS: Potassium Chloride 10 MEQ Tab.ER PO SCH (18:24)
[2024-08-24] MEDS: Zolpidem 5 MG Tab PO SCH (21:41)
[2024-08-24] MEDS: Benzonatate 100 MG Cap PO SCH (21:41)
[2024-08-24] MEDS: Formoterol/Mometasone 200-5 MCG 13 GM Inhaler INH SCH (21:41)
[2024-08-24] MEDS: Nystatin Crm 30 GM Tube TOP SCH (21:42)
[2024-08-25] MEDS: Melatonin 3 MG Tab PO PRN (02:08)
[2024-08-25] MEDS: Pantoprazole 40 MG Tab.CR PO SCH (06:18)
[2024-08-25] MEDS: Tiotropium Bromide 4 GM Inhalation Spray (2.5mcg/1 dose; 10 doses) INH SCH (06:18)
[2024-08-25 07:01] LABS: BASOPHILS PERCENT AUTO 0.2 % (0.2-1.2); EOSINOPHILS ABSOLUTE AUTO 0.2 x10^3/uL (0.0-0.5); EOSINOPHILS PERCENT AUTO 1.7 % (0.0-4.0); HEMATOCRIT 37.4 % (33.0-47.0); HEMOGLOBIN 11.3 g/dL (12.0-16.0); IMMATURE GRAN ABSOLUTE AUTO 0.11 x10^3/uL (0.00-0.07); LYMPHOCYTES ABSOLUTE AUTO 1.7 x10^3/uL (1.0-4.8); LYMPHOCYTES PERCENT AUTO 12.5 % (25.0-50.0); MEAN CORPUSCULAR HEMOGLOBIN 26.9 pg (26.0-32.0); MEAN CORPUSCULAR HGB CONC 30.2 g/dL (32.0-36.0); MONOCYTES PERCENT AUTO 7.1 % (2.0-11.0); NEUTROPHILS ABSOLUTE AUTO 10.5 x10^3/uL (1.8-7.7); NEUTROPHILS PERCENT AUTO 77.7 % (50.0-80.0); PLATELET COUNT,PLT 260 x10^3/uL (130-400); WHITE BLOOD CELL COUNT,WBC 13.5 x10^3/uL (4.0-10.0)
[2024-08-25 07:28] LABS: A/G RATIO 0.77; ALBUMIN 2.7 g/dL (3.4-5.0); BILIRUBIN TOTAL 0.5 mg/dL (0.2-1.0); CALCIUM 8.7 mg/dL (8.5-10.1); CREATININE 1.1 mg/dL (0.55-1.02); EST CRCL DRUG DOSING (CG) 39.33 mL/min; POTASSIUM,K 3.4 mmol/L (3.5-5.1); PROTEIN TOTAL,TP 6.2 g/dL (6.4-8.2)
[2024-08-25 07:32] LABS: ANION GAP 8.4 mmol/L (5-15)
[2024-08-25] MEDS: Calcium Carbonate 750 MG Tab.Chew PO PRN (07:40)
[2024-08-25] MEDS: Magnesium Chloride 64 MG Tab.ER PO SCH (08:23)
[2024-08-25] MEDS: Furosemide 20 MG Tab PO SCH (08:23)
[2024-08-25] MEDS: predniSONE 10 MG Tab PO SCH (08:23)
[2024-08-25] MEDS: Sertraline 50 MG Tab PO SCH (08:23)
[2024-08-25] MEDS: Doxycycline Monohydrate 100 MG Cap PO SCH (08:24)
[2024-08-25] MEDS: Cyanocobalamin (Vitamin B12) 1,000 MCG Tab SL SCH (08:24)
[2024-08-25] MEDS: Ferrous Sulfate 325 MG Tab PO SCH (08:24)
[2024-08-25] MEDS: Aspirin 81 MG Tab.EC PO SCH (08:24)
[2024-08-25] MEDS: Lisinopril 20 MG Tab PO SCH (08:30)
[2024-08-25] MEDS: cefTRIAXone 1 GM Vial IVPUSH SCH (08:35)
[2024-08-25] MEDS: Ondansetron 4 MG Tab.DIS PO PRN (10:41)
[2024-08-25] MEDS ORDERED: Glucagon,Human Recombinant 1 MG Vial IM PRN (11:58)
[2024-08-25] MEDS ORDERED: 50% Dextrose in Water 50 ML Syringe IVPUSH PRN (11:58)
[2024-08-25] MEDS: Insulin Lispro 100 Units/ML 3 ML Vial SUBCUT SCH (18:19)
[2024-08-25] MEDS: Sodium Chloride 0.9% 10 ML Syringe FLUSH PRN (21:45)
[2024-08-26] MEDS: Acetaminophen 325 MG Tab PO PRN (03:53)
[2024-08-26 07:17] LABS: BASOPHILS PERCENT AUTO 0.4 % (0.2-1.2); EOSINOPHILS ABSOLUTE AUTO 0.2 x10^3/uL (0.0-0.5); EOSINOPHILS PERCENT AUTO 1.7 % (0.0-4.0); HEMATOCRIT 34.9 % (33.0-47.0); HEMOGLOBIN 10.6 g/dL (12.0-16.0); IMMATURE GRAN ABSOLUTE AUTO 0.13 x10^3/uL (0.00-0.07); LYMPHOCYTES ABSOLUTE AUTO 1.7 x10^3/uL (1.0-4.8); MEAN CORPUSCULAR HEMOGLOBIN 27.4 pg (26.0-32.0); MEAN CORPUSCULAR HGB CONC 30.4 g/dL (32.0-36.0); MEAN CORPUSCULAR VOLUME 90.2 fL (78.0-93.0); MONOCYTES ABSOLUTE AUTO 0.9 x10^3/uL (0.0-0.8); MONOCYTES PERCENT AUTO 8.9 % (2.0-11.0); NEUTROPHILS ABSOLUTE AUTO 7.4 x10^3/uL (1.8-7.7); NEUTROPHILS PERCENT AUTO 71.7 % (50.0-80.0); PLATELET COUNT,PLT 224 x10^3/uL (130-400); RED BLOOD CELL COUNT 3.87 x10^6/uL (4.00-5.50); WHITE BLOOD CELL COUNT,WBC 10.3 x10^3/uL (4.0-10.0)
[2024-08-26 07:36] LABS: A/G RATIO 0.77; ALBUMIN 2.7 g/dL (3.4-5.0); ANION GAP 9.5 mmol/L (5-15); BILIRUBIN TOTAL 0.3 mg/dL (0.2-1.0); CALCIUM 8.5 mg/dL (8.5-10.1); CREATININE 1.4 mg/dL (0.55-1.02); EST CRCL DRUG DOSING (CG) 30.9 mL/min; POTASSIUM,K 3.5 mmol/L (3.5-5.1); PROTEIN TOTAL,TP 6.2 g/dL (6.4-8.2)
[2024-08-26] MEDS: Albuterol 0.083% 2.5 MG/3 ML Neb Soln INH PRN (09:54)
[2024-08-26] MEDS: Miconazole 2% Top Powder 45 GM Container TOP SCH (13:02)
[2024-08-26] MEDS: VANCOmycin 1.5 GM/300 ML 1.5 GM in Premix Bag 1 BAG IV ONE (13:02)
[2024-08-26] MEDS: Ipratropium 0.02% 0.5 MG/2.5 ML Neb Soln NEB PRN (14:58)
[2024-08-27 07:43] LABS: BASOPHILS PERCENT AUTO 0.2 % (0.2-1.2); EOSINOPHILS ABSOLUTE AUTO 0.2 x10^3/uL (0.0-0.5); EOSINOPHILS PERCENT AUTO 2.2 % (0.0-4.0); HEMATOCRIT 33.5 % (33.0-47.0); LYMPHOCYTES ABSOLUTE AUTO 1.5 x10^3/uL (1.0-4.8); LYMPHOCYTES PERCENT AUTO 18.4 % (25.0-50.0); MEAN CORPUSCULAR HEMOGLOBIN 27.1 pg (26.0-32.0); MEAN CORPUSCULAR HGB CONC 29.9 g/dL (32.0-36.0); MEAN CORPUSCULAR VOLUME 90.8 fL (78.0-93.0); MONOCYTES ABSOLUTE AUTO 0.7 x10^3/uL (0.0-0.8); MONOCYTES PERCENT AUTO 8.5 % (2.0-11.0); NEUTROPHILS ABSOLUTE AUTO 5.8 x10^3/uL (1.8-7.7); NEUTROPHILS PERCENT AUTO 69.5 % (50.0-80.0); PLATELET COUNT,PLT 231 x10^3/uL (130-400); RED BLOOD CELL COUNT 3.69 x10^6/uL (4.00-5.50); WHITE BLOOD CELL COUNT,WBC 8.3 x10^3/uL (4.0-10.0)
[2024-08-27 08:06] LABS: A/G RATIO 0.76; ALBUMIN 2.5 g/dL (3.4-5.0); BILIRUBIN TOTAL 0.3 mg/dL (0.2-1.0); CALCIUM 8.6 mg/dL (8.5-10.1); CREATININE 1.3 mg/dL (0.55-1.02); EST CRCL DRUG DOSING (CG) 33.28 mL/min; POTASSIUM,K 3.4 mmol/L (3.5-5.1); PROTEIN TOTAL,TP 5.8 g/dL (6.4-8.2)
[2024-08-27 08:08] LABS: ANION GAP 9.4 mmol/L (5-15)
[2024-08-27] MEDS: VANCOmycin 1 GM in Sodium Chloride 0.9% 250 ML IV SCH (10:46)
[2024-08-28] MEDS ORDERED: Sennosides/Docusate Sodium 50-8.6 MG Tab PO PRN (08:18)
[2024-08-28 08:50] LABS: BASOPHILS PERCENT AUTO 0.3 % (0.2-1.2); EOSINOPHILS ABSOLUTE AUTO 0.2 x10^3/uL (0.0-0.5); EOSINOPHILS PERCENT AUTO 2.1 % (0.0-4.0); HEMATOCRIT 37.3 % (33.0-47.0); HEMOGLOBIN 11.1 g/dL (12.0-16.0); IMMATURE GRAN ABSOLUTE AUTO 0.07 x10^3/uL (0.00-0.07); LYMPHOCYTES ABSOLUTE AUTO 1.9 x10^3/uL (1.0-4.8); LYMPHOCYTES PERCENT AUTO 20.7 % (25.0-50.0); MEAN CORPUSCULAR HEMOGLOBIN 27.3 pg (26.0-32.0); MEAN CORPUSCULAR HGB CONC 29.8 g/dL (32.0-36.0); MEAN CORPUSCULAR VOLUME 91.9 fL (78.0-93.0); MONOCYTES ABSOLUTE AUTO 0.7 x10^3/uL (0.0-0.8); MONOCYTES PERCENT AUTO 7.7 % (2.0-11.0); NEUTROPHILS ABSOLUTE AUTO 6.3 x10^3/uL (1.8-7.7); NEUTROPHILS PERCENT AUTO 68.4 % (50.0-80.0); PLATELET COUNT,PLT 252 x10^3/uL (130-400); RED BLOOD CELL COUNT 4.06 x10^6/uL (4.00-5.50); WHITE BLOOD CELL COUNT,WBC 9.2 x10^3/uL (4.0-10.0)
[2024-08-28 09:15] LABS: A/G RATIO 0.75; ALBUMIN 2.7 g/dL (3.4-5.0); BILIRUBIN TOTAL 0.2 mg/dL (0.2-1.0); CALCIUM 8.8 mg/dL (8.5-10.1); CREATININE 1.6 mg/dL (0.55-1.02); EST CRCL DRUG DOSING (CG) 27.04 mL/min; MAGNESIUM 1.7 mg/dL (1.8-2.4); POTASSIUM,K 3.8 mmol/L (3.5-5.1); PROTEIN TOTAL,TP 6.3 g/dL (6.4-8.2)
[2024-08-28 09:18] LABS: ANION GAP 10.8 mmol/L (5-15)
[2024-08-28] MEDS: VANCOmycin 750 MG in Sodium Chloride 0.9% 250 ML IV SCH (10:59)
[2024-08-28] MEDS: Polyethylene Glycol 3350 Powder 17 GM Packet PO PRN (17:16)
[2024-08-29 06:43] LABS: BASOPHILS PERCENT AUTO 0.1 % (0.2-1.2); EOSINOPHILS ABSOLUTE AUTO 0.1 x10^3/uL (0.0-0.5); EOSINOPHILS PERCENT AUTO 1.2 % (0.0-4.0); HEMATOCRIT 36.1 % (33.0-47.0); HEMOGLOBIN 10.9 g/dL (12.0-16.0); IMMATURE GRAN ABSOLUTE AUTO 0.16 x10^3/uL (0.00-0.07); LYMPHOCYTES ABSOLUTE AUTO 2.3 x10^3/uL (1.0-4.8); LYMPHOCYTES PERCENT AUTO 22.4 % (25.0-50.0); MEAN CORPUSCULAR HEMOGLOBIN 27.3 pg (26.0-32.0); MEAN CORPUSCULAR HGB CONC 30.2 g/dL (32.0-36.0); MEAN CORPUSCULAR VOLUME 90.5 fL (78.0-93.0); MONOCYTES ABSOLUTE AUTO 0.7 x10^3/uL (0.0-0.8); MONOCYTES PERCENT AUTO 6.6 % (2.0-11.0); NEUTROPHILS ABSOLUTE AUTO 7.1 x10^3/uL (1.8-7.7); NEUTROPHILS PERCENT AUTO 68.2 % (50.0-80.0); PLATELET COUNT,PLT 243 x10^3/uL (130-400); RED BLOOD CELL COUNT 3.99 x10^6/uL (4.00-5.50); WHITE BLOOD CELL COUNT,WBC 10.4 x10^3/uL (4.0-10.0)
[2024-08-29 07:06] LABS: A/G RATIO 0.82; ALBUMIN 2.8 g/dL (3.4-5.0); BILIRUBIN TOTAL 0.3 mg/dL (0.2-1.0); CALCIUM 8.9 mg/dL (8.5-10.1); CREATININE 1.4 mg/dL (0.55-1.02); EST CRCL DRUG DOSING (CG) 30.9 mL/min; POTASSIUM,K 3.9 mmol/L (3.5-5.1); PROTEIN TOTAL,TP 6.2 g/dL (6.4-8.2)
[2024-08-29 07:08] LABS: ANION GAP 9.9 mmol/L (5-15)
[2024-08-29] MEDS: Sulfamethoxazole/Trimethoprim 800-160 MG Tab PO ONE (09:57)
[2024-08-29 11:02] VITALS: BP 154/76; PULSE 97
== END 2024-08-29 10:55 | disposition home or self-care (01) | DRG 190 ==
LOC: VM.ED 14:05 → VM.MS 16:07
PROVIDERS: ADMIT Family Medicine; ATTEND Nurse Practitioner Family
DX: J44.1 Chronic obstructive pulmonary disease with (acute) exacerbation (principal); I11.0 Hypertensive heart disease with heart failure; J18.9 Pneumonia, unspecified organism; J44.9 Chronic obstructive pulmonary disease, unspecified; I13.0 Hypertensive heart and chronic kidney disease with heart failure and stage 1 through stage 4 chronic kidney disease, or unspecified chronic kidney disease; L03.116 Cellulitis of left lower limb; E11.9 Type 2 diabetes mellitus without complications; J96.11 Chronic respiratory failure with hypoxia; Z68.35 Body mass index [BMI] 35.0-35.9, adult; I50.9 Heart failure, unspecified; E78.1 Pure hyperglyceridemia; E66.9 Obesity, unspecified; Z79.51 Long term (current) use of inhaled steroids; N18.30 Chronic kidney disease, stage 3 unspecified; D50.9 Iron deficiency anemia, unspecified; G89.29 Other chronic pain; G47.33 Obstructive sleep apnea (adult) (pediatric); E78.00 Pure hypercholesterolemia, unspecified; M19.90 Unspecified osteoarthritis, unspecified site; M54.9 Dorsalgia, unspecified; F32.A Depression, unspecified; E83.42 Hypomagnesemia; E11.22 Type 2 diabetes mellitus with diabetic chronic kidney disease; K21.9 Gastro-esophageal reflux disease without esophagitis; M81.0 Age-related osteoporosis without current pathological fracture; D64.9 Anemia, unspecified; Z86.16 Personal history of COVID-19; Z90.49 Acquired absence of other specified parts of digestive tract; Z79.899 Other long term (current) drug therapy; Z79.82 Long term (current) use of aspirin; Z86.718 Personal history of other venous thrombosis and embolism; Z79.01 Long term (current) use of anticoagulants; Z88.8 Allergy status to other drugs, medicaments and biological substances; Z79.52 Long term (current) use of systemic steroids; Z87.891 Personal history of nicotine dependence; Z90.710 Acquired absence of both cervix and uterus; Z98.890 Other specified postprocedural states
CPT/HCPCS: 36415; 71045; 71046; 80053; 80202; 82947; 83605; 83735; 83880; 84484; 85025; 85610; 85730; 86140; 87040; 87070; 87077; 87147; 87186; 87428-QW; 93005; 93010; 94640; 94760; 96374; 96375; 97116-GP; 97161-GP; 97165-GO; 97535-GO; 99232; 99284; 99285-25; A9270-GY; J0696; J1644; J1815-GY; J1940; J3370; J3372; J3490; J7512

== ENCOUNTER 2024-10-19 00:36 | Inpatient (IN) | payer MEDICARE, OTHER ==
[2024-10-19 00:55] LABS: BASOPHILS PERCENT AUTO 0.1 % (0.2-1.2); EOSINOPHILS PERCENT AUTO 0.1 % (0.0-4.0); HEMATOCRIT 35.3 % (33.0-47.0); IMMATURE GRAN ABSOLUTE AUTO 0.14 x10^3/uL (0.00-0.07); LYMPHOCYTES ABSOLUTE AUTO 0.8 x10^3/uL (1.0-4.8); MEAN CORPUSCULAR HEMOGLOBIN 28.1 pg (26.0-32.0); MEAN CORPUSCULAR HGB CONC 31.2 g/dL (32.0-36.0); MEAN CORPUSCULAR VOLUME 90.1 fL (78.0-93.0); MONOCYTES ABSOLUTE AUTO 1.2 x10^3/uL (0.0-0.8); MONOCYTES PERCENT AUTO 7.2 % (2.0-11.0); NEUTROPHILS ABSOLUTE AUTO 14.7 x10^3/uL (1.8-7.7); NEUTROPHILS PERCENT AUTO 86.8 % (50.0-80.0); PLATELET COUNT,PLT 240 x10^3/uL (130-400); RED BLOOD CELL COUNT 3.92 x10^6/uL (4.00-5.50); WHITE BLOOD CELL COUNT,WBC 16.9 x10^3/uL (4.0-10.0)
[2024-10-19] MEDS: Albuterol 0.083% 2.5 MG/3 ML Neb Soln NEB ONE (00:57)
[2024-10-19] MEDS: methylPREDNISolone Sodium Succinate 125 MG/2 ML SDV IVPUSH ONE (00:58)
[2024-10-19] MEDS: Sodium Chloride 0.9% 500 ML IV ONE (01:00)
[2024-10-19 01:15] LABS: A/G RATIO 0.67; ALANINE AMINOTRANSFERASE,ALT 24 U/L (14-59); ALBUMIN 2.8 g/dL (3.4-5.0); ALKALINE PHOSPHATASE 135 U/L (46-116); ASPARTATE AMNIOTRANSFERASE,AST 19 U/L (15-37); BILIRUBIN TOTAL 0.5 mg/dL (0.2-1.0); BLOOD UREA NITROGEN,BUN 19 mg/dL (7-18); CALCIUM 8.8 mg/dL (8.5-10.1); CARBON DIOXIDE,CO2 31 mmol/L (21-32); CHLORIDE,CL 100 mmol/L (98-107); CREATININE 1.5 mg/dL (0.55-1.02); GLUCOSE RANDOM 373 mg/dL (70-99); POTASSIUM,K 4.1 mmol/L (3.5-5.1); PRO B-TYPE NATRIUR PEPT,BNPPRO 406 pg/mL (<=125); SODIUM,NA 140 mmol/L (136-145)
[2024-10-19 01:16] LABS: ANION GAP 13.1 mmol/L (5-15); ESTIMATED GFR 37 mL/min (>=60)
[2024-10-19] MEDS: Albuterol/Ipratropium 3.0-0.5 MG/3 ML Neb Soln NEB ONE (01:48)
[2024-10-19] MEDS: cefTRIAXone 1 GM Vial IVPUSH SCH ×2 (01:48→09:01)
[2024-10-19] MEDS ORDERED: Albuterol 0.083% 2.5 MG/3 ML Neb Soln INH PRN (03:47)
[2024-10-19] MEDS ORDERED: Glucagon,Human Recombinant 1 MG Vial IM PRN ×4 (03:59→14:07)
[2024-10-19] MEDS ORDERED: 50% Dextrose in Water 50 ML Syringe IVPUSH PRN ×4 (03:59→14:07)
[2024-10-19] MEDS: Albuterol/Ipratropium 3.0-0.5 MG/3 ML Neb Soln NEB SCH ×2 (05:49→12:56)
[2024-10-19] MEDS: Pantoprazole 40 MG Tab.CR PO SCH (06:32)
[2024-10-19] MEDS: Insulin Regular, Human 100 Units/ML 10 ML Vial SUBCUT SCH (06:54)
[2024-10-19] MEDS: Furosemide 20 MG Tab PO SCH (08:54)
[2024-10-19] MEDS: Lisinopril 20 MG Tab PO SCH (08:54)
[2024-10-19] MEDS: Azithromycin 250 MG Tab PO SCH (08:55)
[2024-10-19] MEDS: predniSONE 20 MG Tab PO SCH (08:55)
[2024-10-19] MEDS: Enoxaparin 40 MG/0.4 ML Syringe SUBCUT SCH (08:55)
[2024-10-19] MEDS: Multivitamin Tab PO SCH (08:55)
[2024-10-19] MEDS: Ferrous Sulfate 325 MG Tab PO SCH (08:55)
[2024-10-19] MEDS: Aspirin 81 MG Tab.EC PO SCH (08:55)
[2024-10-19] MEDS ORDERED: Non-Formulary Medication 1 Each (Fluticasone/Vilanterol [Breo Ellipta 200-25 Mcg Inhalatio PO SCH (09:00)
[2024-10-19] MEDS: Sertraline 50 MG Tab PO SCH (09:24)
[2024-10-19] MEDS: Magnesium Chloride 64 MG Tab.ER PO SCH (09:24)
[2024-10-19 09:27] LABS: BASOPHILS PERCENT AUTO 0.1 % (0.2-1.2); HEMATOCRIT 33.6 % (33.0-47.0); HEMOGLOBIN 10.3 g/dL (12.0-16.0); IMMATURE GRAN ABSOLUTE AUTO 0.14 x10^3/uL (0.00-0.07); LYMPHOCYTES ABSOLUTE AUTO 0.4 x10^3/uL (1.0-4.8); LYMPHOCYTES PERCENT AUTO 2.1 % (25.0-50.0); MEAN CORPUSCULAR HGB CONC 30.7 g/dL (32.0-36.0); MEAN CORPUSCULAR VOLUME 91.3 fL (78.0-93.0); MONOCYTES ABSOLUTE AUTO 0.4 x10^3/uL (0.0-0.8); MONOCYTES PERCENT AUTO 2.5 % (2.0-11.0); NEUTROPHILS ABSOLUTE AUTO 15.6 x10^3/uL (1.8-7.7); NEUTROPHILS PERCENT AUTO 94.4 % (50.0-80.0); PLATELET COUNT,PLT 243 x10^3/uL (130-400); RED BLOOD CELL COUNT 3.68 x10^6/uL (4.00-5.50); WHITE BLOOD CELL COUNT,WBC 16.5 x10^3/uL (4.0-10.0)
[2024-10-19] MEDS: Insulin Glarg,Human.Rec.Analog 100 Unit/ML 10 ML Vial SUBCUT SCH ×2 (09:27→21:09)
[2024-10-19] MEDS: Arformoterol 15 MCG/2 ML Neb Soln NEB SCH (09:27)
[2024-10-19 09:39] LABS: HCO3 VENOUS,POC 26 mmol/L (22-29); O2 SATURATION VENOUS,POC 99 %; PCO2 VENOUS,POC 42 mmHg (41-51); PH VENOUS,POC 7.39 pH (7.32-7.43); PO2 VENOUS,POC 121 mmHg
[2024-10-19 09:49] LABS: CALCIUM 8.2 mg/dL (8.5-10.1); CREATININE 1.6 mg/dL (0.55-1.02); EST CRCL DRUG DOSING (CG) 27.04 mL/min
[2024-10-19] MEDS: Insulin Lispro 100 Units/ML 3 ML Vial SUBCUT ONE (10:39)
[2024-10-19] MEDS: Insulin Lispro 100 Units/ML 3 ML Vial SUBCUT SCH ×3 (12:02→17:26)
[2024-10-19] MEDS: Insulin Glarg,Human.Rec.Analog 100 Unit/ML 10 ML Vial SUBCUT ONE (14:19)
[2024-10-19 17:55] LABS: CALCIUM 8.3 mg/dL (8.5-10.1); CREATININE 1.7 mg/dL (0.55-1.02); EST CRCL DRUG DOSING (CG) 25.45 mL/min; POTASSIUM,K 4.4 mmol/L (3.5-5.1)
[2024-10-19 17:56] LABS: ANION GAP 15.4 mmol/L (5-15)
[2024-10-19] MEDS: Sodium Chloride 0.9% 1,000 ML IV SCH (18:16)
[2024-10-19] MEDS: Acetaminophen 325 MG Tab PO PRN (20:52)
[2024-10-19] MEDS: Miconazole 2% Top Powder 45 GM Container TOP SCH (20:53)
[2024-10-19] MEDS: Melatonin 3 MG Tab PO PRN (21:18)
[2024-10-19] MEDS: LORazepam 0.5 MG Tab PO PRN (21:18)
[2024-10-20 06:58] LABS: CALCIUM 8.3 mg/dL (8.5-10.1); CREATININE 1.5 mg/dL (0.55-1.02); EST CRCL DRUG DOSING (CG) 28.84 mL/min; POTASSIUM,K 3.6 mmol/L (3.5-5.1)
[2024-10-20 07:01] LABS: HEMOGLOBIN 10.3 g/dL (12.0-16.0); MEAN CORPUSCULAR HEMOGLOBIN 28.1 pg (26.0-32.0); MEAN CORPUSCULAR HGB CONC 31.2 g/dL (32.0-36.0); MEAN CORPUSCULAR VOLUME 90.2 fL (78.0-93.0); PLATELET COUNT,PLT 248 x10^3/uL (130-400); RED BLOOD CELL COUNT 3.66 x10^6/uL (4.00-5.50)
[2024-10-20 07:05] LABS: ANION GAP 12.6 mmol/L (5-15)
[2024-10-20 07:08] LABS: WHITE BLOOD CELL COUNT,WBC 21.7 x10^3/uL (4.0-10.0)
[2024-10-20 08:00] LABS: BAND PERCENT MAN 1 % (0-6); LYMPHOCYTES ABSOLUTE MAN 0.9 x10^3/uL (1.0-4.8); LYMPHOCYTES PERCENT MAN 4 % (25-50); MONOCYTES ABSOLUTE MAN 0.2 x10^3/uL (0.0-0.8); MONOCYTES PERCENT MAN 1 % (2-11); NEUTROPHILS ABSOLUTE MAN 20.6 x10^3/uL (1.8-7.7); PLATELET COUNT ESTIMATE ADEQUATE; SEG NEUTROPHILS PERCENT MAN 94 % (50-80)
[2024-10-20] MEDS: predniSONE 20 MG Tab PO SCH (08:33)
[2024-10-20] MEDS: Acetaminophen/HYDROcodone 325-5 MG Tab PO PRN (16:01)
[2024-10-21 07:55] LABS: BASOPHILS PERCENT AUTO 0.1 % (0.2-1.2); EOSINOPHILS PERCENT AUTO 0.3 % (0.0-4.0); HEMATOCRIT 35.1 % (33.0-47.0); HEMOGLOBIN 10.6 g/dL (12.0-16.0); IMMATURE GRAN ABSOLUTE AUTO 0.26 x10^3/uL (0.00-0.07); LYMPHOCYTES ABSOLUTE AUTO 1.7 x10^3/uL (1.0-4.8); LYMPHOCYTES PERCENT AUTO 11.7 % (25.0-50.0); MEAN CORPUSCULAR HEMOGLOBIN 27.2 pg (26.0-32.0); MEAN CORPUSCULAR HGB CONC 30.2 g/dL (32.0-36.0); MEAN CORPUSCULAR VOLUME 90.2 fL (78.0-93.0); MONOCYTES ABSOLUTE AUTO 0.7 x10^3/uL (0.0-0.8); NEUTROPHILS PERCENT AUTO 81.1 % (50.0-80.0); PLATELET COUNT,PLT 269 x10^3/uL (130-400); RED BLOOD CELL COUNT 3.89 x10^6/uL (4.00-5.50); WHITE BLOOD CELL COUNT,WBC 14.8 x10^3/uL (4.0-10.0)
[2024-10-21 08:18] LABS: A/G RATIO 0.7; ALBUMIN 2.8 g/dL (3.4-5.0); ANION GAP 9.4 mmol/L (5-15); BILIRUBIN TOTAL 0.2 mg/dL (0.2-1.0); CALCIUM 8.3 mg/dL (8.5-10.1); CREATININE 1.3 mg/dL (0.55-1.02); EST CRCL DRUG DOSING (CG) 33.28 mL/min; POTASSIUM,K 3.4 mmol/L (3.5-5.1); PROTEIN TOTAL,TP 6.8 g/dL (6.4-8.2)
[2024-10-21] MEDS: hydrALAZINE 20 MG/ML SDV IVPUSH PRN (17:46)
[2024-10-22] MEDS: Potassium Chloride 10 MEQ Tab.ER PO SCH (12:56)
[2024-10-22] MEDS: Furosemide 40 MG/4 ML VIAL IV ONE (12:56)
[2024-10-23 07:16] LABS: CALCIUM 8.4 mg/dL (8.5-10.1); CREATININE 1.3 mg/dL (0.55-1.02); EST CRCL DRUG DOSING (CG) 33.28 mL/min; POTASSIUM,K 3.9 mmol/L (3.5-5.1)
[2024-10-23 07:18] LABS: ANION GAP 10.9 mmol/L (5-15)
[2024-10-23] MEDS: Lisinopril 20 MG Tab PO SCH (09:46)
[2024-10-23] MEDS: Furosemide 40 MG/4 ML VIAL IV ONE (09:46)
[2024-10-23] MEDS ORDERED: Albuterol/Ipratropium 3.0-0.5 MG/3 ML Neb Soln NEB PRN (17:58)
[2024-10-24 07:07] LABS: HEMATOCRIT 41.1 % (33.0-47.0); HEMOGLOBIN 12.4 g/dL (12.0-16.0); MEAN CORPUSCULAR HEMOGLOBIN 27.2 pg (26.0-32.0); MEAN CORPUSCULAR HGB CONC 30.2 g/dL (32.0-36.0); MEAN CORPUSCULAR VOLUME 90.1 fL (78.0-93.0); PLATELET COUNT,PLT 378 x10^3/uL (130-400); RED BLOOD CELL COUNT 4.56 x10^6/uL (4.00-5.50); WHITE BLOOD CELL COUNT,WBC 13.9 x10^3/uL (4.0-10.0)
[2024-10-24 07:36] LABS: A/G RATIO 0.78; ALBUMIN 3.1 g/dL (3.4-5.0); BILIRUBIN TOTAL 0.4 mg/dL (0.2-1.0); CALCIUM 8.8 mg/dL (8.5-10.1); CREATININE 1.4 mg/dL (0.55-1.02); EST CRCL DRUG DOSING (CG) 30.9 mL/min; PROTEIN TOTAL,TP 7.1 g/dL (6.4-8.2)
[2024-10-24 07:51] LABS: EOSINOPHILS ABSOLUTE MAN 0.3 x10^3/uL (0.0-0.5); EOSINOPHILS PERCENT MAN 2 % (0-4); LYMPHOCYTES ABSOLUTE MAN 2.5 x10^3/uL (1.0-4.8); LYMPHOCYTES PERCENT MAN 18 % (25-50); METAMYELOCYTE PERCENT MAN 3 % (0); MONOCYTES ABSOLUTE MAN 0.1 x10^3/uL (0.0-0.8); MONOCYTES PERCENT MAN 1 % (2-11); MYELOCYTE PERCENT MAN 3 % (0); NEUTROPHILS ABSOLUTE MAN 10.1 x10^3/uL (1.8-7.7); SEG NEUTROPHILS PERCENT MAN 73 % (50-80)
[2024-10-24 07:52] LABS: PLATELET COUNT ESTIMATE ADEQUATE
[2024-10-24] MEDS: Insulin Glarg,Human.Rec.Analog 100 Unit/ML 10 ML Vial SUBCUT SCH (08:30)
[2024-10-24 09:26] VITALS: BP 126/69; PULSE 100
== END 2024-10-24 09:50 | disposition home or self-care (01) | DRG 871 ==
LOC: VM.ED 00:36 → VM.MS 02:04
PROVIDERS: ADMIT Physician Assistant; ATTEND Nurse Practitioner Family
DX: A41.9 Sepsis, unspecified organism (principal); J18.9 Pneumonia, unspecified organism; J96.21 Acute and chronic respiratory failure with hypoxia; I11.0 Hypertensive heart disease with heart failure; I50.9 Heart failure, unspecified; J44.0 Chronic obstructive pulmonary disease with (acute) lower respiratory infection; J44.9 Chronic obstructive pulmonary disease, unspecified; E11.9 Type 2 diabetes mellitus without complications; J44.1 Chronic obstructive pulmonary disease with (acute) exacerbation; I13.0 Hypertensive heart and chronic kidney disease with heart failure and stage 1 through stage 4 chronic kidney disease, or unspecified chronic kidney disease; E87.20 Acidosis, unspecified; N17.9 Acute kidney failure, unspecified; I50.32 Chronic diastolic (congestive) heart failure; Z79.82 Long term (current) use of aspirin; E78.00 Pure hypercholesterolemia, unspecified; G47.30 Sleep apnea, unspecified; M19.90 Unspecified osteoarthritis, unspecified site; F32.A Depression, unspecified; E66.9 Obesity, unspecified; M81.0 Age-related osteoporosis without current pathological fracture; E11.22 Type 2 diabetes mellitus with diabetic chronic kidney disease; N18.30 Chronic kidney disease, stage 3 unspecified; E11.65 Type 2 diabetes mellitus with hyperglycemia; D50.9 Iron deficiency anemia, unspecified; D63.1 Anemia in chronic kidney disease; K21.9 Gastro-esophageal reflux disease without esophagitis; Z88.8 Allergy status to other drugs, medicaments and biological substances; Z79.899 Other long term (current) drug therapy; Z79.51 Long term (current) use of inhaled steroids; Z79.52 Long term (current) use of systemic steroids; Z86.711 Personal history of pulmonary embolism; Z86.0100 Personal history of colon polyps, unspecified; Z68.34 Body mass index [BMI] 34.0-34.9, adult; Z86.16 Personal history of COVID-19; Z90.89 Acquired absence of other organs; Z90.49 Acquired absence of other specified parts of digestive tract; Z90.710 Acquired absence of both cervix and uterus; Z98.1 Arthrodesis status; Z98.890 Other specified postprocedural states; Z87.891 Personal history of nicotine dependence
CPT/HCPCS: 36415; 71045; 71046; 80048; 80053; 82140; 82803; 82947; 83605; 83735; 83880; 84484; 85025; 87040; 87070; 87205; 87428-QW; 93005; 93010; 94640; 94667; 94668; 94760; 96361; 96374; 96375; 97161-GP; 97165-GO; 97535-GO; 99223; 99223-GT; 99232; 99232-GT; 99284; 99285-25; A9270-GY; J0360; J0696; J1650; J1815-GY; J1938; J2919; J3490; J7030; J7512

== ENCOUNTER 2024-11-09 13:49 | Emergency (ER) | payer MEDICARE, OTHER ==
[2024-11-09 15:10] LABS: BASOPHILS PERCENT AUTO 0.2 % (0.2-1.2); EOSINOPHILS PERCENT AUTO 0.1 % (0.0-4.0); HEMATOCRIT 33.8 % (33.0-47.0); HEMOGLOBIN 10.6 g/dL (12.0-16.0); IMMATURE GRAN ABSOLUTE AUTO 0.08 x10^3/uL (0.00-0.07); LYMPHOCYTES ABSOLUTE AUTO 0.7 x10^3/uL (1.0-4.8); LYMPHOCYTES PERCENT AUTO 4.5 % (25.0-50.0); MEAN CORPUSCULAR HEMOGLOBIN 28.6 pg (26.0-32.0); MEAN CORPUSCULAR HGB CONC 31.4 g/dL (32.0-36.0); MEAN CORPUSCULAR VOLUME 91.1 fL (78.0-93.0); MONOCYTES ABSOLUTE AUTO 0.7 x10^3/uL (0.0-0.8); MONOCYTES PERCENT AUTO 4.3 % (2.0-11.0); NEUTROPHILS ABSOLUTE AUTO 13.8 x10^3/uL (1.8-7.7); NEUTROPHILS PERCENT AUTO 90.4 % (50.0-80.0); PLATELET COUNT,PLT 221 x10^3/uL (130-400); RED BLOOD CELL COUNT 3.71 x10^6/uL (4.00-5.50); WHITE BLOOD CELL COUNT,WBC 15.2 x10^3/uL (4.0-10.0)
[2024-11-09 15:35] LABS: A/G RATIO 0.78; ALANINE AMINOTRANSFERASE,ALT 20 U/L (14-59); ALBUMIN 2.8 g/dL (3.4-5.0); ALKALINE PHOSPHATASE 81 U/L (46-116); ASPARTATE AMNIOTRANSFERASE,AST 11 U/L (15-37); BILIRUBIN TOTAL 0.4 mg/dL (0.2-1.0); BLOOD UREA NITROGEN,BUN 18 mg/dL (7-18); CALCIUM 8.2 mg/dL (8.5-10.1); CARBON DIOXIDE,CO2 27 mmol/L (21-32); CHLORIDE,CL 109 mmol/L (98-107); CREATININE 1.2 mg/dL (0.55-1.02); GLUCOSE RANDOM 196 mg/dL (70-99); POTASSIUM,K 4.2 mmol/L (3.5-5.1); PROTEIN TOTAL,TP 6.4 g/dL (6.4-8.2); SODIUM,NA 145 mmol/L (136-145)
[2024-11-09 15:38] LABS: ANION GAP 13.2 mmol/L (5-15); ESTIMATED GFR 48 mL/min (>=60)
[2024-11-09] MEDS: Iopamidol 612 MG/ML 100 ML Bottle IVPUSH ONE (16:16)
[2024-11-09] MEDS: Ondansetron 4 MG/2 ML SDV IVPUSH ONE (17:25)
[2024-11-09] MEDS: Lidocaine 1% 10 ML MDV INJECT ONE (17:25)
[2024-11-09] MEDS: HYDROmorphone 1 MG/ML Syringe IVPUSH ONE (17:26)
[2024-11-09] MEDS: Clindamycin Phosphate in D5W 600 MG in Premix Bag 1 BAG IV ONE (18:20)
[2024-11-09 18:26] VITALS: BP 140/66; PULSE 72
[2024-11-09] MEDS: Take Home: Acetaminophen/HYDROcodone 325-5 MG, 5 Tab Pack PO ONE (18:27)
== END 2024-11-09 18:55 | disposition home or self-care (01) ==
LOC: VM.ED 13:49
DX: K61.1 Rectal abscess (principal); I11.0 Hypertensive heart disease with heart failure; I50.9 Heart failure, unspecified; E78.00 Pure hypercholesterolemia, unspecified; E11.9 Type 2 diabetes mellitus without complications; E66.9 Obesity, unspecified; M19.90 Unspecified osteoarthritis, unspecified site; J44.9 Chronic obstructive pulmonary disease, unspecified; Z88.8 Allergy status to other drugs, medicaments and biological substances; Z79.51 Long term (current) use of inhaled steroids; Z79.899 Other long term (current) drug therapy; Z79.82 Long term (current) use of aspirin; Z79.811 Long term (current) use of aromatase inhibitors; Z86.16 Personal history of COVID-19; Z90.710 Acquired absence of both cervix and uterus; Z90.49 Acquired absence of other specified parts of digestive tract; Z68.35 Body mass index [BMI] 35.0-35.9, adult
CPT/HCPCS: 36415; 74177; 80053; 83605; 85025; 96365; 96375; 99283; A9270; J0736; J1171; J2003; J2405; Q9967

== ENCOUNTER 2024-11-11 12:16 | Inpatient (IN) | payer MEDICARE, OTHER ==
[2024-11-11 12:41] LABS: BASOPHILS PERCENT AUTO 0.2 % (0.2-1.2); EOSINOPHILS ABSOLUTE AUTO 0.1 x10^3/uL (0.0-0.5); EOSINOPHILS PERCENT AUTO 0.4 % (0.0-4.0); HEMATOCRIT 34.2 % (33.0-47.0); HEMOGLOBIN 10.6 g/dL (12.0-16.0); IMMATURE GRAN ABSOLUTE AUTO 0.18 x10^3/uL (0.00-0.07); LYMPHOCYTES ABSOLUTE AUTO 0.9 x10^3/uL (1.0-4.8); LYMPHOCYTES PERCENT AUTO 5.4 % (25.0-50.0); MEAN CORPUSCULAR HEMOGLOBIN 28.3 pg (26.0-32.0); MEAN CORPUSCULAR VOLUME 91.4 fL (78.0-93.0); MONOCYTES ABSOLUTE AUTO 1.4 x10^3/uL (0.0-0.8); MONOCYTES PERCENT AUTO 8.4 % (2.0-11.0); NEUTROPHILS ABSOLUTE AUTO 14.4 x10^3/uL (1.8-7.7); NEUTROPHILS PERCENT AUTO 84.5 % (50.0-80.0); PLATELET COUNT,PLT 256 x10^3/uL (130-400); RED BLOOD CELL COUNT 3.74 x10^6/uL (4.00-5.50); WHITE BLOOD CELL COUNT,WBC 17.1 x10^3/uL (4.0-10.0)
[2024-11-11] MEDS: Piperacillin/Tazobactam 4.5 GM in Sodium Chloride 0.9% 100 ML IV ONE (13:16)
[2024-11-11 13:59] LABS: CALCIUM 7.6 mg/dL (8.5-10.1); CREATININE 1.3 mg/dL (0.55-1.02); POTASSIUM,K 3.7 mmol/L (3.5-5.1)
[2024-11-11 14:05] LABS: ANION GAP 14.7 mmol/L (5-15); EST CRCL DRUG DOSING (CG) 33.28 mL/min
[2024-11-11] MEDS: Acetaminophen/HYDROcodone 325-10 MG Tab PO PRN (14:30)
[2024-11-11] MEDS: Sodium Chloride 0.9% 500 ML IV ONE (15:17)
[2024-11-11] MEDS ORDERED: 50% Dextrose in Water 50 ML Syringe IVPUSH PRN (16:31)
[2024-11-11] MEDS ORDERED: Albuterol HFA 18 Gm Inhaler INH PRN (16:31)
[2024-11-11] MEDS ORDERED: Ipratropium 0.02% 0.5 MG/2.5 ML Neb Soln NEB PRN (16:31)
[2024-11-11] MEDS ORDERED: Melatonin 3 MG Tab PO PRN (16:31)
[2024-11-11] MEDS ORDERED: LORazepam 0.5 MG Tab PO PRN (16:31)
[2024-11-11] MEDS ORDERED: Calcium Carbonate 750 MG Tab.Chew PO PRN (16:31)
[2024-11-11] MEDS ORDERED: Glucagon,Human Recombinant 1 MG Vial IM PRN (16:31)
[2024-11-11] MEDS: Piperacillin/Tazobactam 4.5 GM in Sodium Chloride 0.9% 100 ML IV SCH (16:49)
[2024-11-11] MEDS: HYDROmorphone 0.5 MG/0.5 ML Syringe IVPUSH PRN (19:03)
[2024-11-11] MEDS: Non-Formulary Medication 1 Each (Omeprazole [Omeprazole] 40 MG Capsule.Dr) PO SCH (19:36)
[2024-11-11] MEDS: Pantoprazole 40 MG Tab.CR PO SCH (19:45)
[2024-11-11] MEDS: Miconazole 2% Top Powder 45 GM Container TOP SCH (20:01)
[2024-11-11] MEDS: Benzonatate 100 MG Cap PO SCH (20:02)
[2024-11-11] MEDS: Pregabalin 25 MG Cap PO SCH (20:02)
[2024-11-11] MEDS: Apixaban 5 MG Tab PO SCH (20:02)
[2024-11-11] MEDS: Sertraline 50 MG Tab PO SCH (20:02)
[2024-11-11] MEDS: Zolpidem 5 MG Tab PO SCH (20:03)
[2024-11-11] MEDS ORDERED: ZOLPIDEM TARTRATE 6.25 MG PO SCH (21:00)
[2024-11-12] MEDS: Albuterol 0.083% 2.5 MG/3 ML Neb Soln INH PRN (06:27)
[2024-11-12 07:50] LABS: A/G RATIO 0.69; ALBUMIN 2.4 g/dL (3.4-5.0); BASOPHILS PERCENT AUTO 0.2 % (0.2-1.2); BILIRUBIN TOTAL 0.4 mg/dL (0.2-1.0); CALCIUM 7.4 mg/dL (8.5-10.1); CREATININE 1.3 mg/dL (0.55-1.02); EOSINOPHILS ABSOLUTE AUTO 0.1 x10^3/uL (0.0-0.5); EOSINOPHILS PERCENT AUTO 0.5 % (0.0-4.0); EST CRCL DRUG DOSING (CG) 33.28 mL/min; HEMATOCRIT 31.3 % (33.0-47.0); HEMOGLOBIN 9.7 g/dL (12.0-16.0); IMMATURE GRAN ABSOLUTE AUTO 0.17 x10^3/uL (0.00-0.07); LYMPHOCYTES ABSOLUTE AUTO 1.7 x10^3/uL (1.0-4.8); LYMPHOCYTES PERCENT AUTO 11.2 % (25.0-50.0); MEAN CORPUSCULAR HEMOGLOBIN 28.4 pg (26.0-32.0); MEAN CORPUSCULAR VOLUME 91.8 fL (78.0-93.0); MONOCYTES ABSOLUTE AUTO 1.1 x10^3/uL (0.0-0.8); MONOCYTES PERCENT AUTO 7.2 % (2.0-11.0); NEUTROPHILS ABSOLUTE AUTO 11.7 x10^3/uL (1.8-7.7); NEUTROPHILS PERCENT AUTO 79.7 % (50.0-80.0); PLATELET COUNT,PLT 234 x10^3/uL (130-400); POTASSIUM,K 3.4 mmol/L (3.5-5.1); PROTEIN TOTAL,TP 5.9 g/dL (6.4-8.2); RED BLOOD CELL COUNT 3.41 x10^6/uL (4.00-5.50); WHITE BLOOD CELL COUNT,WBC 14.7 x10^3/uL (4.0-10.0)
[2024-11-12 07:51] LABS: ANION GAP 12.4 mmol/L (5-15)
[2024-11-12] MEDS: Cyanocobalamin (Vitamin B12) 1,000 MCG Tab PO SCH (08:21)
[2024-11-12] MEDS: predniSONE 5 MG Tab PO SCH (08:21)
[2024-11-12] MEDS: Magnesium Chloride 64 MG Tab.ER PO SCH (08:21)
[2024-11-12] MEDS: Multivitamin Tab PO SCH (08:21)
[2024-11-12] MEDS: Formoterol/Mometasone 200-5 MCG 13 GM Inhaler INH SCH (08:22)
[2024-11-12] MEDS: Ferrous Sulfate 325 MG Tab PO SCH (08:22)
[2024-11-12] MEDS: Tiotropium Bromide 4 GM Inhalation Spray (2.5mcg/1 dose; 10 doses) INH SCH (08:24)
[2024-11-12] MEDS: Lisinopril 20 MG Tab PO SCH (08:30)
[2024-11-12] MEDS: Insulin Glarg,Human.Rec.Analog 100 Unit/ML 10 ML Vial SUBCUT SCH (08:39)
[2024-11-12] MEDS ORDERED: Non-Formulary Medication 1 Each (Fluticasone/Vilanterol [Breo Ellipta 200-25 Mcg Inhalatio PO SCH (09:00)
[2024-11-12] MEDS: Potassium Chloride 10 MEQ Tab.ER PO ONE (09:44)
[2024-11-12] MEDS: Calcium Carbonate/Vitamin D3 1250 MG-5 MCG Tab PO SCH (09:44)
[2024-11-12] MEDS ORDERED: Glucagon,Human Recombinant 1 MG Vial IM PRN (09:44)
[2024-11-12] MEDS ORDERED: 50% Dextrose in Water 50 ML Syringe IVPUSH PRN (09:44)
[2024-11-12] MEDS: Lactobacillus Rhamnosus GG (Probiotic) Cap PO SCH (11:15)
[2024-11-12] MEDS: Insulin Lispro 100 Units/ML 3 ML Vial SUBCUT SCH (11:19)
[2024-11-12] MEDS: Acetaminophen 325 MG Tab PO PRN (21:44)
[2024-11-13 06:44] LABS: BASOPHILS PERCENT AUTO 0.2 % (0.2-1.2); EOSINOPHILS ABSOLUTE AUTO 0.1 x10^3/uL (0.0-0.5); HEMATOCRIT 29.5 % (33.0-47.0); HEMOGLOBIN 8.9 g/dL (12.0-16.0); IMMATURE GRAN ABSOLUTE AUTO 0.28 x10^3/uL (0.00-0.07); LYMPHOCYTES ABSOLUTE AUTO 1.3 x10^3/uL (1.0-4.8); LYMPHOCYTES PERCENT AUTO 10.2 % (25.0-50.0); MEAN CORPUSCULAR HEMOGLOBIN 28.2 pg (26.0-32.0); MEAN CORPUSCULAR HGB CONC 30.2 g/dL (32.0-36.0); MEAN CORPUSCULAR VOLUME 93.4 fL (78.0-93.0); MONOCYTES PERCENT AUTO 7.7 % (2.0-11.0); NEUTROPHILS ABSOLUTE AUTO 10.1 x10^3/uL (1.8-7.7); NEUTROPHILS PERCENT AUTO 78.7 % (50.0-80.0); PLATELET COUNT,PLT 239 x10^3/uL (130-400); RED BLOOD CELL COUNT 3.16 x10^6/uL (4.00-5.50); WHITE BLOOD CELL COUNT,WBC 12.9 x10^3/uL (4.0-10.0)
[2024-11-13 06:56] LABS: CALCIUM 7.6 mg/dL (8.5-10.1); CREATININE 1.4 mg/dL (0.55-1.02); EST CRCL DRUG DOSING (CG) 30.9 mL/min; POTASSIUM,K 3.7 mmol/L (3.5-5.1)
[2024-11-13 06:58] LABS: ANION GAP 11.7 mmol/L (5-15)
[2024-11-13] MEDS: Insulin Lispro 100 Units/ML 3 ML Vial SUBCUT SCH (11:53)
[2024-11-14 06:42] LABS: BASOPHILS ABSOLUTE AUTO 0.1 x10^3/uL (0.0-0.2); BASOPHILS PERCENT AUTO 0.3 % (0.2-1.2); EOSINOPHILS ABSOLUTE AUTO 0.1 x10^3/uL (0.0-0.5); EOSINOPHILS PERCENT AUTO 0.9 % (0.0-4.0); HEMATOCRIT 30.2 % (33.0-47.0); HEMOGLOBIN 9.2 g/dL (12.0-16.0); IMMATURE GRAN ABSOLUTE AUTO 0.44 x10^3/uL (0.00-0.07); LYMPHOCYTES ABSOLUTE AUTO 1.7 x10^3/uL (1.0-4.8); LYMPHOCYTES PERCENT AUTO 10.8 % (25.0-50.0); MEAN CORPUSCULAR HEMOGLOBIN 28.3 pg (26.0-32.0); MEAN CORPUSCULAR HGB CONC 30.5 g/dL (32.0-36.0); MEAN CORPUSCULAR VOLUME 92.9 fL (78.0-93.0); MONOCYTES ABSOLUTE AUTO 1.2 x10^3/uL (0.0-0.8); MONOCYTES PERCENT AUTO 7.4 % (2.0-11.0); NEUTROPHILS ABSOLUTE AUTO 12.1 x10^3/uL (1.8-7.7); NEUTROPHILS PERCENT AUTO 77.8 % (50.0-80.0); PLATELET COUNT,PLT 260 x10^3/uL (130-400); RED BLOOD CELL COUNT 3.25 x10^6/uL (4.00-5.50); WHITE BLOOD CELL COUNT,WBC 15.6 x10^3/uL (4.0-10.0)
[2024-11-14 06:53] LABS: CALCIUM 8.1 mg/dL (8.5-10.1); CREATININE 1.2 mg/dL (0.55-1.02); EST CRCL DRUG DOSING (CG) 36.05 mL/min; POTASSIUM,K 4.1 mmol/L (3.5-5.1)
[2024-11-14 07:01] LABS: ANION GAP 10.1 mmol/L (5-15)
[2024-11-14] MEDS: VANCOmycin 1.5 GM/300 ML 300 ML IV ONE (10:40)
[2024-11-14] MEDS: Iopamidol 612 MG/ML 100 ML Bottle IVPUSH ONE (10:56)
[2024-11-14] MEDS: Ondansetron 4 MG/2 ML SDV IV PRN (11:24)
[2024-11-15 06:53] LABS: BASOPHILS PERCENT AUTO 0.3 % (0.2-1.2); EOSINOPHILS ABSOLUTE AUTO 0.1 x10^3/uL (0.0-0.5); EOSINOPHILS PERCENT AUTO 1.2 % (0.0-4.0); HEMATOCRIT 30.9 % (33.0-47.0); HEMOGLOBIN 9.3 g/dL (12.0-16.0); IMMATURE GRAN ABSOLUTE AUTO 0.55 x10^3/uL (0.00-0.07); LYMPHOCYTES ABSOLUTE AUTO 1.8 x10^3/uL (1.0-4.8); LYMPHOCYTES PERCENT AUTO 15.3 % (25.0-50.0); MEAN CORPUSCULAR HGB CONC 30.1 g/dL (32.0-36.0); MEAN CORPUSCULAR VOLUME 93.1 fL (78.0-93.0); MONOCYTES ABSOLUTE AUTO 0.8 x10^3/uL (0.0-0.8); MONOCYTES PERCENT AUTO 6.9 % (2.0-11.0); NEUTROPHILS ABSOLUTE AUTO 8.4 x10^3/uL (1.8-7.7); NEUTROPHILS PERCENT AUTO 71.6 % (50.0-80.0); PLATELET COUNT,PLT 286 x10^3/uL (130-400); RED BLOOD CELL COUNT 3.32 x10^6/uL (4.00-5.50); WHITE BLOOD CELL COUNT,WBC 11.8 x10^3/uL (4.0-10.0)
[2024-11-15 06:59] LABS: CALCIUM 7.7 mg/dL (8.5-10.1); CREATININE 1.1 mg/dL (0.55-1.02); EST CRCL DRUG DOSING (CG) 39.33 mL/min; POTASSIUM,K 4.1 mmol/L (3.5-5.1)
[2024-11-15 07:00] LABS: ANION GAP 13.1 mmol/L (5-15)
[2024-11-15] MEDS: HYDROmorphone 0.5 MG/0.5 ML Syringe IVPUSH ONE (09:32)
[2024-11-15] MEDS: Lidocaine 2% with EPINEPHrine 1:100,000 20 ML MDV INJECT ONE (09:35)
[2024-11-15] MEDS: VANCOmycin 1.25 GM/250 ML 250 ML IV SCH (13:23)
[2024-11-15] MEDS: Amoxicillin/Clavulanate K 875-125 MG Tab PO SCH (17:04)
[2024-11-16 06:13] VITALS: PULSE 59
[2024-11-16] MEDS: Ergocalciferol (Vitamin D2) 1.25 MG Cap PO SCH (08:48)
[2024-11-16] MEDS: Lactobacillus Rhamnosus GG (Probiotic) Cap PO SCH (09:29)
[2024-11-16 09:40] VITALS: BP 150/72
== END 2024-11-16 11:55 | disposition home or self-care (01) | DRG 872 ==
LOC: VM.ED 12:16 → VM.MS 13:09 → UNDOADMIN 13:09
PROVIDERS: ADMIT Internal Medicine; ATTEND Internal Medicine
PROC: 3E03329 Introduction of Other Anti-infective into Peripheral Vein, Percutaneous Approach (ICD-10-PCS; 2024-11-11)
PROC: 0Y900ZZ Drainage of Right Buttock, Open Approach (ICD-10-PCS; principal; 2024-11-16)
DX: A41.89 Other specified sepsis (principal); I11.0 Hypertensive heart disease with heart failure; I50.9 Heart failure, unspecified; L02.31 Cutaneous abscess of buttock; I82.502 Chronic embolism and thrombosis of unspecified deep veins of left lower extremity; E11.9 Type 2 diabetes mellitus without complications; I50.32 Chronic diastolic (congestive) heart failure; I13.0 Hypertensive heart and chronic kidney disease with heart failure and stage 1 through stage 4 chronic kidney disease, or unspecified chronic kidney disease; E78.00 Pure hypercholesterolemia, unspecified; J44.9 Chronic obstructive pulmonary disease, unspecified; Z79.85 Long-term (current) use of injectable non-insulin antidiabetic drugs; F32.A Depression, unspecified; M81.0 Age-related osteoporosis without current pathological fracture; E66.9 Obesity, unspecified; E78.5 Hyperlipidemia, unspecified; E11.22 Type 2 diabetes mellitus with diabetic chronic kidney disease; N18.30 Chronic kidney disease, stage 3 unspecified; G47.33 Obstructive sleep apnea (adult) (pediatric); Z66 Do not resuscitate; E11.65 Type 2 diabetes mellitus with hyperglycemia; M19.90 Unspecified osteoarthritis, unspecified site; Z88.8 Allergy status to other drugs, medicaments and biological substances; Z79.899 Other long term (current) drug therapy; Z79.51 Long term (current) use of inhaled steroids; Z79.52 Long term (current) use of systemic steroids; Z79.82 Long term (current) use of aspirin; Z79.4 Long term (current) use of insulin; Z86.711 Personal history of pulmonary embolism; Z86.0100 Personal history of colon polyps, unspecified; Z68.37 Body mass index [BMI] 37.0-37.9, adult; Z86.16 Personal history of COVID-19; Z90.89 Acquired absence of other organs; Z90.49 Acquired absence of other specified parts of digestive tract; Z90.710 Acquired absence of both cervix and uterus; Z98.890 Other specified postprocedural states; Z79.01 Long term (current) use of anticoagulants; Z98.1 Arthrodesis status
CPT/HCPCS: 36415; 74177; 80048; 80053; 80202; 82947; 83605; 85025; 86140; 87070; 87077; 87181; 87186; 94640; 94760; 97161-GP; 97165-GO; 99284; A9270-GY; J1171; J1815-GY; J2405; J2543; J3372; J3490; J7030; J7512; Q9967

== ENCOUNTER 2025-01-29 15:45 | Inpatient (IN) | payer MEDICARE, OTHER ==
[2025-01-29 16:39] LABS: BASOPHILS ABSOLUTE AUTO 0.0 x10^3/uL (0.0-0.2); BASOPHILS PERCENT AUTO 0.3 % (0.2-1.2); EOSINOPHILS ABSOLUTE AUTO 0.0 x10^3/uL (0.0-0.5); EOSINOPHILS PERCENT AUTO 0.3 % (0.0-4.0); IMMATURE GRAN ABSOLUTE AUTO 0.08 x10^3/uL (0.00-0.07); IMMATURE GRAN PERCENT AUTO 0.60 % (0.00-0.43); LYMPHOCYTES ABSOLUTE AUTO 0.8 x10^3/uL (1.0-4.8); LYMPHOCYTES PERCENT AUTO 5.9 % (25.0-50.0); MONOCYTES ABSOLUTE AUTO 0.6 x10^3/uL (0.0-0.8); MONOCYTES PERCENT AUTO 4.1 % (2.0-11.0); NEUTROPHILS ABSOLUTE AUTO 12.6 x10^3/uL (1.8-7.7); NEUTROPHILS PERCENT AUTO 88.8 % (50.0-80.0); PLATELET COUNT,PLT 236 x10^3/uL (130-400); RED BLOOD CELL COUNT 2.79 x10^6/uL (4.00-5.50); WHITE BLOOD CELL COUNT,WBC 14.2 x10^3/uL (4.0-10.0)
[2025-01-29 17:01] LABS: A/G RATIO 1.07; ALANINE AMINOTRANSFERASE,ALT 16 U/L (14-59); ASPARTATE AMNIOTRANSFERASE,AST 10 U/L (15-37); BILIRUBIN TOTAL 0.1 mg/dL (0.2-1.0); BLOOD UREA NITROGEN,BUN 62 mg/dL (7-18); CARBON DIOXIDE,CO2 23 mmol/L (21-32); CHLORIDE,CL 110 mmol/L (98-107); CREATININE 1.8 mg/dL (0.55-1.02); GLUCOSE RANDOM 174 mg/dL (70-99); POTASSIUM,K 6.0 mmol/L (3.5-5.1); PRO B-TYPE NATRIUR PEPT,BNPPRO 152 pg/mL (<=125); PROTEIN TOTAL,TP 6.2 g/dL (6.4-8.2); SODIUM,NA 145 mmol/L (136-145)
[2025-01-29 17:03] LABS: ESTIMATED GFR 29 mL/min (>=60)
[2025-01-29] MEDS ORDERED: Sodium Chloride 0.9% 10 ML Syringe FLUSH PRN (17:14)
[2025-01-29 19:51] LABS: APPEARANCE,URINE CLEAR (CLEAR); GLUCOSE,URINE NEGATIVE (NEGATIVE); OCCULT BLOOD,URINE NEGATIVE (NEGATIVE)
[2025-01-29 20:08] LABS: EPITHELIAL CELLS,URINE FEW
[2025-01-29] MEDS ORDERED: Ondansetron 4 MG/2 ML SDV IV PRN (21:09)
[2025-01-29] MEDS ORDERED: Albuterol HFA 18 Gm Inhaler INH PRN (21:28)
[2025-01-29] MEDS ORDERED: 50% Dextrose in Water 50 ML Syringe IVPUSH PRN (21:28)
[2025-01-29] MEDS ORDERED: Ipratropium 0.02% 0.5 MG/2.5 ML Neb Soln NEB PRN (21:28)
[2025-01-29] MEDS ORDERED: Albuterol 0.083% 2.5 MG/3 ML Neb Soln INH PRN (21:28)
[2025-01-29] MEDS ORDERED: MORPHINE SCH (21:30)
[2025-01-29 21:49] LABS: BLOOD UREA NITROGEN,BUN 55 mg/dL (7-18); CARBON DIOXIDE,CO2 26 mmol/L (21-32); CHLORIDE,CL 112 mmol/L (98-107); CREATININE 1.6 mg/dL (0.55-1.02); ESTIMATED GFR 34 mL/min (>=60); GLUCOSE RANDOM 152 mg/dL (70-99); POTASSIUM,K 5.2 mmol/L (3.5-5.1); SODIUM,NA 145 mmol/L (136-145)
[2025-01-29 21:57] LABS: LACTIC ACID 0.7 mmol/L (0.4-2.0)
[2025-01-30 07:03] LABS: BASOPHILS ABSOLUTE AUTO 0.0 x10^3/uL (0.0-0.2); BASOPHILS PERCENT AUTO 0.3 % (0.2-1.2); EOSINOPHILS ABSOLUTE AUTO 0.2 x10^3/uL (0.0-0.5); EOSINOPHILS PERCENT AUTO 1.5 % (0.0-4.0); IMMATURE GRAN ABSOLUTE AUTO 0.08 x10^3/uL (0.00-0.07); IMMATURE GRAN PERCENT AUTO 0.80 % (0.00-0.43); LYMPHOCYTES ABSOLUTE AUTO 2.1 x10^3/uL (1.0-4.8); LYMPHOCYTES PERCENT AUTO 21.2 % (25.0-50.0); MONOCYTES ABSOLUTE AUTO 1.0 x10^3/uL (0.0-0.8); MONOCYTES PERCENT AUTO 10.2 % (2.0-11.0); NEUTROPHILS ABSOLUTE AUTO 6.6 x10^3/uL (1.8-7.7); NEUTROPHILS PERCENT AUTO 66.0 % (50.0-80.0); PLATELET COUNT,PLT 211 x10^3/uL (130-400); RED BLOOD CELL COUNT 2.85 x10^6/uL (4.00-5.50); WHITE BLOOD CELL COUNT,WBC 10.0 x10^3/uL (4.0-10.0)
[2025-01-30 07:17] LABS: BLOOD UREA NITROGEN,BUN 52.0 mg/dL (7-18); CARBON DIOXIDE,CO2 29.0 mmol/L (21-32); CHLORIDE,CL 113.0 mmol/L (98-107); CREATININE 1.6 mg/dL (0.55-1.02); EST CRCL DRUG DOSING (CG) 27.04 mL/min; GLUCOSE RANDOM 134.0 mg/dL (70-99); POTASSIUM,K 4.7 mmol/L (3.5-5.1); SODIUM,NA 147.0 mmol/L (136-145)
[2025-01-30 07:21] LABS: ESTIMATED GFR 34.0 mL/min (>=60)
[2025-01-30] MEDS: Tiotropium Bromide 4 GM Inhalation Spray (2.5mcg/1 dose; 10 doses) INH SCH (08:33)
[2025-01-30] MEDS: Mometasone Furoate Powder 220 MCG/Puff 14 Dose Inhaler INH SCH (08:36)
[2025-01-30] MEDS: Lactobacillus Rhamnosus GG (Probiotic) Cap PO SCH (08:42)
[2025-01-30] MEDS: Magnesium Chloride 64 MG Tab.ER PO SCH (08:43)
[2025-01-30] MEDS: Cyanocobalamin (Vitamin B12) 1,000 MCG Tab PO SCH (08:49)
[2025-01-30] MEDS: Insulin Glarg,Human.Rec.Analog 100 Unit/ML 10 ML Vial SUBCUT SCH (08:50)
[2025-01-30] MEDS: Miconazole 2% Top Powder 45 GM Container TOP PRN (10:49)
[2025-01-30] MEDS: Sertraline 50 MG, Sertraline 25 MG PO SCH (22:00)
[2025-01-31 06:59] LABS: BASOPHILS ABSOLUTE AUTO 0.0 x10^3/uL (0.0-0.2); BASOPHILS PERCENT AUTO 0.3 % (0.2-1.2); EOSINOPHILS ABSOLUTE AUTO 0.2 x10^3/uL (0.0-0.5); EOSINOPHILS PERCENT AUTO 1.8 % (0.0-4.0); IMMATURE GRAN ABSOLUTE AUTO 0.08 x10^3/uL (0.00-0.07); IMMATURE GRAN PERCENT AUTO 0.80 % (0.00-0.43); LYMPHOCYTES ABSOLUTE AUTO 1.8 x10^3/uL (1.0-4.8); LYMPHOCYTES PERCENT AUTO 18.2 % (25.0-50.0); MONOCYTES ABSOLUTE AUTO 0.9 x10^3/uL (0.0-0.8); MONOCYTES PERCENT AUTO 8.5 % (2.0-11.0); NEUTROPHILS ABSOLUTE AUTO 7.0 x10^3/uL (1.8-7.7); NEUTROPHILS PERCENT AUTO 70.4 % (50.0-80.0); PLATELET COUNT,PLT 205 x10^3/uL (130-400); RED BLOOD CELL COUNT 2.87 x10^6/uL (4.00-5.50); WHITE BLOOD CELL COUNT,WBC 10.0 x10^3/uL (4.0-10.0)
[2025-01-31 07:55] LABS: A/G RATIO 0.9; ALANINE AMINOTRANSFERASE,ALT 15.0 U/L (14-59); ASPARTATE AMNIOTRANSFERASE,AST 12.0 U/L (15-37); BILIRUBIN TOTAL 0.2 mg/dL (0.2-1.0); BLOOD UREA NITROGEN,BUN 37.0 mg/dL (7-18); CARBON DIOXIDE,CO2 24.0 mmol/L (21-32); CHLORIDE,CL 113.0 mmol/L (98-107); CREATININE 1.7 mg/dL (0.55-1.02); EST CRCL DRUG DOSING (CG) 25.45 mL/min; GLUCOSE RANDOM 156.0 mg/dL (70-99); POTASSIUM,K 4.7 mmol/L (3.5-5.1); PROTEIN TOTAL,TP 5.5 g/dL (6.4-8.2); SODIUM,NA 147.0 mmol/L (136-145)
[2025-01-31 07:56] LABS: ESTIMATED GFR 31.0 mL/min (>=60)
[2025-01-31] MEDS: Insulin Glarg,Human.Rec.Analog 100 Unit/ML 10 ML Vial SUBCUT SCH (09:27)
[2025-02-01 06:48] LABS: BASOPHILS ABSOLUTE AUTO 0.1 x10^3/uL (0.0-0.2); BASOPHILS PERCENT AUTO 0.6 % (0.2-1.2); EOSINOPHILS ABSOLUTE AUTO 0.1 x10^3/uL (0.0-0.5); EOSINOPHILS PERCENT AUTO 1.5 % (0.0-4.0); IMMATURE GRAN ABSOLUTE AUTO 0.10 x10^3/uL (0.00-0.07); IMMATURE GRAN PERCENT AUTO 1.10 % (0.00-0.43); LYMPHOCYTES ABSOLUTE AUTO 1.8 x10^3/uL (1.0-4.8); LYMPHOCYTES PERCENT AUTO 19.9 % (25.0-50.0); MONOCYTES ABSOLUTE AUTO 0.8 x10^3/uL (0.0-0.8); MONOCYTES PERCENT AUTO 9.2 % (2.0-11.0); NEUTROPHILS ABSOLUTE AUTO 6.1 x10^3/uL (1.8-7.7); NEUTROPHILS PERCENT AUTO 67.7 % (50.0-80.0); PLATELET COUNT,PLT 211 x10^3/uL (130-400); RED BLOOD CELL COUNT 2.81 x10^6/uL (4.00-5.50); WHITE BLOOD CELL COUNT,WBC 8.9 x10^3/uL (4.0-10.0)
[2025-02-01 07:01] LABS: BLOOD UREA NITROGEN,BUN 31.0 mg/dL (7-18); CARBON DIOXIDE,CO2 29.0 mmol/L (21-32); CHLORIDE,CL 111.0 mmol/L (98-107); CREATININE 1.5 mg/dL (0.55-1.02); EST CRCL DRUG DOSING (CG) 28.84 mL/min; GLUCOSE RANDOM 127.0 mg/dL (70-99); POTASSIUM,K 4.7 mmol/L (3.5-5.1); SODIUM,NA 145.0 mmol/L (136-145)
[2025-02-01 07:02] LABS: ESTIMATED GFR 37.0 mL/min (>=60)
[2025-02-01 10:45] VITALS: BP 140/64; PULSE 66
== END 2025-02-01 10:45 | disposition home or self-care (01) | DRG 871 ==
LOC: VM.ED 15:45 → VM.MS 19:22
PROVIDERS: ADMIT Internal Medicine; ATTEND Nurse Practitioner Family
PROC: 3E03329 Introduction of Other Anti-infective into Peripheral Vein, Percutaneous Approach (ICD-10-PCS; principal; 2025-01-29)
PROC: 30233N1 Transfusion of Nonautologous Red Blood Cells into Peripheral Vein, Percutaneous Approach (ICD-10-PCS; 2025-01-29)
DX: A41.9 Sepsis, unspecified organism (principal); J18.9 Pneumonia, unspecified organism; J44.0 Chronic obstructive pulmonary disease with (acute) lower respiratory infection; D62 Acute posthemorrhagic anemia; N17.9 Acute kidney failure, unspecified; I13.0 Hypertensive heart and chronic kidney disease with heart failure and stage 1 through stage 4 chronic kidney disease, or unspecified chronic kidney disease; L03.116 Cellulitis of left lower limb; I50.32 Chronic diastolic (congestive) heart failure; E78.00 Pure hypercholesterolemia, unspecified; G47.30 Sleep apnea, unspecified; M19.90 Unspecified osteoarthritis, unspecified site; M54.9 Dorsalgia, unspecified; E11.628 Type 2 diabetes mellitus with other skin complications; G89.29 Other chronic pain; E66.9 Obesity, unspecified; D64.9 Anemia, unspecified; M81.0 Age-related osteoporosis without current pathological fracture; E11.22 Type 2 diabetes mellitus with diabetic chronic kidney disease; F32.9 Major depressive disorder, single episode, unspecified; E87.5 Hyperkalemia; L89.309 Pressure ulcer of unspecified buttock, unspecified stage; N18.32 Chronic kidney disease, stage 3b; Z79.01 Long term (current) use of anticoagulants; Z98.890 Other specified postprocedural states; Z86.718 Personal history of other venous thrombosis and embolism; I50.9 Heart failure, unspecified; Z79.4 Long term (current) use of insulin; I11.0 Hypertensive heart disease with heart failure; Z68.34 Body mass index [BMI] 34.0-34.9, adult; E11.9 Type 2 diabetes mellitus without complications; Z79.52 Long term (current) use of systemic steroids; Z88.8 Allergy status to other drugs, medicaments and biological substances; Z79.899 Other long term (current) drug therapy; Z86.16 Personal history of COVID-19; Z90.49 Acquired absence of other specified parts of digestive tract; Z90.710 Acquired absence of both cervix and uterus
CPT/HCPCS: 36415; 71045; 80053; 81001; 83605; 83880; 85025; 87040 ×2; 93010; 96361; 96374; 99284; 99285; J0696; J7030; 36430; 80048; 82947; 83735; 85014; 85018; 86850; 86900; 86901; 86920; 86922; 93971-50; 94640; 94760; 97161-GP; 99223-GT; A9270-GY; J1815-GY; J2470; J7512; P9016; Q3014

== ENCOUNTER 2025-04-13 06:37 | Day surgery (SDC) | payer MEDICARE, OTHER ==
[2025-04-13] MEDS: Lactated Ringers 1,000 ML IV SCH (06:54)
[2025-04-13] MEDS ORDERED: Propofol 200 MG/20 ML SDV ONE (07:59)
[2025-04-13 08:50] VITALS: BP 135/59; PULSE 82
== END 2025-04-13 09:30 | disposition home or self-care (01) ==
LOC: VM.SDS 06:37
PROVIDERS: ATTEND Student in an Organized Health Care Education/Training Program
DX: Z12.11 Encounter for screening for malignant neoplasm of colon (principal); D12.3 Benign neoplasm of transverse colon; I13.0 Hypertensive heart and chronic kidney disease with heart failure and stage 1 through stage 4 chronic kidney disease, or unspecified chronic kidney disease; I50.9 Heart failure, unspecified; E11.22 Type 2 diabetes mellitus with diabetic chronic kidney disease; N18.30 Chronic kidney disease, stage 3 unspecified; E66.9 Obesity, unspecified; E78.00 Pure hypercholesterolemia, unspecified; Z79.4 Long term (current) use of insulin; Z88.8 Allergy status to other drugs, medicaments and biological substances; Z79.899 Other long term (current) drug therapy; Z87.891 Personal history of nicotine dependence; Z86.0101 Personal history of adenomatous and serrated colon polyps
CPT/HCPCS: 45380; 82947; J2704; J7120; 00811; 88305; 99100

== ENCOUNTER 2025-05-04 15:09 | Emergency (ER) | payer MEDICARE, OTHER ==
[2025-05-04 15:46] LABS: BASOPHILS ABSOLUTE AUTO 0.0 x10^3/uL (0.0-0.2); BASOPHILS PERCENT AUTO 0.2 % (0.2-1.2); EOSINOPHILS ABSOLUTE AUTO 0.0 x10^3/uL (0.0-0.5); EOSINOPHILS PERCENT AUTO 0.3 % (0.0-4.0); IMMATURE GRAN ABSOLUTE AUTO 0.08 x10^3/uL (0.00-0.07); IMMATURE GRAN PERCENT AUTO 0.60 % (0.00-0.43); LYMPHOCYTES ABSOLUTE AUTO 1.1 x10^3/uL (1.0-4.8); LYMPHOCYTES PERCENT AUTO 8.4 % (25.0-50.0); MONOCYTES ABSOLUTE AUTO 0.8 x10^3/uL (0.0-0.8); MONOCYTES PERCENT AUTO 5.9 % (2.0-11.0); NEUTROPHILS ABSOLUTE AUTO 11.5 x10^3/uL (1.8-7.7); NEUTROPHILS PERCENT AUTO 84.6 % (50.0-80.0); PLATELET COUNT,PLT 211 x10^3/uL (130-400); RED BLOOD CELL COUNT 4.29 x10^6/uL (4.00-5.50); WHITE BLOOD CELL COUNT,WBC 13.6 x10^3/uL (4.0-10.0)
[2025-05-04 16:06] LABS: A/G RATIO 0.94; ALANINE AMINOTRANSFERASE,ALT 19 U/L (14-59); ASPARTATE AMNIOTRANSFERASE,AST 13 U/L (15-37); BILIRUBIN TOTAL 0.3 mg/dL (0.2-1.0); BLOOD UREA NITROGEN,BUN 31 mg/dL (7-18); CARBON DIOXIDE,CO2 37 mmol/L (21-32); CHLORIDE,CL 106 mmol/L (98-107); CREATININE 1.4 mg/dL (0.55-1.02); ESTIMATED GFR 40 mL/min (>=60); GLUCOSE RANDOM 125 mg/dL (70-99); POTASSIUM,K 4.6 mmol/L (3.5-5.1); PROTEIN TOTAL,TP 7.0 g/dL (6.4-8.2); SODIUM,NA 148 mmol/L (136-145)
[2025-05-04] MEDS ORDERED: Sodium Chloride 0.9% 10 ML Syringe FLUSH PRN (16:07)
[2025-05-04] MEDS: Iopamidol 755 Mg/ML 100 ML Bottle IVPUSH ONE (16:30)
[2025-05-04 20:22] VITALS: BP 143/60; PULSE 75
== END 2025-05-04 19:30 | disposition home or self-care (01) ==
LOC: VM.ED 15:09
DX: I82.502 Chronic embolism and thrombosis of unspecified deep veins of left lower extremity (principal); R06.02 Shortness of breath; I11.0 Hypertensive heart disease with heart failure; I50.9 Heart failure, unspecified; E78.00 Pure hypercholesterolemia, unspecified; J44.9 Chronic obstructive pulmonary disease, unspecified; E11.9 Type 2 diabetes mellitus without complications; Z88.8 Allergy status to other drugs, medicaments and biological substances; Z79.899 Other long term (current) drug therapy; Z90.49 Acquired absence of other specified parts of digestive tract; Z86.16 Personal history of COVID-19; Z87.891 Personal history of nicotine dependence
CPT/HCPCS: 36415; 80053; 85025; 85379; 99285; Q9967; 71275; 99284